=== PATIENT | female | born 1935 | race African-American/Black ===

== ENCOUNTER 2017-01-06 13:04 | Emergency (ER) | payer MEDICARE, OTHER ==
[~2017-01-06] VITALS: Ht 167.6 cm; Wt 125.0 kg
[~2017-01-06 13:04] MED LIST: HYDR10TA16 PO; IRON27TA PO; PRED5 PO; SERT25TA83 PO; THEO300T31 PO
[2017-01-06 13:10] VITALS: BP 113/59; PULSE 95; RESP 17; TEMP 97.8; O2SAT 97
[2017-01-06 13:13] VITALS: O2SAT 99
[2017-01-06] MEDS ORDERED: SODIUM CHLORIDE 0.9% FLUSH 10 ML FLUSH IVF PRN (13:15)
[2017-01-06] MEDS ORDERED: PROM12.54 PO (13:20)
[2017-01-06] MEDS ORDERED: PRED1TAB72 SL (13:20)
[2017-01-06] MEDS ORDERED: SERT25TA83 PO (13:20)
[2017-01-06] MEDS ORDERED: GLUC1CAP14 PO (13:20)
[2017-01-06] MEDS ORDERED: THEO300T30 PO (13:20)
[2017-01-06] MEDS ORDERED: OXYC1TAB63 PO (13:20)
[2017-01-06] MEDS ORDERED: ALPR0.5T3 PO (13:20)
[2017-01-06] MEDS ORDERED: FERR1TAB58 PO (13:20)
[2017-01-06] MEDS ORDERED: FURO1TAB62 PO (13:20)
--- NOTE | 2017-01-06 13:20 | PD ---
HPI Chief Complaint: Cardiac Complaint Time Seen by Provider: 13:15 Travel History International Travel<30 days: No Contact w/Intl Traveler<30days: No Traveled to known affect area: No History of Present Illness HPI 81-year-old female presents to the emergency department for evaluation of tachyarrhythmia that was found this morning by home health nurse. Apparently, her heart rate was found to be in the 170s by her home health nurse. According to EMS, she has been out of atrial fibrillation. The patient herself denies any complaints. She denies any history of atrial fibrillation or SVT. Patient denies any chest pain or shortness of breath. She denies any palpitations. No headache. No abdominal pain. No nausea, vomiting, diarrhea. She complains of chronic arthritic pain, but nothing else at this time. She does state that she takes iron pill, diuretic, and a "stress pill". According to chart, she is on theophylline for asthma as well. PFSH Past Medical History Medical History: Denies Significant Hx Diminished Hearing: No Past Surgical History Surgical History: No Previous Surgery Social History Alcohol Use: No Tobacco Use: No Substance Use: No Allergies-Medications (Allergen,Severity, Reaction): Coded Allergies: No Known Allergies (Unverified , 09/04/12) Reported Meds & Prescriptions Reported Meds & Active Scripts Active Reported Prednisolone Odt 10 Mg Tab 5 Mg SL DAILY Theophylline ER 12 HR (Theophylline) 300 Mg Tab 300 Mg PO DAILY Sertraline (Sertraline HCl) 25 Mg Tab 25 Mg PO DAILY Iron (Ferrous Sulfate) 50 Mg Tab 25 Mg PO DAILY Oxycodone-Acetaminophen 5-325 mg Tab 1 Tab PO BID PRN Glucosamine-Chondroitin 500-400 Mg Cap 1 Cap PO DAILY Alprazolam 0.5 Mg Tab 0.5 Mg PO BID PRN Promethazine (Promethazine HCl) 12.5 Mg Tab 12.5 Mg PO DAILY Lasix (Furosemide) 20 Mg Tab 20 Mg PO BID Review of Systems Except as stated in HPI: all other systems reviewed are Neg Physical Exam Narrative GENERAL: Well-nourished, well-developed elderly female patient, afebrile. SKIN: Focused skin assessment warm/dry. HEAD: Normocephalic. Atraumatic. EYES: No scleral icterus. No injection or drainage. NECK: Supple, trachea midline. No JVD or lymphadenopathy. CARDIOVASCULAR: Regular rate and rhythm without murmurs, gallops, or rubs. Bilateral radial and pedal pulses are 2+. During my physical exam, the patient did have 2 episodes where heart rate went into the 160s, that lasted approximately 30 seconds-1 minute and came back to a sinus rhythm, heart rate 80s. RESPIRATORY: Breath sounds equal bilaterally. No accessory muscle use. Lungs sounds are clear to auscultation GASTROINTESTINAL: Abdomen soft, non-tender, nondistended. MUSCULOSKELETAL: No cyanosis, or edema. BACK: Nontender without obvious deformity. No CVA tenderness. Data Data Last Documented VS Vital Signs Date Time Temp Pulse Resp B/P Pulse Ox O2 Delivery O2 Flow Rate FiO2 01/06/17 18:00 75 15 123/61 95 Room Air 01/06/17 13:10 97.8 Orders Electrocardiogram (01/06/17 13:14) Basic Metabolic Panel (Bmp) (01/06/17 13:14) Ckmb (Isoenzyme) Profile (01/06/17 13:14) Complete Blood Count With Diff (01/06/17 13:14) Magnesium (Mg) (01/06/17 13:14) Prothrombin Time / Inr (Pt) (01/06/17 13:14) Act Partial Throm Time (Ptt) (01/06/17 13:14) Troponin I (01/06/17 13:14) Chest, Single Ap (01/06/17 13:14) Ecg Monitoring (01/06/17 13:14) Bilateral Bp Monitoring (01/06/17 13:14) Iv Access Insert/Monitor (01/06/17 13:14) Oximetry (01/06/17 13:14) Oxygen Administration (01/06/17 13:14) Sodium Chloride 0.9% Flush (Ns Flush) (01/06/17 13:15) Diltiazem (Cardizem) (01/06/17 13:30) Theophylline (Aminophylline) (01/06/17 13:32) Potassium Chloride (Kcl) (01/06/17 14:15) Potassium Chlor 20 Meq Premix (Kcl 20 Me (01/06/17 14:15) Potassium Chloride (Kcl) (01/06/17 17:00) Potassium, Serum (K) (01/06/17 16:53) Labs Laboratory Tests Test 01/06/17 01/06/17 13:20 17:25 White Blood Count 9.7 TH/MM3 Red Blood Count 3.69 MIL/MM3 Hemoglobin 10.4 GM/DL Hematocrit 31.2 % Mean Corpuscular Volume 84.6 FL Mean Corpuscular Hemoglobin 28.3 PG Mean Corpuscular Hemoglobin 33.4 % Concent Red Cell Distribution Width 15.5 % Platelet Count 347 TH/MM3 Mean Platelet Volume 8.1 FL Neutrophils (%) (Auto) 71.9 % Lymphocytes (%) (Auto) 16.4 % Monocytes (%) (Auto) 9.3 % Eosinophils (%) (Auto) 1.4 % Basophils (%) (Auto) 1.0 % Neutrophils # (Auto) 7.0 TH/MM3 Lymphocytes # (Auto) 1.6 TH/MM3 Monocytes # (Auto) 0.9 TH/MM3 Eosinophils # (Auto) 0.1 TH/MM3 Basophils # (Auto) 0.1 TH/MM3 CBC Comment DIFF FINAL Differential Comment Prothrombin Time 11.4 SEC Prothromb Time International 1.0 RATIO Ratio Activated Partial 27.9 SEC Thromboplast Time Sodium Level 140 MEQ/L Potassium Level 2.8 MEQ/L 3.9 MEQ/L Chloride Level 103 MEQ/L Carbon Dioxide Level 27.1 MEQ/L Anion Gap 10 MEQ/L Blood Urea Nitrogen 19 MG/DL Creatinine 0.88 MG/DL Estimat Glomerular Filtration 75 ML/MIN Rate Random Glucose 116 MG/DL Calcium Level 8.1 MG/DL Magnesium Level 2.1 MG/DL Total Creatine Kinase 18 U/L Troponin I LESS THAN 0.02 NG/ML Theophylline Level LESS THAN 2.0 MCG/ML MDM Medical Decision Making Medical Screen Exam Complete: Yes Emergency Medical Condition: Yes Medical Record Reviewed: Yes Interpretation(s) Last Impressions Chest X-Ray 01/06/17 1314 Signed Impressions: Service Date/Time: Friday, January 06, 2017 13:39 - CONCLUSION: 1. No acute cardiopulmonary abnormality is identified. 2. Findings suggestive of chronic rotator cuff tears bilaterally. Joaquim Doyle MD Differential Diagnosis New-onset A. fib versus SVT versus ACS versus electrolyte abnormality Narrative Course 81-year-old elderly female presents to the emergency department via EMS for evaluation use onset atrial fibrillation. She has been in and out of atrial fibrillation. During my exam, she did have 2 episodes where her heart rate went into the 160s and quickly returned to sinus rhythm. Patient herself denies any complaints at this time. EKG, CBC, BMP, magnesium, CK, troponin, PTT , PTT/INR, chest x-ray ordered and pending. I did review EKG strip when HR elevated, it does appear to be SVT, not atrial fibrillation. No further episodes after the 2 that were witnessed during exam. EKG shows SR with supraventricular premature complexes, HR 87,no acute ST changes. CBC shows no acute abnormality. BMP shows hypokalemia at 2.8, no other acute abnormality. CK is 18. Troponin is less than 0.02. Magnesium is 2.1. Coags are unremarkable. Theophylline level is less than 2.0. Chest x- ray shows No acute cardiopulmonary abnormality is identified and findings suggestive of chronic rotator cuff tears bilaterally. Patient is given potassium 20meq IV and 40 meq PO. 2 hours later, patient was given another 20 meq potassium PO. Repeat potassium is 3.9 patient has not had any further tachyarrhythmias since first arriving in the emergency department. She has been watched for possibly 4 hours. The patient is stable for discharge home. She is to follow-up with her primary care physician. Patient verbalizes agreement. She is to return immediately for any worsening symptoms. The patient was discharged in stable condition with instructions, including return instructions and follow up instructions. Diagnosis Primary Impression: Hypokalemia Referrals: Primary Care Physician Patient Instructions: General Instructions, Hypokalemia (ED) Additional Instructions: Eat potassium rich foods. Follow up with your primary care physician. Return to the emergency department for any acute, worsening of symptoms. Med/Other Pt SpecificInfo: No Change to Meds Disposition: 01 DISCHARGE HOME Condition: Stable Nasra Cerrato JANNA January 06, 2017 13:20
[2017-01-06] MEDS ORDERED: DILTIAZEM HCL 60 MG TAB PO ONE (13:30)
[2017-01-06 13:37] LABS: BASOPHIL # 0.1 TH/MM3 (0-0.2); EOSINOPHIL # 0.1 TH/MM3 (0-0.4); EOSINOPHIL % 1.4 % (0.0-4.0); HEMATOCRIT 31.2 % (35.0-46.0); HEMO FLAGS DIFF FINAL; LYMPH % 16.4 % (9.0-44.0); LYMPHOCYTE # 1.6 TH/MM3 (1.0-4.8); MEAN CELL VOLUME 84.6 FL (80.0-100.0); MEAN CORPUSCULAR HEMOGLOBIN 28.3 PG (27.0-34.0); MEAN CORPUSCULAR HGB CONC 33.4 % (32.0-36.0); MONO % 9.3 % (0.0-8.0); NEUT % 71.9 % (16.0-70.0); PLATELET COUNT 347 TH/MM3 (150-450); RED BLOOD COUNT 3.69 MIL/MM3 (4.00-5.30); RED CELL DISTRIBUTION WIDTH 15.5 % (11.6-17.2); WHITE BLOOD COUNT 9.7 TH/MM3 (4.0-11.0)
[2017-01-06 13:44] LABS: APTT (PATIENT) 27.9 SEC (24.3-30.1); PROTHROMBIN TIME - PATIENT 11.4 SEC (9.8-11.6)
[2017-01-06 14:13] LABS: ANION GAP 10 MEQ/L (5-15); BICARBONATE 27.1 MEQ/L (21.0-32.0); BLOOD UREA NITROGEN 19 MG/DL (7-18); CHLORIDE 103 MEQ/L (98-107); GLOMERULAR FILTRATION RATE 75 ML/MIN (>89); MAGNESIUM 2.1 MG/DL (1.5-2.5); SODIUM (NA) 140 MEQ/L (136-145)
[2017-01-06 14:15] LABS: POTASSIUM 2.8 MEQ/L (3.5-5.1)
[2017-01-06] MEDS ORDERED: POTASSIUM CHLOR 20 MEQ PREMIX 100 ML IV ONE (14:15)
[2017-01-06] MEDS ORDERED: POTASSIUM CHLORIDE 20 MEQ CONTROLLED RELEASE TAB PO ONE ×2 (14:15→17:00)
[2017-01-06 14:22] LABS: CREATINE KINASE 18 U/L (26-192)
--- NOTE | 2017-01-06 14:29 | RADRPT ---
EXAM DATE/TIME: 01/06/2017 13:39 [facility] COMPARISON: No previous studies available for comparison. INDICATIONS : Rapid heart rate this morning, no chest pain or shortness of breath at this time MEDICAL HISTORY : None. SURGICAL HISTORY : None. ENCOUNTER: Initial ACUITY: 1 day PAIN SCORE: 0/10 LOCATION: Bilateral chest FINDINGS: Portable AP view of the chest demonstrates a normal-sized cardiac silhouette. No effusion, consolidat ion, or pneumothorax is visualized. The bones and soft tissues demonstrate no acute abnormality. Ther e is elevation of the humeral heads bilaterally. CONCLUSION: 1. No acute cardiopulmonary abnormality is identified. 2. Findings suggestive of chronic rotator cuff tears bilaterally. Joaquim Doyle MD on January 06, 2017 at 14:27 Board Certified Radiologist. This report was verified electronically.
[2017-01-06 18:00] VITALS: BP 123/61; PULSE 75; RESP 15; O2SAT 95
--- NOTE | 2017-01-07 15:18 | EKG ---
Date Performed: 01/06/2017 Time Performed: 13:33:36 PTAGE: 81 years EKG: Sinus rhythm WITH OCCASIONAL SUPRAVENTRICULAR PREMATURE COMPLEXES NONSPECIFIC T-WAVE ABNORMALITY BORDERLINE ECG C ompared to prior tracing no significant change PREVIOUS TRACING : 08/25/2012 09.36.42 DOCTOR: Gaston Rivera Interpretating Date/Time 01/09/2017 07:01:54
== END 2017-01-06 18:41 | disposition home or self-care (01) ==
LOC: NEPC 13:04
DX: E87.6 Hypokalemia (principal); Z87.09 Personal history of other diseases of the respiratory system; Z87.39 Personal history of other diseases of the musculoskeletal system and connective tissue
CPT/HCPCS: 71010; 80048; 80198; 82550; 83735; 84132; 84484; 85025; 85610; 85730; 93005; 96365; 96366; 99285; J3480

== ENCOUNTER 2017-06-09 13:07 | Inpatient (IN) | payer MEDICARE, OTHER ==
[~2017-06-09] VITALS: Ht 167.6 cm; Wt 91.3 kg
[2017-06-09] VITALS (8 sets, daily range): BP systolic 118–133; BP diastolic 61–80; PULSE 65–160; RESP 18–20; TEMP 97.2–98.1; O2SAT 97–100
[~2017-06-09 13:07] MED LIST changes: +ALPR0.5T3 PO; +FERR1TAB58 PO; +FURO1TAB62 PO; +GLUC1CAP14 PO; -HYDR10TA16 PO; -IRON27TA PO; +OXYC1TAB63 PO; +PRED1TAB72 SL; -PRED5 PO; +PROM12.54 PO; +THEO300T30 PO; -THEO300T31 PO
[2017-06-09] MEDS ORDERED: DILTIAZEM HCL 25 MG/5 ML VIAL IV ONE ×2 (14:00)
[2017-06-09] MEDS ORDERED: SODIUM CHLORID 0.9% 500 ML INJ 500 ML IV ONE (14:00)
[2017-06-09] MEDS ORDERED: SODIUM CHLORIDE 0.9% FLUSH 10 ML FLUSH IVF PRN (14:00)
[2017-06-09 14:14] LABS: AUTOMATED NEUTROPHIL # 4.7 TH/MM3 (1.8-7.7); BASOPHIL % 0.5 % (0.0-2.0); EOSINOPHIL # 0.3 TH/MM3 (0-0.4); EOSINOPHIL % 4.7 % (0.0-4.0); HEMATOCRIT 35.4 % (35.0-46.0); HEMO FLAGS DIFF FINAL; LYMPH % 20.9 % (9.0-44.0); LYMPHOCYTE # 1.5 TH/MM3 (1.0-4.8); MEAN CELL VOLUME 88.5 FL (80.0-100.0); MEAN CORPUSCULAR HEMOGLOBIN 28.9 PG (27.0-34.0); MEAN CORPUSCULAR HGB CONC 32.6 % (32.0-36.0); MONO % 10.6 % (0.0-8.0); NEUT % 63.3 % (16.0-70.0); PLATELET COUNT 321 TH/MM3 (150-450); RED CELL DISTRIBUTION WIDTH 15.3 % (11.6-17.2); WHITE BLOOD COUNT 7.4 TH/MM3 (4.0-11.0)
[2017-06-09 14:25] LABS: PROTHROMBIN TIME - PATIENT 10.8 SEC (9.8-11.6)
--- NOTE | 2017-06-09 14:25 | RADRPT ---
EXAM DATE/TIME: 06/09/2017 14:09 [facility] COMPARISON: CHEST SINGLE AP, January 06, 2017, 13:39. INDICATIONS : Palpitations. MEDICAL HISTORY : Asthma. SURGICAL HISTORY : None. ENCOUNTER: Initial ACUITY: 1 day PAIN SCORE: 0/10 LOCATION: Bilateral chest FINDINGS: A single view of the chest demonstrates the lungs to be symmetrically aerated without evidence of mas s, infiltrate or effusion. Mild elevation of the left hemidiaphragm. The cardiomediastinal contours are unremarkable. Remainder of exam is unchanged. CONCLUSION: 1. No acute abnormality or significant interval change. Kingston Fang MD on June 09, 2017 at 14:22 Board Certified Radiologist. This report was verified electronically.
[2017-06-09 14:32] LABS: ANION GAP 9 MEQ/L (5-15); BICARBONATE 24.7 MEQ/L (21.0-32.0); BLOOD UREA NITROGEN 25 MG/DL (7-18); CHLORIDE 102 MEQ/L (98-107); GLOMERULAR FILTRATION RATE 50 ML/MIN (>89); MAGNESIUM 2.6 MG/DL (1.5-2.5); POTASSIUM 3.7 MEQ/L (3.5-5.1); SODIUM (NA) 136 MEQ/L (136-145)
[2017-06-09 14:36] LABS: CREATINE KINASE 18 U/L (26-192)
--- NOTE | 2017-06-09 15:23 | PD ---
HPI Chief Complaint: Cardiac Complaint Time Seen by Provider: 13:53 Travel History International Travel<30 days: No Contact w/Intl Traveler<30days: No Traveled to known affect area: No History of Present Illness HPI The patient is 81 years old. Today she was incidentally found to have a heart rate of 160. She has no chest pain. There is no complaint of palpitations shortness breath diaphoresis nausea vomiting dizziness. The patient has no history of atrial fibrillation. Patient reports experiencing a normal day this morning eating food normally getting up and walking around her [facility] as she normally would and even resting as per normal. No recent illness. PFSH Past Medical History Arthritis: Yes Asthma: Yes Anxiety: Yes Depression: Yes Cancer: No Diminished Hearing: No Musculoskeletal: Yes Psychiatric: Yes Respiratory: Yes Tetanus Vaccination: Unknown Influenza Vaccination: No Past Surgical History Eye Surgery: Yes (CATARACTS EXTRACT SIMON.) Other Surgery: Yes Social History Alcohol Use: No Tobacco Use: No Substance Use: No Allergies-Medications (Allergen,Severity, Reaction): Coded Allergies: No Known Allergies (Unverified , 06/09/17) Reported Meds & Prescriptions Reported Meds & Active Scripts Active Reported Prednisolone Odt 10 Mg Tab 5 Mg SL DAILY Theophylline ER 12 HR (Theophylline) 300 Mg Tab 300 Mg PO DAILY Sertraline (Sertraline HCl) 25 Mg Tab 25 Mg PO DAILY Oxycodone-Acetaminophen 5-325 mg Tab 1 Tab PO BID PRN Promethazine (Promethazine HCl) 12.5 Mg Tab 12.5 Mg PO DAILY Review of Systems Except as stated in HPI: all other systems reviewed are Neg General / Constitutional: No: Fever Cardiovascular: Positive: Tachycardia, No: Chest Pain or Discomfort, Palpitations, Irregular Rhythm, Diaphoresis Physical Exam Narrative GENERAL: Well-nourished well-developed 81-year-old female pleasant SKIN: Warm and dry. HEAD: Atraumatic. Normocephalic. EYES: Pupils equal and round. No scleral icterus. No injection or drainage. ENT: No nasal bleeding or discharge. Mucous membranes pink and moist. NECK: Trachea midline. No JVD. CARDIOVASCULAR: Tachycardia. Regular. RESPIRATORY: No accessory muscle use. Clear to auscultation. Breath sounds equal bilaterally. GASTROINTESTINAL: Abdomen soft, non-tender, nondistended. Hepatic and splenic margins not palpable. MUSCULOSKELETAL: Extremities without clubbing, cyanosis, or edema. No obvious deformities. NEUROLOGICAL: Awake and alert. No obvious cranial nerve deficits. Motor grossly within normal limits. Five out of 5 muscle strength in the arms and legs. Normal speech. PSYCHIATRIC: Appropriate mood and affect; insight and judgment normal. Data Data Last Documented VS Vital Signs Date Time Temp Pulse Resp B/P (MAP) Pulse Ox O2 Delivery O2 Flow Rate FiO2 06/09/17 14:21 78 18 99 Room Air 06/09/17 14:21 118/61 (80) 06/09/17 13:40 98.1 vital signs reviewed Orders Orders Electrocardiogram (06/09/17 13:53) Basic Metabolic Panel (Bmp) (06/09/17 13:53) Ckmb (Isoenzyme) Profile (06/09/17 13:53) Complete Blood Count With Diff (06/09/17 13:53) Magnesium (Mg) (06/09/17 13:53) Prothrombin Time / Inr (Pt) (06/09/17 13:53) Act Partial Throm Time (Ptt) (06/09/17 13:53) Troponin I (06/09/17 13:53) Chest, Single Ap (06/09/17 13:53) Ecg Monitoring (06/09/17 13:53) Iv Access Insert/Monitor (06/09/17 13:53) Oximetry (06/09/17 13:53) Oxygen Administration (06/09/17 13:53) Sodium Chloride 0.9% Flush (Ns Flush) (06/09/17 14:00) Sodium Chlorid 0.9% 500 Ml Inj (Ns 500 M (06/09/17 14:00) Diltiazem Inj (Cardizem Inj) (06/09/17 14:00) Diltiazem Inj (Cardizem Inj) (06/09/17 14:00) Admit Order (Ed Use Only) (06/09/17 15:03) Labs Laboratory Tests Test 06/09/17 14:05 White Blood Count 7.4 TH/MM3 Red Blood Count 4.00 MIL/MM3 Hemoglobin 11.5 GM/DL Hematocrit 35.4 % Mean Corpuscular Volume 88.5 FL Mean Corpuscular Hemoglobin 28.9 PG Mean Corpuscular Hemoglobin Concent 32.6 % Red Cell Distribution Width 15.3 % Platelet Count 321 TH/MM3 Mean Platelet Volume 8.2 FL Neutrophils (%) (Auto) 63.3 % Lymphocytes (%) (Auto) 20.9 % Monocytes (%) (Auto) 10.6 % Eosinophils (%) (Auto) 4.7 % Basophils (%) (Auto) 0.5 % Neutrophils # (Auto) 4.7 TH/MM3 Lymphocytes # (Auto) 1.5 TH/MM3 Monocytes # (Auto) 0.8 TH/MM3 Eosinophils # (Auto) 0.3 TH/MM3 Basophils # (Auto) 0.0 TH/MM3 CBC Comment DIFF FINAL Differential Comment Prothrombin Time 10.8 SEC Prothromb Time International Ratio 1.0 RATIO Activated Partial Thromboplast Time 26.0 SEC Blood Urea Nitrogen 25 MG/DL Creatinine 1.25 MG/DL Random Glucose 126 MG/DL Calcium Level 9.0 MG/DL Magnesium Level 2.6 MG/DL Sodium Level 136 MEQ/L Potassium Level 3.7 MEQ/L Chloride Level 102 MEQ/L Carbon Dioxide Level 24.7 MEQ/L Anion Gap 9 MEQ/L Estimat Glomerular Filtration Rate 50 ML/MIN Total Creatine Kinase 18 U/L Troponin I LESS THAN 0.02 NG/ML MDM Medical Decision Making Medical Screen Exam Complete: Yes Emergency Medical Condition: Yes Medical Record Reviewed: Yes Differential Diagnosis NSTEMI, unstable angina, coronary vasospasm, PE, PTX, aortic dissection, pericarditis, myocarditis, endocarditis, PNA, esophageal disease, aneurysm, musculoskeletal etiologies, anxiety, cocaine/sympathomimetic abuse Narrative Course CBC & BMP Diagram 06/09/17 14:05 Calcium Level 9.0, Magnesium Level 2.6 H Troponin less than 0.02 EKG reveals atrial fibrillation with a rate of 160 Last 24 hours Impressions Chest X-Ray 06/09/17 1353 Signed Impressions: Service Date/Time: Friday, June 09, 2017 14:09 - CONCLUSION: 1. No acute abnormality or significant interval change. Kingston Fang MD Patient received 10 mg of diltiazem with good results. Patient's [id number] score is low risk approximately 3% risk of stroke annually. The patient will be admitted to the family medicine residency. d/w family medicine residents at 305pm Critical Care Narrative Aggregate critical care time was 35 minutes. Time to perform other separately billable procedures was not included in the critical care time. My time did not include minutes spent treating any other patients simultaneously or on activities that did not directly contribute to the patient's treatment. The services I provided to this patient were to treat and/or prevent clinically significant deterioration that could result in: Cardiopulmonary arrest I provided critical care services requiring my management, as noted below: Chart data review, documentation time, medication orders and management, vital sign assessments/reviewing monitor data, ordering and reviewing lab tests, ordering and interpreting/reviewing x-rays and diagnostic studies, care of the patient and discussion of the patient with the admitting physicians. Diagnosis Primary Impression: Atrial fibrillation with RVR Admitting Information Admitting Physician Requests: Observation Omar Kincaid MD Jun 09, 2017 15:23
--- NOTE | 2017-06-09 15:40 | HHI.HP ---
[facility] Service Family Medicine Primary Care Physician Anton Child M.D. Admission Diagnosis AFIB RVR Diagnoses: International Travel<30 Days: No Contact w/Intl Traveler<30days: No Known Affected Area: No History of Present Illness Patient is an 81 y/o F w/arthritis who presents from her [facility] with asymptomatic tachycardia. Patient states she was getting her vitals done in her [facility], and her heart rate was noted to increase to 170. However, she is asymptomatic: reports that today feels like just another day. States she took her usual medicines in the morning and ate her usual meal. Describes her schedule as a walk and physical therapy on Mondays and Wednesdays. No changes in lifestyle recently. Denies heart or liver conditions, no ID history. Endorses occasional palpitations but did not have any today. Denies lightheadedness, visual changes, or presyncope symptoms. Sees Doctor Ethan at [facility]. (Kelsey Romero MD R1) Review of Systems Constitutional: DENIES: Fever, Change in appetite Endocrine: DENIES: Polydipsia Eyes: DENIES: Blurred vision, Vision loss Ears, nose, mouth, throat: DENIES: Hearing loss, Throat pain Respiratory: DENIES: Cough, Shortness of breath Cardiovascular: DENIES: Chest pain, Palpitations Gastrointestinal: DENIES: Bloody stools, Constipation Genitourinary: DENIES: Urinary frequency, Urinary incontinence Musculoskeletal: COMPLAINS OF: Joint pain Integumentary: DENIES: Pruritus, Rash Immunologic/allergic: DENIES: Eczema Neurologic: DENIES: Headache, Localized weakness, Paresthesias Psychiatric: DENIES: Confusion (Kelsey Romero MD R1) Past Family Social History Past Medical History Arthritis - Takes oxycodone-acetaminophen Asthma - states she takes prednisone "to prevent it" Reports taking theophylline, describes it as "a water pill" Past Surgical History None (Kelsey Romero MD R1) Allergies: Coded Allergies: No Known Allergies (Unverified , 06/09/17) Family History Mom: age 75, breast cancer Dad: age 59, prostate cancer Social History No smoking hx No drinking, no drug use (Kelsey Romero MD R1) Physical Exam Vital Signs Vital Signs Date Time Temp Pulse Resp B/P (MAP) Pulse Ox O2 Delivery O2 Flow Rate FiO2 06/09/17 14:21 78 18 99 Room Air 06/09/17 14:21 82 18 118/61 (80) 98 Room Air 06/09/17 14:11 98 Room Air 06/09/17 14:11 79 18 118/61 (80) 98 Room Air 06/09/17 14:00 160 18 118/61 (80) 97 Room Air 06/09/17 13:40 98.1 157 20 119/80 (93) 97 Physical Exam GENERAL: This is a well-nourished, well-developed patient, in no apparent distress. SKIN: No rashes, ecchymoses or lesions. Cool and dry. HEAD: Atraumatic. Normocephalic. EYES: Pupils equal round and reactive. Extraocular motions intact. No scleral icterus. No injection or drainage. ENT: Throat without erythema, tonsillar hypertrophy or exudate. Uvula midline. Airway patent. NECK: Trachea midline. No JVD or lymphadenopathy. CARDIOVASCULAR: Regular rate and irregular rhythm without murmurs, gallops, or rubs. RESPIRATORY: Clear to auscultation. Breath sounds equal bilaterally. No wheezes , rales, or rhonchi. GASTROINTESTINAL: Abdomen soft, non-tender, nondistended. No hepato-splenomegaly , or palpable masses. No guarding. MUSCULOSKELETAL: Extremities without clubbing, cyanosis, or edema. Endorses calf tenderness. +Homans sign. NEUROLOGICAL: Awake and alert. Motor and sensory grossly within normal limits. Five out of 5 muscle strength in all muscle groups. Normal speech. Laboratory Laboratory Tests Test 06/09/17 14:05 White Blood Count 7.4 Red Blood Count 4.00 Hemoglobin 11.5 Hematocrit 35.4 Mean Corpuscular Volume 88.5 Mean Corpuscular Hemoglobin 28.9 Mean Corpuscular Hemoglobin Concent 32.6 Red Cell Distribution Width 15.3 Platelet Count 321 Mean Platelet Volume 8.2 Neutrophils (%) (Auto) 63.3 Lymphocytes (%) (Auto) 20.9 Monocytes (%) (Auto) 10.6 Eosinophils (%) (Auto) 4.7 Basophils (%) (Auto) 0.5 Neutrophils # (Auto) 4.7 Lymphocytes # (Auto) 1.5 Monocytes # (Auto) 0.8 Eosinophils # (Auto) 0.3 Basophils # (Auto) 0.0 CBC Comment DIFF FINAL Differential Comment Prothrombin Time 10.8 Prothromb Time International Ratio 1.0 Activated Partial Thromboplast Time 26.0 Blood Urea Nitrogen 25 Creatinine 1.25 Random Glucose 126 Calcium Level 9.0 Magnesium Level 2.6 Sodium Level 136 Potassium Level 3.7 Chloride Level 102 Carbon Dioxide Level 24.7 Anion Gap 9 Estimat Glomerular Filtration Rate 50 Total Creatine Kinase 18 Troponin I LESS THAN 0.02 (Kelsey Romero MD R1) Result Diagram: 06/09/17 1405 06/09/17 1405 Imaging Last 24 hours Impressions Chest X-Ray 06/09/17 1353 Signed Impressions: Service Date/Time: Friday, June 09, 2017 14:09 - CONCLUSION: 1. No acute abnormality or significant interval change. Kingston Fang MD (Kelsey Romero MD R1) Caprini VTE Risk Assessment Caprini VTE Risk Assessment: Mod/High Risk (score >= 2) Caprini Risk Assessment Model Point Value = 1 Point Value = 2 Point Value = 3 Point Value = 5 Age 41-60 Minor surgery BMI > 25 kg/m2 Swollen legs Varicose veins or History of unexplained or recurrent spontaneous Oral contraceptives or hormone replacement Sepsis (< 1 month) Serious lung disease, including pneumonia (< 1 month) Abnormal pulmonary function Acute myocardial infarction Congestive heart failure (< 1 month) History of inflammatory bowel disease Medical patient at bed rest Age 61-74 Arthroscopic surgery Major open surgery (> 45 min) Laparoscopic surgery (> 45 min) Malignancy Confined to bed (> 72 hours) Immobilizing plaster cast Central venous access Age >= 75 History of VTE Family history of VTE Factor V Leiden Prothrombin [id number] Lupus anticoagulant Anticardiolipin antibodies Elevated serum homocysteine Heparin-induced thrombocytopenia Other congenital or acquired thrombophilia Stroke (< 1 month) Elective arthroplasty Hip, pelvis, or leg fracture Acute spinal cord injury (< 1 month) Prophylaxis Regimen Total Risk Factor Score Risk Level Prophylaxis Regimen 0-1 Low Early ambulation 2 Moderate Order ONE of the following: *Sequential Compression Device (SCD) *Heparin 5000 units SQ BID 3-4 Higher Order ONE of the following medications: *Heparin 5000 units SQ TID *Enoxaparin/Lovenox 40 mg SQ daily (WT < 150 kg, CrCl > 30 mL/min) *Enoxaparin/Lovenox 30 mg SQ daily (WT < 150 kg, CrCl > 10-29 mL/min) *Enoxaparin/Lovenox 30 mg SQ BID (WT < 150 kg, CrCl > 30 mL/min) AND/OR *Sequential Compression Device (SCD) 5 or more Highest Order ONE of the following medications: *Heparin 5000 units SQ TID (Preferred with Epidurals) *Enoxaparin/Lovenox 40 mg SQ daily (WT < 150 kg, CrCl > 30 mL/min) *Enoxaparin/Lovenox 30 mg SQ daily (WT < 150 kg, CrCl > 10-29 mL/min) *Enoxaparin/Lovenox 30 mg SQ BID (WT < 150 kg, CrCl > 30 mL/min) AND *Sequential Compression Device (SCD) (Kelsey Romero MD R1) Assessment and Plan Assessment and Plan Patient is an 81 y/o F w/hx of arthritis presenting with Afib w/RVR. CHADSVASC score of 3, HASBLED of 1. Plan for ACS r/o and introducing anticoagulation, will defer to cardiology. Code Status FULL Discussed Condition With Dr. Baker (Kelsey Romero MD R1) Attending Attestation THIS CASE WAS DISCUSSED WITH THE RESIDENT PHYSICIANS. I HAVE REVIEWED THE RECORD AND AGREE WITH THE ABOVE NOTE AND PLAN OF CARE WAS DISCUSSED. I HAVE AUTHORIZED THE ORDER FOR ADMISSION TO AN IN-PATIENT STATUS. (Roberta Yoo MD) Problem List: (1) Atrial fibrillation with RVR ICD Codes: I48.91 - Unspecified atrial fibrillation Status: Acute Plan: New onset, seen on initial EKG. Tachy at 160 on admission, down to 77 with diltiazem x1. CHADSVASC of 3, plan to introduce anticoagulation -Diltiazem 120 PO daily starting tomorrow - cardio consulted -order echo 2D to assess for valvular disease/thrombus, TSH/T4, U/A - Heparin for DVT prophy (2) ADEBAYO (acute kidney injury) ICD Codes: N17.9 - Acute kidney failure, unspecified Status: Acute Plan: BUN/Cr = 25/1.25 on admission. Cr of .88 appears to be baseline. -IVF 130 mls/hr - monitor I/O (3) Bilateral calf pain ICD Codes: M79.661 - Pain in right lower leg; M79.662 - Pain in left lower leg Plan: New onset afib, bilateral calf pain -Order bilateral LE dopplers (4) Arthritis ICD Codes: M19.90 - Unspecified osteoarthritis, unspecified site Status: Chronic Plan: Takes oxycodone-acetaminophen 5-325 BID PRN for pain Will order norco PRN for pain 3-5 (5) History of asthma ICD Codes: Z87.09 - Personal history of other diseases of the respiratory system Status: Chronic Plan: albuterol inhaler PRN (6) FEN Plan: Fluids: IVF 130 mls/hr Electrolytes: none, as needed supp Nutrition: Heart healthy diet DVT prophy: Heparin GI prophy: none indicated (Kelsey Romero MD R1) Physician Certification 2 Midnight Certification Type: Admission for Inpatient Services Order for Inpatient Services The services are ordered in accordance with Medicare regulations or non- Medicare payer requirements, as applicable. In the case of services not specified as inpatient-only, they are appropriately provided as inpatient services in accordance with the 2-midnight benchmark. Estimated LOS (days): 2 2 days is the estimated time the patient will need to remain in the hospital, assuming treatment plan goals are met and no additional complications. Post-Hospital Plan: [facility] (Kelsey Romero MD R1) 2 Midnight Certification Type: Admission for Inpatient Services Post-Hospital Plan: [facility] (Roberta Yoo MD) Kelsey Romero MD R1 Jun 09, 2017 15:40 Roberta Yoo MD Jun 10, 2017 13:08
[2017-06-09] MEDS ORDERED: SENNOSIDES 8.6 MG TAB PO PRN (16:00)
[2017-06-09] MEDS ORDERED: ACETAMINOPHEN/HYDROcodone 325 MG/5 MG TAB PO PRN (16:00)
[2017-06-09] MEDS ORDERED: NALOXONE HCL 0.4 MG/ML AMP IV PUSH PRN (16:00)
[2017-06-09] MEDS ORDERED: BISACODYL 10 MG SUPP RECTAL PRN (16:00)
[2017-06-09] MEDS ORDERED: MAGNESIUM HYDROXIDE SUSP 30 ML CUP PO PRN (16:00)
[2017-06-09] MEDS ORDERED: LACTULOSE SYRUP 20 GM/30 ML CUP PO PRN (16:00)
[2017-06-09] MEDS: SODIUM CHLOR 0.9% 1000 ML INJ 1,000 ML IV SCH ×2 (16:18→22:57)
[2017-06-09 17:23] LABS: FREE T4 1.24 NG/DL (0.76-1.46)
[2017-06-09] MEDS ORDERED: HEPARIN SODIUM - SQ 10,000 UNITS/ML VIAL SQ SCH (18:00)
--- NOTE | 2017-06-09 18:05 | RADRPT ---
EXAM DATE/TIME: 06/09/2017 17:28 [facility] COMPARISON: No previous studies available for comparison. INDICATIONS : Bilateral leg pain. MEDICAL HISTORY : Arthritis. Asthma. Depression. Anxiety. SURGICAL HISTORY : Bilateral cataract surgery. ENCOUNTER: Initial ACUITY: 1 day PAIN SCORE: 2/10 LOCATION: Bilateral legs. TECHNIQUE: Venous ultrasound of the left and right leg was performed from the inguinal ligament to the proximal calf. Real-time, color Doppler and spectral tracing, compression and augmentation techniques were us ed. FINDINGS: RIGHT LEG: There is normal compressibility of the deep venous system from the inguinal region to the proximal ca lf. No echogenic clot is seen in the lumen of the common femoral, femoral, popliteal, and posterior tibial veins. There is a normal response of the venous system to proximal and distal augmentation an d respiration. LEFT LEG: There is normal compressibility of the deep venous system from the inguinal region to the proximal ca lf. No echogenic clot is seen in the lumen of the common femoral, femoral, popliteal, and posterior tibial veins. There is a normal response of the venous system to proximal and distal augmentation an d respiration. CONCLUSION: The study is negative for deep venous thrombosis bilateral lower extremity. Osmel Cantu MD on June 09, 2017 at 18:03 Board Certified Radiologist. This report was verified electronically.
[2017-06-09] MEDS: DOCUSATE SODIUM 50 MG/SENNA 8.6 MG TAB PO SCH (20:35)
[2017-06-09] MEDS: METOPROLOL TARTRATE 25 MG TAB PO SCH (20:35)
[2017-06-10] VITALS: BP 127/58; PULSE 58; RESP 16; TEMP 98; O2SAT 97
[2017-06-10 04:00] VITALS: BP 117/56; PULSE 58; RESP 20; TEMP 99; O2SAT 99
[2017-06-10] MEDS: SODIUM CHLOR 0.9% 1000 ML INJ 1,000 ML IV SCH ×2 (06:22→15:05)
--- NOTE | 2017-06-10 06:54 | MB ---
cc: DONTRELL ZENDEJAS DO DATE OF CONSULTATION 06/09/2017 REASON FOR CONSULTATION Arrhythmia HISTORY OF PRESENT ILLNESS Constance Posada is a pleasant 81-year-old female who presented to [facility] emergency room as a recommendation because her heart rate was noted to be greater than 150 at her assisted living facility. Apparently the patient was asymptomatic but her heart rate was noted to be around 170 and so they recommended she come to the emergency room. Upon presentation here, she had an EKG done which they felt was possibly atrial fibrillation and then she had an episode where her heart rate increased to 160 beats per minute. In talking to her about these episodes, she states that she has been totally asymptomatic with no chest pain, shortness of breath or palpitations. In seeing her, she is currently hemodynamically and electrically stable. PAST MEDICAL HISTORY 1. Arthritis 2. Asthma PAST SURGICAL HISTORY Denies ALLERGIES NO KNOWN DRUG ALLERGIES. MEDICATIONS 1. Promethazine 12.5 mg daily 2. Oxycodone/acetaminophen 5/325 b.i.d. as needed for pain. 3. Zoloft 25 mg daily 4. Prednisone 5 mg daily 5. Theophylline 300 mg daily FAMILY HISTORY Mother passed at the age of 75 from breast cancer. Father at the age of 59 from prostate cancer. SOCIAL HISTORY Denies smoking, alcohol or drug abuse. REVIEW OF SYSTEMS 14-systems were reviewed including osteopathic pertinent positives and negatives above otherwise negative. PHYSICAL EXAMINATION VITAL SIGNS: Temperature 98.1, heart rate 74, blood pressure 118/61, respirations 18, pulse ox 100% on room air. GENERAL: The patient appears well in no acute distress, alert awake and oriented x3. HEAD, EYES, EARS, NOSE, AND THROAT: Extraocular muscles intact. Mucous membranes moist. NECK: Supple. No JVD at 45 degrees. No carotid bruits heard bilaterally. Carotid upstroke is brisk in nature. HEART: Regular rate and rhythm. Positive first and second heart sounds with no murmurs, gallops or rubs. LUNGS: Clear to auscultation bilaterally. No wheezes, rales or rhonchi. ABDOMEN: Soft, nontender, nondistended. No organomegaly noted. EXTREMITIES: Show no clubbing, cyanosis or edema. Femoral and distal pulses intact bilaterally. NEUROLOGIC: No focal deficits. OSTEOPATHIC: Mild lordosis. No kyphoscoliosis or paraspinal tender points. LABORATORY FINDINGS Hemoglobin 11.5, hematocrit 35.4, platelets 321. Potassium 3.7, BUN 25, creatinine 1.25, troponin 0.02, TSH 1.75. IMPRESSIONS 1. 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 2. EKG read as atrial fibrillation which is actually normal sinus rhythm with PAC's. 3. Asthma 4. Arthritis RECOMMENDATIONS 1. Ms. Posada does not appear to have any episodes of atrial fibrillation at all. Would not plan on anticoagulating her. 2. 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 We will attempt to place her on a beta rosalio at a low dose to try to keep this controlled. 3. EKG was read as atrial fibrillation and appears to be sinus rhythm with PAC's. 4. We will have to watch her on telemetry as we start beta rosalio therapy to make sure that she does not get to bradycardic. 5. We will check a 2-D echo to look at her overall left ventricular function, cardiac structure and possible valvopathies. 6. If echo is normal and she appears to have no other dysrhythmias, then she can most likely be discharged home tomorrow. 7. I did asked that she follow up for consideration of a rhythm analysis with either a Holter monitor or event monitor to further evaluate any dysrhythmia she has. 8. Further recommendations will be made based on the hospital course. Thank you for allowing me to see Constance Posada. If there are any questions, please do not hesitate to call. Dontrell Zendejas DO VGP/DJL /6:11 PM /6:43 AM
[2017-06-10 07:22] LABS: BASOPHIL % 0.2 % (0.0-2.0); EOSINOPHIL # 0.5 TH/MM3 (0-0.4); EOSINOPHIL % 5.3 % (0.0-4.0); HEMATOCRIT 30.6 % (35.0-46.0); HEMO FLAGS DIFF FINAL; LYMPH % 24.9 % (9.0-44.0); LYMPHOCYTE # 2.2 TH/MM3 (1.0-4.8); MEAN CELL VOLUME 88.1 FL (80.0-100.0); MEAN CORPUSCULAR HEMOGLOBIN 28.6 PG (27.0-34.0); MEAN CORPUSCULAR HGB CONC 32.4 % (32.0-36.0); MONO % 12.6 % (0.0-8.0); PLATELET COUNT 315 TH/MM3 (150-450); RED BLOOD COUNT 3.47 MIL/MM3 (4.00-5.30); RED CELL DISTRIBUTION WIDTH 15.2 % (11.6-17.2); WHITE BLOOD COUNT 8.7 TH/MM3 (4.0-11.0)
[2017-06-10 07:46] LABS: AST (GOT) 10 U/L (15-37); CHLORIDE 106 MEQ/L (98-107); GLOMERULAR FILTRATION RATE 70 ML/MIN (>89); POTASSIUM 3.8 MEQ/L (3.5-5.1); SODIUM (NA) 140 MEQ/L (136-145)
[2017-06-10 07:49] LABS: ALKALINE PHOSPHATASE 88 U/L (45-117); ALT (GPT) 12 U/L (10-53); ANION GAP 7 MEQ/L (5-15); BICARBONATE 27.1 MEQ/L (21.0-32.0); BLOOD UREA NITROGEN 19 MG/DL (7-18); TOTAL BILIRUBIN ADULT 0.3 MG/DL (0.2-1.0)
[2017-06-10 08:00] VITALS: PULSE 60
[2017-06-10 08:04] VITALS: BP 115/54; PULSE 65; RESP 17; TEMP 98; O2SAT 99
[2017-06-10] MEDS: METOPROLOL TARTRATE 25 MG TAB PO SCH (08:59)
[2017-06-10] MEDS: DOCUSATE SODIUM 50 MG/SENNA 8.6 MG TAB PO SCH (08:59)
[2017-06-10] MEDS ORDERED: DILTIAZEM-CD 120 MG CAP ER PO SCH (09:00)
--- NOTE | 2017-06-10 12:01 | ECHRPT ---
Indication: A Fib/flutter CONCLUSIONS Normal left ventricular size. moderate mitral valve regurgitation. No aortic valve stenosis. No aortic valve regurgitation. aortic valve sclerosis There is mild tricuspid valve regurgitation. The estimated pulmonary arterial pressure is 45.6 mmHg. BP: / HR: Rhythm: MEASUREMENTS (Male / Female) Normal Values Technical Quality:Good 2D ECHO LV Diastolic Diameter PLAX 4.3 cm 4.2 - 5.9 / 3.9 - 5.3 cm LV Systolic Diameter PLAX 3.1 cm IVS Diastolic Thickness 0.9 cm 0.6 - 1.0 / 0.6 - 0.9 cm LVPW Diastolic Thickness 1.4 cm 0.6 - 1.0 / 0.6 - 0.9 cm LV Relative Wall Thickness 0.5 RV Internal Dim ED PLAX 2.8 cm M-MODE Aortic Root Diameter MM 3.3 cm LA Systolic Diameter MM 3.5 cm LA Ao Ratio MM 1.1 DOPPLER LV E' Lateral Velocity 12.9 cm/s LV E' Septal Velocity 7.6 cm/s TR Peak Velocity 298.5 cm/s TR Peak Gradient 35.6 mmHg Right Atrial Pressure 10.0 mmHg Pulmonary Artery Systolic Pressu 45.6 mmHg Right Ventricular Systolic Press 45.6 mmHg FINDINGS LEFT VENTRICLE The left ventricular systolic function is normal with an estimated ejection fraction in the range of 60-65%. Normal left ventricular size. RIGHT VENTRICLE Normal right ventricular size and systolic function. LEFT ATRIUM The left atrial size is normal. RIGHT ATRIUM The right atrial size is normal. ATRIAL SEPTUM Normal atrial septal thickness without atrial level shunting by limited color doppler interrogation. AORTA The aortic root and proximal ascending aorta are normal in size on limited imaging. MITRAL VALVE Structurally normal mitral valve. moderate mitral valve regurgitation. AORTIC VALVE Trileaflet aortic valve. No aortic valve stenosis. No aortic valve regurgitation. TRICUSPID VALVE Structurally normal tricuspid valve. There is mild tricuspid valve regurgitation. The estimated pulmonary arterial pressure is 45.6 mmHg. PULMONARY VALVE No pulmonary valve regurgitation or stenosis. VESSELS The inferior vena cava is normal in size. PERICARDIUM No pericardial effusion. Dharmesh Guzman MD, FACC, [facility] [place] (Electronically Signed) Final Date:10 June 2017 12:00
[2017-06-10 12:03] VITALS: BP 101/76; PULSE 53; RESP 18; TEMP 97.8; O2SAT 99
[2017-06-10 13:09] VITALS: O2SAT 99
[2017-06-10] MEDS ORDERED: METO25TA3 PO (14:04)
--- NOTE | 2017-06-10 14:04 | HHI.DCPOC ---
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 Avoid second hand smoke Call the 24-hour hour crisis hotline for domestic abuse at Marquise Taylor MD, R3 Jun 10, 2017 14:04
--- NOTE | 2017-06-10 14:06 | HHI.FPPN ---
Objective Vitals Vital Signs Date Time Temp Pulse Resp B/P (MAP) Pulse Ox O2 Delivery O2 Flow Rate FiO2 06/10/17 13:09 99 06/10/17 12:03 97.8 53 18 101/76 (84) 99 06/10/17 09:00 Room Air 06/10/17 08:04 98.0 65 17 115/54 (74) 99 06/10/17 04:00 99.0 58 20 117/56 (76) 99 06/10/17 00:00 Room Air 06/10/17 00:00 98.0 58 16 127/58 (81) 97 06/09/17 20:00 Room Air 06/09/17 20:00 68 06/09/17 20:00 97.2 65 20 129/70 (89) 100 06/09/17 17:30 97.9 70 20 133/62 (85) 98 06/09/17 16:13 74 18 118/61 (80) 100 Room Air 06/09/17 16:09 98 21 06/09/17 14:21 78 18 99 Room Air 06/09/17 14:21 82 18 118/61 (80) 98 Room Air 06/09/17 14:11 98 Room Air 06/09/17 14:11 79 18 118/61 (80) 98 Room Air I/O 06/09/17 06/09/17 06/09/17 06/10/17 06/10/17 06/10/17 07:00 15:00 23:00 07:00 15:00 23:00 Intake Total 240 ml 240 ml Balance 240 ml 240 ml Intake Oral 240 ml 240 ml # Voids 0 1 # Bowel Movements 0 Result Diagram: 06/10/17 0545 06/10/17 0545 A/P Assessment and Plan Patient is an 81 y/o F w/hx of arthritis presenting with Afib w/RVR. CHADSVASC score of 3, HASBLED of 1. Plan for ACS r/o and introducing anticoagulation, will defer to cardiology. Problem List: (1) Atrial fibrillation with RVR ICD Codes: I48.91 - Unspecified atrial fibrillation Status: Acute Plan: New onset, seen on initial EKG. Tachy at 160 on admission, down to 77 with diltiazem x1. CHADSVASC of 3, plan to introduce anticoagulation -Diltiazem 120 PO daily starting tomorrow - cardio consulted -order echo 2D to assess for valvular disease/thrombus, TSH/T4, U/A - Heparin for DVT prophy (2) ADEBAYO (acute kidney injury) ICD Codes: N17.9 - Acute kidney failure, unspecified Status: Acute Plan: BUN/Cr = 25/1.25 on admission. Cr of .88 appears to be baseline. -IVF 130 mls/hr - monitor I/O (3) Bilateral calf pain ICD Codes: M79.661 - Pain in right lower leg; M79.662 - Pain in left lower leg Plan: New onset afib, bilateral calf pain -Order bilateral LE dopplers (4) Arthritis ICD Codes: M19.90 - Unspecified osteoarthritis, unspecified site Status: Chronic Plan: Takes oxycodone-acetaminophen 5-325 BID PRN for pain Will order norco PRN for pain 3-5 (5) History of asthma ICD Codes: Z87.09 - Personal history of other diseases of the respiratory system Status: Chronic Plan: albuterol inhaler PRN (6) FEN Plan: Fluids: IVF 130 mls/hr Electrolytes: none, as needed supp Nutrition: Heart healthy diet DVT prophy: Heparin GI prophy: none indicated Marquise Taylor MD, R3 Jun 10, 2017 14:06
--- NOTE | 2017-06-10 14:08 | HHI.FPPN ---
Problem Problem List: (1) Tachycardia Subjective Subjective 81 year old woman that was noted to have elevated heart rate during routine vital assessement at her [facility] to 170 was sent to the ED for evaluation and was admitted for possible AFIB with RVR. Patient never had any symptoms regarding her fast heart rate, she has no known cardiac history. In the ED she did received Cardizem and her rate did normalize. Admission EKG was read as AFIB with RVR but on reveiw is likely AVNRT. Now that her rate is slowed, repeat EKG looks like sinus with PACs Patient was observed overnight with no events. She continues to be asymptomatic and cardiology has evaluated the patient as well. She denies palpitations, chest pain, SOB, GUPTA. Review of Systems negative Past Family Social History Past Medical History Arthritis Asthma Past Surgical History None Allergies: Coded Allergies: No Known Allergies (Unverified , 06/09/17) Family History Mom: age 75, breast cancer Dad: age 59, prostate cancer Social History No smoking hx No drinking, no drug use Lives in [facility] Objective Objective Last Impressions Chest X-Ray 06/09/17 1353 Signed Impressions: Service Date/Time: Friday, June 09, 2017 14:09 - CONCLUSION: 1. No acute abnormality or significant interval change. Kingston Fang MD Lower Extremity Ultrasound 06/09/17 0000 Signed Impressions: Service Date/Time: Friday, June 09, 2017 17:28 - CONCLUSION: The study is negative for deep venous thrombosis bilateral lower extremity. Osmel Cantu MD Laboratory Tests - Abnormals Test 06/09/17 14:05 06/10/17 05:45 Hemoglobin 11.5 GM/DL 9.9 GM/DL Monocytes (%) (Auto) 10.6 % 12.6 % Eosinophils (%) (Auto) 4.7 % 5.3 % Blood Urea Nitrogen 25 MG/DL 19 MG/DL Creatinine 1.25 MG/DL Random Glucose 126 MG/DL Magnesium Level 2.6 MG/DL Estimat Glomerular Filtration Rate 50 ML/MIN 70 ML/MIN Total Creatine Kinase 18 U/L Troponin I LESS THAN 0.02 NG/ML Red Blood Count 3.47 MIL/MM3 Hematocrit 30.6 % Monocytes # (Auto) 1.1 TH/MM3 Eosinophils # (Auto) 0.5 TH/MM3 Albumin 2.5 GM/DL Calcium Level 8.4 MG/DL Aspartate Amino Transf (AST/SGOT) 10 U/L Vital Signs 06/09/17 06/09/17 06/09/17 06/09/17 14:00 14:11 14:11 14:21 Pulse 160 79 82 Resp 18 18 18 B/P (MAP) 118/61 (80) 118/61 (80) 118/61 (80) Pulse Ox 97 98 98 98 O2 Delivery Room Air Room Air Room Air Room Air 06/09/17 06/09/17 06/09/17 06/09/17 14:21 16:09 16:13 17:30 Temp 97.9 Pulse 78 74 70 Resp 18 18 20 B/P (MAP) 118/61 (80) 133/62 (85) Pulse Ox 99 98 100 98 O2 Delivery Room Air Room Air FiO2 21 06/09/17 06/09/17 06/09/17 06/10/17 20:00 20:00 20:00 00:00 Temp 97.2 98.0 Pulse 65 68 58 Resp 20 16 B/P (MAP) 129/70 (89) 127/58 (81) Pulse Ox 100 97 O2 Delivery Room Air 06/10/17 06/10/17 06/10/17 06/10/17 00:00 04:00 08:04 09:00 Temp 99.0 98.0 Pulse 58 65 Resp 20 17 B/P (MAP) 117/56 (76) 115/54 (74) Pulse Ox 99 99 O2 Delivery Room Air Room Air 06/10/17 06/10/17 12:03 13:09 Temp 97.8 Pulse 53 Resp 18 B/P (MAP) 101/76 (84) Pulse Ox 99 99 Physical exam O. CONSTITUTIONAL/GEN: normally nourished, in NAD. EYES: conjunctiva normal, PERRLA, EOMI. ENT: Mouth and pharynx normal. NECK: thyroid midline, carotids symmetrical. LUNGS: clear A-P, respiratory effort is normal. CARDIOVASCULAR: bradycardic, regular with occasional extra beats GI/ABD: soft without masses, without organomegaly. : no CVA tenderness NEURO: No focal deficits. Gait is normal SKIN: color normal, no rashes noted. HEME/LYMPH: no bruising, petechia or significant adenopathy MUSC: back is normal in appearance. Extremities are normal in appearance. PSYCH/MENTAL STATUS: Alert and oriented x 3. 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 Improved/ resolved with Cardizem, thought to be AVNRT. Echo result is still pending but other workup has been negative thus far. Plan dc today on cardizem if echo ok and she continues to be asymptomatic and does not have any further events. Close fu with cards for further investigation as an outpatient PLAN PLAN Patient seen and dw the resident team - Dr. Baker, Dr. Felder, Dr. Romero, Dr. Brandon Yoo,Roberta Herrmann MD Jun 10, 2017 14:08
--- NOTE | 2017-06-10 19:32 | PD.CARD.PN ---
Subjective Subjective Remarks Patient was seen earlier No events overnight Telemetry showing normal sinus rhythm Objective Medications Current Medications Sodium Chloride (NS Flush) 2 ml UNSCH PRN IVF FLUSH AFTER USING IV ACCESS; Start 06/09/17 at 14:00; Stop 06/10/17 at 16:36; Status DC Sodium Chloride 500 ml @ 500 mls/hr ONCE ONCE IV Last administered on 14:26; Start 06/09/17 at 14:00; Stop 06/09/17 at 14:59; Status DC Diltiazem HCl (Cardizem Inj) 10 mg ONCE ONCE IV Last administered on 14:26; Start 06/09/17 at 14:00; Stop 06/09/17 at 14:01; Status DC Diltiazem HCl (Cardizem Inj) 10 mg ONCE ONCE IV ; Start 06/09/17 at 14:00; Stop 06/09/17 at 14:01; Status DC Heparin Sodium (Porcine) (Heparin Inj) 5,000 units Q12H SQ Last administered on 06/10/17 06:15; Start 06/09/17 at 18:00; Stop 06/10/17 at 16:36; Status DC Naloxone HCl (Narcan Inj) 0.4 mg UNSCH PRN IV PUSH SEE LABEL COMMENTS; Start 06/09/17 at 16:00; Stop 06/10/17 at 16:36; Status DC Senna/Docusate Sodium (Jovita-Colace) 1 tab BID PO Last administered on 08:59; Start 06/09/17 at 21:00; Stop 06/10/17 at 16:36; Status DC Magnesium Hydroxide (Milk Of Magnesia Liq) 30 ml Q12H PRN PO Mild constipation ; Start 06/09/17 at 16:00; Stop 06/10/17 at 16:36; Status DC Sennosides (Senokot) 17.2 mg Q12H PRN PO Moderate constipation; Start at 16:00; Stop 06/10/17 at 16:36; Status DC Bisacodyl (Dulcolax Supp) 10 mg DAILY PRN RECTAL SEVERE CONSITIPATION; Start 06/09/17 at 16:00; Stop 06/10/17 at 16:36; Status DC Lactulose (Lactulose Liq) 30 ml DAILY PRN PO SEVERE CONSITIPATION; Start 06/09 at 16:00; Stop 06/10/17 at 16:36; Status DC Diltiazem HCl (Cardizem Cd) 120 mg DAILY PO ; Start 06/10/17 at 09:00; Stop at 09:00; Status DC Acetaminophen/ Hydrocodone Bitart (Henry 5-325 Mg) 1 tab Q4H PRN PO PAIN SCALE 3 TO 5; Start 06/09/17 at 16:00; Stop 06/10/17 at 16:36; Status DC Sodium Chloride 1,000 ml @ 130 mls/hr Q7H42M IV Last administered on 06:22; Start 06/09/17 at 16:18; Stop 06/10/17 at 16:36; Status DC Metoprolol Tartrate (Lopressor) 25 mg Q12HR PO Last administered on 06/10/17 08:59; Start 06/09/17 at 21:00; Stop 06/10/17 at 16:36; Status DC Vital Signs / I&O Vital Signs Date Time Temp Pulse Resp B/P (MAP) Pulse Ox O2 Delivery O2 Flow Rate FiO2 06/10/17 13:09 99 06/10/17 12:03 97.8 53 18 101/76 (84) 99 06/10/17 09:00 Room Air 06/10/17 08:04 98.0 65 17 115/54 (74) 99 06/10/17 08:00 60 06/10/17 04:00 99.0 58 20 117/56 (76) 99 06/10/17 00:00 Room Air 06/10/17 00:00 98.0 58 16 127/58 (81) 97 06/09/17 20:00 Room Air 06/09/17 20:00 68 06/09/17 20:00 97.2 65 20 129/70 (89) 100 I/O 06/09/17 06/09/17 06/09/17 06/10/17 06/10/17 06/10/17 07:00 15:00 23:00 07:00 15:00 23:00 Intake Total 240 ml 240 ml Balance 240 ml 240 ml Intake Oral 240 ml 240 ml # Voids 0 1 # Bowel Movements 0 Physical Exam GENERAL: NAD, AAOx3 SKIN: Warm and dry. HEAD: Atraumatic. Normocephalic. EYES: Pupils equal and round. No scleral icterus. No injection or drainage. ENT: No nasal bleeding or discharge. Mucous membranes pink and moist. NECK: Trachea midline. No JVD. CARDIOVASCULAR: Regular rate and rhythm. RESPIRATORY: No accessory muscle use. Clear to auscultation. Breath sounds equal bilaterally. GASTROINTESTINAL: Abdomen soft, non-tender, nondistended. Hepatic and splenic margins not palpable. MUSCULOSKELETAL: Extremities without clubbing, cyanosis, or edema. No obvious deformities. NEUROLOGICAL: Awake and alert. No obvious cranial nerve deficits. Motor grossly within normal limits. Five out of 5 muscle strength in the arms and legs. Normal speech. PSYCHIATRIC: Appropriate mood and affect; insight and judgment normal. Laboratory Laboratory Tests Test 06/10/17 05:45 White Blood Count 8.7 TH/MM3 Red Blood Count 3.47 MIL/MM3 Hemoglobin 9.9 GM/DL Hematocrit 30.6 % Mean Corpuscular Volume 88.1 FL Mean Corpuscular Hemoglobin 28.6 PG Mean Corpuscular Hemoglobin Concent 32.4 % Red Cell Distribution Width 15.2 % Platelet Count 315 TH/MM3 Mean Platelet Volume 8.4 FL Neutrophils (%) (Auto) 57.0 % Lymphocytes (%) (Auto) 24.9 % Monocytes (%) (Auto) 12.6 % Eosinophils (%) (Auto) 5.3 % Basophils (%) (Auto) 0.2 % Neutrophils # (Auto) 5.0 TH/MM3 Lymphocytes # (Auto) 2.2 TH/MM3 Monocytes # (Auto) 1.1 TH/MM3 Eosinophils # (Auto) 0.5 TH/MM3 Basophils # (Auto) 0.0 TH/MM3 CBC Comment DIFF FINAL Differential Comment Blood Urea Nitrogen 19 MG/DL Creatinine 0.93 MG/DL Random Glucose 74 MG/DL Total Protein 7.0 GM/DL Albumin 2.5 GM/DL Calcium Level 8.4 MG/DL Alkaline Phosphatase 88 U/L Aspartate Amino Transf (AST/SGOT) 10 U/L Alanine Aminotransferase (ALT/SGPT) 12 U/L Total Bilirubin 0.3 MG/DL Sodium Level 140 MEQ/L Potassium Level 3.8 MEQ/L Chloride Level 106 MEQ/L Carbon Dioxide Level 27.1 MEQ/L Anion Gap 7 MEQ/L Estimat Glomerular Filtration Rate 70 ML/MIN Troponin I 0.02 NG/ML Assessment and Plan Problem List: (1) Tachycardia ICD Codes: R00.0 - Tachycardia, unspecified (2) 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
--- NOTE | 2017-06-11 07:55 | EKG ---
Date Performed: 06/09/2017 Time Performed: 14:12:33 PTAGE: 81 years EKG: SINUS TACHYCARDIA BORDERLINE LEFT AXIS DEVIATION LOW QRS VOLTAGE IN PRECORDIAL LEADS MINIMA L VOLTAGE CRITERIA FOR LVH, CONSIDER NORMAL VARIANT NONSPECIFIC ST & T-WAVE ABNORMALITY ABNORMAL RHYT ECG Compared to PREVIOUS TRACING , sinus tachycardia is new. PREVIOUS TRACIN01/06/2017 13.33 DOCTOR: Dharmesh Guzman Interpretating Date/Time 06/11/2017 07:53:36
--- NOTE | 2017-06-11 07:55 | EKG ---
Date Performed: 06/09/2017 Time Performed: 14:15:44 PTAGE: 81 years EKG: NORMAL Sinus rhythm WTIH PACs LOW QRS VOLTAGE IN PRECORDIAL LEADS ABNORMAL RHYTHM ECG Compared to PREVIOUS TRACING , ST-T wave changes have resolved. PREVIOUS TRACIN06/09/2017 14.12 DOCTOR: Dharmesh Guzman Interpretating Date/Time 06/11/2017 07:54:10
== END 2017-06-10 16:36 | disposition home or self-care (01) | DRG 309 ==
LOC: NEPC 13:07 → NEDA 15:05 → OBSVTOIN 16:00 → N04A 17:51
PROVIDERS: ADMIT Family Medicine; ATTEND Family Medicine
DX: I47.1 Supraventricular tachycardia (principal); N17.9 Acute kidney failure, unspecified; F32.9 Major depressive disorder, single episode, unspecified; F41.9 Anxiety disorder, unspecified; J45.909 Unspecified asthma, uncomplicated; M19.90 Unspecified osteoarthritis, unspecified site; Z80.3 Family history of malignant neoplasm of breast
CPT/HCPCS: 71010; 80048; 80053; 82272; 82550; 83735; 84439; 84443; 84484; 85025; 85610; 85730; 93005; 93306; 93970; J1644; J7030; J7040

== ENCOUNTER 2017-06-12 12:48 | Inpatient (IN) | payer MEDICARE, OTHER ==
[2017-06-12] VITALS (7 sets, daily range): BP systolic 104–129; BP diastolic 55–78; PULSE 64–122; RESP 16–20; TEMP 97.5–98.2; O2SAT 96–99
[~2017-06-12] VITALS: Ht 167.6 cm; Wt 89.7 kg
[~2017-06-12 12:48] MED LIST changes: -ALPR0.5T3 PO; -FERR1TAB58 PO; -FURO1TAB62 PO; -GLUC1CAP14 PO; +METO25TA3 PO
[2017-06-12] MEDS ORDERED: SODIUM CHLORIDE 0.9% FLUSH 10 ML FLUSH IVF PRN (13:15)
[2017-06-12] MEDS ORDERED: METOPROLOL TARTRATE 25 MG TAB PO ONE ×2 (13:15→13:30)
[2017-06-12] MEDS ORDERED: PILL SPLITTER OTHER PRN (13:45)
[2017-06-12 13:50] LABS: AUTOMATED NEUTROPHIL # 3.3 TH/MM3 (1.8-7.7); BASOPHIL # 0.1 TH/MM3 (0-0.2); BASOPHIL % 0.6 % (0.0-2.0); EOSINOPHIL # 0.7 TH/MM3 (0-0.4); EOSINOPHIL % 8.2 % (0.0-4.0); HEMATOCRIT 29.3 % (35.0-46.0); HEMO FLAGS DIFF FINAL; LYMPH % 40.3 % (9.0-44.0); LYMPHOCYTE # 3.3 TH/MM3 (1.0-4.8); MEAN CORPUSCULAR HEMOGLOBIN 28.5 PG (27.0-34.0); MEAN CORPUSCULAR HGB CONC 32.1 % (32.0-36.0); MONO % 10.4 % (0.0-8.0); NEUT % 40.5 % (16.0-70.0); PLATELET COUNT 305 TH/MM3 (150-450); RED BLOOD COUNT 3.29 MIL/MM3 (4.00-5.30); RED CELL DISTRIBUTION WIDTH 15.4 % (11.6-17.2); WHITE BLOOD COUNT 8.1 TH/MM3 (4.0-11.0)
--- NOTE | 2017-06-12 14:04 | PD ---
HPI Chief Complaint: Cardiac Complaint Time Seen by Provider: 13:14 Travel History International Travel<30 days: No Contact w/Intl Traveler<30days: No Traveled to known affect area: No History of Present Illness HPI This is a 81-year-old female with a history of A. fib, who was just discharged 2 days ago after being admitted for paroxysmal atrial fibrillation. The patient states she was started on Lopressor 25 mg twice a day. She states the home health nurse came to her house and noted her heart rate to be in the 30s and 40s. They told her to stop her Lopressor. She states that today when they came by her heart rate was back in the 40s. When she arrives here she has a wide range of heart rate in the 40s to the 120s. She denies any chest pain, chest pressure. She denies any shortness of breath or dizziness. There are no other complaints time my examination. PFSH Past Medical History Arthritis: Yes Asthma: Yes Atrial Fibrillation: Yes Anxiety: Yes Depression: Yes Cancer: No Cardiovascular Problems: No Diminished Hearing: No Endocrine: No Genitourinary: No Immune Disorder: No Musculoskeletal: Yes Neurologic: No Psychiatric: Yes Reproductive: No Respiratory: Yes Past Surgical History Surgical History: No Previous Surgery Eye Surgery: Yes (CATARACTS EXTRACT SIMON.) Other Surgery: Yes Social History Alcohol Use: No Tobacco Use: No Substance Use: No Allergies-Medications (Allergen,Severity, Reaction): Coded Allergies: No Known Allergies (Unverified , 06/09/17) Reported Meds & Prescriptions Reported Meds & Active Scripts Active Metoprolol Tartrate 25 Mg Tab 25 Mg PO Q12HR Reported Prednisolone Odt 10 Mg Tab 5 Mg SL DAILY Theophylline ER 12 HR (Theophylline) 300 Mg Tab 300 Mg PO DAILY Sertraline (Sertraline HCl) 25 Mg Tab 25 Mg PO DAILY Oxycodone-Acetaminophen 5-325 mg Tab 1 Tab PO BID PRN Promethazine (Promethazine HCl) 12.5 Mg Tab 12.5 Mg PO DAILY Review of Systems Except as stated in HPI: all other systems reviewed are Neg General / Constitutional: No: Fever, Chills HENT: No: Headaches, Lightheadedness Cardiovascular: Positive: Palpitations, Irregular Rhythm, No: Chest Pain or Discomfort Respiratory: No: Cough, Shortness of Breath Gastrointestinal: No: Nausea, Vomiting Genitourinary: No: Frequency, Dysuria Musculoskeletal: No: Weakness, Pain Neurologic: No: Weakness, Dizziness Physical Exam Narrative GENERAL: Well developed well-nourished female in no acute respiratory distress. SKIN: Focused skin assessment warm/dry. HEAD: Atraumatic. Normocephalic. EYES: Pupils equal and round. No scleral icterus. No injection or drainage. ENT: No nasal bleeding or discharge. NECK: Trachea midline. Supple. CARDIOVASCULAR: Patient has an irregular heartbeat followed by a regular tachycardia. His heart rate goes from the low mid 40s to the 120s. RESPIRATORY: No accessory muscle use. Clear to auscultation. Breath sounds equal bilaterally. GASTROINTESTINAL: Abdomen soft, non-tender, nondistended. MUSCULOSKELETAL: No obvious deformities. No clubbing. No cyanosis. No edema. NEUROLOGICAL: Awake and alert. No obvious cranial nerve deficits. Motor grossly within normal limits. Normal speech. PSYCHIATRIC: Appropriate mood and affect; insight and judgment normal. Data Data Last Documented VS Vital Signs Date Time Temp Pulse Resp B/P (MAP) Pulse Ox O2 Delivery O2 Flow Rate FiO2 06/12/17 13:36 96 Room Air 06/12/17 12:58 83 18 06/12/17 12:53 97.5 120/75 (90) Orders Orders Basic Metabolic Panel (Bmp) (06/12/17 13:14) Ckmb (Isoenzyme) Profile (06/12/17 13:14) Complete Blood Count With Diff (06/12/17 13:14) Troponin I (06/12/17 13:14) Chest, Single Ap (06/12/17 13:14) Ecg Monitoring (06/12/17 13:14) Bilateral Bp Monitoring (06/12/17 13:14) Iv Access Insert/Monitor (06/12/17 13:14) Oximetry (06/12/17 13:14) Oxygen Administration (06/12/17 13:14) Sodium Chloride 0.9% Flush (Ns Flush) (06/12/17 13:15) Metoprolol Tartrate (Lopressor) (06/12/17 13:30) Admit To Inpatient (06/12/17 ) Code Status (06/12/17 15:06) Vital Signs (Adult) Q4H (06/12/17 15:06) Activity Oob With Assistance (06/12/17 15:06) Script Developer / Telemetry .CONTINUOUS (06/12/17 15:06) Intake + Output AVRIL.QSHIFT (06/12/17 15:06) Notify Dr: Other (06/12/17 15:06) Diet Heart Healthy (06/12/17 Dinner) Sodium Chloride 0.9% Flush (Ns Flush) (06/12/17 15:15) Sodium Chloride 0.9% Flush (Ns Flush) (06/12/17 21:00) Acetaminophen (Tylenol) (06/12/17 15:15) Ondansetron Inj (Zofran Inj) (06/12/17 15:15) Comprehensive Metabolic Panel (06/13/17 06:00) Complete Blood Count With Diff (06/13/17 06:00) Pt Request For Service (06/12/17 15:06) Case Management Consult (06/12/17 15:06) Naloxone Inj (Narcan Inj) (06/12/17 15:15) Docusate Sodium-Senna (Jovita-Colace) (06/12/17 21:00) Magnesium Hydroxide Liq (Milk Of Magnesi (06/12/17 15:15) Sennosides (Senokot) (06/12/17 15:15) Bisacodyl Supp (Dulcolax Supp) (06/12/17 15:15) Lactulose Liq (Lactulose Liq) (06/12/17 15:15) Inpatient Certification (06/12/17 ) Admit Order (Ed Use Only) (06/12/17 15:05) Labs Laboratory Tests Test 06/12/17 13:29 White Blood Count 8.1 TH/MM3 Red Blood Count 3.29 MIL/MM3 Hemoglobin 9.4 GM/DL Hematocrit 29.3 % Mean Corpuscular Volume 89.0 FL Mean Corpuscular Hemoglobin 28.5 PG Mean Corpuscular Hemoglobin Concent 32.1 % Red Cell Distribution Width 15.4 % Platelet Count 305 TH/MM3 Mean Platelet Volume 8.8 FL Neutrophils (%) (Auto) 40.5 % Lymphocytes (%) (Auto) 40.3 % Monocytes (%) (Auto) 10.4 % Eosinophils (%) (Auto) 8.2 % Basophils (%) (Auto) 0.6 % Neutrophils # (Auto) 3.3 TH/MM3 Lymphocytes # (Auto) 3.3 TH/MM3 Monocytes # (Auto) 0.9 TH/MM3 Eosinophils # (Auto) 0.7 TH/MM3 Basophils # (Auto) 0.1 TH/MM3 CBC Comment DIFF FINAL Differential Comment Blood Urea Nitrogen 14 MG/DL Creatinine 0.82 MG/DL Random Glucose 70 MG/DL Calcium Level 8.4 MG/DL Sodium Level 138 MEQ/L Potassium Level 4.3 MEQ/L Chloride Level 107 MEQ/L Carbon Dioxide Level 22.6 MEQ/L Anion Gap 8 MEQ/L Estimat Glomerular Filtration Rate 81 ML/MIN Total Creatine Kinase 68 U/L Troponin I LESS THAN 0.02 NG/ML MDM Medical Decision Making Medical Screen Exam Complete: Yes Emergency Medical Condition: Yes Differential Diagnosis Paroxysmal atrial fibrillation versus sinus tachycardia versus sinus bradycardia Narrative Course 81-year-old female presents with complaints of bradycardia. The patient was seen by her home health nurse and found to have a heart rate in the 40s. He was reportedly in the 30s yesterday. The patient here had sinus tachycardia and 120. She's been bounced around between the 40s and low 100s. Given this, I feel she should be admitted and have cardiology re-see her. The concern here is that the beta blockers that she was prescribed may be dropping her heart rate to 2 low. Diagnosis Primary Impression: Paroxysmal atrial fibrillation Additional Impression: Tachycardia Admitting Information Admitting Physician Requests: Observation Tenzin Carl MD Jun 12, 2017 14:04
[2017-06-12 14:31] LABS: ANION GAP 8 MEQ/L (5-15); BICARBONATE 22.6 MEQ/L (21.0-32.0); BLOOD UREA NITROGEN 14 MG/DL (7-18); CHLORIDE 107 MEQ/L (98-107); GLOMERULAR FILTRATION RATE 81 ML/MIN (>89); SODIUM (NA) 138 MEQ/L (136-145)
[2017-06-12 14:32] LABS: POTASSIUM 4.3 MEQ/L (3.5-5.1)
[2017-06-12 14:33] LABS: CREATINE KINASE 68 U/L (26-192)
--- NOTE | 2017-06-12 14:42 | RADRPT ---
EXAM DATE/TIME: 06/12/2017 13:50 [facility] COMPARISON: CHEST SINGLE AP, June 09, 2017, 14:09. INDICATIONS : Chest pain. MEDICAL HISTORY : Asthma. SURGICAL HISTORY : None. ENCOUNTER: Initial ACUITY: 1 week PAIN SCORE: 0/10 LOCATION: Bilateral chest FINDINGS: A single view of the chest demonstrates the lungs to be symmetrically aerated without evidence of mas s, infiltrate or effusion. The cardiomediastinal contours are stable with mild tortuosity of the adeola cending thoracic aorta. Stable elevation or eventration of the left hemidiaphragm. Osseous structur es are intact. CONCLUSION: The lungs are clear. Osmel Cantu MD on June 12, 2017 at 14:40 Board Certified Radiologist. This report was verified electronically.
[2017-06-12] MEDS ORDERED: SENNOSIDES 8.6 MG TAB PO PRN (15:15)
[2017-06-12] MEDS ORDERED: MAGNESIUM HYDROXIDE SUSP 30 ML CUP PO PRN (15:15)
[2017-06-12] MEDS ORDERED: LACTULOSE SYRUP 20 GM/30 ML CUP PO PRN (15:15)
[2017-06-12] MEDS ORDERED: ONDANSETRON HCL 4 MG/2 ML VIAL IVP PRN (15:15)
[2017-06-12] MEDS ORDERED: NALOXONE HCL 0.4 MG/ML AMP IV PUSH PRN (15:15)
[2017-06-12] MEDS ORDERED: BISACODYL 10 MG SUPP RECTAL PRN (15:15)
[2017-06-12] MEDS ORDERED: SODIUM CHLORIDE 0.9% FLUSH 10 ML FLUSH IV FLUSH PRN (15:15)
[2017-06-12] MEDS ORDERED: ACETAMINOPHEN 325 MG TAB PO PRN (15:15)
--- NOTE | 2017-06-12 15:26 | HHI.HP ---
[facility] Service Family Medicine Primary Care Physician Anton Child M.D. Admission Diagnosis paroxysmal atrial fibrillation, Diagnoses: International Travel<30 Days: No Contact w/Intl Traveler<30days: No History of Present Illness Patient is an 81 year old asymptomatic female with history of arthritis and asthma who presents for further workup of asymptomatic bradycardia. She is totally asymptomatic and was sent in due to abnormal vital signs during home health assessment. She is noted to have had bradycardia in the 30s range with reported tachycardia in the 120s as well. She is noted to be on metoprolol 25 mg twice daily with last dose yesterday due to home health nurse holding it due to bradycardia. ED evaluation is notable for labile heart rate ranging from 40s to 140s. She is asymptomatic throughout this range. She denies chest pain, shortness of breath, nausea, vomiting, diaphoresis, headache, blurry vision, lower extremity swelling, imbalance and dizziness. Of note, patient was evaluated and admitted for observation on 06/09 for the same reason. She was also asymptomatic then. She was discharged after unremarkable workup and cardiology was consulted at that time. Of note, she had sinus tachycardia in the 110s which resolved spontaneously during my evaluation. It is also notable that patient had sinus tachycardia in the ED which initially was initially to be treated with metoprolol but this was not administered. (Marissa Almonte MD R2) Review of Systems Constitutional: DENIES: Diaphoretic episodes, Fever, Chills, Dizziness, Change in appetite Eyes: DENIES: Blurred vision, Diplopia Ears, nose, mouth, throat: DENIES: Tinnitus, Hearing loss, Oral lesions, Running Nose Respiratory: DENIES: Cough, Wheezing, Shortness of breath Cardiovascular: DENIES: Chest pain, Palpitations, Lower Extremity Edema, Orthopnea Gastrointestinal: DENIES: Abdominal pain, Black stools, Bloody stools, Constipation, Diarrhea, Nausea, Vomiting Genitourinary: DENIES: Abnormal vaginal bleeding, Urinary frequency, Urgency, Dysuria Musculoskeletal: DENIES: Joint pain, Muscle aches Integumentary: DENIES: Pruritus, Rash Hematologic/lymphatic: DENIES: Bruising, Lymphadenopathy Neurologic: COMPLAINS OF: Poor Balance, DENIES: Headache Psychiatric: DENIES: Anxiety, Depression (Marissa Almonte MD R2) Past Family Social History Past Medical History Arthritis Abnormal heart rhythm 06/09 Past Surgical History None Reported Medications Reported Meds & Active Scripts Active Metoprolol Tartrate 25 Mg Tab 25 Mg PO Q12HR Reported -J-q-s-t-d-u-k-t-i-o-n-e- -O-d-t- -1-0- -M-g- -T-a-b- -5- -M-g- -S-L- -D-A-I-L-Y- Theophylline ER 12 HR (Theophylline) 300 Mg Tab 300 Mg PO DAILY -V-m-e-x-o-l-l-i-n-e- -(--W-t-l-b-j-l-l-i-n-e- -H-C-l--)- -2-5- -M-g- -T-a-b- -2-5- -M-g- -P-O- -D-A-I-L-Y- Oxycodone-Acetaminophen 5-325 mg Tab 1 Tab PO BID PRN -W-q-q-x-z-u-d-l-o-i-n-e- -(--E-v-c-e-s-g-j-x-a-i-n-e- -H-C-l--)- -1-2-.-5- -M-g- -T-a-b- -1-2-.-5- -M-g- -P-O- -D-A-I-L-Y- IRON PILL BID (Marissa Almonte MD R2) Allergies: Coded Allergies: No Known Allergies (Unverified , 06/09/17) Active Ordered Medications Last Impressions Chest X-Ray 06/12/17 1314 Signed Impressions: Service Date/Time: May 13:50 - CONCLUSION: The lungs are clear. Osmel Cantu MD Family History Mother: age 75 from breast cancer Father: age 59 from prostate cancer Daughter: from OR age 20s Sun: from throat and lung cancer Social History Lives independently Sons and daughters help take care of here at home Uses a walker for ambulation Denies alcohol, tobacco, illicit drug use Full code and understands that her next of kin (3 children) would make decisions for her Daughter 1: info not obtained Daughter 2: Jess Loaiza, Son: Alexey Juárez, (Marissa Almonte MD R2) Physical Exam Vital Signs Vital Signs Date Time Temp Pulse Resp B/P (MAP) Pulse Ox O2 Delivery O2 Flow Rate FiO2 06/12/17 13:36 96 Room Air 06/12/17 13:36 96 Room Air 06/12/17 12:58 83 18 98 Room Air 06/12/17 12:53 97.5 85 18 120/75 (90) 96 Physical Exam GENERAL: Well-nourished, well-developed elderly black female in no apparent distress. She is lying comfortably in bed. SKIN: Warm and dry. The lower extremities are notable for significant hyperpigmentation bilaterally with right leg worse than left, chronic, with noted skin thickening associated with hyperpigmentation. There is no pain or warmth over the areas of likely chronic venous insufficiency HEAD: Atraumatic. Normocephalic. EYES: PERRLA. EOMI. No scleral icterus. No injection or drainage. ENT: No nasal bleeding or discharge. Mucous membranes pink and moist. No lymphadenopathy cervically. Tympanic membranes bilaterally translucent, nonbulging, nonerythematous. NECK: Trachea midline. No JVD. CARDIOVASCULAR: Regular rate and rhythm. Rate 80s during physical exam. There are no murmurs, gallops, rubs. RESPIRATORY: No accessory muscle use. Clear to auscultation without wheezes or rhonchi. Breath sounds equal bilaterally. GASTROINTESTINAL: Abdomen soft, non-tender, nondistended. Hepatic and splenic margins not palpable. MUSCULOSKELETAL: Extremities without clubbing, cyanosis, or edema. No obvious deformities. NEUROLOGICAL: Awake and alert. Cranial nerves II through XII intact. Sensory function and lower extremities intact. Motor grossly within normal limits. Patient has full muscle strength in her lower extremities bilaterally. Normal speech. PSYCHIATRIC: Appropriate mood and affect; insight and judgment normal. Laboratory Laboratory Tests Test 06/12/17 13:29 White Blood Count 8.1 Red Blood Count 3.29 Hemoglobin 9.4 Hematocrit 29.3 Mean Corpuscular Volume 89.0 Mean Corpuscular Hemoglobin 28.5 Mean Corpuscular Hemoglobin Concent 32.1 Red Cell Distribution Width 15.4 Platelet Count 305 Mean Platelet Volume 8.8 Neutrophils (%) (Auto) 40.5 Lymphocytes (%) (Auto) 40.3 Monocytes (%) (Auto) 10.4 Eosinophils (%) (Auto) 8.2 Basophils (%) (Auto) 0.6 Neutrophils # (Auto) 3.3 Lymphocytes # (Auto) 3.3 Monocytes # (Auto) 0.9 Eosinophils # (Auto) 0.7 Basophils # (Auto) 0.1 CBC Comment DIFF FINAL Differential Comment Blood Urea Nitrogen 14 Creatinine 0.82 Random Glucose 70 Calcium Level 8.4 Sodium Level 138 Potassium Level 4.3 Chloride Level 107 Carbon Dioxide Level 22.6 Anion Gap 8 Estimat Glomerular Filtration Rate 81 Total Creatine Kinase 68 Troponin I LESS THAN 0.02 (Marissa Almonte MD R2) Result Diagram: 06/12/17 1329 06/12/17 1329 Imaging Last Impressions Chest X-Ray 06/12/17 1314 Signed Impressions: Service Date/Time: May 13:50 - CONCLUSION: The lungs are clear. Osmel Cantu MD (Marissa Almonte MD R2) Caprini VTE Risk Assessment Caprini VTE Risk Assessment: Mod/High Risk (score >= 2) Caprini Risk Assessment Model Point Value = 1 Point Value = 2 Point Value = 3 Point Value = 5 Age 41-60 Minor surgery BMI > 25 kg/m2 Swollen legs Varicose veins or History of unexplained or recurrent spontaneous Oral contraceptives or hormone replacement Sepsis (< 1 month) Serious lung disease, including pneumonia (< 1 month) Abnormal pulmonary function Acute myocardial infarction Congestive heart failure (< 1 month) History of inflammatory bowel disease Medical patient at bed rest Age 61-74 Arthroscopic surgery Major open surgery (> 45 min) Laparoscopic surgery (> 45 min) Malignancy Confined to bed (> 72 hours) Immobilizing plaster cast Central venous access Age >= 75 History of VTE Family history of VTE Factor V Leiden Prothrombin [id number] Lupus anticoagulant Anticardiolipin antibodies Elevated serum homocysteine Heparin-induced thrombocytopenia Other congenital or acquired thrombophilia Stroke (< 1 month) Elective arthroplasty Hip, pelvis, or leg fracture Acute spinal cord injury (< 1 month) Prophylaxis Regimen Total Risk Factor Score Risk Level Prophylaxis Regimen 0-1 Low Early ambulation 2 Moderate Order ONE of the following: *Sequential Compression Device (SCD) *Heparin 5000 units SQ BID 3-4 Higher Order ONE of the following medications: *Heparin 5000 units SQ TID *Enoxaparin/Lovenox 40 mg SQ daily (WT < 150 kg, CrCl > 30 mL/min) *Enoxaparin/Lovenox 30 mg SQ daily (WT < 150 kg, CrCl > 10-29 mL/min) *Enoxaparin/Lovenox 30 mg SQ BID (WT < 150 kg, CrCl > 30 mL/min) AND/OR *Sequential Compression Device (SCD) 5 or more Highest Order ONE of the following medications: *Heparin 5000 units SQ TID (Preferred with Epidurals) *Enoxaparin/Lovenox 40 mg SQ daily (WT < 150 kg, CrCl > 30 mL/min) *Enoxaparin/Lovenox 30 mg SQ daily (WT < 150 kg, CrCl > 10-29 mL/min) *Enoxaparin/Lovenox 30 mg SQ BID (WT < 150 kg, CrCl > 30 mL/min) AND *Sequential Compression Device (SCD) (Marissa Almonte MD R2) Assessment and Plan Assessment and Plan 81-year-old female with arthritis and no significant reported coronary history who presents readmission after asymptomatic bradycardia workup during overnight stay on 06/09. She continues to be asymptomatic. She has noted have labile heart rate in 40s to 140s in the ED with EKG notable for sinus tachycardia but telemetry notable for possible atrial fibrillation. Cardiology consulted last hospital stay and noted no A. 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 Yoo, attending 06/12 (Marissa Almonte MD R2) Attending Attestation THIS CASE WAS DISCUSSED WITH THE RESIDENT PHYSICIANS. I HAVE REVIEWED THE RECORD AND AGREE WITH THE ABOVE NOTE AND PLAN OF CARE WAS DISCUSSED. I HAVE AUTHORIZED THE ORDER FOR ADMISSION TO AN IN-PATIENT STATUS. (Roberta Yoo MD) Problem List: (1) Bradycardia ICD Codes: R00.1 - Bradycardia, unspecified Status: Acute Plan: Plan as above (2) Arthritis ICD Codes: M19.90 - Unspecified osteoarthritis, unspecified site Status: Chronic Plan: Chronic and well controlled with PRN Percocet. Will continue at home dose. (3) History of asthma ICD Codes: Z87.09 - Personal history of other diseases of the respiratory system Status: Chronic Plan: Patient states she has chronic asthma, not with any exacerbations over the last decade. She is on theophylline and methylprednisolone for this per her report. She is also on Symbicort and when necessary albuterol inhaler but this is not on her medicine list at admission. * We'll hold Symbicort given patient does not use it daily * Will order albuterol to be used every 6 hours when necessary, only for shortness of breath given its effect on heart rate * We'll monitor respiratory status regularly, patient is admitted on room air with normal oxygen saturations * Continue home dose of theophylline 300 mg daily (4) Anemia ICD Codes: D64.9 - Anemia, unspecified Status: Chronic Plan: Iron deficiency anemia per report. Takes iron BID but unknown dose and not on med rec. Will hold for now, monitor CBC (5) Fluids/Electrolytes/Nutrition/Prophylaxis Status: Acute Plan: Fluids: tolerating PO Electrolytes: monitor and replete as needed Nutrition: heart-healthy diet DVT Prophylaxis: Early ambulation. Heparin 5000U subQ q12hr/bilateral SCDs GI Prophylaxis: Not indicated (Marissa Almonte MD R2) Physician Certification 2 Midnight Certification Type: Admission for Inpatient Services Order for Inpatient Services The services are ordered in accordance with Medicare regulations or non- Medicare payer requirements, as applicable. In the case of services not specified as inpatient-only, they are appropriately provided as inpatient services in accordance with the 2-midnight benchmark. Estimated LOS (days): 3 days is the estimated time the patient will need to remain in the hospital, assuming treatment plan goals are met and no additional complications. Post-Hospital Plan: Not yet determined (Marissa Almonte MD R2) 2 Midnight Certification Type: Admission for Inpatient Services Post-Hospital Plan: Not yet determined (Roberta Yoo MD) Problem Qualifiers (1) Anemia: Marissa Almonte MD R2 Jun 12, 2017 15:26 Roberta Yoo MD Jun 13, 2017 07:48
[2017-06-12] MEDS ORDERED: RESP: ALBUTEROL 1.25 MG/3 ML NEB (PRN) NEB (16:30)
[2017-06-12] MEDS ORDERED: oxyCODONE/ACETAMINOPHEN 5 MG/325 MG TAB PO PRN (16:45)
[2017-06-12] MEDS: HEPARIN SODIUM - SQ 10,000 UNITS/ML VIAL SQ SCH (19:12)
[2017-06-12] MEDS: DOCUSATE SODIUM 50 MG/SENNA 8.6 MG TAB PO SCH (20:13)
[2017-06-12] MEDS: SODIUM CHLORIDE 0.9% FLUSH 10 ML FLUSH IV FLUSH SCH (20:14)
--- NOTE | 2017-06-12 23:28 | EKG ---
Date Performed: 06/12/2017 Time Performed: 13:03:50 PTAGE: 81 years EKG: SINUS TACHYCARDIA LEFT VENTRICULAR HYPERTROPHY AND ST-T CHANGE POSSIBLE ANTERIOR MYOCARDIAL INFARCTION ABNORMAL ECG PREVIOUS TRACING : 06/09/2017 14.15 Compared to the previous tracing rate has increased DOCTOR: Dontrell Kincaid Interpretating Date/Time 06/12/2017 23:26:59
[2017-06-13] VITALS (7 sets, daily range): BP systolic 91–108; BP diastolic 55–71; PULSE 60–87; RESP 16–20; TEMP 98.2–98.3; O2SAT 94–99
[2017-06-13] MEDS: HEPARIN SODIUM - SQ 10,000 UNITS/ML VIAL SQ SCH (05:48)
[2017-06-13 08:31] LABS: AUTOMATED NEUTROPHIL # 3.9 TH/MM3 (1.8-7.7); BASOPHIL % 0.4 % (0.0-2.0); EOSINOPHIL # 0.8 TH/MM3 (0-0.4); EOSINOPHIL % 10.4 % (0.0-4.0); HEMATOCRIT 32.9 % (35.0-46.0); HEMO FLAGS DIFF FINAL; LYMPH % 28.8 % (9.0-44.0); LYMPHOCYTE # 2.2 TH/MM3 (1.0-4.8); MEAN CELL VOLUME 87.7 FL (80.0-100.0); MEAN CORPUSCULAR HEMOGLOBIN 28.6 PG (27.0-34.0); MEAN CORPUSCULAR HGB CONC 32.6 % (32.0-36.0); MONO % 10.4 % (0.0-8.0); PLATELET COUNT 318 TH/MM3 (150-450); RED BLOOD COUNT 3.75 MIL/MM3 (4.00-5.30); WHITE BLOOD COUNT 7.8 TH/MM3 (4.0-11.0)
[2017-06-13] MEDS: DOCUSATE SODIUM 50 MG/SENNA 8.6 MG TAB PO SCH ×2 (08:34→20:40)
[2017-06-13] MEDS: SODIUM CHLORIDE 0.9% FLUSH 10 ML FLUSH IV FLUSH SCH ×2 (08:34→20:39)
[2017-06-13 08:54] LABS: ALT (GPT) 16 U/L (10-53); ANION GAP 8 MEQ/L (5-15); AST (GOT) 19 U/L (15-37); BICARBONATE 25.3 MEQ/L (21.0-32.0); BLOOD UREA NITROGEN 13 MG/DL (7-18); CHLORIDE 104 MEQ/L (98-107); GLOMERULAR FILTRATION RATE 73 ML/MIN (>89); POTASSIUM 3.6 MEQ/L (3.5-5.1); SODIUM (NA) 137 MEQ/L (136-145)
[2017-06-13 08:57] LABS: ALKALINE PHOSPHATASE 93 U/L (45-117); TOTAL BILIRUBIN ADULT 0.3 MG/DL (0.2-1.0)
--- NOTE | 2017-06-13 08:59 | HHI.FPPN ---
Subjective Remarks Patient states she is feeling well, denies any new symptom - no palpitations, lightheadedness, chest pressure/pain, SOB. (Kelsey Romero MD R1) Objective Vitals Vital Signs Date Time Temp Pulse Resp B/P (MAP) Pulse Ox O2 Delivery O2 Flow Rate FiO2 06/13/17 04:47 98.3 60 16 106/55 (72) 95 06/12/17 23:17 98.2 64 16 104/55 (71) 98 06/12/17 20:39 75 06/12/17 20:00 Room Air 06/12/17 19:35 97.7 66 16 123/55 (77) 99 06/12/17 17:44 06/12/17 17:35 98.1 66 20 129/64 (85) 97 06/12/17 16:10 122 18 124/78 (93) 98 Room Air 06/12/17 13:36 96 Room Air 06/12/17 13:36 96 Room Air 06/12/17 12:58 83 18 98 Room Air 06/12/17 12:53 97.5 85 18 120/75 (90) 96 I/O 06/12/17 06/12/17 06/12/17 06/13/17 06/13/17 06/13/17 07:00 15:00 23:00 07:00 15:00 23:00 Intake Total 240 ml Output Total 700 ml Balance -460 ml Intake Oral 240 ml Output Urine Total 700 ml # Bowel Movements 0 (Kelsey Romero MD R1) Result Diagram: 06/13/17 0645 06/12/17 1329 Objective Remarks GENERAL: SKIN: Warm and dry. HEAD: Normocephalic. EYES: No scleral icterus. No injection or drainage. NECK: Supple, trachea midline. CARDIOVASCULAR: Regular rate and irregular rhythm without murmurs, gallops, or rubs. RESPIRATORY: Breath sounds equal bilaterally. No accessory muscle use. GASTROINTESTINAL: deferred MUSCULOSKELETAL: No cyanosis, or edema. (Kelsey Romero MD R1) A/P Assessment and Plan 81-year-old female with arthritis and no significant reported coronary history who presents readmission after asymptomatic bradycardia workup during overnight stay on 06/09. She continues to be asymptomatic. She has noted have labile heart rate in 40s to 140s in the ED with EKG notable for sinus tachycardia but telemetry notable for possible atrial fibrillation. Cardiology consulted. 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 Con't to monitor with tele. Plan for cardiac ablation. Discharge Planning Plan for D/C to [facility] after cardiac intervention (Kelsey Romero MD R1) Attending Attestation Patient seen and examined. Case reviewed and discussed with the resident team. Agree with plan of care as discussed with me and documented in the resident note. she was seen with two friends and her daughter in the room. She had very elevated heart rates today up to 180s which improved after Valsalva. She is scheduled to have ablation today. She asked me about a pacemaker but I deferred to Dr Yarbrough. She has been asymptomatic today. (Maricarmen García MD) Problem List: (1) Bradycardia ICD Codes: R00.1 - Bradycardia, unspecified Status: Acute Plan: Plan as above (2) Arthritis ICD Codes: M19.90 - Unspecified osteoarthritis, unspecified site Status: Chronic Plan: Chronic and well controlled with PRN Percocet. Will continue at home dose. (3) History of asthma ICD Codes: Z87.09 - Personal history of other diseases of the respiratory system Status: Chronic Plan: Patient states she has chronic asthma, not with any exacerbations over the last decade. She is on theophylline and methylprednisolone for this per her report. She is also on Symbicort and when necessary albuterol inhaler but this is not on her medicine list at admission. - albuterol to be used every 6 hours when necessary, only for shortness of breath given its effect on heart rate - D/C theophylline as it can precipitate arrhythmia and patient's symptoms do not warrant it (4) Anemia ICD Codes: D64.9 - Anemia, unspecified Status: Chronic Plan: Iron deficiency anemia per report. Takes iron BID but unknown dose and not on med rec. Will hold for now, monitor CBC (5) Fluids/Electrolytes/Nutrition/Prophylaxis Status: Acute Plan: Fluids: tolerating PO Electrolytes: monitor and replete as needed Nutrition: NPO DVT Prophylaxis: Heparin 5000U subQ q12hr/bilateral SCDs GI Prophylaxis: Not indicated (Kelsey Romero MD R1) Problem Qualifiers (1) Anemia: Kelsey Romero MD R1 Jun 13, 2017 08:58 Maricaremn García MD Jun 13, 2017 14:18
[2017-06-13] MEDS ORDERED: THEOPHYLLINE ER 12 HR 300 MG TABCR PO SCH (09:00)
[2017-06-13 12:06] LABS: APTT (PATIENT) 33.4 SEC (24.3-30.1)
[2017-06-13 12:36] LABS: PROTHROMBIN TIME - PATIENT 11.3 SEC (9.8-11.6)
[2017-06-13] MEDS ORDERED: ISOPROTERENOL HCL 1 MG/5 ML AMP ONE (14:13)
[2017-06-13] MEDS ORDERED: FAMOTIDINE 20 MG/2 ML VIAL ONE (14:14)
[2017-06-13] MEDS ORDERED: AMIODARONE HCL 150 MG/3 ML VIAL ONE (15:13)
--- NOTE | 2017-06-13 15:27 | CATHPROC ---
[facility] HIS Report Study Information Study Number Admission Scheduled Start Study Start [id number] Jun 12 2017 3:12PM 06/13/2017 Jun 13 2017 12:05PM [place] [facility] Electrophysiology Study Admit Source Facility Department Other [facility] - Boring Machine Operator Helper Physician and Clinical Staff Initial Lorraine Hines Photographic Intelligence Officer Sarita Reveles,RT(R) TECH2 Other Anesthesia, SUPERINTENDENT PRODUCTION Recorder Stormy Frey,BSRN Scrub Cameron Heard,RT(R) Procedures Performed Procedure Ablation Procedure Equipment Time Plastic Extruding Machine Operator Description Size Mfg Part Number Used/Scraped BIOSENSE LEVY CATHETER, CELSIUS, 4MM, D [id number] 14:45 FR 7 Used INC. TYPE QUAD *[id number] 14:03 Sw[employer]ely IND[employer]RIES PACK, CCL CUSTOM * Used *[id number] 14:03 Swipely PACER ELLER, LIMB * 2530 *[id number] Used [id number] 14:03 [place] BLANKET,WARM AIR CCL * Used *[id number] 14:38 [employer] MEDICAL CATHETER, JSN, QUAD FR 5 Used *[id number] 14:05 [employer] MEDICAL CATHETER, JSN, QUAD FR 5 Used *[id number] 14:05 [employer] MEDICAL CATHETER, JSN, QUAD FR 5 Used *[id number] 14:05 [employer] MEDICAL CATHETER, JSN, QUAD FR 5 Used *[id number] 14:03 [employer] MEDICAL ELECTRODE KIT, JAMES X SURFACE * [id number] Used [id number] 14:04 [employer] MEDICAL SHEATH, EPS, FR5 FAST CATH FR 5 Used *[id number] [id number] 14:04 [employer] MEDICAL SHEATH, EPS, FR5 FAST CATH FR 5 Used *[id number] [id number] 14:05 [employer] MEDICAL SHEATH, EPS, FR5 FAST CATH FR 5 Used *[id number] [id number] 14:05 [employer] MEDICAL SHEATH, EPS, FR6 FAST CATH FR 6 Used *[id number] [id number] 14:05 [employer] MEDICAL SHEATH, EPS, FR8 FAST CATH FR 8 Used *[id number] [facility] P[facility], ELECTROSURGICAL 14:03 * [id number] *[id number] Used SURGICAL GROUNDING (BLUE) History: Current Medications Medication Dosage/Unit Route Frequency Last Date/Time Taken Beta Yuliya History: Allergies Allergy Reaction NKDA History: Risk Factors Family History of Premature CAD Yes Chronic Lung Disease Labs Hgb (g/dl) Hct (%) RBC (MIL/MM3) WBC (l/cumm) Platelets (thousands) 11.60-17.00 35.00-51.00 4.00-5.90 4.00-11.00 150.00-450.00 10.7 32.9 3.7 7.8 318 Glucose (mg/dl) BUN (mg/dl) Creatinine (mg/dl) BUN:Creatinine (1:x) 74.00-106.00 7.00-18.00 0.50-1.30 10.00-20.00 77 13 0.9 14.4 Na (meq/l) K (meq/l) Cl (meq/l) CO2 (mmol/L) Ca (mg/dl) 136.00-145.00 3.50-5.10 98.00-107.00 21.00-32.00 8.50-10.10 137 3.6 104 25.3 9.2 INR (PTT:PT) 0.90-1.10 1 Medication Medication Total Dose (Bolus/Oral) Medication Total Dosage/Unit 1% XYLOCAINE 40 mL AMIODARONE 300 mg Medications (Bolus/Oral) Medication Time Given Dosage/Unit Administered By Reason 1% XYLOCAINE 06/13/2017 2:32:05 PM 20 mL Lorraine Yarbrough As per physicians v erbal order 20 mL 1% XYLOCAINE given in lab by Lorraine Yarbrough in Left Groin via Subcutaneous. Ordered by Niranjan Yarbrough. Reason: As per physicians verbal order. 1% XYLOCAINE 06/13/2017 2:36:01 PM 20 mL Lorraine Yarbrough As per physicians v erbal order 20 mL 1% XYLOCAINE given in lab by Lorraine Yarbrough in Right Groin via Subcutaneous. Ordered by Braulio Yarbrough. Reason: As per physicians verbal order. AMIODARONE 06/13/2017 3:13:00 PM 300 mg Anesthesia, SUPERINTENDENT PRODUCTION As per physicians v erbal order 300 mg AMIODARONE given in lab by Anesthesia, SUPERINTENDENT PRODUCTION in Right Antecubital via Peripheral IV. Ordered by Lorraine Yarbrough. Reason: As per physicians verbal order. Medication (Drip) Medication Time Given Dosage/Unit Concentration/Unit Diluent (ml) Solution ISUPREL 06/13/2017 3:03:00 PM 2 mcg/min 1 mg 250 NaCl .9 2 mcg/min ISUPREL given in lab by Anesthesia, SUPERINTENDENT PRODUCTION in Right Antecubital via Peripheral IV. Pump/Drip Flow = 30 ml/hr using NaCl .9 with a concentration of 1 mg in 250 ml. Ordered by Lorraine Yarbrough. Reason: As per physicians verbal order. IV Solutions 06/13/2017 2:00:42 PM 0 mL (IV) NaCl .9 IV Solutions given in lab by Anesthesia, SUPERINTENDENT PRODUCTION in Right Antecubital via Peripheral IV. Pump/Drip Flow = 50 ml/hr using NaCl .9. Ordered by Lorraine Yarbrough. Reason: As per physicians verbal order. IV Solutions 06/13/2017 2:01:08 PM 0 mL (IV) NaCl .9 IV Solutions given in lab by Anesthesia, SUPERINTENDENT PRODUCTION in Left Antecubital via Peripheral IV. Pump/Drip Flow = 50 ml/hr using NaCl .9. Ordered by Lorraine Yarbrough. Reason: As per physicians verbal order. Initial Case Assessment Cardiovascular HR NIBP Chest Pain 83 168/78 0 Edema Present Skin color Skin None Normal Warm Dry Neurological State Oriented to time-place- Alert Moves all extremities person Respiration - General Respiration Rate SpO2 (%) (B/min) 20 100 Final Case Assessment Cardiovascular HR NIBP 93 112/59 Edema Present Skin color Skin None Normal Warm Neurological State Oriented to time-place- Alert Moves all extremities person Respiration - General Respiration Rate SpO2 (%) (B/min) 18 98 Chronological Log Time Study Chronological Log 13:56:40 Patient arrived via Bed. 13:56:43 Patient Name, D.O.B, / Armband Verified By R.N. 13:57:41 Consent signed by the physician and the patient and verified by the Boring Machine Operator Helper staff. 13:57:44 Pre-op and post- op instructions given; patient acknowledges understanding of instructions. 13:57:46 Verbal Stimulation=2 Physical Stimulation=2 Airway=2 Respiration=2 TOTAL=10. (0=absent, 1=l imited, 2=present) 13:59:24 Anesthesia at bedside. Assumes care of patient. Filomena SUPERINTENDENT PRODUCTION 13:59:32 Presedation assessment performed by Boring Machine Operator Helper RN. 13:59:38 Patient has been NPO for More than 6Hrs. 13:59:41 Skin Breakdown- none 13:59:48 Patient Warmer Placed on the Table. 13:59:53 Disposable Defibrillator Pads Placed On Patient. 13:59:56 Elke Prominences Protected 13:59:59 A # 20 IV was noted in the Antecubital (left). Grade = ~GRADE~ 14:00:16 A # 20 IV was noted in the Forearm (left). Grade = ~GRADE~ 14:00:30 A # 20 IV was noted in the Forearm (left). Grade = ~GRADE~ IV Solutions given in lab by Anesthesia, SUPERINTENDENT PRODUCTION in Right Antecubital via Peripheral IV. Pump/Drip Flow = 50 ml/hr using 14:00:42 NaCl .9. Ordered by Lorraine Yarbrough. Reason: As per physicians verbal order. IV Solutions given in lab by Anesthesia, SUPERINTENDENT PRODUCTION in Left Antecubital via Peripheral IV. Pump/Drip Flow = 50 ml/hr using 14:01:08 NaCl .9. Ordered by Lorraine Yarbrough. Reason: As per physicians verbal order. 14:01:28 History and physical on the chart or being dictated. Assessment: Initial Case, HR=83 BPM, FVGE=585/78 mmhg, Chest Pain=0, Edema=None, Color=Normal, Skin = Warm, Dry 14:01:30 Neurological: State=Alert, Ox3, LISA Respiration: Resp=20 B/min, XyU3=374 % 14::46 Table restraints applied according to hospital policy 14::50 Right groin prepped with 2% chlorhexidine, and draped after a 3 min. waiting time. 14::53 Left groin prepped with 2% chlorhexidine, and draped after a 3 min. waiting time. 14::53 Reference ECG taken 14:26:16 MD notified ready. 14::46 MD arrived. Time Out. Correct patient, procedure, procedure equipment, site and side verified with physicia n present. Time 14::50 concurred by MD, individual staff and SUPERINTENDENT PRODUCTION. Time Out #2 - Consents verified, patient in correct position, all results are labled and displa yed, safety precautions 14::53 taken, antibiotics administered. Time out concurred by MD, individual staff and SUPERINTENDENT PRODUCTION in procedu re ::59 Case Start 20 mL 1% XYLOCAINE given in lab by Lorraine Yarbrough in Left Groin via Subcutaneous. Ordered by Lorraine Panda. 14:32:05 Reason: As per physicians verbal order. 14:32:28 Vascular access was obtained in the Fem Vein (left). 14:32:41 Vascular access was obtained in the Fem Vein (left). 14:32:42 Vascular access was obtained in the Fem Vein (left). 14:32:54 A SHEATH, EPS, FR5 FAST CATH FR 5 was advanced into the Fem Vein (left) using the Percutane ous technique. 14:33:06 A SHEATH, EPS, FR5 FAST CATH FR 5 was advanced into the Fem Vein (left) using the Percutane ous technique. 14:33:06 A SHEATH, EPS, FR5 FAST CATH FR 5 was advanced into the Fem Vein (left) using the Percutane ous technique. 20 mL 1% XYLOCAINE given in lab by Lorraine Yarbrough in Right Groin via Subcutaneous. Ordered by Lorraine Duvall. 14:36:01 Reason: As per physicians verbal order. 14:36:10 Vascular access was obtained in the Fem Vein (right). 14:36:13 Vascular access was obtained in the Fem Vein (right). 14:36:31 A SHEATH, EPS, FR6 FAST CATH FR 6 was advanced into the Fem Vein (right) using the Percutan eous technique. 14:36:40 A SHEATH, EPS, FR8 FAST CATH FR 8 was advanced into the Fem Vein (right) using the Percutan eous technique. A CATHETER, JSN, QUAD FR 5 was advanced vis Fem Vein (left) and placed in the HIS. Placement wa s visually 14:38:05 confirmed under fluoroscopy. A CATHETER, JSN, QUAD FR 5 was advanced vis Fem Vein (left) and placed in the HRA. Placement wa s visually 14:38:30 confirmed under fluoroscopy. A CATHETER, JSN, QUAD FR 5 was advanced vis Fem Vein (left) and placed in the RVA. Placement wa s visually 14:38:44 confirmed under fluoroscopy. A CATHETER, JSN, QUAD FR 5 was advanced vis Fem Vein (right) and placed in the CS. Placement wa s visually 14:41:56 confirmed under fluoroscopy. 14:42:25 EP in progress. A CATHETER, CELSIUS, 4MM, D TYPE QUAD FR 7 was advanced vis Fem Vein (right) and placed in the HRA. Placement 14:46:54 was visually confirmed under fluoroscopy. 14:47:00 Ablation in progress. 2 mcg/min ISUPREL given in lab by Anesthesia, SUPERINTENDENT PRODUCTION in Right Antecubital via Peripheral IV. Pump /Drip Flow = 30 ml/hr 15:03:00 using NaCl .9 with a concentration of 1 mg in 250 ml. Ordered by Lorraine Yarbrough. Reason: As per physicians verbal order. 15:07:00 Isuprel gtt off. 300 mg AMIODARONE given in lab by Anesthesia, SUPERINTENDENT PRODUCTION in Right Antecubital via Peripheral IV. Ord ered by Linnea, 15:13:00 Lorraine. Reason: As per physicians verbal order. 15:14:37 Ablation complete. 15:15:01 Ablation procedure performed: SVT. 15:15:13 EP Procedure was performed. Assessment: Final Case, HR=93 BPM, EFET=520/59 mmhg, Edema=None, Color=Normal, Skin = Warm 15:19:25 Neurological: State=Alert, Ox3, LISA Respiration: Resp=18 B/min, SpO2=98 % 15:19:38 Sheath(s) left in place, will be removed in Holding Area. NS infusing to all sheaths at kv o rate. 15:19:57 Sterile dressing applied to site 15:20:01 No case complications noted. 15:20:04 Cine recording checked. 15:20:08 Holding Area notified of successful intervention. 15:20:12 Bedside Report will be given. 15:20:17 Defibrillator and ground pads removed. Skin intact. 15:25:47 Case End 15:26:25 [facility] and [facility] to [facility] in stable condition. End Study - Contrast Media Used In Study Contrast Total Opened (mL) Total Used (mL) Total Wasted (mL) Unspecified 0 0 0 End Study - Maximum Contrast Load Max Contrast Load (mL) 508.3 End Study - Radiation Exposure Fluoro Time (minutes) 5.5 End Study - Patient Disposition Complications Transferred To Interventional Outcome No Telemetry Bed successful
[2017-06-13] MEDS ORDERED: ONDANSETRON HCL 4 MG/2 ML VIAL IV PUSH PRN (15:30)
[2017-06-13] MEDS ORDERED: LIDOCAINE HCL 1% 50 ML VIAL INFIL PRN (15:30)
[2017-06-13] MEDS ORDERED: SODIUM CHLOR 0.9% 250 ML INJ 250 ML IV PRN (15:30)
[2017-06-13] MEDS ORDERED: METOCLOPRAMIDE HCL 10 MG/2 ML VIAL IV PUSH PRN (15:30)
[2017-06-13] MEDS ORDERED: ATROPINE SULFATE 1 MG/ML VIAL IV PUSH PRN (15:30)
[2017-06-13] MEDS ORDERED: BACITRACIN OINT 0.9 GM PKT TOP ONE (15:30)
[2017-06-13] MEDS ORDERED: LORazepam 2 MG/ML VIAL IV PUSH PRN (15:30)
--- NOTE | 2017-06-13 15:47 | MB ---
cc: MADDIE ZENDEJAS HANSCY M.D. DATE OF CONSULTATION: 06/13/2017. REASON FOR CONSULTATION: Supraventricular tachycardia. HISTORY OF PRESENT ILLNESS: Mrs. Posada is an 81-year-old -[place] female with history of tachyarrhythmia, rheumatoid arthritis, shortness of breath, and previous emergency room visit. She was put on a beta-rosalio. Heart rate dropped in the 30s. She was symptomatic. She was brought to the emergency room where she was admitted. Supraventricular tachycardia diagnosed. Previous case showed good response with adenosine. The patient was evaluated by Dr. Zendejas who called me for further evaluation and management. The chart was reviewed. The patient was evaluated. I discussed the case extensively with her and her daughter. ALLERGIES: None reported. SOCIAL HISTORY: Negative for smoking and drinking. FAMILY HISTORY: Noncontributory to her current medical condition. MEDICATIONS AT HOME: At home, she was on: 1. Theopylline. 2. Sertraline. 3. Oxycodone. REVIEW OF SYSTEMS: Currently she refers no chest pain or chest discomfort, some palpitations, shortness of breath but no fever. PHYSICAL EXAMINATION: GENERAL: Alert, fully oriented, pleasant. VITAL SIGNS: Blood pressure on evaluation was 108/61, pulse 64, respiratory rate 18. LUNGS: Ventilated. CARDIOVASCULAR: S1-S2 regular. No gallop. ABDOMEN: Abdomen soft, no mass, no bruits. EXTREMITIES: No edema. Electrocardiogram looks like supraventricular tachyarrhythmia on hospitalization. Subsequent electrocardiogram shows sinus rhythm. LABORATORY DATA: Hemoglobin 10.7, white blood cell 7.8. Potassium 3.6, creatinine is 0.90. Troponin less than 0.02. INR is 1. ASSESSMENT AND RECOMMENDATIONS: Mrs. Posada has had those recent bursts of tachyarrhythmia. 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 Apparently she responded to adenosine. Beta-rosalio was given but heart rate dropped in the 30s. This is tachy-nazario syndrome. She had some episodes of tachyarrhythmia today that resolved progressively. At this point, I had a long conversation with Dr. Zendejas and also with the patient and her daughter. Electrophysiology study and possible ablation were discussed. The risks, the nature and the benefits of the procedure were clearly stated to her. The risks include pneumothorax, cardiac perforation, stroke and even . She understood and agreed to proceed. The procedure will be performed during hospitalization. MD SEBASTIEN Zaman/MELANIE /3:31 PM /3:36 PM
--- NOTE | 2017-06-13 16:07 | MA ---
cc: CHRIS HELLER M.D. DATE: 06/13/2017. 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 INDICATIONS FOR THE PROCEDURE: Mrs. Posada is an 81-year-old -[place] female with history of rheumatoid arthritis, supraventricular tachyarrhythmia multiple ER visits, bradycardia on metoprolol who was referred for electrophysiology study and ablation. She was having a lot of episodes of tachyarrhythmia during hospitalization. Decision for electrophysiology study and ablation was taken. The risks, the nature and the benefits of the procedure were clearly stated to her. The risks include pneumothorax, cardiac perforation, stroke and even . She understood and agreed to proceed. DESCRIPTION OF THE PROCEDURE IN DETAIL: After written informed consent was obtained, the patient was brought to the EP lab where she was prepped and draped in the usual sterile fashion. Conscious sedation was initiated and maintained throughout the procedure by the anesthesiologist. Once sedation was verified, the right and left inguinal areas were anesthetized with 2% Xylocaine. Using modified Seldinger technique, the left femoral vein was done on three occasions and three guidewires were advanced. Over the wire, three 5-Ivorian Hemaquets were advanced. Then the right femoral vein was cannulated on two occasions and two guidewires were advanced. Over the wire, a 6- and an 8-Ivorian Hemaquet were advanced. Then under fluoroscopic guidance through the 5-Ivorian Hemaquet, four 5-Ivorian Jennifer curved quadripolar electrophysiology catheters were advanced and placed along the His, upper right atrium, coronary sinus and right ventricular apex. Basic intervals were measured and they within normal limits. At this point, the patient went into a short VA-type tachyarrhythmia. I did realize subsequently the atrial beats were walking through the Q-R-S. This is possible atrial tachyarrhythmia. I began to map the atrium. The tachyarrhythmia was sustained on and off. Then early activation was lower septum but chain activation. Then I mapped around the coronary sinus that was early activation if tachyarrhythmia terminates. Then I did atrial pacing protocol. There was a jump in echo beat and tachyarrhythmia was induced. 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 The patient back in sinus rhythm. The patient was observed. Atrial pacing protocol was repeated. Again, no tachyarrhythmia was induced. Then Isuprel infusion was initiated at 2 micrograms. The patient went into atrial fibrillation and pulmonary vein tachyarrhythmia. This is basically most likely the clinical tachyarrhythmia of the patient. At that point, the procedure was complete. I discontinued Isuprel. I put the patient on amiodarone. I am going to initiate anticoagulation and readmit the patient in three to four weeks for pulmonary vein isolation and pulmonary vein tachycardia ablation. This was a very complex case. No incident report. The patient tolerated procedure. The blood loss was minimal. 1. ELECTROCARDIOGRAM: At baseline, the patient was in sinus, then in atrial tachyarrhythmia. Post procedure, the patient was in sinus rhythm. 2. BASIC INTERVAL: Base cycle length was around 900 milliseconds at baseline. AH was around 98 and HV was around 62 milliseconds. 3. ATRIAL PACING PROTOCOL: Multiple episodes of supraventricular tachyarrhythmia were induced. 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 They were pace-terminated. 4. VENTRICULAR PACING PROTOCOL: There was VA conduction. No tachyarrhythmia was induced. 5. 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 Septal atrial tachycardia was ablated. This ablation was successful. Subsequently the patient went through atrial fibrillation and pulmonary vein tachyarrhythmia. 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 Induction of pulmonary vein tachyarrhythmia and atrial fibrillation. COMMENTS AND RECOMMENDATIONS: The patient is still on amiodarone IV 300 milligrams. I am going to reinitiate amiodarone p.o. If the patient continues to be symptomatic, then I will proceed with pulmonary vein isolation and pulmonary vein tachycardia ablation. Anticoagulation will be initiated also. The patient will be monitored during the hospitalization. The patient will need at least three weeks of anticoagulation. MD SEBASTIEN Zaman/MELANIE /3:35 PM /3:48 PM
--- NOTE | 2017-06-13 20:17 | MB ---
cc: DONTRELL ZENDEJAS HANSCY M.D. DATE OF CONSULTATION: 06/13/2017. REASON FOR CONSULTATION: Arrhythmia. HISTORY OF PRESENT ILLNESS: Constance Posada is a pleasant 81-year-old female who presented to [facility] on June 12, 2017 due to tachycardia and bradycardia. The patient was previously here on June 09 through the due to episodes of her heart rate being in the 170s. On arrival, it was felt that she was in atrial fibrillation but it appears that she was in sinus rhythm with PACs with episodes of a tachyarrhythmia. Tachyarrhythmia by EKG appeared to the AVNRT. It appears that she was asymptomatic during these episodes and so she was started on beta rosalio therapy and while in the hospital had no more events. She was discharged on the beta rosalio but while at home she was noted to still have tachyarrhythmia events as well as now bradycardia with heart rates in the 40s. Because of both the bradycardia and tachycardia, she was readmitted through the emergency room. On seeing her today, she denies any chest pain, shortness of breath or palpitations. PAST MEDICAL HISTORY: 1. 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 2. Arthritis. 3. Asthma. PAST SURGICAL HISTORY: Denies. ALLERGIES: NO KNOWN DRUG ALLERGIES. MEDICATIONS: 1. Metoprolol tartrate 25 milligrams twice a day. 2. Oxycodone / Acetaminophen 5/325 twice a day as needed. 3. Prednisone. FAMILY HISTORY: Mother at the age of 75 from breast cancer. Father at the age of 59 from prostate cancer. SOCIAL HISTORY: Denies smoking, alcohol or drug abuse. REVIEW OF SYSTEMS Fourteen systems were reviewed including osteopathic with pertinent positives and negatives as above; otherwise negative. PHYSICAL EXAMINATION: VITAL SIGNS: Temperature 98.2, heart rate 64, blood pressure 108/61, respirations 20, pulse ox 94% on room air. GENERAL: In general the patient appears well. No acute distress, alert awake and oriented x3. HEAD, EYES, EARS, NOSE, THROAT: Extraocular muscles intact. Mucous membranes moist. NECK: The neck is supple. No jugular venous distention at 45 degrees. No carotid bruits heard bilaterally. Carotid upstroke is brisk in nature. HEART: Heart is regular rate and rhythm. Positive first and second heart sounds. No noted murmurs, gallops or rubs. LUNGS: Clear to auscultation bilaterally. No wheezes, rales or rhonchi. ABDOMEN: The abdomen is soft, nontender and nondistended. No organomegaly noted. EXTREMITIES: No cyanosis, clubbing or edema. Femoral and distal pulses are intact bilaterally. NEUROLOGIC: No focal deficits. OSTEOPATHIC: Osteopathically, mild lordosis. No kyphoscoliosis or paraspinal tender points. LABORATORY FINDINGS: Hemoglobin 10.7, hematocrit 32.9, platelets 318,000. Potassium 3.6, BUN 13, creatinine 0.9. 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 IMPRESSION: 1. 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 2. Bradycardia after being placed on beta rosalio therapy for AVNRT. 3. Asthma. 4. Arthritis. RECOMMENDATIONS: 1. Ms. Posada has failed medical therapy for her AVNRT as she still has breakthrough episodes while being on beta blockers. Beta blockers have also made her significantly bradycardic. 2. I discussed the case with Dr. Yarbrough, who will see her from an electrophysiology cardiology standpoint for consideration of rhythm management versus possible ablation. 3. Further recommendations will be made based on Dr. Yarbrough's consultation. Thank you for allowing me to see Constance Posada. If there are any questions, please do not hesitate to call. Dontrell Zendejas DO VGP/JCC /7:41 PM /7:58 PM
[2017-06-14] VITALS (26 sets, daily range): BP systolic 96–137; BP diastolic 60–75; PULSE 56–88; RESP 16–20; TEMP 97–98.1; O2SAT 99–100
[2017-06-14] MEDS: HEPARIN SODIUM - SQ 10,000 UNITS/ML VIAL SQ SCH ×2 (06:06→18:09)
[2017-06-14 08:33] LABS: HEMATOCRIT 30.9 % (35.0-46.0); MEAN CORPUSCULAR HEMOGLOBIN 27.9 PG (27.0-34.0); MEAN CORPUSCULAR HGB CONC 31.7 % (32.0-36.0); PLATELET COUNT 299 TH/MM3 (150-450); RED BLOOD COUNT 3.51 MIL/MM3 (4.00-5.30); RED CELL DISTRIBUTION WIDTH 14.9 % (11.6-17.2); REVIEW FLAG FINAL; WHITE BLOOD COUNT 7.3 TH/MM3 (4.0-11.0)
[2017-06-14] MEDS: DOCUSATE SODIUM 50 MG/SENNA 8.6 MG TAB PO SCH ×2 (08:39→21:00)
[2017-06-14] MEDS: AMIODARONE 200 MG TAB PO SCH (08:40)
[2017-06-14] MEDS: SODIUM CHLORIDE 0.9% FLUSH 10 ML FLUSH IV FLUSH SCH ×2 (08:40→21:09)
--- NOTE | 2017-06-14 11:55 | HHI.PR ---
Subjective Remarks Feeling ok Objective Vital Signs Date Time Temp Pulse Resp B/P (MAP) Pulse Ox O2 Delivery O2 Flow Rate FiO2 06/14/17 11:25 97.9 88 16 114/60 (78) 100 06/14/17 11:16 74 06/14/17 10:00 68 06/14/17 09:00 72 06/14/17 08:30 Room Air 06/14/17 08:30 98.0 88 16 137/72 (93) 100 06/14/17 08:00 64 06/14/17 07:00 56 06/14/17 06:00 62 06/14/17 05:00 60 06/14/17 04:00 63 06/14/17 04:00 Room Air 06/14/17 04:00 98.1 63 18 109/69 (82) 99 06/14/17 03:00 69 06/14/17 02:00 65 06/14/17 01:00 67 06/14/17 00:00 98.0 61 20 96/65 (75) 99 06/14/17 00:00 Room Air 06/14/17 00:00 75 06/13/17 23:00 75 06/13/17 22:00 75 06/13/17 21:00 75 06/13/17 20:00 75 06/13/17 20:00 98.3 69 20 106/71 (83) 99 06/13/17 20:00 Room Air 06/13/17 15:43 96 Room Air 06/13/17 12:00 98.2 87 20 91/64 (73) 99 I/O 06/13/17 06/13/17 06/13/17 06/14/17 06/14/17 06/14/17 07:00 15:00 23:00 07:00 15:00 23:00 Intake Total 240 ml 480 ml Output Total 700 ml 600 ml Balance -460 ml -120 ml Intake Oral 240 ml 480 ml Output Urine Total 700 ml 600 ml # Bowel Movements 0 0 Result Diagram: 06/14/17 0715 06/13/17 0754 Imaging Alert, fully oriented Lungs: ventilated Heart: S1, S2 regular, no gallop abdomen: soft, no mass ext: no edema Last Impressions Chest X-Ray 06/12/17 1314 Signed Impressions: Service Date/Time: May 13:50 - CONCLUSION: The lungs are clear. Osmel Cantu MD Current Medications Medications (Trade) Dose Ordered Sig/Roxanna Route Start Time Stop Time Status Last Admin (NS Flush) 2 ml UNSCH PRN IV FLUSH 06/12/17 15:15 (NS Flush) 2 ml BID IV FLUSH 06/12/17 21:00 06/14/17 08:40 (Tylenol) 650 mg Q4H PRN PO 06/12/17 15:15 (Zofran Inj) 4 mg Q6H PRN IVP 06/12/17 15:15 (Narcan Inj) 0.4 mg UNSCH PRN IV PUSH 06/12/17 15:15 (Jovita-Colace) 1 tab BID PO 06/12/17 21:00 06/14/17 08:39 (Milk Of Magnesia Liq) 30 ml Q12H PRN PO 06/12/17 15:15 (Senokot) 17.2 mg Q12H PRN PO 06/12/17 15:15 (Dulcolax Supp) 10 mg DAILY PRN RECTAL 06/12/17 15:15 (Lactulose Liq) 30 ml DAILY PRN PO 06/12/17 15:15 (Albuterol Neb) 1.25 mg Q6HR NEB PRN NEB 06/12/17 16:30 (Heparin Inj) 5,000 units Q12H SQ 06/12/17 18:00 06/14/17 06:06 (Percocet 5-325 Mg) 1 tab BID PRN PO 06/12/17 16:45 (Ativan Inj) 0.5 mg UNSCH PRN IV PUSH 06/13/17 15:30 06/14/17 15:29 (Atropine Inj) 0.5 mg UNSCH PRN IV PUSH 06/13/17 15:30 Sodium Chloride 250 ml @ 500 mls/hr ONCE PRN IV 06/13/17 15:30 06/14/17 15:29 (Reglan Inj) 10 mg Q4H PRN IV PUSH 06/13/17 15:30 (Zofran Inj) 4 mg Q4H PRN IV PUSH 06/13/17 15:30 (Xylocaine 1% Inj (50 ml)) 10 ml UNSCH PRN INFIL 06/13/17 15:30 06/14/17 15:29 (Cordarone) 400 mg DAILY PO 06/13/17 16:00 06/19/17 09:01 06/14/17 08:40 (Cordarone) 200 mg DAILY PO 06/20/17 09:00 Assessment and Plan Problem List: (1) Tachycardia ICD Codes: R00.0 - Tachycardia, unspecified Plan: SP atrial tachycardia and AVNRT ablation Doing well Possible pulmonary veins arrhythmia Amio initiated. case discussed with patient and family as well as admitting MDs. Can be DH whenever it is ok with the managing team (2) Bradycardia ICD Codes: R00.1 - Bradycardia, unspecified Status: Acute Plan: No significant episode recorded If develop severe nazario then pacer will be considered Lorraine Yarbrough MD Jun 14, 2017 11:55
--- NOTE | 2017-06-14 12:37 | HHI.FPPN ---
Subjective Remarks Patient is feeling well. Ate breakfast and walking halls without difficulty, chest pain, or palpitations. AFVSS. (Marquise Taylor MD, R3) Objective Vitals Vital Signs Date Time Temp Pulse Resp B/P (MAP) Pulse Ox O2 Delivery O2 Flow Rate FiO2 06/14/17 11:25 97.9 88 16 114/60 (78) 100 06/14/17 11:16 74 06/14/17 10:00 68 06/14/17 09:00 72 06/14/17 08:30 Room Air 06/14/17 08:30 98.0 88 16 137/72 (93) 100 06/14/17 08:00 64 06/14/17 07:00 56 06/14/17 06:00 62 06/14/17 05:00 60 06/14/17 04:00 63 06/14/17 04:00 Room Air 06/14/17 04:00 98.1 63 18 109/69 (82) 99 06/14/17 03:00 69 06/14/17 02:00 65 06/14/17 01:00 67 06/14/17 00:00 98.0 61 20 96/65 (75) 99 06/14/17 00:00 Room Air 06/14/17 00:00 75 06/13/17 23:00 75 06/13/17 22:00 75 06/13/17 21:00 75 06/13/17 20:00 75 06/13/17 20:00 98.3 69 20 106/71 (83) 99 06/13/17 20:00 Room Air 06/13/17 15:43 96 Room Air I/O 06/13/17 06/13/17 06/13/17 06/14/17 06/14/17 06/14/17 07:00 15:00 23:00 07:00 15:00 23:00 Intake Total 240 ml 480 ml Output Total 700 ml 600 ml Balance -460 ml -120 ml Intake Oral 240 ml 480 ml Output Urine Total 700 ml 600 ml # Bowel Movements 0 0 (Marquise Taylor MD, R3) Result Diagram: 06/14/17 0715 06/13/17 0754 Imaging Last 72 hours Impressions Chest X-Ray 06/12/17 1314 Signed Impressions: Service Date/Time: May 13:50 - CONCLUSION: The lungs are clear. Osmel Cantu MD Objective Remarks GENERAL: SKIN: Warm and dry. HEAD: Normocephalic. EYES: No scleral icterus. No injection or drainage. NECK: Supple, trachea midline. CARDIOVASCULAR: Regular rate and irregular rhythm without murmurs, gallops, or rubs. RESPIRATORY: Breath sounds equal bilaterally. No accessory muscle use. GASTROINTESTINAL: deferred MUSCULOSKELETAL: No cyanosis, or edema. (Marquise Taylor MD, R3) A/P Assessment and Plan 81-year-old female with arthritis and no significant reported coronary history who presents readmission after asymptomatic bradycardia workup during overnight stay on 06/09. She continues to be asymptomatic. She has noted have labile heart rate in 40s to 140s in the ED with EKG notable for sinus tachycardia but telemetry notable for possible atrial fibrillation. Cardiology consulted. Discharge Planning Plan for D/C to [facility] after cardiac intervention (Marquise Taylor MD, R3) Attending Attestation Patient seen and examined. Case reviewed and discussed with the resident team. Agree with plan of care as discussed with me and documented in the resident note. she is doing well after her ablation. she has been asymptomatic with any cardiac problems (Maricarmen García MD) Problem List: (1) Bradycardia ICD Codes: R00.1 - Bradycardia, unspecified Status: Acute Plan: S/p successful electrophysiology study and mapping of radiofrequency ablation on 06/13. Transition from 400 mg amiodarone for 7 days (06/19/2017) to 200 mg amiodarone daily . Cleared by cardiology for D/C. Will monitor HR one more day in hospital and tolerability of amiodarone. (2) Arthritis ICD Codes: M19.90 - Unspecified osteoarthritis, unspecified site Status: Chronic Plan: Chronic and well controlled with PRN Percocet. Will continue at home dose. Hx of rheumatoid arthritis (3) History of asthma ICD Codes: Z87.09 - Personal history of other diseases of the respiratory system Status: Chronic Plan: Patient states she has chronic asthma, not with any exacerbations over the last decade. She is on theophylline and methylprednisolone for this per her report. She is also on Symbicort and when necessary albuterol inhaler but this is not on her medicine list at admission. - albuterol to be used every 6 hours when necessary, only for shortness of breath given its effect on heart rate - D/C theophylline as it can precipitate arrhythmia and patient's symptoms do not warrant it (4) Anemia ICD Codes: D64.9 - Anemia, unspecified Status: Chronic Plan: Iron deficiency anemia per report. Takes iron BID but unknown dose and not on med rec. Will hold for now, monitor CBC (5) Fluids/Electrolytes/Nutrition/Prophylaxis Status: Acute Plan: Fluids: tolerating PO Electrolytes: monitor and replete as needed Nutrition: Heart healthy diet DVT Prophylaxis: Heparin 5000U subQ q12hr/bilateral SCDs GI Prophylaxis: Not indicated sdw Dr. García and Dr. Romero (Marquise Taylor MD, R3) Problem Qualifiers (1) Anemia: Marquise Taylor MD, R3 Jun 14, 2017 12:37 Maricarmen García MD Jun 15, 2017 13:05
[2017-06-14] MEDS: prednisoLONE 10 MG ODT TAB SL SCH (13:53)
--- NOTE | 2017-06-14 15:04 | HHI.DS ---
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 Transition from 400 mg amiodarone for 7 days (06/19/2017) to 200 mg amiodarone daily . Cleared by cardiology for D/C. Will monitor HR one more day in hospital and tolerability of amiodarone. ICD Codes: R00.1 - Bradycardia, unspecified Status: Acute (3) Arthritis Diagnosis: Secondary Plan: Chronic and well controlled with PRN Percocet. Will continue at home dose. Hx of rheumatoid arthritis ICD Codes: M19.90 - Unspecified osteoarthritis, unspecified site Status: Chronic (4) History of asthma Diagnosis: Secondary Plan: Patient states she has chronic asthma, not with any exacerbations over the last decade. She is on theophylline and methylprednisolone for this per her report. She is also on Symbicort and when necessary albuterol inhaler but this is not on her medicine list at admission. - albuterol to be used every 6 hours when necessary, only for shortness of breath given its effect on heart rate - D/C theophylline as it can precipitate arrhythmia and patient's symptoms do not warrant it ICD Codes: Z87.09 - Personal history of other diseases of the respiratory system Status: Chronic (5) Anemia Diagnosis: Secondary Plan: Iron deficiency anemia per report. Takes iron BID but unknown dose and not on med rec. Will hold for now, monitor CBC ICD Codes: D64.9 - Anemia, unspecified Status: Chronic (6) Fluids/Electrolytes/Nutrition/Prophylaxis Diagnosis: Secondary Plan: Fluids: tolerating PO Electrolytes: monitor and replete as needed Nutrition: Heart healthy diet DVT Prophylaxis: Heparin 5000U subQ q12hr/bilateral SCDs GI Prophylaxis: Not indicated sdw Dr. García and Dr. Romero Status: Acute Brief History Patient is an 81 year old asymptomatic female with history of arthritis and asthma who presents for further workup of asymptomatic bradycardia. She is totally asymptomatic and was sent in due to abnormal vital signs during home health assessment. She is noted to have had bradycardia in the 30s range with reported tachycardia in the 120s as well. She is noted to be on metoprolol 25 mg twice daily with last dose yesterday due to home health nurse holding it due to bradycardia. ED evaluation is notable for labile heart rate ranging from 40s to 140s. She is asymptomatic throughout this range. She denies chest pain, shortness of breath, nausea, vomiting, diaphoresis, headache, blurry vision, lower extremity swelling, imbalance and dizziness. Of note, patient was evaluated and admitted for observation on 06/09 for the same reason. She was also asymptomatic then. She was discharged after unremarkable workup and cardiology was consulted at that time. Of note, she had sinus tachycardia in the 110s which resolved spontaneously during my evaluation. It is also notable that patient had sinus tachycardia in the ED which initially was initially to be treated with metoprolol but this was not administered. CBC/BMP: 06/14/17 0715 06/13/17 0754 Significant Findings Laboratory Tests Test 06/12/17 13:29 06/13/17 06:45 06/13/17 07:54 06/13/17 11:35 Red Blood Count 3.29 MIL/MM3 (4.00-5.30) 3.75 MIL/MM3 (4.00-5.30) Hemoglobin 9.4 GM/DL (11.6-15.3) 10.7 GM/DL (11.6-15.3) Hematocrit 29.3 % (35.0-46.0) 32.9 % (35.0-46.0) Monocytes (%) (Auto) 10.4 % (0.0-8.0) 10.4 % (0.0-8.0) Eosinophils (%) (Auto) 8.2 % (0.0-4.0) 10.4 % (0.0-4.0) Eosinophils # (Auto) 0.7 TH/MM3 (0-0.4) 0.8 TH/MM3 (0-0.4) Random Glucose 70 MG/DL (74-106) Calcium Level 8.4 MG/DL (8.5-10.1) Estimat Glomerular Filtration Rate 81 ML/MIN (>89) 73 ML/MIN (>89) Troponin I LESS THAN 0.02 NG/ML Albumin 2.7 GM/DL (3.4-5.0) Activated Partial Thromboplast Time 33.4 SEC (24.3-30.1) Test 06/14/17 07:15 Red Blood Count 3.51 MIL/MM3 (4.00-5.30) Hemoglobin 9.8 GM/DL (11.6-15.3) Hematocrit 30.9 % (35.0-46.0) Mean Corpuscular Hemoglobin Concent 31.7 % (32.0-36.0) PE at Discharge GENERAL: SKIN: Warm and dry. HEAD: Normocephalic. EYES: No scleral icterus. No injection or drainage. NECK: Supple, trachea midline. CARDIOVASCULAR: Regular rate and irregular rhythm without murmurs, gallops, or rubs. RESPIRATORY: Breath sounds equal bilaterally. No accessory muscle use. GASTROINTESTINAL: deferred MUSCULOSKELETAL: No cyanosis, or edema. Kelsey Romero MD R1 Jun 14, 2017 15:04
[2017-06-15] VITALS (14 sets, daily range): BP systolic 109–125; BP diastolic 67–75; PULSE 55–83; RESP 16–18; TEMP 97.7–98.4; O2SAT 97–100
[2017-06-15] MEDS: HEPARIN SODIUM - SQ 10,000 UNITS/ML VIAL SQ SCH (05:02)
[2017-06-15 06:36] LABS: AUTOMATED NEUTROPHIL # 5.5 TH/MM3 (1.8-7.7); BASOPHIL % 0.1 % (0.0-2.0); EOSINOPHIL # 0.1 TH/MM3 (0-0.4); EOSINOPHIL % 1.2 % (0.0-4.0); HEMATOCRIT 29.4 % (35.0-46.0); HEMO FLAGS DIFF FINAL; LYMPH % 24.1 % (9.0-44.0); LYMPHOCYTE # 2.1 TH/MM3 (1.0-4.8); MEAN CORPUSCULAR HEMOGLOBIN 28.7 PG (27.0-34.0); MEAN CORPUSCULAR HGB CONC 32.6 % (32.0-36.0); MONO % 10.2 % (0.0-8.0); NEUT % 64.4 % (16.0-70.0); PLATELET COUNT 290 TH/MM3 (150-450); RED BLOOD COUNT 3.34 MIL/MM3 (4.00-5.30); RED CELL DISTRIBUTION WIDTH 14.9 % (11.6-17.2); WHITE BLOOD COUNT 8.6 TH/MM3 (4.0-11.0)
[2017-06-15] MEDS: prednisoLONE 10 MG ODT TAB SL SCH (09:23)
[2017-06-15] MEDS: AMIODARONE 200 MG TAB PO SCH (09:24)
[2017-06-15] MEDS: DOCUSATE SODIUM 50 MG/SENNA 8.6 MG TAB PO SCH (09:31)
[2017-06-15] MEDS: SODIUM CHLORIDE 0.9% FLUSH 10 ML FLUSH IV FLUSH SCH (09:31)
--- NOTE | 2017-06-15 12:01 | HHI.DCPOC ---
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 Directions to Meet Your Goals Take your medications as prescribed Follow your dietary instruction Follow activity as directed Keep your appointments as scheduled Take your immunizations and boosters as scheduled If your symptoms worsen call your PCP, if no PCP go to Urgent Care Center or Emergency Room Smoking is Dangerous to Your Health. Avoid second hand smoke Call the 24-hour hour crisis hotline for domestic abuse at Ray Baker MD R2 Jun 15, 2017 12:01
[2017-06-15] MEDS ORDERED: AMIO200T PO ×2 (12:06→15:33)
[2017-06-15] MEDS ORDERED: SENN1TAB PO (12:06)
--- NOTE | 2017-06-15 13:04 | HHI.FPPN ---
Subjective Remarks Ms Posada is doing well and has been asymptomatic for any problems. She has no palpitations or pressure/pain. She has no other complaints and wishes to go home. Her telemetry has been at a good rate for the past 24 hours. No extreme bradycardia or tachycardia. Her 2 daughters are in the room and fine with her going home later today. She reports being happy and well cared for in her living situation and has no needs at home. Objective Vitals Vital Signs Date Time Temp Pulse Resp B/P (MAP) Pulse Ox O2 Delivery O2 Flow Rate FiO2 06/15/17 12:51 58 06/15/17 11:44 97.7 80 16 125/75 (92) 99 06/15/17 11:00 55 06/15/17 10:00 83 06/15/17 09:00 83 06/15/17 08:00 64 06/15/17 07:50 98.1 62 16 124/69 (87) 100 06/15/17 07:50 Room Air 06/15/17 07:00 60 06/15/17 05:45 65 06/15/17 04:00 Room Air 06/15/17 04:00 98.4 67 18 119/70 (86) 97 06/15/17 04:00 67 06/15/17 03:00 65 06/15/17 02:00 66 06/15/17 01:00 65 06/15/17 00:00 98.0 79 18 109/67 (81) 97 06/15/17 00:00 68 06/15/17 00:00 Room Air 06/14/17 23:00 61 06/14/17 22:00 66 06/14/17 21:00 64 06/14/17 20:00 Room Air 06/14/17 20:00 98.1 63 18 116/75 (89) 99 06/14/17 20:00 63 06/14/17 18:00 70 06/14/17 17:00 64 06/14/17 16:31 57 06/14/17 15:19 97.0 62 16 114/66 (82) 100 06/14/17 15:00 74 06/14/17 14:00 70 06/14/17 13:00 70 I/O 06/14/17 06/14/17 06/14/17 06/15/17 06/15/1706/15/17 07:00 15:00 23:00 07:00 15:00 23:00 Intake Total 480 ml 720 ml 480 ml Output Total 600 ml 650 ml Balance -120 ml 720 ml -170 ml Intake Oral 480 ml 720 ml 480 ml Output Urine Total 600 ml 650 ml # Voids 3 # Bowel Movements 0 1 0 Result Diagram: 06/15/17 0605 06/13/17 0754 Objective Remarks GENERAL: SKIN: Warm and dry. HEAD: Normocephalic. EYES: No scleral icterus. No injection or drainage. NECK: Supple, trachea midline. CARDIOVASCULAR: Regular rate and irregular rhythm without murmurs, gallops, or rubs. Controlled rate RESPIRATORY: Breath sounds equal bilaterally. No accessory muscle use. GASTROINTESTINAL: deferred MUSCULOSKELETAL: No cyanosis, or edema. Urinary Catheter: No Vascular Central Line Catheter: No A/P Assessment and Plan 81-year-old female with arthritis and no significant reported coronary history who presents with readmission after asymptomatic bradycardia workup during overnight stay on 06/09. She continues to be asymptomatic. She was noted to have labile heart rates in 40s to 140s in the ED with EKG notable for sinus tachycardia but telemetry notable for possible atrial fibrillation. Cardiology consulted. 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 Between the procedure plus her amiodarone, she is doing well and hopefully will not need further procedures (2) Bradycardia ICD Codes: R00.1 - Bradycardia, unspecified Status: Acute Plan: S/p successful electrophysiology study and mapping of radiofrequency ablation on 06/13. Transition from 400 mg amiodarone for 7 days (06/19/2017) to 200 mg amiodarone daily . Cleared by cardiology for D/C. HR has been good and tolerated amiodarone well. (3) Arthritis ICD Codes: M19.90 - Unspecified osteoarthritis, unspecified site Status: Chronic Plan: Chronic and well controlled with PRN Percocet. Will continue at home dose. Hx of rheumatoid arthritis possibly suspected by Cardiology but pt denied warmth , swelling and erythema of joints except what is more consistent with OA. This can be further evaluated as an outpt if warranted. (4) History of asthma ICD Codes: Z87.09 - Personal history of other diseases of the respiratory system Status: Chronic Plan: Patient states she has chronic asthma, not with any exacerbations over the last decade. She is on theophylline and methylprednisolone for this per her report. She is also on Symbicort and when necessary albuterol inhaler but this is not on her medicine list at admission. - albuterol to be used every 6 hours when necessary, only for shortness of breath given its effect on heart rate - D/C theophylline as it can precipitate arrhythmia and patient's symptoms do not warrant it (5) Anemia ICD Codes: D64.9 - Anemia, unspecified Status: Chronic Plan: Iron deficiency anemia per report. Takes iron BID but unknown dose and not on med rec. Will hold for now, monitor CBC (6) Fluids/Electrolytes/Nutrition/Prophylaxis Status: Acute Plan: Fluids: tolerating PO Electrolytes: monitor and replete as needed Nutrition: Heart healthy diet DVT Prophylaxis: Heparin 5000U subQ q12hr/bilateral SCDs GI Prophylaxis: Not indicated Problem Qualifiers (1) Anemia: Maricarmen García MD Jun 15, 2017 13:03
--- NOTE | 2017-06-15 21:00 | EKG ---
Date Performed: 06/14/2017 Time Performed: 05:16:26 PTAGE: 81 years EKG: Sinus rhythm with PAC(s) Incomplete RBBB Anterior T wave changes are nonspecific Low QRS voltages in precordial l hugo Borderline ECG PREVIOUS TRACING : 06/12/2017 13.03 DOCTOR: Lorraine Yarbrough Interpretating Date/Time 06/15/2017 20:53:19
[2017-06-20] MEDS ORDERED: AMIODARONE 200 MG TAB PO SCH (09:00)
== END 2017-06-15 13:51 | disposition home or self-care (01) | DRG 274 ==
LOC: NEPE 12:48 → NEDA 15:12 → N04B 18:20 → HCIS 06-13 15:28 → HCIN 06-13 19:26
PROVIDERS: ADMIT Family Medicine; ATTEND Family Medicine
PROC: 4A023FZ Measurement of Cardiac Rhythm, Percutaneous Approach (ICD-10-PCS; 2017-06-13)
PROC: 4A0234Z Measurement of Cardiac Electrical Activity, Percutaneous Approach (ICD-10-PCS; 2017-06-13)
PROC: 02K83ZZ Map Conduction Mechanism, Percutaneous Approach (ICD-10-PCS; 2017-06-13)
PROC: 02583ZZ Destruction of Conduction Mechanism, Percutaneous Approach (ICD-10-PCS; principal; 2017-06-13 12:30)
DX: I47.1 Supraventricular tachycardia (principal); D64.9 Anemia, unspecified; I48.91 Unspecified atrial fibrillation; F32.9 Major depressive disorder, single episode, unspecified; I34.0 Nonrheumatic mitral (valve) insufficiency; M06.9 Rheumatoid arthritis, unspecified; R00.1 Bradycardia, unspecified; J45.909 Unspecified asthma, uncomplicated; M19.90 Unspecified osteoarthritis, unspecified site; Z79.899 Other long term (current) drug therapy
CPT/HCPCS: 71010; 76937; 80048; 80053; 82550; 84484; 85025; 85027; 85610; 85730; 93005; 93613; 93623; 93653; C1730; C1732; C2630; J0282; J1644; J3010; J7510

== ENCOUNTER 2017-11-03 19:25 | Inpatient (IN) | payer MEDICARE, OTHER ==
[~2017-11-03] VITALS: Ht 160 cm; Wt 100.8 kg
[2017-11-03 19:25] VITALS: BP 132/86; PULSE 89; RESP 18; TEMP 98.4; O2SAT 99
[~2017-11-03 19:25] MED LIST changes: +AMIO200T PO; -METO25TA3 PO; -PROM12.54 PO; +SENN1TAB PO; -SERT25TA83 PO; -THEO300T30 PO
[2017-11-03] MEDS ORDERED: SODIUM CHLOR 0.9% 1000 ML INJ 1,000 ML IV ONE (19:31)
--- NOTE | 2017-11-03 19:37 | PD ---
HPI Chief Complaint: Stroke alert Time Seen by Provider: 19:30 Travel History International Travel<30 days: No Contact w/Intl Traveler<30days: No History of Present Illness HPI The patient is an 82 year old female who presents to the [facility] emergency department with a history of reportedly being found by her family members prior to arrival with a right-sided upper extremity weakness and a change in her mental status. The patient seemed confused and normally has a GCS of 15 according to ambulance services. The patient was last seen normal by the family at approximately 6:25 PM according to ambulance services. The patient's blood sugar prior to arrival was 80. The patient was noted on arrival to have a blood pressure 131/89. The patient is oriented to person, however not place, time, or situation at this time. She is attempting to follow commands but seems to have extinction of attention to the right side of her body with right upper and right lower extremity weakness. No visible facial droop. According to ambulance services, the patient is not on any blood thinners or aspirin. They are aware that the patient is on amiodarone, however the other medications were not able to be obtained from the family prior to transport to this facility. Review of systems is limited in this patient who is having difficulty answering questions at this time. There was a report from the ambulance crew that the patient had complained of a headache. At this time the patient reports having pain all over. The patient's family arrived at the bedside and are unsure what the medications are that the patient is on at home. They plan to go retrieve the medications, however they do not believe that she is on an aspirin or any other anticoagulant daily. 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 The patient was evaluated by Dr. Yarbrough. The patient was started on amiodarone. The patient's theophylline was discontinued that she was on previously for asthma as it was thought to be contributing to her irregular heartbeat. The patient also has a history of anemia, arthritis, hypertension. Arthritis: Yes Asthma: Yes Atrial Fibrillation: Yes Anxiety: No Depression: No Heart Rhythm Problems: Yes (A-Fib) Cancer: No Cardiovascular Problems: No High Cholesterol: No Chest Pain: No Congestive Heart Failure: No COPD: No Cerebrovascular Accident: No Diabetes: No Diminished Hearing: No Endocrine: No GERD: Yes Genitourinary: No Hiatal Hernia: No Immune Disorder: No Kidney Stones: No Musculoskeletal: Yes Neurologic: Yes Psychiatric: Yes Reproductive: No Respiratory: Yes Migraines: No Renal Failure: No Seizures: No Sickle Cell Disease: No Thyroid Disease: No Ulcer: No Past Surgical History Narrative Surgical The patient's past surgical history is significant for cardiac catheterization, bilateral cataract surgery Eye Surgery: Yes (CATARACTS EXTRACT SIMON.) Other Surgery: Yes Social History Alcohol Use: No Tobacco Use: No Substance Use: No Allergies-Medications (Allergen,Severity, Reaction): Coded Allergies: No Known Allergies (Unverified , 06/09/17) Reported Meds & Prescriptions Reported Meds & Active Scripts Active Amiodarone (Amiodarone HCl) 200 Mg Tab 400 Mg PO DAILY Amiodarone (Amiodarone HCl) 200 Mg Tab 200 Mg PO DAILY Start taking this dose of 200 milligrams daily on 06/20/2017. Until then take the 400 milligram dose once daily. Senna Plus 8.6-50 mg (Sennosides-Docusate Sodium) 8.6 Mg-50 Mg Tab 1 Tab PO BID Reported Prednisolone Odt 10 Mg Tab 5 Mg SL DAILY Oxycodone-Acetaminophen 5-325 mg Tab 1 Tab PO BID PRN Review of Systems Except as stated in HPI: all other systems reviewed are Neg General / Constitutional: No: Fever Eyes: No: Visual changes HENT: Positive: Headaches, No: Neck Stiffness, Neck Pain Cardiovascular: No: Chest Pain or Discomfort Respiratory: No: Shortness of Breath Gastrointestinal: No: Abdominal Pain Genitourinary: No: Dysuria Musculoskeletal: No: Pain Skin: No Rash Neurologic: Positive: Weakness, Focal Abnormalities, Headache, Change in Mentation, Sensory Disturbance, No: Slurred Speech Psychiatric: No: Depression Endocrine: No: Polydipsia Hematologic/Lymphatic: No: Easy Bruising Physical Exam Narrative General: The patient is a well-developed well-nourished female in no acute distress. Head and Neck exam: Head is normocephalic atraumatic. Eyes: EOMI, pupils are equal round and reactive to light. Nose: Midline septum with pink mucous membranes Mouth: Dentition unremarkable. Moist mucus membranes. Posterior oropharynx is not erythematous. No tonsillar hypertrophy. Uvula midline. Airway patent. Neck: No palpable lymphadenopathy. No nuchal rigidity. No thyromegaly. Cardiovascular: Regular rate and rhythm without murmurs, gallops, or rubs. No pulse deficit to the extremities on simultaneous auscultation and palpation of her radial artery. Lungs: Clear to auscultation bilaterally. No wheezes, rhonchi, or rales. Abdomen: Soft, without tenderness to palpation in all 4 quadrants of the abdomen. No guarding, rebound, or rigidity. Normal bowel sounds are audible. No tenderness on palpation of McBurney's point. Negative Beverly sign Extremities: No clubbing, cyanosis, or edema. 2+ pulses in all 4 extremities. No calf tenderness on palpation peer Back: No spinous process tenderness to palpation. No costovertebral angle tenderness to palpation. Neurologic Exam: No evidence of facial asymmetry. Right upper and right lower extremity weakness is noted with extinction to attention on the right side. The patient is also noted to have a mild expressive aphasia. No dysarthria. The patient is oriented to person, not place, time, or situation. The patient has a sensory deficit to the right upper arm right lower extremity noted. NIH score is calculated to be 15. Skin Exam: No rash noted. Intact skin that is warm and dry. Data Data Orders Orders Diet Npo (11/04/17 Breakfast) Activity Bed Rest (11/03/17 ) Electrocardiogram (11/03/17 ) I-Stat Profile (11/03/17 19:31) Prothrombin Time / Inr (Pt) (11/03/17 19:31) Act Partial Throm Time (Ptt) (11/03/17 19:31) Complete Blood Count With Diff (11/03/17 19:31) Fibrinogen (11/03/17 19:31) Creatine Kinase (Cpk) (11/03/17 19:31) Troponin I (11/03/17 19:31) Ua Includes Microscopic (11/03/17 19:31) Drug Screen, Random Urine (11/03/17 19:31) Type And Screen (11/03/17 19:31) Ct Brain W/O Iv Contrast(Rout) (11/03/17 ) Chest, Single Ap (11/03/17 ) Cta Brain W Iv Contrast W 3d (11/03/17 19:31) Cta Neck W Iv Contrast W 3d (11/03/17 19:31) Consult Neurology (11/03/17 ) Blood Glucose (11/03/17 19:31) Ecg Monitoring (11/03/17:) Neuro Checks Q2HX12,Q4H (11/03/17 19:31) Nursing Bedside Swallow Assess .ONCE (11/03/17:) Iv Access Insert/Monitor (11/03/17:31) NPO (11/03/17:31) Oximetry (11/03/17:31) Resp Oxygen Nc Stroke (11/03/17 ) Sodium Chlor 0.9% 1000 Ml Inj (Ns 1000 M (11/03/17 19:31) Cath For Specimen (11/03/17:31) B-Type Natriuretic Peptide (11/03/17:31) C-Reactive Protein (Crp) (11/03/17:31) Urinalysis - C+S If Indicated (11/03/17:31) Ammonia (11/03/17:31) Urinary Catheter Insert/Apply (11/03/17:31) Admit Order (Ed Use Only) (11/03/17 20:07) Consult Neurosurgery (11/03/17 ) Labs Laboratory Tests Test 11/03/17 19:30 11/03/17 20:00 White Blood Count 8.4 TH/MM3 Red Blood Count 3.58 MIL/MM3 Hemoglobin 10.5 GM/DL Bedside Hemoglobin 10.9 G/DL Hematocrit 32.2 % Bedside Hematocrit 32.0 % Mean Corpuscular Volume 90.0 FL Mean Corpuscular Hemoglobin 29.2 PG Mean Corpuscular Hemoglobin Concent 32.5 % Red Cell Distribution Width 15.5 % Platelet Count 303 TH/MM3 Mean Platelet Volume 8.0 FL Neutrophils (%) (Auto) 39.5 % Lymphocytes (%) (Auto) 43.2 % Monocytes (%) (Auto) 12.4 % Eosinophils (%) (Auto) 4.1 % Basophils (%) (Auto) 0.8 % Neutrophils # (Auto) 3.3 TH/MM3 Lymphocytes # (Auto) 3.6 TH/MM3 Monocytes # (Auto) 1.0 TH/MM3 Eosinophils # (Auto) 0.3 TH/MM3 Basophils # (Auto) 0.1 TH/MM3 CBC Comment DIFF FINAL Differential Comment Prothrombin Time 10.6 SEC Prothromb Time International Ratio 1.0 RATIO Activated Partial Thromboplast Time 23.5 SEC Fibrinogen 402 mg/dL Bedside Sodium 139 MMOL/L Bedside Potassium 4.5 MMOL/L Bedside Chloride 106 MMOL/L Bedside Blood Urea Nitrogen 23 MG/DL Bedside Creatinine 1.2 MG/DL Bedside Glucose 85 MG/DL Total Creatine Kinase 41 U/L Troponin I LESS THAN 0.02 NG/ML C-Reactive Protein 0.83 MG/DL Ammonia 27 MCMOL/L MDM Medical Screen Exam Complete: Yes Emergency Medical Condition: Yes Medical Record Reviewed: Yes EKG Prior to Arrival: Yes Differential Diagnosis Intracranial hemorrhage, versus intracranial mass, versus ischemic stroke, versus hypoglycemia, versus encephalopathy Narrative Course During the course of the patient's emergency department visit, the patient's history, examination, and differential diagnosis were reviewed with the patient. The patient was placed on a cardiac cath tech with oximetry and frequent blood pressure monitoring. The patient had IV access obtained and blood work sent for analysis. A stroke alert was called upon the patient's arrival. I spoke to upon the patient's arrival at 19:31. The patient was quickly transported to CT after she was noted to have a normal blood sugar. The patient was initially provided normal saline at 70 mL/h, head of the bed flat. However after the patient was noted to have an intracranial hemorrhage the patient was placed with head of the bed at 30. The patient's blood pressure will be monitored closely. The patient's initial blood pressure is 131 systolic. I spoke to the neurosurgeon regarding this patient's case. I spoke to him at approximately 8 PM. He did recommend close monitoring of the patient's blood pressure with a systolic blood pressure goal of 120-140. If the patient requires antihypertensive medication he recommends nicardipine as a drip. The patient had an EKG done that shows a sinus rhythm heart rate is 64, QRS duration 88 ms, QTC [address] segment elevation. Nonspecific T- wave abnormalities are noted. The patient's laboratory studies were reviewed and remarkable for an i-STAT with creatinine that shows a sodium of 139, potassium 4.5, chloride 106, BUN 23 , glucose 85, hemoglobin 10.9, creatinine 1.2. Radiology studies were reviewed and remarkable for a CT scan of the brain that shows a 5.7 cm left parietal lobe hemorrhage into the ventricle. Spoke to Dr. Gonzalez regarding this patient's case. He did agree to admit the patient for continued evaluation and treatment. The patient's results were discussed with the patient, including the plan of care. I explained that further testing and/ or monitoring is indicated based on the patient's history, examination, and/ or laboratory findings. Therefore, I recommended admission for additional evaluation. The patient expressed understanding and was agreeable with this plan. The patient was admitted to the hospital in guarded condition and sent to a bed under the care of the weight loss physician service. Critical Care Narrative Aggregate critical care time was 31 minutes. Time to perform other separately billable procedures was not included in the critical care time. My time did not include minutes spent treating any other patients simultaneously or on activities that did not directly contribute to the patient's treatment. The services I provided to this patient were to treat and/or prevent clinically significant deterioration that could result in: [-] I provided critical care services requiring my management, as noted below: Chart data review, documentation time, medication orders and management, vital sign assessments/reviewing monitor data, ordering and reviewing lab tests, ordering and interpreting/reviewing x-rays and diagnostic studies, care of the patient and discussion of the patient with the admitting physicians. Stroke Alert NIHSS NIH Stroke Scale Result: 15 NIHSS Time Completed: 19:37 Thrombolytic Contraindications Contraindications: CT Intracranial Bleed Physician Communication Physician Communication The patient's case including history, pertinent physical examination findings, and laboratory studies were discussed with Carmen, Dr. West, Dr. Gonzalez. It was agreed that the patient would be admitted to the weight loss physician's service. Diagnosis Diagnosis: Primary Impression: Intracranial hemorrhage Admitting Physician Requests: Admit Cande Saenz MD Nov 03, 2017 19:37
[2017-11-03 19:52] LABS: AUTOMATED NEUTROPHIL # 3.3 TH/MM3 (1.8-7.7); BASOPHIL # 0.1 TH/MM3 (0-0.2); BASOPHIL % 0.8 % (0.0-2.0); EOSINOPHIL # 0.3 TH/MM3 (0-0.4); EOSINOPHIL % 4.1 % (0.0-4.0); HEMATOCRIT 32.2 % (35.0-46.0); HEMOGLOBIN 10.5 GM/DL (11.6-15.3); LYMPH % 43.2 % (9.0-44.0); LYMPHOCYTE # 3.6 TH/MM3 (1.0-4.8); MEAN CORPUSCULAR HEMOGLOBIN 29.2 PG (27.0-34.0); MEAN CORPUSCULAR HGB CONC 32.5 % (32.0-36.0); MONO % 12.4 % (0.0-8.0); NEUT % 39.5 % (16.0-70.0); PLATELET COUNT 303 TH/MM3 (150-450); RED BLOOD COUNT 3.58 MIL/MM3 (4.00-5.30); RED CELL DISTRIBUTION WIDTH 15.5 % (11.6-17.2); WHITE BLOOD COUNT 8.4 TH/MM3 (4.0-11.0)
--- NOTE | 2017-11-03 19:52 | RADRPT ---
EXAM DATE/TIME: 11/03/2017 19:36 [facility] COMPARISON: No previous studies available for comparison. INDICATIONS : Stroke alert; left side droop and weakness. RADIATION DOSE: 37.09 CTDIvol (mGy) This report was called by Dr. Hayes to Dr. Saenz at 7: 46 PM MEDICAL HISTORY : Non-responsive. SURGICAL HISTORY : Non-responsive. ENCOUNTER: Initial ACUITY: 1 day PAIN SCALE: Non-responsive LOCATION: cranial TECHNIQUE: Multiple contiguous axial images were obtained of the head. Using automated exposure control and adj ustment of the mA and/or kV according to patient size, radiation dose was kept as low as reasonably a chievable to obtain optimal diagnostic quality images. DICOM format image data is available electro nically for review and comparison. FINDINGS: There is a 5.7 cm acute hemorrhage in the left parietal lobe with some surrounding edema and mild loc alized mass effect. There is extension of hemorrhage into the posterior aspect of the left lateral ve ntricle. No significant midline shift. Mucosal thickening in the paranasal sinuses with fluid in the right maxillary sinus. CONCLUSION: 1. 5.7 cm acute hemorrhage in the left parietal lobe with mild surrounding edema and mass effect. Hem orrhage in the posterior left lateral ventricle. Regis Hayes MD on November 03, 2017 at 19:43 Board Certified Radiologist. This report was verified electronically.
[2017-11-03 20:09] LABS: C-REACTIVE PROTEIN 0.83 MG/DL (0.00-0.30)
[2017-11-03 20:11] LABS: TROPONIN I LESS THAN 0.02 NG/ML (0.02-0.05)
[2017-11-03] MEDS ORDERED: ONDANSETRON HCL 4 MG/2 ML VIAL IV PUSH PRN (20:15)
[2017-11-03] MEDS ORDERED: BISACODYL 10 MG SUPP RECTAL PRN (20:15)
[2017-11-03] MEDS ORDERED: RESP: ALBUTEROL 2.5 MG/IPRATROPIUM 0.5 MG NEB (PRN) INH (20:15)
[2017-11-03] MEDS ORDERED: ACETAMINOPHEN 325 MG TAB PO PRN (20:15)
[2017-11-03] MEDS ORDERED: LACTULOSE SYRUP 20 GM/30 ML CUP PO PRN (20:15)
[2017-11-03] MEDS ORDERED: MISCELLANEOUS NURSING INFORMATION XX SCH (20:15)
[2017-11-03] MEDS ORDERED: CHLORHEXIDINE GLUCONATE 2 % 1 PACK (2 CLOTHS) TOP PRN (20:15)
[2017-11-03] MEDS ORDERED: MORPHINE SULFATE 4 MG/ML INJ IV PUSH PRN (20:15)
[2017-11-03] MEDS ORDERED: SENNOSIDES 8.6 MG TAB PO PRN (20:15)
[2017-11-03] MEDS ORDERED: SODIUM CHLORIDE 0.9% FLUSH 10 ML FLUSH IV FLUSH PRN (20:15)
[2017-11-03] MEDS ORDERED: MAGNESIUM HYDROXIDE SUSP 30 ML CUP PO PRN (20:15)
[2017-11-03 20:17] LABS: PROTHROMBIN TIME - PATIENT 10.6 SEC (9.8-11.6)
[2017-11-03] MEDS ORDERED: LABETALOL HCL 100 MG/20 ML VIAL IV PUSH PRN (20:30)
--- NOTE | 2017-11-03 20:31 | RADRPT ---
EXAM DATE/TIME: 11/03/2017 19:48 [facility] COMPARISON: CHEST SINGLE AP, June 12, 2017, 13:50. INDICATIONS : Stroke alert. MEDICAL HISTORY : Venous insufficiency. Arthritis. Asthma. Depression. Anxiety SURGICAL HISTORY : bilateral cataracts ENCOUNTER: Initial ACUITY: 1 day PAIN SCORE: Non-responsive. LOCATION: chest FINDINGS: There is mild basilar airspace disease. No effusion. No pneumothorax. Tortuous aorta. CONCLUSION: 1. Mild basilar opacity, probably basilar atelectasis. No effusion. Regis Hayes MD on November 03, 2017 at 20:28 Board Certified Radiologist. This report was verified electronically.
--- NOTE | 2017-11-03 20:38 | HHI.HP ---
HPI Service Critical Care Medicine Primary Care Physician Anton Child M.D. Admission Diagnosis ICH Diagnosis: Travel History International Travel<30 Days: No Contact w/Intl Traveler <30 Da: No Traveled to Known Affected Are: No History of Present Illness 82 year old female who presents with a history of reportedly being found by her family members prior to arrival with a right-sided upper extremity weakness and a change in her mental status. The patient seemed confused and normally has a GCS of 15 according to ambulance services. The patient was last seen normal by the family at approximately 6:25 PM according to medical record. Her blood pressure on arrival to emergency department was 131/89. The patient is oriented to person, however not place, time, or situation at this time. According to chart review, the patient is not on any blood thinners or aspirin. The CT of the head done in the emergency department shows 5.7 cm acute hemorrhage in the left parietal lobe with mild surrounding edema and mass effect. Review of Systems ROS Unable to obtain due to patient's mental status and acute stroke Past Family Social History Allergies: Coded Allergies: No Known Allergies (Unverified , 06/09/17) Past Medical History Arthritis Abnormal heart rhythm 06/09 Past Surgical History None Reported Medications Reported Meds & Active Scripts Active Amiodarone (Amiodarone HCl) 200 Mg Tab 400 Mg PO DAILY Amiodarone (Amiodarone HCl) 200 Mg Tab 200 Mg PO DAILY Start taking this dose of 200 milligrams daily on 06/20/2017. Until then take the 400 milligram dose once daily. Senna Plus 8.6-50 mg (Sennosides-Docusate Sodium) 8.6 Mg-50 Mg Tab 1 Tab PO BID Reported Prednisolone Odt 10 Mg Tab 5 Mg SL DAILY Oxycodone-Acetaminophen 5-325 mg Tab 1 Tab PO BID PRN Reported Meds & Active Scripts Active Amiodarone (Amiodarone HCl) 200 Mg Tab 400 Mg PO DAILY Amiodarone (Amiodarone HCl) 200 Mg Tab 200 Mg PO DAILY Start taking this dose of 200 milligrams daily on 06/20/2017. Until then take the 400 milligram dose once daily. Senna Plus 8.6-50 mg (Sennosides-Docusate Sodium) 8.6 Mg-50 Mg Tab 1 Tab PO BID Reported Prednisolone Odt 10 Mg Tab 5 Mg SL DAILY Oxycodone-Acetaminophen 5-325 mg Tab 1 Tab PO BID PRN Active Ordered Medications Current Medications Medications (Trade) Dose Ordered Sig/Roxanna Route PRN Reason Start Time Stop Time Status Last Admin Dose Admin Sodium Chloride 1,000 ml @ 70 mls/hr [id number] ONCE IV 11/03/17 19:31 11/04/17 09:48 Amiodarone HCl (Cordarone) 200 mg DAILY PO 11/04/17 09:00 Oxycodone/ Acetaminophen (Percocet 5-325 Mg) 1 tab BID PRN PO PAIN 1-10 11/03/17 20:15 Prednisolone (Orapred Odt) 5 mg DAILY SL 11/04/17 09:00 UNV Sodium Chloride 1,000 ml @ 84 mls/hr [id number] IV 11/03/17 20:14 UNV Sodium Chloride (NS Flush) 2 ml UNSCH PRN IV FLUSH FLUSH AFTER USING IV ACCESS 11/03/17 20:15 UNV Acetaminophen (Tylenol) 650 mg Q6H PRN PO PAIN 1-5 AND/OR FEVER >101F 11/03/17 20:15 UNV Morphine Sulfate (Morphine Inj) 2 mg Q2H PRN IV PUSH PAIN SCALE 6 TO 10 11/03/17 20:15 UNV Famotidine (Pepcid Inj) 20 mg Q12HR IV PUSH 11/03/17 21:00 UNV Ondansetron HCl (Zofran Inj) 4 mg Q6H PRN IV PUSH NAUSEA OR VOMITING 11/03/17 20:15 UNV Albuterol/ Ipratropium (Duoneb Neb) 1 ampule Q2HR NEB PRN INH WHEEZING 11/03/17 20:15 UNV Miscellaneous Information 1 [id number] XX 11/03/17 20:15 UNV Chlorhexidine Gluconate (Chlorhexidine 2% Cloth) 3 pack Taper DAILY@04 TOP 11/04/17 04:00 10/31/18 03:59 UNV Chlorhexidine Gluconate (Chlorhexidine 2% Cloth) 3 pack UNSCH PRN TOP HYGIENIC CARE 11/03/17 20:15 UNV Senna/Docusate Sodium (Jovita-Colace) 1 tab BID PO 11/03/17 21:00 UNV Magnesium Hydroxide (Milk Of Magnesia Liq) 30 ml Q12H PRN PO Mild constipation 11/03/17 20:15 UNV Sennosides (Senokot) 17.2 mg Q12H PRN PO Moderate constipation 11/03/17 20:15 UNV Bisacodyl (Dulcolax Supp) 10 mg DAILY PRN RECTAL SEVERE CONSITIPATION 11/03/17 20:15 UNV Lactulose (Lactulose Liq) 30 ml DAILY PRN PO SEVERE CONSITIPATION 11/03/17 20:15 UNV Family History Mother: age 75 from breast cancer Father: age 59 from prostate cancer Daughter: from [place] age 20s Sun: from throat and lung cancer Social History Lives independently Sons and daughters help take care of here at home Uses a walker for ambulation Denies alcohol, tobacco, illicit drug use Full code and understands that her next of kin (3 children) would make decisions for her Daughter 1: info not obtained Daughter 2: Jess Loaiza, Son: Alexey Juárez, Physical Exam Physical Exam GENERAL: Well-nourished, well-developed patient. SKIN: Warm and dry. HEAD: Normocephalic. EYES: No scleral icterus. No injection or drainage. NECK: Supple, trachea midline. No JVD or lymphadenopathy. CARDIOVASCULAR: Regular rate and rhythm without murmurs, gallops, or rubs. RESPIRATORY: Breath sounds equal bilaterally. No accessory muscle use. GASTROINTESTINAL: Abdomen soft, non-tender, nondistended. MUSCULOSKELETAL: No cyanosis, or edema. BACK: Nontender without obvious deformity. NEURO EXAM: No evidence of facial asymmetry. Right upper and right lower extremity weakness is noted with extinction to attention on the right side. The patient is also noted to have a mild expressive aphasia. No dysarthria. The patient is oriented to person, not place, time, or situation. The patient has a sensory deficit to the right upper arm right lower extremity noted. NIH score is calculated to be 15. Laboratory Laboratory Tests Test 11/03/17 19:30 11/03/17 20:00 White Blood Count 8.4 Red Blood Count 3.58 Hemoglobin 10.5 Bedside Hemoglobin 10.9 Hematocrit 32.2 Bedside Hematocrit 32.0 Mean Corpuscular Volume 90.0 Mean Corpuscular Hemoglobin 29.2 Mean Corpuscular Hemoglobin Concent 32.5 Red Cell Distribution Width 15.5 Platelet Count 303 Mean Platelet Volume 8.0 Neutrophils (%) (Auto) 39.5 Lymphocytes (%) (Auto) 43.2 Monocytes (%) (Auto) 12.4 Eosinophils (%) (Auto) 4.1 Basophils (%) (Auto) 0.8 Neutrophils # (Auto) 3.3 Lymphocytes # (Auto) 3.6 Monocytes # (Auto) 1.0 Eosinophils # (Auto) 0.3 Basophils # (Auto) 0.1 CBC Comment DIFF FINAL Differential Comment Prothrombin Time 10.6 Prothromb Time International Ratio 1.0 Activated Partial Thromboplast Time 23.5 Fibrinogen 402 Bedside Sodium 139 Bedside Potassium 4.5 Bedside Chloride 106 Bedside Blood Urea Nitrogen 23 Bedside Creatinine 1.2 Bedside Glucose 85 Total Creatine Kinase 41 Troponin I LESS THAN 0.02 C-Reactive Protein 0.83 Result Diagram: 11/03/17 1930 Imaging Last [address] 11/03/17 0000 Signed Impressions: Service Date/Time: Friday, November 03, 2017 19:36 - CONCLUSION: 1. 5.7 cm acute hemorrhage in the left parietal lobe with mild surrounding edema and mass effect. Hemorrhage in the posterior left lateral ventricle. Regis Hayes MD Caprini VTE Risk Assessment Caprini VTE Risk Assessment: Mod/High Risk (score >= 2) VTE Pharm Contraindication: Hemorrhage Caprini Risk Assessment Model Point Value = 1 Point Value = 2 Point Value = 3 Point Value = 5 Age 41-60 Minor surgery BMI > 25 kg/m2 Swollen legs Varicose veins or History of unexplained or recurrent spontaneous Oral contraceptives or hormone replacement Sepsis (< 1 month) Serious lung disease, including pneumonia (< 1 month) Abnormal pulmonary function Acute myocardial infarction Congestive heart failure (< 1 month) History of inflammatory bowel disease Medical patient at bed rest Age 61-74 Arthroscopic surgery Major open surgery (> 45 min) Laparoscopic surgery (> 45 min) Malignancy Confined to bed (> 72 hours) Immobilizing plaster cast Central venous access Age >= 75 History of VTE Family history of VTE Factor V Leiden Prothrombin [id number] Lupus anticoagulant Anticardiolipin antibodies Elevated serum homocysteine Heparin-induced thrombocytopenia Other congenital or acquired thrombophilia Stroke (< 1 month) Elective arthroplasty Hip, pelvis, or leg fracture Acute spinal cord injury (< 1 month) Prophylaxis Regimen Total Risk Factor Score Risk Level Prophylaxis Regimen 0-1 Low Early ambulation 2 Moderate Order ONE of the following: *Sequential Compression Device (SCD) *Heparin 5000 units SQ BID 3-4 Higher Order ONE of the following medications: *Heparin 5000 units SQ TID *Enoxaparin/Lovenox 40 mg SQ daily (WT < 150 kg, CrCl > 30 mL/min) *Enoxaparin/Lovenox 30 mg SQ daily (WT < 150 kg, CrCl > 10-29 mL/min) *Enoxaparin/Lovenox 30 mg SQ BID (WT < 150 kg, CrCl > 30 mL/min) AND/OR *Sequential Compression Device (SCD) 5 or more Highest Order ONE of the following medications: *Heparin 5000 units SQ TID (Preferred with Epidurals) *Enoxaparin/Lovenox 40 mg SQ daily (WT < 150 kg, CrCl > 30 mL/min) *Enoxaparin/Lovenox 30 mg SQ daily (WT < 150 kg, CrCl > 10-29 mL/min) *Enoxaparin/Lovenox 30 mg SQ BID (WT < 150 kg, CrCl > 30 mL/min) AND *Sequential Compression Device (SCD) Assessment and Plan Assessment and Plan Acute hemorrhagic stroke - No surgical intervention indicated at this time - Neuro checks per unit protocol - Blood pressure control with SBP goal less than 140 - Coagulation profile pending Heart arrhythmia - Continue amiodarone Hypertension - Labetalol and hydralazine when necessary to keep SBP less than 140 Arthritis - Continue home dose prednisone DVT GI prophylaxis - Teds SCDs - No pharmacological DVT prophylaxis will 48 hours after ICH - Pepcid Critical Care: The total critical care time was 35 minutes. Time to perform other separately billable procedures was not included in the critical care time. Lg Gonzalez MD Nov 03, 2017 20:38
[2017-11-03] MEDS: DOCUSATE SODIUM 50 MG/SENNA 8.6 MG TAB PO SCH (21:00)
[2017-11-03] MEDS ORDERED: BUTA1CAP5 PO (21:41)
[2017-11-03] MEDS ORDERED: THEO300T12 PO (21:41)
[2017-11-03] MEDS ORDERED: POTA10CA PO (21:41)
[2017-11-03] MEDS ORDERED: HYDR25TA5 PO (21:41)
[2017-11-03] MEDS ORDERED: SERT-132 PO (21:41)
[2017-11-03] MEDS ORDERED: PRED5TAB PO (21:41)
[2017-11-03] MEDS ORDERED: FERR325T18 PO (21:41)
[2017-11-03 22:00] VITALS: BP 134/82; PULSE 82; RESP 16; O2SAT 99
[2017-11-03] MEDS: FAMOTIDINE 20 MG/2 ML VIAL IV PUSH SCH (22:05)
[2017-11-03] MEDS: SODIUM CHLOR 0.9% 1000 ML INJ 1,000 ML IV SCH (22:05)
--- NOTE | 2017-11-03 22:57 | PD.CONS ---
History of Present Illness Service Neurosurgery Consult Requested By Skiff Operator Reason for Consult Intracranial hemorrhage Primary Care Physician Anton Child M.D. Diagnoses: History of Present Illness 82-year-old female who had a partially 4:30 this afternoon was noted by her family to have right-sided weakness and confusion with speech difficulty. She was brought to the emergency room for evaluation with initial systolic blood pressure 131. No previous history of CVA or TIA. She does have a history of cardiac arrhythmia. Review of Systems Unable to obtain accurate review of systems from the patient due to speech difficulty Past Family Social History Allergies: Coded Allergies: No Known Allergies (Unverified , 06/09/17) Past Medical History Cardiac arrhythmia Past Surgical History No major surgeries reported Reported Medications Reported Meds & Active Scripts Active Amiodarone (Amiodarone HCl) 200 Mg Tab 200 Mg PO DAILY Start taking this dose of 200 milligrams daily on 06/20/2017. Until then take the 400 milligram dose once daily. Senna Plus 8.6-50 mg (Sennosides-Docusate Sodium) 8.6 Mg-50 Mg Tab 1 Tab PO BID Reported Iomzrkdtdg-Tvipezqinxpbj-Xwvallhn 50-300-40 Mg Cap 1 Cap PO Q4H PRN Do not exceed 6 capsules/day. Potassium Chloride ER (Potassium Chloride) 10 Meq Cap 10 Meq PO DAILY Ferrous Sulfate 325 Mg (65 Mg Iron) Tablet 325 Mg PO DAILY Prednisone 5 Mg Tab 5 Mg PO DAILY Theophylline ER 12 HR (Theophylline) 300 Mg Tab 300 Mg PO Q12H Sertraline (Sertraline HCl) 50 Mg Tab 50 Mg PO DAILY Hydrochlorothiazide 25 Mg Tab 25 Mg PO DAILY Prednisolone Odt 10 Mg Tab 5 Mg SL DAILY Oxycodone-Acetaminophen 5-325 mg Tab 1 Tab PO BID PRN Family History Breast cancer in her mother, prostate cancer in her father, lung cancer in her brother. Social History Does not smoke cigarettes or drink alcohol. Lives alone Physical Exam Vital Signs Vital Signs Date Time Temp Pulse Resp B/P (MAP) Pulse Ox O2 Delivery O2 Flow Rate FiO2 11/03/17 22:00 82 16 134/82 (99) 99 Room Air 11/03/17 19:25 98.4 89 18 132/86 (101) 99 11/03/17 19:25 18 Room Air Physical Exam GENERAL: This is a well-nourished, well-developed patient, no apparent distress. SKIN: No abrasions, contusion, rash noted. Skin warm and dry. HEAD: Atraumatic. Normocephalic. No temporal or scalp tenderness. EYES: Sclerae are clear and nonicteric ENT: No facial edema or ecchymosis. No periorbital edema. No CSF otorrhea or rhinorrhea. No palpable facial fracture or deformity. NECK: Trachea midline. No cervical spine tenderness. CARDIOVASCULAR: Irregular without murmurs, gallops, or rubs. RESPIRATORY: Clear to auscultation. Breath sounds equal bilaterally. No wheezes , rales, or rhonchi. GASTROINTESTINAL: Abdomen soft, non-tender, nondistended. No hepato-splenomegaly , or palpable masses. No guarding. MUSCULOSKELETAL: Extremities without cyanosis, or edema. No joint tenderness, or edema noted. No calf tenderness. Dorsalis pedis pulses 2+ bilateral NEUROLOGICAL: Mild lethargy Oriented X person Hospital Speech is moderately dysarthric Follow some simple commands Answers questions slowly Diminished and insight Recent and remote memory are moderately impaired No evidence of anxiety or depression Pupils are equal and reactive to accommodation. Extra-ocular movements, visual lamb to confrontation, facial sensorimotor, tongue, palate, sternocleidomastoid testing, hearing to finger rub testing, and bilateral shoulder shrug are all intact. Sensation is intact to light touch in all extremities Strength is moderately diminished in the right upper and lower extremity. Celso's absent bilaterally No ankle clonus Plantar responses absent bilateral Fine motor movements moderately slowed right greater than left upper extremity Laboratory Laboratory Tests Test 11/03/17 19:30 11/03/17 20:00 White Blood Count 8.4 Red Blood Count 3.58 Hemoglobin 10.5 Bedside Hemoglobin 10.9 Hematocrit 32.2 Bedside Hematocrit 32.0 Mean Corpuscular Volume 90.0 Mean Corpuscular Hemoglobin 29.2 Mean Corpuscular Hemoglobin Concent 32.5 Red Cell Distribution Width 15.5 Platelet Count 303 Mean Platelet Volume 8.0 Neutrophils (%) (Auto) 39.5 Lymphocytes (%) (Auto) 43.2 Monocytes (%) (Auto) 12.4 Eosinophils (%) (Auto) 4.1 Basophils (%) (Auto) 0.8 Neutrophils # (Auto) 3.3 Lymphocytes # (Auto) 3.6 Monocytes # (Auto) 1.0 Eosinophils # (Auto) 0.3 Basophils # (Auto) 0.1 CBC Comment DIFF FINAL Differential Comment Prothrombin Time 10.6 Prothromb Time International Ratio 1.0 Activated Partial Thromboplast Time 23.5 Fibrinogen 402 Bedside Sodium 139 Bedside Potassium 4.5 Bedside Chloride 106 Bedside Blood Urea Nitrogen 23 Bedside Creatinine 1.2 Bedside Glucose 85 Total Creatine Kinase 41 Troponin I LESS THAN 0.02 C-Reactive Protein 0.83 B-Type Natriuretic Peptide 121 Ammonia 27 Result Diagram: 11/03/17 1930 Imaging 11/03/17 CT scan head images reviewed by the undersigned. Agree with findings as noted below: Head CT 11/03/17 0000 Signed Impressions: Service Date/Time: Friday, November 03, 2017 19:36 - CONCLUSION: 1. 5.7 cm acute hemorrhage in the left parietal lobe with mild surrounding edema and mass effect. Hemorrhage in the posterior left lateral ventricle. Regis Hayes MD Chest X-Ray 11/03/17 0000 Signed Impressions: Service Date/Time: Friday, November 03, 2017 19:48 - CONCLUSION: 1. Mild basilar opacity, probably basilar atelectasis. No effusion. Regis Hayes MD Assessment and Plan Assessment and Plan Impression: 1. Nearly 6 cm left parietal occipital acute parenchymal intracranial hemorrhage. No significant hypertension. Possible hemorrhagic CVA. Cannot totally rule out underlying vascular or mass lesion. Recommendations: Admit intensive surgical care unit Neurologic function has remained stable since admission, relatively awake. Continue close ISC neurochecks. Follow-up CT scan head 11/04/2017 Monitor blood pressure closely May require surgical intervention depending on follow-up CT scan and clinical course. Ebenezer West MD Nov 03, 2017 22:57
[2017-11-03] MEDS: MORPHINE SULFATE 2 MG/ML INJ IV PRN (23:17)
[2017-11-04] VITALS (14 sets, daily range): BP systolic 127–143; BP diastolic 58–67; PULSE 60–78; RESP 13–25; TEMP 99.3–100.4; O2SAT 99–100
[2017-11-04] MEDS: CHLORHEXIDINE GLUCONATE 2 % 1 PACK (2 CLOTHS) TOP SCH (04:23)
[2017-11-04 04:31] LABS: AUTOMATED NEUTROPHIL # 7.5 TH/MM3 (1.8-7.7); BASOPHIL # 0.1 TH/MM3 (0-0.2); BASOPHIL % 0.6 % (0.0-2.0); EOSINOPHIL # 0.1 TH/MM3 (0-0.4); HEMATOCRIT 31.7 % (35.0-46.0); HEMOGLOBIN 10.2 GM/DL (11.6-15.3); LYMPH % 13.4 % (9.0-44.0); LYMPHOCYTE # 1.3 TH/MM3 (1.0-4.8); MEAN CELL VOLUME 89.9 FL (80.0-100.0); MEAN CORPUSCULAR HGB CONC 32.3 % (32.0-36.0); MEAN PLATELET VOLUME 8.4 FL (7.0-11.0); MONO % 9.5 % (0.0-8.0); MONOCYTE # 0.9 TH/MM3 (0-0.9); NEUT % 75.5 % (16.0-70.0); PLATELET COUNT 295 TH/MM3 (150-450); RED BLOOD COUNT 3.53 MIL/MM3 (4.00-5.30); RED CELL DISTRIBUTION WIDTH 15.6 % (11.6-17.2)
[2017-11-04 04:59] LABS: ALBUMIN 2.9 GM/DL (3.4-5.0); AST (GOT) 17 U/L (15-37); BICARBONATE 26.9 MEQ/L (21.0-32.0); BLOOD UREA NITROGEN 19 MG/DL (7-18); CALCIUM 8.7 MG/DL (8.5-10.1); CHLORIDE 104 MEQ/L (98-107); CREATININE 1.11 MG/DL (0.50-1.00); GLOMERULAR FILTRATION RATE 57 ML/MIN (>89); GLUCOSE,RANDOM 78 MG/DL (74-106); MAGNESIUM 2.8 MG/DL (1.5-2.5); SODIUM (NA) 139 MEQ/L (136-145)
[2017-11-04 05:04] LABS: ALKALINE PHOSPHATASE 107 U/L (45-117); ALT (GPT) 18 U/L (10-53); PHOSPHORUS 3.7 MG/DL (2.5-4.9); TOTAL BILIRUBIN ADULT 0.2 MG/DL (0.2-1.0); TOTAL PROTEIN 7.9 GM/DL (6.4-8.2)
[2017-11-04] MEDS: SODIUM CHLOR 0.9% 1000 ML INJ 1,000 ML IV SCH ×2 (07:30→19:29)
--- NOTE | 2017-11-04 08:45 | EKG ---
Date Performed: 11/03/2017 Time Performed: 20:01:28 PTAGE: 82 years EKG: Sinus rhythm NONSPECIFIC T-WAVE ABNORMALITY BORDERLINE ECG PREVIOUS TRACING : 06/14/2017 05.16 Compared to previous tracing, PACs are no longer present, Q RS voltage has increased diffusely. DOCTOR: Pancho Batres Interpretating Date/Time 11/04/2017 08:33:23
[2017-11-04] MEDS: MORPHINE SULFATE 2 MG/ML INJ IV PRN (09:00)
[2017-11-04] MEDS: DOCUSATE SODIUM 50 MG/SENNA 8.6 MG TAB PO SCH ×2 (09:00→20:23)
[2017-11-04] MEDS: AMIODARONE 200 MG TAB PO SCH (09:03)
[2017-11-04] MEDS: FAMOTIDINE 20 MG/2 ML VIAL IV PUSH SCH ×2 (09:04→20:23)
--- NOTE | 2017-11-04 09:47 | RADRPT ---
EXAM DATE/TIME: 11/04/2017 09:22 [facility] COMPARISON: CT BRAIN W/O CONTRAST, November 03, 2017, 19:36. INDICATIONS : Follow up bleed. RADIATION DOSE: 56.35 CTDIvol (mGy) MEDICAL HISTORY : Cardiovascular disease. Hypertension. SURGICAL HISTORY : None. ENCOUNTER: Subsequent ACUITY: 2 days PAIN SCALE: 0/10 LOCATION: cranial TECHNIQUE: Multiple contiguous axial images were obtained of the head. Using automated exposure control and adj ustment of the mA and/or kV according to patient size, radiation dose was kept as low as reasonably a chievable to obtain optimal diagnostic quality images. DICOM format image data is available electro nically for review and comparison. FINDINGS: CEREBRUM: The ventricles are normal for age. Parenchymal hemorrhage in the left posterior parietal region measu ring approximately 5.5 cm in diameter. Stable surrounding edema but no significant midline shift. Sma ll amount of blood in the left lateral ventricle is also stable. No new areas of hemorrhage. No extr a-axial fluid collections are seen. POSTERIOR FOSSA: The cerebellum and brainstem are intact. The 4th ventricle is midline. The cerebellopontine angle i s unremarkable. EXTRACRANIAL: The visualized portion of the orbits is intact. Air-fluid levels in the maxillary antra bilaterally c haracteristic of acute sinusitis SKULL: The calvaria is intact. No evidence of skull fracture. CONCLUSION: 1. Stable hemorrhage in the posterior left parietal lobe measuring approximately 5.5 cm in diameter. Stable left-sided intraventricular blood. No new hemorrhage or significant midline shift. 2. Acute maxillary sinusitis with air-fluid levels bilaterally. Ulises Amin MD on November 04, 2017 at 9:41 Board Certified Radiologist. This report was verified electronically.
--- NOTE | 2017-11-04 10:13 | HHI.NSPN ---
(Cesar Iqbal) History Chief Complaint: Unable to obtain due to patient's mental status. (Cesar Iqbal) Interval History 11/03: 82-year-old female who had a partially 4:30 this afternoon was noted by her family to have right-sided weakness and confusion with speech difficulty. She was brought to the emergency room for evaluation with initial systolic blood pressure 131. No previous history of CVA or TIA. She does have a history of cardiac arrhythmia. 11/04: The patient was asleep when seen but did awaken to voice. She was awake after that and interacted. The review of systems was unreliable in that the patient would answer yes once and then no. She did move the left side weakly to command but not the right. She did weakly move the right foot to noxious stimulation but not the right upper. Nursing reported that the patient was not moving the right side for her but did move the left. A repeat CT brain this morning demonstrated a stable bleed. (Cesar Iqbal) System Review Comments Unable to obtain due to patient's mental status. (Cesar Iqbal) Exam Results Vital Signs Date Time Temp Pulse Resp B/P (MAP) Pulse Ox O2 Delivery O2 Flow Rate FiO2 11/04/17 07:45 99 21 11/04/17 06:00 69 11/04/17 04:00 99.7 23 127/63 (84) 11/04/17 00:09 Room Air Intake and Output 11/04/17 11/04/17 11/05/17 08:00 16:00 00:00 Intake Total 448 ml Output Total 1175 ml Balance -727 ml (Cesar Iqbal) Physical Examination GENERAL: Asleep but awakens to voice. Alert after that and interacts. Affect flat. No apparent distress. HEENT: Normocephalic, atraumatic. PERRLA 3 mm brisk. MMM & pink. MUSCULOSKELETAL: Moved left-sided extremities weakly to command but not right. Slight movement of right foot to noxious stimulation but not the right upper. No evident clubbing or deformity. NEUROLOGICAL: Asleep but awakens to voice. Confused as to person, place & time. Speech clear but inappropriate. Slow in responding. Answered ROS questions yes and when asked again would say no. Did follow some simple commands. PERRLA 3 mm brisk. Unable to asses Cranial Nerves any further due to patient's not following commands. Weakly moved LUE and left foot to command. Slight movement of right foot to local noxious stimulation. Facial grimacing but no motor response to local noxious stimulation of the RUE. (Cesar Iqbal) Physical Examination Opens eyes to verbal command Follows simple commands the left side with dense right hemiparesis Moderate to severe expressive aphasia (Chapito Mike MD) Lab, Micro, Other Results Recent Impressions Head CT 11/04/17 0000 Signed Impressions: Service Date/Time: Saturday, November 04, 2017 09:22 - CONCLUSION: 1. Stable hemorrhage in the posterior left parietal lobe measuring approximately 5.5 cm in diameter. Stable left-sided intraventricular blood. No new hemorrhage or significant midline shift. 2. Acute maxillary sinusitis with air-fluid levels bilaterally. Ulises Amin MD Head CT 11/03/17 0000 Signed Impressions: Service Date/Time: Friday, November 03, 2017 19:36 - CONCLUSION: 1. 5.7 cm acute hemorrhage in the left parietal lobe with mild surrounding edema and mass effect. Hemorrhage in the posterior left lateral ventricle. Regis Hayes MD Chest X-Ray 11/03/17 0000 Signed Impressions: Service Date/Time: Friday, November 03, 2017 19:48 - CONCLUSION: 1. Mild basilar opacity, probably basilar atelectasis. No effusion. Regis Hayes MD Laboratory Tests Test 11/03/17 19:30 11/03/17 20:00 11/04/17 01:00 11/04/17 03:49 White Blood Count 8.4 TH/MM3 10.0 TH/MM3 Red Blood Count 3.58 MIL/MM3 3.53 MIL/MM3 Hemoglobin 10.5 GM/DL 10.2 GM/DL Bedside Hemoglobin 10.9 G/DL Hematocrit 32.2 % 31.7 % Bedside Hematocrit 32.0 % Mean Corpuscular Volume 90.0 FL 89.9 FL Mean Corpuscular Hemoglobin 29.2 PG 29.0 PG Mean Corpuscular Hemoglobin Concent 32.5 % 32.3 % Red Cell Distribution Width 15.5 % 15.6 % Platelet Count 303 TH/MM3 295 TH/MM3 Mean Platelet Volume 8.0 FL 8.4 FL Neutrophils (%) (Auto) 39.5 % 75.5 % Lymphocytes (%) (Auto) 43.2 % 13.4 % Monocytes (%) (Auto) 12.4 % 9.5 % Eosinophils (%) (Auto) 4.1 % 1.0 % Basophils (%) (Auto) 0.8 % 0.6 % Neutrophils # (Auto) 3.3 TH/MM3 7.5 TH/MM3 Lymphocytes # (Auto) 3.6 TH/MM3 1.3 TH/MM3 Monocytes # (Auto) 1.0 TH/MM3 0.9 TH/MM3 Eosinophils # (Auto) 0.3 TH/MM3 0.1 TH/MM3 Basophils # (Auto) 0.1 TH/MM3 0.1 TH/MM3 CBC Comment DIFF FINAL DIFF FINAL Differential Comment Prothrombin Time 10.6 SEC Prothromb Time International Ratio 1.0 RATIO Activated Partial Thromboplast Time 23.5 SEC Fibrinogen 402 mg/dL Bedside Sodium 139 MMOL/L Bedside Potassium 4.5 MMOL/L Bedside Chloride 106 MMOL/L Bedside Blood Urea Nitrogen 23 MG/DL Bedside Creatinine 1.2 MG/DL Bedside Glucose 85 MG/DL Total Creatine Kinase 41 U/L Troponin I LESS THAN 0.02 NG/ML C-Reactive Protein 0.83 MG/DL B-Type Natriuretic Peptide 121 PG/ML Ammonia 27 MCMOL/L Nasal Screen MRSA (PCR) MRSA NOT DETECTED Blood Urea Nitrogen 19 MG/DL Creatinine 1.11 MG/DL Random Glucose 78 MG/DL Total Protein 7.9 GM/DL Albumin 2.9 GM/DL Calcium Level 8.7 MG/DL Phosphorus Level 3.7 MG/DL Magnesium Level 2.8 MG/DL Alkaline Phosphatase 107 U/L Aspartate Amino Transf (AST/SGOT) 17 U/L Alanine Aminotransferase (ALT/SGPT) 18 U/L Total Bilirubin 0.2 MG/DL Sodium Level 139 MEQ/L Potassium Level 4.4 MEQ/L Chloride Level 104 MEQ/L Carbon Dioxide Level 26.9 MEQ/L Anion Gap 8 MEQ/L Estimat Glomerular Filtration Rate 57 ML/MIN (Cesar Iqbal) Medical Decision Making Impression and Plan Impression: 1. Nearly 6 cm left parietal occipital acute parenchymal intracranial hemorrhage. No significant hypertension. Possible hemorrhagic CVA. Cannot totally rule out underlying vascular or mass lesion. Patient more confused today and not moving right side extremities to command, only moved right foot to noxious stimulation. Did weakly move left-sided extremities to command. Reviewed labs for today. Slight downward drift in haemoglobin level. Sodium 139. Decreased renal function. Hypermagnesemia. CT brain demonstrated a stable left parietal lobe haemorrhage and stable left-sided IVH. No new haemorrhage or significant midline shift noted. Plan: Primary management per Hospitalist. Critical care management per [employer]er. Neuro checks. Stat CT brain for any decline in neuro status. Hold pharmacologic DVT prophylaxis. Mechanical DVT prophylaxis. Maintain SBP between 110 and 140 mm Hg. May require surgical intervention depending on follow-up CT scan and clinical course. (Cesar Iqbal) Attending Statement The exam, history, and the medical decision-making described in the above note were completed with the assistance of the mid-level provider. I reviewed and agree with the findings presented. I attest that I had a [id number] encounter with the patient on the same day, and personally performed and documented my assessment and findings in the medical record. Follow-up CT scan of the head stable left paroccipital lobe hemorrhage. Overall neurologically she is protecting her airway and no change in exam noted overnight. Discussed with the daughters at bedside if condition were to do. Then she will need to be intubated for airway control and ventilator support and also consider surgery. At this point they would like to avoid any surgical intervention. (Chapito Mike MD) Cesar Iqbal Nov 04, 2017 10:13 Chapito Mkie MD Nov 04, 2017 17:15
--- NOTE | 2017-11-04 10:49 | MB ---
cc: Tati Cantu MD DATE OF CONSULT: 11/03/2017 HISTORY OF PRESENT ILLNESS: This is an 82-year-old seen in neurological consultation. First came in as a Stroke-Alert. She was brought in quickly after the onset of the symptoms, and I spoke to the ED physician a couple of occasions, came and saw the patient, about 1/2 hour or so ago. She developed aphasia with some right hemiparesis. The CT brain was reviewed. There is a moderate to large sized left parietal bleed causing some mass effect and there is some blood into the lateral ventricle. MEDICATIONS: The patient's medications are not known at this point, but I spoke to the patient's son and daughter at bedside. She is apparently on amiodarone and she had been on recent cardiac treatment for some sort of arrhythmia. Unclear if she takes any blood thinners or not. REVIEW OF SYSTEMS: No history of stroke. There is possible atrial fibrillation. PHYSICAL EXAMINATION: The neurological exam showed the patient to be awake. She is showing aphasia, but she will comprehend some and she is able to express some. She verbalizes some simple words and short phrases. She follows commands, though at times, I had to repeat the same request on multiple occasions. She has right-sided visual field defect and right-sided neglect. The left side moves well spontaneously and on command. Reflexes were absent throughout, plantar responses extensor on the right and flexor on the left. She started flexing the knee on the right and she was able to wiggle toes and foot on the right. The court of appeals judge on the right is mildly weak in comparison to the left. STUDY: Her EKG today is showing sinus rhythm. Her blood pressure has been relatively low. ASSESSMENT AND PLAN: Left parietal bleed. Evidently, she was not a candidate for TPA. She was a Stroke-Alert. As discussed with Dr. Saenz, Neurosurgery was being consulted for followup, though she appears to require no intervention at this point. We will need followup imaging studies, etc. Discussed with the family and they are bringing all her medications, want to see if she is on any blood thinners or not. Monitor her cardiac rate for possible underlying, intermittent atrial fibrillation. At first, the main consideration would be a hypertensive bleed, but this also could be an embolic hemorrhagic event, less likely any vascular malformation other than amyloid angiopathy. I will follow the neurological care. Thank you for asking us to participate in her care. MD FANNIE Plaza/MARCELLO , 08:35 PM , 01:04 AM
--- NOTE | 2017-11-04 13:57 | HHI.PR ---
Subjective Remarks 82 year old female who presents with a history of reportedly being found by her family members prior to arrival with a right-sided upper extremity weakness and a change in her mental status. The patient seemed confused and normally has a GCS of 15 according to ambulance services. The patient was last seen normal by the family at approximately 6:25 PM according to medical record. Her blood pressure on arrival to emergency department was 131/89. The patient is oriented to person, however not place, time, or situation at this time. According to chart review, the patient is not on any blood thinners or aspirin. The CT of the head done in the emergency department shows 5.7 cm acute hemorrhage in the left parietal lobe with mild surrounding edema and mass effect. 3-20 TRANSFERRED TO OUR SERVICE STILL HAS RIGHT SIDE FLACCID AT THIS TIME HAS WORD SALAD AND APHASIA NOT ABLE TO FOLLOW ALL COMPLEX COMMANDS CANNOT STICK OUT HER TONGUE Patient recently started on new medication. Family cannot tell me what it was for what for Objective Vitals Vital Signs Date Time Temp Pulse Resp B/P (MAP) Pulse Ox O2 Delivery O2 Flow Rate FiO2 11/04/17 12:00 100.0 65 13 134/62 (86) 100 11/04/17 12:00 65 11/04/17 10:00 66 11/04/17 08:00 69 11/04/17 08:00 99.5 69 24 129/62 (84) 100 11/04/17 07:45 99 21 11/04/17 07:00 100 Room Air 11/04/17 06:00 69 11/04/17 04:00 70 11/04/17 04:00 99.7 70 23 127/63 (84) 100 11/04/17 02:00 66 11/04/17 01:57 21 11/04/17 00:40 11/04/17 00:09 78 16 132/58 (82) 100 Room Air 11/04/17 00:00 99.3 67 15 133/65 (87) 100 11/04/17 00:00 67 11/03/17 22:00 82 16 134/82 (99) 99 Room Air 11/03/17 19:25 98.4 89 18 132/86 (101) 99 11/03/17 19:25 18 Room Air I/O 11/03/17 11/03/17 11/03/17 11/04/17 11/04/17/20/18 07:00 15:00 23:00 07:00 15:00 23:00 Intake Total 448 ml Output Total 1175 ml Balance -727 ml Intake IV Total 448 ml Output Urine Total 1175 ml # Bowel Movements 0 Result Diagram: 11/04/17 0349 11/04/17 0349 Other Results Laboratory Tests Test 11/03/17 19:30 11/03/17 20:00 11/04/17 01:00 11/04/17 03:49 White Blood Count 8.4 TH/MM3 10.0 TH/MM3 Red Blood Count 3.58 MIL/MM3 3.53 MIL/MM3 Hemoglobin 10.5 GM/DL 10.2 GM/DL Bedside Hemoglobin 10.9 G/DL Hematocrit 32.2 % 31.7 % Bedside Hematocrit 32.0 % Mean Corpuscular Volume 90.0 FL 89.9 FL Mean Corpuscular Hemoglobin 29.2 PG 29.0 PG Mean Corpuscular Hemoglobin Concent 32.5 % 32.3 % Red Cell Distribution Width 15.5 % 15.6 % Platelet Count 303 TH/MM3 295 TH/MM3 Mean Platelet Volume 8.0 FL 8.4 FL Neutrophils (%) (Auto) 39.5 % 75.5 % Lymphocytes (%) (Auto) 43.2 % 13.4 % Monocytes (%) (Auto) 12.4 % 9.5 % Eosinophils (%) (Auto) 4.1 % 1.0 % Basophils (%) (Auto) 0.8 % 0.6 % Neutrophils # (Auto) 3.3 TH/MM3 7.5 TH/MM3 Lymphocytes # (Auto) 3.6 TH/MM3 1.3 TH/MM3 Monocytes # (Auto) 1.0 TH/MM3 0.9 TH/MM3 Eosinophils # (Auto) 0.3 TH/MM3 0.1 TH/MM3 Basophils # (Auto) 0.1 TH/MM3 0.1 TH/MM3 CBC Comment DIFF FINAL DIFF FINAL Differential Comment Prothrombin Time 10.6 SEC Prothromb Time International Ratio 1.0 RATIO Activated Partial Thromboplast Time 23.5 SEC Fibrinogen 402 mg/dL Bedside Sodium 139 MMOL/L Bedside Potassium 4.5 MMOL/L Bedside Chloride 106 MMOL/L Bedside Blood Urea Nitrogen 23 MG/DL Bedside Creatinine 1.2 MG/DL Bedside Glucose 85 MG/DL Total Creatine Kinase 41 U/L Troponin I LESS THAN 0.02 NG/ML C-Reactive Protein 0.83 MG/DL B-Type Natriuretic Peptide 121 PG/ML Ammonia 27 MCMOL/L Nasal Screen MRSA (PCR) MRSA NOT DETECTED Blood Urea Nitrogen 19 MG/DL Creatinine 1.11 MG/DL Random Glucose 78 MG/DL Total Protein 7.9 GM/DL Albumin 2.9 GM/DL Calcium Level 8.7 MG/DL Phosphorus Level 3.7 MG/DL Magnesium Level 2.8 MG/DL Alkaline Phosphatase 107 U/L Aspartate Amino Transf (AST/SGOT) 17 U/L Alanine Aminotransferase (ALT/SGPT) 18 U/L Total Bilirubin 0.2 MG/DL Sodium Level 139 MEQ/L Potassium Level 4.4 MEQ/L Chloride Level 104 MEQ/L Carbon Dioxide Level 26.9 MEQ/L Anion Gap 8 MEQ/L Estimat Glomerular Filtration Rate 57 ML/MIN Imaging Last Impressions Head CT 11/04/17 0000 Signed Impressions: Service Date/Time: Saturday, November 04, 2017 09:22 - CONCLUSION: 1. Stable hemorrhage in the posterior left parietal lobe measuring approximately 5.5 cm in diameter. Stable left-sided intraventricular blood. No new hemorrhage or significant midline shift. 2. Acute maxillary sinusitis with air-fluid levels bilaterally. Ulises Amin MD Chest X-Ray 11/03/17 0000 Signed Impressions: Service Date/Time: Friday, November 03, 2017 19:48 - CONCLUSION: 1. Mild basilar opacity, probably basilar atelectasis. No effusion. Regis Hayes MD Objective Remarks GENERAL: Awake and alert confused and unable to follow complex commands can sort of move the left side right side is flaccid SKIN: Warm and dry. HEAD: Atraumatic. Normocephalic. EYES: Pupils equal and round. No scleral icterus. No injection or drainage. ENT: No nasal bleeding or discharge. Mucous membranes pink and moist. NECK: Trachea midline. No JVD. Supple CARDIOVASCULAR: Regular rate and rhythm. S1-S2 no S3 or S4 RESPIRATORY: No accessory muscle use. Clear to auscultation. Breath sounds equal bilaterally. GASTROINTESTINAL: Abdomen soft, non-tender, nondistended. Hepatic and splenic margins not palpable. Obese MUSCULOSKELETAL: Extremities without clubbing, cyanosis, or edema. No obvious deformities. NEUROLOGICAL: Awake and alert. Cannot easily assess all cranial nerves due to aphasia. Motor grossly within normal limits. 4 out of 5 muscle strength in the arms and legs on the left only-right side is flaccid. ABNormal speech. PSYCHIATRIC: INAppropriate mood and affect; insight and judgment ABnormal. Aphasia and word salad Procedures NONE Medications and IVs Current Medications Sodium Chloride 1,000 ml @ 70 mls/hr [id number] ONCE IV ; Start 11/03/17 at 19:31 ; Stop 11/04/17 at 09:48; Status DC Amiodarone HCl (Cordarone) 200 mg DAILY PO Last administered on 11/04/17at 09:03 ; Start 11/04/17 at 09:00 Oxycodone/ Acetaminophen (Percocet 5-325 Mg) 1 tab BID PRN PO PAIN 1-10; Start 11/03/17 at 20:15 Prednisolone (prednisoLONE (W/ ALCOHOL) LIQ) 5 mg DAILY PO ; Start 11/04/17 at 09:00 Sodium Chloride 1,000 ml @ 84 mls/hr [id number] IV Last administered on at 07:30; Start 11/03/17 at 21:00 Sodium Chloride (NS Flush) 2 ml UNSCH PRN IV FLUSH FLUSH AFTER USING IV ACCESS ; Start 11/03/17 at 20:15 Acetaminophen (Tylenol) 650 mg Q6H PRN PO PAIN 1-5 AND/OR FEVER >101F; Start at 20:15 Morphine Sulfate (Morphine Inj) 2 mg Q2H PRN IV PUSH PAIN SCALE 6 TO 10; Start 11/03/17 at 20:15; Status UNV Famotidine (Pepcid Inj) 20 mg Q12HR IV PUSH Last administered on 11/04/17at 09: 04; Start 11/03/17 at 21:00 Ondansetron HCl (Zofran Inj) 4 mg Q6H PRN IV PUSH NAUSEA OR VOMITING Last administered on 11/03/17at 23:17; Start 11/03/17 at 20:15 Albuterol/ Ipratropium (Duoneb Neb) 1 ampule Q2HR NEB PRN INH WHEEZING; Start 11/03/17 at 20:15 Miscellaneous Information 1 [id number] ; Start 11/03/17 at 20:15 Chlorhexidine Gluconate (Chlorhexidine 2% Cloth) 3 pack Taper DAILY@04 TOP Last administered on 11/04/17at 04:23; Start 11/04/17 at 04:00; Stop 10/31/18 at 03:59 Chlorhexidine Gluconate (Chlorhexidine 2% Cloth) 3 pack UNSCH PRN TOP HYGIENIC CARE; Start 11/03/17 at 20:15 Senna/Docusate Sodium (Jovita-Colace) 1 tab BID PO ; Start 11/03/17 at 21:00 Magnesium Hydroxide (Milk Of Magnesia Liq) 30 ml Q12H PRN PO Mild constipation ; Start 11/03/17 at 20:15 Sennosides (Senokot) 17.2 mg Q12H PRN PO Moderate constipation; Start 11/03/17 at 20:15 Bisacodyl (Dulcolax Supp) 10 mg DAILY PRN RECTAL SEVERE CONSITIPATION; Start at 20:15 Lactulose (Lactulose Liq) 30 ml DAILY PRN PO SEVERE CONSITIPATION; Start at 20:15 Labetalol HCl (Trandate Inj) 10 mg Q4H PRN IV PUSH SBP>140, DBP>90; Start 11/03 at 20:30 Hydralazine HCl (Apresoline Inj) 20 mg Q4H PRN IV PUSH SBP>140, DBP>90; Start 11/03/17 at 20:30 Morphine Sulfate (Morphine Inj) 2 mg Q2H PRN IV PAIN SCALE 6 TO 10 Last administered on 11/04/17at 09:00; Start 11/03/17 at 20:30 A/P Assessment and Plan Acute hemorrhagic stroke - No surgical intervention indicated at this time - Neuro checks per unit protocol - Blood pressure control with SBP goal less than 140 - Coagulation profile pending Seen by neurosurgery and neurology Heart arrhythmia - Continue amiodarone No anticoagulation at this time Hypertension - Labetalol and hydralazine when necessary to keep SBP less than 140 Arthritis - Continue home dose prednisone History of GERD continue on the Pepcid Morbid obesity weight loss recommended DVT GI prophylaxis - Teds SCDs - No pharmacological DVT prophylaxis will 48 hours after ICH - Pepcid Discharge Planning Continue physical therapy and occupational therapy and speech therapy Heber Varela DO Nov 04, 2017 13:57
[2017-11-04] MEDS: hydrALAZINE HCL 20 MG/ML VIAL IV PUSH PRN (14:47)
[2017-11-04] MEDS: prednisoLONE (CONTAINS ALCOHOL) 15 MG/5 ML ORAL SYR PO SCH (16:00)
--- NOTE | 2017-11-04 17:23 | ECHRPT ---
Indication: CVA/TIA CONCLUSIONS Normal left ventricular size. Mild concentric left ventricular hypertrophy. The left ventricular systolic function is low normal with an estimated ejection fraction in the rang e of 50- 55%. The left atrial size is moderately dilated. The right atrial size is mildly dilated. No atrial level shunt is demonstrated by color flow Doppler interrogation. [id number] mitral valve regurgitation. The mitral valve regurgitation jet is directed posteriorly. Aortic valve sclerosis is present. There is moderate tricuspid regurgitation. The estimated pulmonary arterial pressure is 55.4 mmHg. Trivial pulmonary valve regurgitation. BP: 127 / 63 HR: 70 Rhythm: Sinus MEASUREMENTS (Male / Female) Normal Values Technical Quality:Fair 2D ECHO LV Diastolic Diameter PLAX 5.0 cm 4.2 - 5.9 / 3.9 - 5.3 cm LV Systolic Diameter PLAX 4.1 cm IVS Diastolic Thickness 1.2 cm 0.6 - 1.0 / 0.6 - 0.9 cm LVPW Diastolic Thickness 1.2 cm 0.6 - 1.0 / 0.6 - 0.9 cm LV Relative Wall Thickness 0.5 RV Internal Dim ED PLAX 2.5 cm LVOT Diameter 2.0 cm Aortic Root Diameter 2.8 cm LA Systolic Diameter LX 3.6 cm 3.0 - 4.0 / 2.7 - 3.8 cm M-MODE AV Cusp Separation MM 2.2 cm DOPPLER AV Peak Velocity 156.0 cm/s AV Peak Gradient 9.9 mmHg AV Mean Gradient 5.0 mmHg AV Velocity Time Integral 33.0 cm LVOT Peak Velocity 79.0 cm/s LVOT Peak Gradient 2.2 mmHg LVOT Velocity Time Integral 19.0 cm AV Area Cont Eq vti 1.8 cm AV Area Cont Eq pk 1.6 cm Mitral E Point Velocity 86.9 cm/s Mitral A Point Velocity 54.8 cm/s Mitral E to A Ratio 1.6 LV E' Lateral Velocity 15.8 cm/s Mitral E to LV E' Lateral Ratio 5.5 LV E' Septal Velocity 9.6 cm/s Mitral E to LV E' Septal Ratio 9.1 TR Peak Velocity 337.0 cm/s TR Peak Gradient 45.1 mmHg Right Atrial Pressure 10.0 mmHg Pulmonary Artery Systolic Pressu 55.4 mmHg Right Ventricular Systolic Press 55.4 mmHg PV Peak Velocity 64.7 cm/s PV Peak Gradient 1.9 mmHg FINDINGS LEFT VENTRICLE Normal left ventricular size. Mild concentric left ventricular hypertrophy. The left ventricular systolic function is low normal with an estimated ejection fraction in the rang e of 50- 55%. RIGHT VENTRICLE Normal right ventricular size and systolic function. LEFT ATRIUM The left atrial size is moderately dilated. RIGHT ATRIUM The right atrial size is mildly dilated. ATRIAL SEPTUM No atrial level shunt is demonstrated by color flow Doppler interrogation. AORTA The aortic root and proximal ascending aorta are normal in size on limited imaging. MITRAL VALVE [id number] mitral valve regurgitation. The mitral valve regurgitation jet is directed posteriorly. AORTIC VALVE Aortic valve sclerosis is present. TRICUSPID VALVE There is moderate tricuspid regurgitation. The estimated pulmonary arterial pressure is 55.4 mmHg. PULMONARY VALVE Trivial pulmonary valve regurgitation. VESSELS The inferior vena cava is normal in size. PERICARDIUM No pericardial effusion. Mario Fowler MD, FACC (Electronically Signed) Final Date:11 November 2017 14:43 Amended: 11 November 2017 14:43
[2017-11-05] VITALS (15 sets, daily range): BP systolic 107–145; BP diastolic 52–67; PULSE 64–92; RESP 20–26; TEMP 98.4–100.8; O2SAT 94–100
[2017-11-05] MEDS: CHLORHEXIDINE GLUCONATE 2 % 1 PACK (2 CLOTHS) TOP SCH (04:35)
[2017-11-05 06:06] LABS: ALBUMIN 2.8 GM/DL (3.4-5.0); ALT (GPT) 16 U/L (10-53); AST (GOT) 22 U/L (15-37); BLOOD UREA NITROGEN 15 MG/DL (7-18); CALCIUM 8.5 MG/DL (8.5-10.1); CHLORIDE 103 MEQ/L (98-107); CREATININE 1.01 MG/DL (0.50-1.00); GLOMERULAR FILTRATION RATE 64 ML/MIN (>89); GLUCOSE,RANDOM 79 MG/DL (74-106); MAGNESIUM 2.5 MG/DL (1.5-2.5); PHOSPHORUS 3.7 MG/DL (2.5-4.9); SODIUM (NA) 137 MEQ/L (136-145)
[2017-11-05 06:15] LABS: ALKALINE PHOSPHATASE 107 U/L (45-117); TOTAL BILIRUBIN ADULT 0.4 MG/DL (0.2-1.0); TOTAL PROTEIN 8.1 GM/DL (6.4-8.2)
[2017-11-05 07:09] LABS: AUTOMATED NEUTROPHIL # 7.7 TH/MM3 (1.8-7.7); BASOPHIL % 0.3 % (0.0-2.0); EOSINOPHIL % 0.1 % (0.0-4.0); HEMATOCRIT 33.6 % (35.0-46.0); HEMOGLOBIN 11.2 GM/DL (11.6-15.3); LYMPH % 12.1 % (9.0-44.0); LYMPHOCYTE # 1.2 TH/MM3 (1.0-4.8); MEAN CELL VOLUME 90.9 FL (80.0-100.0); MEAN CORPUSCULAR HEMOGLOBIN 30.3 PG (27.0-34.0); MEAN CORPUSCULAR HGB CONC 33.4 % (32.0-36.0); MEAN PLATELET VOLUME 8.5 FL (7.0-11.0); MONO % 10.6 % (0.0-8.0); MONOCYTE # 1.1 TH/MM3 (0-0.9); NEUT % 76.9 % (16.0-70.0); PLATELET COUNT 258 TH/MM3 (150-450); RED CELL DISTRIBUTION WIDTH 15.3 % (11.6-17.2)
[2017-11-05] MEDS: SODIUM CHLOR 0.9% 1000 ML INJ 1,000 ML IV SCH ×2 (07:45→20:40)
[2017-11-05] MEDS: AMIODARONE 200 MG TAB PO SCH (08:04)
[2017-11-05] MEDS: DOCUSATE SODIUM 50 MG/SENNA 8.6 MG TAB PO SCH ×2 (08:04→22:56)
[2017-11-05] MEDS: FAMOTIDINE 20 MG/2 ML VIAL IV PUSH SCH ×2 (08:04→22:56)
[2017-11-05] MEDS: prednisoLONE (CONTAINS ALCOHOL) 15 MG/5 ML ORAL SYR PO SCH (08:05)
--- NOTE | 2017-11-05 08:55 | HHI.PR ---
Review/Management Daily Summary 11/05 doing well overall spoke with daughter at bedside will follow commnads, aphasia persists right hemiparesis/neglect echo results seen will follow peripherally, please call prn Subjective Subjective Comments No acute events reported No headache Active Medications Current Medications Medications (Trade) Dose Ordered Sig/Roxanna Route Start Time Stop Time Status Last Admin (Cordarone) 200 mg DAILY PO 11/04/17 09:00 11/05/17 08:04 (Percocet 5-325 Mg) 1 tab BID PRN PO 11/03/17 20:15 (prednisoLONE (W/ ALCOHOL) LIQ) 5 mg DAILY PO 11/04/17 09:00 11/05/17 08:05 Sodium Chloride 1,000 ml @ 84 mls/hr [id number] IV 11/03/17 21:00 11/05/17 07:45 (NS Flush) 2 ml UNSCH PRN IV FLUSH 11/03/17 20:15 (Tylenol) 650 mg Q6H PRN PO 11/03/17 20:15 (Pepcid Inj) 20 mg Q12HR IV PUSH 11/03/17 21:00 11/05/17 08:04 (Zofran Inj) 4 mg Q6H PRN IV PUSH 11/03/17 20:15 11/03/17 23:17 (Duoneb Neb) 1 ampule Q2HR NEB PRN INH 11/03/17 20:15 Miscellaneous Information 1 [id number] XX 11/03/17 20:15 (Chlorhexidine 2% Cloth) 3 pack Taper DAILY@04 TOP 11/04/17 04:00 10/31/18 03:59 11/05/17 04:35 (Chlorhexidine 2% Cloth) 3 pack UNSCH PRN TOP 11/03/17 20:15 (Jovita-Colace) 1 tab BID PO 11/03/17 21:00 11/05/17 08:04 (Milk Of Magnesia Liq) 30 ml Q12H PRN PO 11/03/17 20:15 (Senokot) 17.2 mg Q12H PRN PO 11/03/17 20:15 (Dulcolax Supp) 10 mg DAILY PRN RECTAL 11/03/17 20:15 (Lactulose Liq) 30 ml DAILY PRN PO 11/03/17 20:15 (Trandate Inj) 10 mg Q4H PRN IV PUSH 11/03/17 20:30 11/04/17 16:30 (Apresoline Inj) 20 mg Q4H PRN IV PUSH 11/03/17 20:30 11/04/17 14:47 (Morphine Inj) 2 mg Q2H PRN IV 11/03/17 20:30 11/04/17 09:00 Allergies Allergies Coded Allergies No Known Allergies ([id number]) Exam I&O / VS Vital Signs Date Time Temp Pulse Resp B/P (MAP) Pulse Ox O2 Delivery O2 Flow Rate FiO2 11/05/17 06:00 64 11/05/17 04:00 100.0 68 22 129/60 (83) 100 11/05/17 04:00 68 11/05/17 02:00 66 11/05/17 00:15 100 11/05/17 00:00 100.4 69 26 127/60 (82) 100 11/05/17 00:00 69 11/04/17 22:00 66 11/04/17 20:00 70 11/04/17 20:00 100.4 70 25 143/60 (87) 100 11/04/17 19:00 100 Room Air 11/04/17 18:00 66 11/04/17 16:00 65 11/04/17 16:00 99.9 68 24 142/67 (92) 100 11/04/17 14:00 60 11/04/17 12:00 100.0 65 13 134/62 (86) 100 11/04/17 12:00 65 11/04/17 10:00 66 Objective Radiology Results Last [address] 11/04/17 0000 Signed Impressions: Service Date/Time: Saturday, November 04, 2017 09:22 - CONCLUSION: 1. Stable hemorrhage in the posterior left parietal lobe measuring approximately 5.5 cm in diameter. Stable left-sided intraventricular blood. No new hemorrhage or significant midline shift. 2. Acute maxillary sinusitis with air-fluid levels bilaterally. Ulises Amin MD Micro and Labs Laboratory Tests Test 11/05/17 05:05 White Blood Count 10.0 Red Blood Count 3.70 Hemoglobin 11.2 Hematocrit 33.6 Mean Corpuscular Volume 90.9 Mean Corpuscular Hemoglobin 30.3 Mean Corpuscular Hemoglobin Concent 33.4 Red Cell Distribution Width 15.3 Platelet Count 258 Mean Platelet Volume 8.5 Neutrophils (%) (Auto) 76.9 Lymphocytes (%) (Auto) 12.1 Monocytes (%) (Auto) 10.6 Eosinophils (%) (Auto) 0.1 Basophils (%) (Auto) 0.3 Neutrophils # (Auto) 7.7 Lymphocytes # (Auto) 1.2 Monocytes # (Auto) 1.1 Eosinophils # (Auto) 0.0 Basophils # (Auto) 0.0 CBC Comment DIFF FINAL Differential Comment Hematology Comments Blood Urea Nitrogen 15 Creatinine 1.01 Random Glucose 79 Total Protein 8.1 Albumin 2.8 Calcium Level 8.5 Phosphorus Level 3.7 Magnesium Level 2.5 Alkaline Phosphatase 107 Aspartate Amino Transf (AST/SGOT) 22 Alanine Aminotransferase (ALT/SGPT) 16 Total Bilirubin 0.4 Sodium Level 137 Potassium Level 4.2 Chloride Level 103 Carbon Dioxide Level 23.0 Anion Gap 11 Estimat Glomerular Filtration Rate 64 Free Thyroxine 1.60 Thyroid Stimulating Hormone 3rd Gen 1.520 Tati Cantu MD Nov 05, 2017 08:55
[2017-11-05] MEDS: hydrALAZINE HCL 20 MG/ML VIAL IV PUSH PRN (11:13)
[2017-11-05 11:24] LABS: BILIRUBIN, URINE NEG (NEG); BLOOD, URINE SMALL (NEG); GLUCOSE,URINE NEG (NEG); KETONE, URINE NEG (NEG); NITRITE,URINE NEG (NEG); PH, URINE 5.5 (5.0-8.5); URINE COLOR YELLOW (YELLW/STRAW); URINE LEUKOCYTE ESTERASE NEG (NEG)
--- NOTE | 2017-11-05 12:00 | HHI.NSPN ---
(Cesar Iqbal) History Chief Complaint: Unable to obtain due to patient's mental status. (Cesar Iqbal) Interval History 11/03: 82-year-old female who had a partially 4:30 this afternoon was noted by her family to have right-sided weakness and confusion with speech difficulty. She was brought to the emergency room for evaluation with initial systolic blood pressure 131. No previous history of CVA or TIA. She does have a history of cardiac arrhythmia. 11/04: The patient was asleep when seen but did awaken to voice. She was awake after that and interacted. The review of systems was unreliable in that the patient would answer yes once and then no. She did move the left side weakly to command but not the right. She did weakly move the right foot to noxious stimulation but not the right upper. Nursing reported that the patient was not moving the right side for her but did move the left. A repeat CT brain this morning demonstrated a stable bleed. 11/05: When seen the patient is awake and looking to the left. She verbalises with "Yep" to every question or command. She did give a weak squeeze to command with the left hand but didn't follow any others. She had slight movement of the extremities to noxious stimulation. Her gaze preference is to the left. Her daughter stated she has not looked to the right. (Cesar Iqbal) Exam Results 11/03/17 11/03/17 11/04/17 11/04/17 11/05/17 11/05/17 06:00 18:00 06:00 18:00 06:00 18:00 Intake Total 1441 ml Output Total 1175 ml 850 ml 575 ml Balance -1175 ml 591 ml -575 ml Intake IV Total 1441 ml Output Urine Total 1175 ml 850 ml 575 ml # Bowel Movements 0 0 0 Vital Signs Date Time Temp Pulse Resp B/P (MAP) Pulse Ox O2 Delivery O2 Flow Rate FiO2 11/05/17 09:06 100 11/05/17 07:00 100 Room Air 11/05/17 06:00 64 3/21/18 04:00 100.0 68 22 129/60 (83) 100 11/05/17 04:00 68 11/05/17 02:00 66 11/05/17 00:15 100 11/05/17 00:00 100.4 69 26 127/60 (82) 100 11/05/17 00:00 69 11/04/17 22:00 66 11/04/17 20:00 70 11/04/17 20:00 100.4 70 25 143/60 (87) 100 11/04/17 19:00 100 Room Air 11/04/17 18:00 66 11/04/17 16:00 65 11/04/17 16:00 99.9 68 24 142/67 (92) 100 11/04/17 14:00 60 11/04/17 12:00 100.0 65 13 134/62 (86) 100 11/04/17 12:00 65 11/04/17 10:00 66 11/04/17 08:00 69 11/04/17 08:00 99.5 69 24 129/62 (84) 100 11/04/17 07:45 99 21 11/04/17 07:00 100 Room Air 11/04/17 06:00 69 11/04/17 04:00 70 11/04/17 04:00 99.7 70 23 127/63 (84) 100 11/04/17 02:00 66 11/04/17 01:57 21 11/04/17 00:40 11/04/17 00:09 78 16 132/58 (82) 100 Room Air 11/04/17 00:00 99.3 67 15 133/65 (87) 100 11/04/17 00:00 67 11/03/17 22:00 82 16 134/82 (99) 99 Room Air 11/03/17 19:25 98.4 89 18 132/86 (101) 99 11/03/17 19:25 18 Room Air (Cesar Iqbal) Physical Examination GENERAL: Awake & alert but limited interaction. Affect flat. No apparent distress. HEENT: Normocephalic, atraumatic. PERRLA 3 mm brisk. Left gaze preference MUSCULOSKELETAL: Appears to be pill rolling movement with left hand. Slight withdrawal response to all extremities. No evident clubbing or deformity. NEUROLOGICAL: Awake & alert. Speech clear but only answers "Yep" to all questions. Did say "Oh" to local noxious stimulation. Severe aphasia. PERRLA 3 mm brisk. Left gaze preference. Did weakly squeeze w/left hand to command but didn't follow any other commands. Trace flexion/withdrawal of RUE and slight withdrawal of other extremities to local noxious stimulation. (Cesar Iqbal) Physical Examination GENERAL: Awake & alert but limited interaction. Affect flat. No apparent distress. HEENT: Normocephalic, atraumatic. PERRLA 3 mm brisk. Left gaze preference MUSCULOSKELETAL: Appears to be pill rolling movement with left hand. Slight withdrawal response to all extremities. No evident clubbing or deformity. NEUROLOGICAL: Awake & alert. Speech clear but only answers "Yep" to all questions. Did say "Oh" to local noxious stimulation. Severe aphasia. PERRLA 3 mm brisk. Left gaze preference. Did weakly squeeze w/left hand to command but didn't follow any other commands. Trace flexion/withdrawal of RUE and slight withdrawal of other extremities to local noxious stimulation. (Tevin Murphy MD) Lab, Micro, Other Results Recent Impressions Head CT 11/04/17 0000 Signed Impressions: Service Date/Time: Saturday, November 04, 2017 09:22 - CONCLUSION: 1. Stable hemorrhage in the posterior left parietal lobe measuring approximately 5.5 cm in diameter. Stable left-sided intraventricular blood. No new hemorrhage or significant midline shift. 2. Acute maxillary sinusitis with air-fluid levels bilaterally. Ulises Amin MD Head CT 11/03/17 0000 Signed Impressions: Service Date/Time: Friday, November 03, 2017 19:36 - CONCLUSION: 1. 5.7 cm acute hemorrhage in the left parietal lobe with mild surrounding edema and mass effect. Hemorrhage in the posterior left lateral ventricle. Regis Hayes MD Chest X-Ray 11/03/17 0000 Signed Impressions: Service Date/Time: Friday, November 03, 2017 19:48 - CONCLUSION: 1. Mild basilar opacity, probably basilar atelectasis. No effusion. Regis Hayes MD Laboratory Tests Test 11/03/17 19:30 11/03/17 20:00 11/04/17 01:00 11/04/17 03:49 White Blood Count 8.4 TH/MM3 10.0 TH/MM3 Red Blood Count 3.58 MIL/MM3 3.53 MIL/MM3 Hemoglobin 10.5 GM/DL 10.2 GM/DL Bedside Hemoglobin 10.9 G/DL Hematocrit 32.2 % 31.7 % Bedside Hematocrit 32.0 % Mean Corpuscular Volume 90.0 FL 89.9 FL Mean Corpuscular Hemoglobin 29.2 PG 29.0 PG Mean Corpuscular Hemoglobin Concent 32.5 % 32.3 % Red Cell Distribution Width 15.5 % 15.6 % Platelet Count 303 TH/MM3 295 TH/MM3 Mean Platelet Volume 8.0 FL 8.4 FL Neutrophils (%) (Auto) 39.5 % 75.5 % Lymphocytes (%) (Auto) 43.2 % 13.4 % Monocytes (%) (Auto) 12.4 % 9.5 % Eosinophils (%) (Auto) 4.1 % 1.0 % Basophils (%) (Auto) 0.8 % 0.6 % Neutrophils # (Auto) 3.3 TH/MM3 7.5 TH/MM3 Lymphocytes # (Auto) 3.6 TH/MM3 1.3 TH/MM3 Monocytes # (Auto) 1.0 TH/MM3 0.9 TH/MM3 Eosinophils # (Auto) 0.3 TH/MM3 0.1 TH/MM3 Basophils # (Auto) 0.1 TH/MM3 0.1 TH/MM3 CBC Comment DIFF FINAL DIFF FINAL Differential Comment Prothrombin Time 10.6 SEC Prothromb Time International Ratio 1.0 RATIO Activated Partial Thromboplast Time 23.5 SEC Fibrinogen 402 mg/dL Bedside Sodium 139 MMOL/L Bedside Potassium 4.5 MMOL/L Bedside Chloride 106 MMOL/L Bedside Blood Urea Nitrogen 23 MG/DL Bedside Creatinine 1.2 MG/DL Bedside Glucose 85 MG/DL Total Creatine Kinase 41 U/L Troponin I LESS THAN 0.02 NG/ML C-Reactive Protein 0.83 MG/DL B-Type Natriuretic Peptide 121 PG/ML Ammonia 27 MCMOL/L Nasal Screen MRSA (PCR) MRSA NOT DETECTED Blood Urea Nitrogen 19 MG/DL Creatinine 1.11 MG/DL Random Glucose 78 MG/DL Total Protein 7.9 GM/DL Albumin 2.9 GM/DL Calcium Level 8.7 MG/DL Phosphorus Level 3.7 MG/DL Magnesium Level 2.8 MG/DL Alkaline Phosphatase 107 U/L Aspartate Amino Transf (AST/SGOT) 17 U/L Alanine Aminotransferase (ALT/SGPT) 18 U/L Total Bilirubin 0.2 MG/DL Sodium Level 139 MEQ/L Potassium Level 4.4 MEQ/L Chloride Level 104 MEQ/L Carbon Dioxide Level 26.9 MEQ/L Anion Gap 8 MEQ/L Estimat Glomerular Filtration Rate 57 ML/MIN Test 11/05/17 05:05 11/05/17 11:00 White Blood Count 10.0 TH/MM3 Red Blood Count 3.70 MIL/MM3 Hemoglobin 11.2 GM/DL Hematocrit 33.6 % Mean Corpuscular Volume 90.9 FL Mean Corpuscular Hemoglobin 30.3 PG Mean Corpuscular Hemoglobin Concent 33.4 % Red Cell Distribution Width 15.3 % Platelet Count 258 TH/MM3 Mean Platelet Volume 8.5 FL Neutrophils (%) (Auto) 76.9 % Lymphocytes (%) (Auto) 12.1 % Monocytes (%) (Auto) 10.6 % Eosinophils (%) (Auto) 0.1 % Basophils (%) (Auto) 0.3 % Neutrophils # (Auto) 7.7 TH/MM3 Lymphocytes # (Auto) 1.2 TH/MM3 Monocytes # (Auto) 1.1 TH/MM3 Eosinophils # (Auto) 0.0 TH/MM3 Basophils # (Auto) 0.0 TH/MM3 CBC Comment DIFF FINAL Differential Comment Hematology Comments Blood Urea Nitrogen 15 MG/DL Creatinine 1.01 MG/DL Random Glucose 79 MG/DL Total Protein 8.1 GM/DL Albumin 2.8 GM/DL Calcium Level 8.5 MG/DL Phosphorus Level 3.7 MG/DL Magnesium Level 2.5 MG/DL Alkaline Phosphatase 107 U/L Aspartate Amino Transf (AST/SGOT) 22 U/L Alanine Aminotransferase (ALT/SGPT) 16 U/L Total Bilirubin 0.4 MG/DL Sodium Level 137 MEQ/L Potassium Level 4.2 MEQ/L Chloride Level 103 MEQ/L Carbon Dioxide Level 23.0 MEQ/L Anion Gap 11 MEQ/L Estimat Glomerular Filtration Rate 64 ML/MIN Free Thyroxine 1.60 NG/DL Thyroid Stimulating Hormone 3rd Gen 1.520 uIU/ML Urine Color YELLOW Urine Turbidity CLEAR Urine pH 5.5 Urine Specific [place] 1.017 Urine Protein NEG mg/dL Urine Glucose (UA) NEG mg/dL Urine Ketones NEG mg/dL Urine Occult Blood SMALL Urine Nitrite NEG Urine Bilirubin NEG Urine Urobilinogen LESS THAN 2.0 MG/DL Urine Leukocyte Esterase NEG Urine RBC 2 /hpf Urine WBC LESS THAN 1 /hpf Microscopic Urinalysis Comment CATH-CULT NOT IND Urine Opiates Screen NEG Urine Barbiturates Screen POS Urine Amphetamines Screen NEG Urine Benzodiazepines Screen NEG Urine Cocaine Screen NEG Urine Cannabinoids Screen NEG (Cesar Iqbal) Medical Decision Making Impression and Plan Impression: 1. Nearly 6 cm left parietal occipital acute parenchymal intracranial hemorrhage. No significant hypertension. Possible hemorrhagic CVA. Cannot totally rule out underlying vascular or mass lesion. Patient w/severe aphasia, left gaze preference, slight hand squeeze on left to command, trace flexion/withdrawal to RUE and slight withdrawal to other extremities w/noxious stimulation. T max 100.4 for the past 24 hrs. Reviewed labs for today. Interval improvement in haemoglobin level. Sodium 137. Interval improvement in renal function. Interval resolution of hypermagnesemia. CT brain demonstrated a stable left parietal lobe haemorrhage and stable left-sided IVH. No new haemorrhage or significant midline shift noted. Plan: Primary management per Hospitalist. Critical care management per [employer]. Neuro checks. Stat CT brain for any decline in neuro status. Hold pharmacologic DVT prophylaxis. Mechanical DVT prophylaxis. Maintain SBP between 110 and 140 mm Hg. May require surgical intervention depending on follow-up CT scan and clinical course. (Cesar Iqbal) Attending Statement As above The exam, history, and the medical decision-making described in the above note were completed with the assistance of the mid-level provider. I reviewed and agree with the findings presented. I attest that I had a [id number] encounter with the patient on the same day, and personally performed and documented my assessment and findings in the medical record. (Tevin Murphy MD) Cesar Iqbal Nov 05, 2017 12:00 Tevin Murphy MD Nov 07, 2017 14:23
--- NOTE | 2017-11-05 15:34 | HHI.PR ---
Subjective Remarks 82-year-old female who suffered an intracranial hemorrhage type stroke in her left parietal lobe. She remains weak on the right side, nonverbal, making no meaningful effort to communicate. She is awake. Objective Vitals Vital Signs Date Time Temp Pulse Resp B/P (MAP) Pulse Ox O2 Delivery O2 Flow Rate FiO2 11/05/17 14:00 78 11/05/17 12:00 75 11/05/17 12:00 99.9 80 20 107/52 (70) 100 11/05/17 10:00 69 11/05/17 09:06 100 11/05/17 08:00 100.2 69 25 134/60 (84) 100 11/05/17 08:00 68 11/05/17 07:00 100 Room Air 11/05/17 06:00 64 11/05/17 04:00 100.0 68 22 129/60 (83) 100 11/05/17 04:00 68 11/05/17 02:00 66 11/05/17 00:15 100 11/05/17 00:00 100.4 69 26 127/60 (82) 100 11/05/17 00:00 69 11/04/17 22:00 66 11/04/17 20:00 70 11/04/17 20:00 100.4 70 25 143/60 (87) 100 11/04/17 19:00 100 Room Air 11/04/17 18:00 66 11/04/17 16:00 65 11/04/17 16:00 99.9 68 24 142/67 (92) 100 I/O 11/04/17 11/04/17 11/04/17 11/05/17 11/05/17 11/05/17 07:00 15:00 23:00 07:00 15:00 23:00 Intake Total 448 ml 993 ml Output Total 1175 ml 850 ml 575 ml Balance -727 ml 143 ml -575 ml Intake IV Total 448 ml 993 ml Output Urine Total 1175 ml 850 ml 575 ml # Bowel Movements 0 0 0 Result Diagram: 11/05/17 0505 11/05/17 0505 Objective Remarks GENERAL: Well-nourished, well-developed patient, nonverbal due to hemorrhagic CVA, right-sided flaccid SKIN: Warm and dry. HEAD: Normocephalic. EYES: No scleral icterus. No injection or drainage. NECK: Supple, trachea midline. No JVD or lymphadenopathy. CARDIOVASCULAR: Regular rate and rhythm without murmurs, gallops, or rubs. RESPIRATORY: Breath sounds equal bilaterally. No accessory muscle use. GASTROINTESTINAL: Abdomen soft, non-tender, nondistended. EXTREMITIES: No cyanosis, or edema. NEUROLOGICAL: Awake, alert, patient does not seem oriented, right side flaccidity, nonverbal Procedures NONE A/P Problem List: (1) Intracranial hemorrhage ICD Code: I62.9 - Nontraumatic intracranial hemorrhage, unspecified Status: Acute Assessment and Plan Acute hemorrhagic stroke No surgical intervention indicated at this time SBP goal less than 140 Appreciate neurosurgery and neurology following Continue PT and OT Heart arrhythmia Continue amiodarone No anticoagulation at this time due to hemorrhagic nature of the stroke Hypertension Labetalol and hydralazine when necessary to keep SBP less than 140 Arthritis Continue home dose prednisone History of GERD continue on the Pepcid DVT prophylaxis - Teds SCDs Sacha Sotomayor MD Nov 05, 2017 15:34
[2017-11-05 18:09] LABS: HEMOGLOBIN A1C 5.3 % (4.3-6.0)
[2017-11-06] VITALS (7 sets, daily range): BP systolic 122–144; BP diastolic 59–91; PULSE 75–90; RESP 18–20; TEMP 94.7–99.9; O2SAT 95–100
[2017-11-06] MEDS: SODIUM CHLOR 0.9% 1000 ML INJ 1,000 ML IV SCH (10:16)
[2017-11-06] MEDS: FAMOTIDINE 20 MG/2 ML VIAL IV PUSH SCH ×2 (10:16→23:21)
[2017-11-06] MEDS: AMIODARONE 200 MG TAB PO SCH (10:18)
[2017-11-06] MEDS: DOCUSATE SODIUM 50 MG/SENNA 8.6 MG TAB PO SCH ×2 (10:18→23:21)
[2017-11-06] MEDS: prednisoLONE (CONTAINS ALCOHOL) 15 MG/5 ML ORAL SYR PO SCH (10:18)
--- NOTE | 2017-11-06 16:39 | HHI.PR ---
Subjective Remarks Spoke with daughter today who was present at bedside. I attempted to assist her with decision planning indicates that her mom's mental status fails to improve. I outlined the importance of having a family meeting to discuss things like CODE STATUS, intubation status, feeding tube discretion. At this point however it is worth giving it some time and remaining optimistic. Objective Vitals Vital Signs Date Time Temp Pulse Resp B/P (MAP) Pulse Ox O2 Delivery O2 Flow Rate FiO2 11/06/17 16:23 97.6 79 18 144/68 (93) 98 11/06/17 15:11 82 11/06/17 12:12 99.0 83 18 122/63 (82) 100 11/06/17 08:12 98.6 75 18 126/59 (81) 98 11/06/17 04:00 94.7 90 20 136/91 (106) 96 11/06/17 00:00 98.0 84 18 135/87 (103) 95 11/05/17 23:00 92 11/05/17 20:00 98.4 81 20 145/67 (93) 94 11/05/17 19:42 100 11/05/17 18:00 74 I/O 11/05/17 11/05/17 11/05/17 11/06/17 11/06/17 11/06/17 07:00 15:00 23:00 07:00 15:00 23:00 Intake Total 120 ml Output Total 575 ml 650 ml 850 ml 1000 ml Balance -575 ml -650 ml -850 ml -880 ml Intake Oral 120 ml Output Urine Total 575 ml 650 ml 850 ml 1000 ml # Bowel Movements 0 0 Result Diagram: 11/05/17 0505 11/05/17 0505 Objective Remarks GENERAL: Well-nourished, well-developed patient, nonverbal due to hemorrhagic CVA, right-sided flaccid SKIN: Warm and dry. HEAD: Normocephalic. EYES: No scleral icterus. No injection or drainage. NECK: Supple, trachea midline. No JVD or lymphadenopathy. CARDIOVASCULAR: Regular rate and rhythm without murmurs, gallops, or rubs. RESPIRATORY: Breath sounds equal bilaterally. No accessory muscle use. GASTROINTESTINAL: Abdomen soft, non-tender, nondistended. EXTREMITIES: No cyanosis, or edema. NEUROLOGICAL: Awake, alert, patient does not seem oriented, right side flaccidity, nonverbal Procedures NONE A/P Problem List: (1) Intracranial hemorrhage ICD Code: I62.9 - Nontraumatic intracranial hemorrhage, unspecified Status: Acute Assessment and Plan Acute hemorrhagic stroke No surgical intervention indicated at this time SBP goal less than 140 Appreciate neurosurgery and neurology following Continue PT and OT Had discussion with daughter regarding decision planning indicates that her mom fails to awaken from a mental standpoint. Heart arrhythmia Continue amiodarone No anticoagulation at this time due to hemorrhagic nature of the stroke Hypertension Labetalol and hydralazine when necessary to keep SBP less than 140 Arthritis Continue home dose prednisone History of GERD continue on the Pepcid DVT prophylaxis SCDs Sacha Sotomayor MD Nov 06, 2017 16:39
--- NOTE | 2017-11-06 18:38 | HHI.NSPN ---
History Chief Complaint: Unable to obtain due to patient's mental status. Interval History 11/03: 82-year-old female who had a partially 4:30 this afternoon was noted by her family to have right-sided weakness and confusion with speech difficulty. She was brought to the emergency room for evaluation with initial systolic blood pressure 131. No previous history of CVA or TIA. She does have a history of cardiac arrhythmia. 11/04: The patient was asleep when seen but did awaken to voice. She was awake after that and interacted. The review of systems was unreliable in that the patient would answer yes once and then no. She did move the left side weakly to command but not the right. She did weakly move the right foot to noxious stimulation but not the right upper. Nursing reported that the patient was not moving the right side for her but did move the left. A repeat CT brain this morning demonstrated a stable bleed. 11/05: When seen the patient is awake and looking to the left. She verbalises with "Yep" to every question or command. She did give a weak squeeze to command with the left hand but didn't follow any others. She had slight movement of the extremities to noxious stimulation. Her gaze preference is to the left. Her daughter stated she has not looked to the right. 11/06/17: Pt awakens to mild sternal rub. She follows commands. Aphasic. She moves toes on left and blanket cutter hand on left. Right dense hemiparesis. System Review Comments Not able to obtain given clinical condition. Exam Results Vital Signs Date Time Temp Pulse Resp B/P (MAP) Pulse Ox O2 Delivery O2 Flow Rate FiO2 11/06/17 16:23 97.6 79 18 144/68 (93) 98 11/05/17 07:00 Room Air 11/04/17 07:45 21 Intake and Output 11/06/17 11/06/17 11/07/17 08:00 16:00 00:00 Intake Total 120 ml Output Total 850 ml 1000 ml Balance -850 ml -880 ml Physical Examination GENERAL: Awake & alert but limited interaction. Affect flat. No apparent distress. HEENT: Normocephalic, atraumatic. PERRLA 3 mm brisk. Left gaze preference MUSCULOSKELETAL: Squeezes left hand and moves toes on left foot. Right dense hemiparesis. NEUROLOGICAL: Awake & alert. Speech clear but only answers "Yep" to all questions. Did say "Oh" to local noxious stimulation. Severe aphasia. PERRLA 3 mm brisk. Left gaze preference. Squeezes left hand and moves left foot. Right dense hemiparesis. Lab, Micro, Other Results 11/06/17 11/06/17 11/07/17 15:00 23:00 07:00 Intake Total 120 ml Output Total 1000 ml Balance -880 ml Intake Oral 120 ml Output Urine Total 1000 ml Medical Decision Making Impression and Plan A: 82 y/o FM with nearly 6 cm left parietal occipital acute parenchymal intracranial hemorrhage. No significant hypertension. Possible hemorrhagic CVA. Cannot totally rule out underlying vascular or mass lesion. CT brain demonstrated a stable left parietal lobe haemorrhage and stable left-sided IVH. No new haemorrhage or significant midline shift noted. Plan: Primary management per Hospitalist. Critical care management per [employer]. Neuro checks. Stat CT brain for any decline in neuro status. Hold pharmacologic DVT prophylaxis. Mechanical DVT prophylaxis. Maintain SBP between 110 and 140 mm Hg. May require surgical intervention depending on follow-up CT scan and clinical course. Kolby Mccain Nov 06, 2017 6:38 pm
[2017-11-07] VITALS (7 sets, daily range): BP systolic 115–149; BP diastolic 58–68; PULSE 73–86; RESP 18; TEMP 98.1–100.5; O2SAT 90–99
[2017-11-07] MEDS: SODIUM CHLOR 0.9% 1000 ML INJ 1,000 ML IV SCH ×3 (08:25→20:20)
[2017-11-07] MEDS: AMIODARONE 200 MG TAB PO SCH (12:47)
[2017-11-07] MEDS: DOCUSATE SODIUM 50 MG/SENNA 8.6 MG TAB PO SCH ×2 (12:47→21:22)
[2017-11-07] MEDS: FAMOTIDINE 20 MG/2 ML VIAL IV PUSH SCH ×2 (12:48→21:21)
[2017-11-07] MEDS: prednisoLONE (CONTAINS ALCOHOL) 15 MG/5 ML ORAL SYR PO SCH (12:49)
--- NOTE | 2017-11-07 18:28 | HHI.NSPN ---
History Chief Complaint: Unable to obtain due to patient's mental status. Interval History Patient status post cerebral hemorrhage. Nurses and family report no change. No significant problems at present Exam Results Vital Signs Date Time Temp Pulse Resp B/P (MAP) Pulse Ox O2 Delivery O2 Flow Rate FiO2 11/07/17 16:00 98.1 81 18 140/67 (91) 90 11/05/17 07:00 Room Air 11/04/17 07:45 21 Intake and Output 11/07/17 11/07/17 11/08/17 08:00 16:00 00:00 Output Total 1450 ml Balance -1450 ml Physical Examination Alert and awake. Does not speak. Does not follow commands. Left gaze preference Right dense hemiparesis Medical Decision Making Impression and Plan Status post cerebral hemorrhage. Appears stable Continue support. Will need speech therapy PT and OT Trey Baumann MD Nov 07, 2017 18:28
--- NOTE | 2017-11-07 19:19 | HHI.PR ---
Subjective Remarks Patient is able to be awakened, but she is not oriented and nonverbal following her stroke. Her family is regularly present at bedside Objective Vitals Vital Signs Date Time Temp Pulse Resp B/P (MAP) Pulse Ox O2 Delivery O2 Flow Rate FiO2 11/07/17 16:00 98.1 81 18 140/67 (91) 90 11/07/17 12:31 98.4 73 18 119/58 (78) 99 11/07/17 08:00 99.1 85 18 115/61 (79) 98 11/07/17 04:52 99.5 81 18 138/67 (90) 97 11/07/17 00:36 100.5 86 18 149/68 (95) 95 11/06/17 20:15 99.9 88 18 129/74 (92) 95 I/O 11/06/17 11/06/17 11/06/17 11/07/17 11/07/17 11/07/17 07:00 15:00 23:00 07:00 15:00 23:00 Intake Total 120 ml Output Total 850 ml 1000 ml 1450 ml Balance -850 ml -880 ml -1450 ml Intake Oral 120 ml Output Urine Total 850 ml 1000 ml 1450 ml Result Diagram: 11/05/17 0505 11/05/17 0505 Objective Remarks GENERAL: Well-nourished, well-developed patient, nonverbal due to hemorrhagic CVA, right-sided flaccid SKIN: Warm and dry. HEAD: Normocephalic. EYES: No scleral icterus. No injection or drainage. NECK: Supple, trachea midline. No JVD or lymphadenopathy. CARDIOVASCULAR: Regular rate and rhythm without murmurs, gallops, or rubs. RESPIRATORY: Breath sounds equal bilaterally. No accessory muscle use. GASTROINTESTINAL: Abdomen soft, non-tender, nondistended. EXTREMITIES: No cyanosis, or edema. NEUROLOGICAL: Awake, alert, patient does not seem oriented, right side flaccidity, nonverbal Procedures NONE A/P Problem List: (1) Intracranial hemorrhage ICD Code: I62.9 - Nontraumatic intracranial hemorrhage, unspecified Status: Acute Assessment and Plan Acute hemorrhagic stroke No surgical intervention indicated at this time No physical or mental improvement so far SBP goal less than 140 Continue PT and OT Appreciate neurosurgery consult We will consider repeat head scan tomorrow Heart arrhythmia Continue amiodarone No anticoagulation at this time due to hemorrhagic nature of the stroke Hypertension Labetalol and hydralazine when necessary to keep SBP less than 140 Arthritis Continue home dose prednisone History of GERD continue on the Pepcid DVT prophylaxis SCDs Sacha Sotomayor MD Nov 07, 2017 19:19
[2017-11-08] VITALS (8 sets, daily range): BP systolic 107–125; BP diastolic 57–75; PULSE 77–95; RESP 18–20; TEMP 97.6–101.1; O2SAT 96–99
[2017-11-08] MEDS: SODIUM CHLOR 0.9% 1000 ML INJ 1,000 ML IV SCH ×2 (08:15→22:21)
[2017-11-08] MEDS: FAMOTIDINE 20 MG/2 ML VIAL IV PUSH SCH ×2 (08:30→22:21)
[2017-11-08] MEDS: DOCUSATE SODIUM 50 MG/SENNA 8.6 MG TAB PO SCH ×2 (08:50→21:00)
[2017-11-08] MEDS: AMIODARONE 200 MG TAB PO SCH (09:00)
[2017-11-08] MEDS: prednisoLONE (CONTAINS ALCOHOL) 15 MG/5 ML ORAL SYR PO SCH (09:53)
--- NOTE | 2017-11-08 15:13 | HHI.PR ---
Subjective Remarks Patient appears much more awake and interactive today than previous days. She is attempting to speak. She does appear to be a little bit confused. Objective Vitals Vital Signs Date Time Temp Pulse Resp B/P (MAP) Pulse Ox O2 Delivery O2 Flow Rate FiO2 11/08/17 11:42 98.7 78 20 109/59 (76) 96 11/08/17 09:55 79 11/08/17 08:54 97.6 79 18 112/61 (78) 99 11/08/17 04:00 97.7 85 18 108/57 (74) 97 11/08/17 00:00 101.1 95 18 125/60 (81) 98 11/07/17 20:00 99.6 82 18 132/65 (87) 96 11/07/17 19:40 82 11/07/17 16:00 98.1 81 18 140/67 (91) 90 I/O 11/07/17 11/07/17 11/07/17 11/08/17 11/08/17 11/08/17 07:00 15:00 23:00 07:00 15:00 23:00 Output Total 1450 ml 700 ml 500 ml Balance -1450 ml -700 ml -500 ml Output Urine Total 1450 ml 700 ml 500 ml # Bowel Movements 0 0 2 Result Diagram: 11/05/17 0505 11/05/17 0505 Objective Remarks GENERAL: Well-nourished, well-developed patient, nonverbal due to hemorrhagic CVA, right-sided flaccid SKIN: Warm and dry. HEAD: Normocephalic. EYES: No scleral icterus. No injection or drainage. NECK: Supple, trachea midline. No JVD or lymphadenopathy. CARDIOVASCULAR: Regular rate and rhythm without murmurs, gallops, or rubs. RESPIRATORY: Breath sounds equal bilaterally. No accessory muscle use. GASTROINTESTINAL: Abdomen soft, non-tender, nondistended. EXTREMITIES: No cyanosis, or edema. NEUROLOGICAL: Awake, alert, patient does not seem oriented, right side flaccidity, nonverbal Procedures NONE A/P Problem List: (1) Intracranial hemorrhage ICD Code: I62.9 - Nontraumatic intracranial hemorrhage, unspecified Status: Acute Assessment and Plan Acute hemorrhagic stroke No surgical intervention indicated at this time Mentally and physically more active today. Positive direction. SBP goal less than 140 Continue PT and OT Appreciate neurosurgery consult No head scan at this time due to mental and physical improvements. Continue to monitor for improvements. Heart arrhythmia Continue amiodarone No anticoagulation at this time due to hemorrhagic nature of the stroke Hypertension Labetalol and hydralazine when necessary to keep SBP less than 140 Arthritis Continue home dose prednisone History of GERD continue on the Pepcid DVT prophylaxis SCDs Sacha Sotomayor MD Nov 08, 2017 15:13
--- NOTE | 2017-11-08 19:43 | HHI.NSPN ---
History Chief Complaint: Unable to obtain due to patient's mental status. Interval History Patient status post cerebral hemorrhage. Nurses and family report no change. No significant problems at present Exam Results Vital Signs Date Time Temp Pulse Resp B/P (MAP) Pulse Ox O2 Delivery O2 Flow Rate FiO2 11/08/17 15:29 99.0 77 18 114/75 (88) 98 11/05/17 07:00 Room Air 11/04/17 07:45 21 Intake and Output 11/08/17 11/08/17 11/09/17 08:00 16:00 00:00 Intake Total 480 ml 581 ml Output Total 500 ml 625 ml Balance -500 ml -145 ml 581 ml Physical Examination Alert and awake. Does not speak. Does not follow commands. Left gaze preference Right dense hemiparesis Medical Decision Making Impression and Plan Status post cerebral hemorrhage. Appears stable Continue support. Will need speech therapy PT and OT Trey Baumann MD Nov 08, 2017 19:43
[2017-11-09] VITALS (8 sets, daily range): BP systolic 93–130; BP diastolic 46–67; PULSE 68–88; RESP 18–22; TEMP 97.3–99.6; O2SAT 96–99
[2017-11-09] MEDS: SODIUM CHLOR 0.9% 1000 ML INJ 1,000 ML IV SCH ×2 (08:05→10:18)
[2017-11-09] MEDS: FAMOTIDINE 20 MG/2 ML VIAL IV PUSH SCH (09:48)
[2017-11-09] MEDS: prednisoLONE (CONTAINS ALCOHOL) 15 MG/5 ML ORAL SYR PO SCH (09:48)
[2017-11-09] MEDS: AMIODARONE 200 MG TAB PO SCH (09:48)
[2017-11-09] MEDS: DOCUSATE SODIUM 50 MG/SENNA 8.6 MG TAB PO SCH (09:48)
[2017-11-09] MEDS: oxyCODONE/ACETAMINOPHEN 5 MG/325 MG TAB PO PRN (12:39)
[2017-11-09] MEDS: LIDOCAINE HCL 5% PATCH T-DERMAL SCH (13:15)
--- NOTE | 2017-11-09 14:39 | HHI.NSPN ---
History Chief Complaint: Unable to obtain due to patient's mental status. Interval History Patient status post cerebral hemorrhage. Family reports patient is improved and starting to speak Exam Results Vital Signs Date Time Temp Pulse Resp B/P (MAP) Pulse Ox O2 Delivery O2 Flow Rate FiO2 11/09/17 11:52 99.5 72 18 130/60 (83) 98 11/05/17 07:00 Room Air Intake and Output 11/09/17 11/09/17 11/10/17 08:00 16:00 00:00 Intake Total 0 ml Output Total 1000 ml 700 ml Balance -1000 ml -700 ml Physical Examination Alert and awake. Says a few words. Beginning to follow commands. Eating with some assistance Left gaze preference Right dense hemiparesis Medical Decision Making Impression and Plan Status post cerebral hemorrhage. Improving Continue support. Will need speech therapy PT and OT Trey Baumann MD Nov 09, 2017 14:39
--- NOTE | 2017-11-09 15:18 | HHI.PR ---
Subjective Remarks Patient is more awake and interactive today. She is smiling, using more words each day. Her family is at bedside and pleased with these findings. They are concerned that she is in pain. Specifically they note that she has terrible arthritis in both knees. Objective Vitals Vital Signs Date Time Temp Pulse Resp B/P (MAP) Pulse Ox O2 Delivery O2 Flow Rate FiO2 11/09/17 11:52 99.5 72 18 130/60 (83) 98 11/09/17 08:23 99.0 76 18 130/62 (84) 98 11/09/17 03:45 97.3 88 22 105/67 (80) 96 11/09/17 00:10 98.8 80 19 110/60 (77) 96 11/08/17 20:45 97.9 83 19 107/59 (75) 97 11/08/17 15:29 99.0 77 18 114/75 (88) 98 I/O 11/08/17 11/08/17 11/08/17 11/09/17 11/09/17 11/09/17 07:00 15:00 23:00 07:00 15:00 23:00 Intake Total 1061 ml 0 ml Output Total 500 ml 1025 ml 1000 ml 700 ml Balance -500 ml 36 ml -1000 ml -700 ml Intake Oral 480 ml 0 ml IV Total 581 ml Output Urine Total 500 ml 1025 ml 1000 ml 700 ml # Bowel Movements 0 2 2 0 Result Diagram: 11/05/17 0505 11/05/17 0505 Objective Remarks GENERAL: Well-nourished, well-developed patient, nonverbal due to hemorrhagic CVA, right-sided flaccid SKIN: Warm and dry. HEAD: Normocephalic. EYES: No scleral icterus. No injection or drainage. NECK: Supple, trachea midline. No JVD or lymphadenopathy. CARDIOVASCULAR: Regular rate and rhythm without murmurs, gallops, or rubs. RESPIRATORY: Breath sounds equal bilaterally. No accessory muscle use. GASTROINTESTINAL: Abdomen soft, non-tender, nondistended. EXTREMITIES: No cyanosis, or edema. NEUROLOGICAL: Awake, alert, patient does not seem oriented, right side flaccidity, nonverbal Procedures NONE A/P Problem List: (1) Intracranial hemorrhage ICD Code: I62.9 - Nontraumatic intracranial hemorrhage, unspecified Status: Acute Assessment and Plan Acute hemorrhagic stroke No surgical intervention indicated at this time Mentally and physically improving SBP goal less than 140 Continue PT and OT No head scan at this time due to mental and physical improvements. Continue to monitor for improvements. Appreciate neurosurgery consult Appreciate neurology consult Bilateral knee arthritis /chronic pain Percocet resumed per family's request Lidocaine patch as ordered per family's request. Continue current dose of prednisone Heart arrhythmia Continue amiodarone No anticoagulation at this time due to hemorrhagic nature of the stroke Hypertension Labetalol and hydralazine when necessary to keep SBP less than 140 History of GERD continue on the Pepcid DVT prophylaxis SCDs Sacha Sotomayor MD Nov 09, 2017 15:18
[2017-11-09] MEDS: REMOVE OLD LIDOCAINE PATCH T-DERMAL SCH (21:00)
[2017-11-10] VITALS (7 sets, daily range): BP systolic 115–131; BP diastolic 55–69; PULSE 71–95; RESP 16–20; TEMP 97.6–99.7; O2SAT 94–100
[2017-11-10] MEDS: DOCUSATE SODIUM 50 MG/SENNA 8.6 MG TAB PO SCH ×3 (00:30→21:04)
[2017-11-10] MEDS: FAMOTIDINE 20 MG/2 ML VIAL IV PUSH SCH ×2 (00:30→09:45)
[2017-11-10] MEDS: SODIUM CHLOR 0.9% 1000 ML INJ 1,000 ML IV SCH ×2 (00:33→10:01)
[2017-11-10] MEDS: AMIODARONE 200 MG TAB PO SCH (09:44)
[2017-11-10] MEDS: LIDOCAINE HCL 5% PATCH T-DERMAL SCH (09:52)
[2017-11-10] MEDS: prednisoLONE (CONTAINS ALCOHOL) 15 MG/5 ML ORAL SYR PO SCH (09:55)
--- NOTE | 2017-11-10 16:36 | HHI.PR ---
Subjective Remarks 82-year-old female with hemorrhagic stroke and right-sided flaccidity. For the last couple days she has been showing some improvement, her family is at bedside and states that she has been verbal today. They said she is following directions. Objective Vitals Vital Signs Date Time Temp Pulse Resp B/P (MAP) Pulse Ox O2 Delivery O2 Flow Rate FiO2 11/10/17 16:12 98.7 95 16 127/59 (81) 98 11/10/17 12:03 99.0 75 16 120/55 (76) 98 11/10/17 08:25 99.7 71 16 131/60 (83) 97 11/10/17 05:00 98.0 78 19 118/69 (85) 94 11/10/17 00:50 97.6 80 20 115/67 (83) 95 11/09/17 21:30 98.8 76 19 112/62 (79) 96 11/09/17 20:00 82 11/09/17 17:48 68 I/O 11/09/17 11/09/17 11/09/17 11/10/17 11/10/17 11/10/17 07:00 15:00 23:00 07:00 15:00 23:00 Intake Total 0 ml 480 ml 100 ml 120 ml Output Total 1000 ml 700 ml 1050 ml 1000 ml Balance -1000 ml -700 ml -570 ml -900 ml 120 ml Intake Oral 0 ml 480 ml 100 ml 120 ml Output Urine Total 1000 ml 700 ml 1050 ml 1000 ml # Bowel Movements 0 1 0 Objective Remarks GENERAL: Well-nourished, well-developed patient, nonverbal due to hemorrhagic CVA, right-sided flaccid SKIN: Warm and dry. HEAD: Normocephalic. EYES: No scleral icterus. No injection or drainage. NECK: Supple, trachea midline. No JVD or lymphadenopathy. CARDIOVASCULAR: Regular rate and rhythm without murmurs, gallops, or rubs. RESPIRATORY: Breath sounds equal bilaterally. No accessory muscle use. GASTROINTESTINAL: Abdomen soft, non-tender, nondistended. EXTREMITIES: No cyanosis, or edema. NEUROLOGICAL: Awake, alert, patient does not seem oriented, right side flaccidity, nonverbal Procedures NONE A/P Problem List: (1) Intracranial hemorrhage ICD Code: I62.9 - Nontraumatic intracranial hemorrhage, unspecified Status: Acute Assessment and Plan Acute hemorrhagic stroke No surgical intervention indicated at this time Mentally and physically improving SBP goal less than 140 Continue PT and OT Appreciate neurosurgery consult Appreciate neurology consult Bilateral knee arthritis /chronic pain Percocet resumed per family's request Continue lidocaine patch Continue current dose of prednisone Heart arrhythmia Continue amiodarone No anticoagulation at this time due to hemorrhagic nature of the stroke Hypertension Labetalol and hydralazine when necessary to keep SBP less than 140 History of GERD continue on the Pepcid DVT prophylaxis SCDs Discharge planning Patient will need rehab placement when she is cleared by neurosurgery Sacha Sotomayor MD Nov 10, 2017 16:36
[2017-11-10] MEDS: oxyCODONE/ACETAMINOPHEN 5 MG/325 MG TAB PO PRN (17:30)
[2017-11-10] MEDS: REMOVE OLD LIDOCAINE PATCH T-DERMAL SCH (21:00)
[2017-11-10] MEDS: FAMOTIDINE 20 MG TAB PO SCH (21:04)
[2017-11-11] VITALS: BP 105/57; PULSE 69; RESP 18; TEMP 98.1; O2SAT 97
[2017-11-11 04:00] VITALS: BP 129/61; PULSE 80; RESP 18; TEMP 99.4; O2SAT 98
[2017-11-11] MEDS: SODIUM CHLOR 0.9% 1000 ML INJ 1,000 ML IV SCH ×2 (07:45→21:59)
[2017-11-11 08:23] VITALS: BP 124/58; PULSE 70; RESP 16; TEMP 99.1; O2SAT 98
[2017-11-11] MEDS: LIDOCAINE HCL 5% PATCH T-DERMAL SCH (09:00)
[2017-11-11] MEDS: prednisoLONE (CONTAINS ALCOHOL) 15 MG/5 ML ORAL SYR PO SCH (10:19)
[2017-11-11] MEDS: AMIODARONE 200 MG TAB PO SCH (10:19)
[2017-11-11] MEDS: DOCUSATE SODIUM 50 MG/SENNA 8.6 MG TAB PO SCH ×2 (10:19→21:00)
[2017-11-11] MEDS: FAMOTIDINE 20 MG TAB PO SCH ×2 (10:19→21:00)
[2017-11-11 12:39] VITALS: BP 136/80; PULSE 69; RESP 16; TEMP 97.4; O2SAT 98
--- NOTE | 2017-11-11 16:05 | HHI.NSPN ---
History Chief Complaint: Unable to obtain due to patient's mental status. Interval History 11/03: 82-year-old female who had a partially 4:30 this afternoon was noted by her family to have right-sided weakness and confusion with speech difficulty. She was brought to the emergency room for evaluation with initial systolic blood pressure 131. No previous history of CVA or TIA. She does have a history of cardiac arrhythmia. 11/04: The patient was asleep when seen but did awaken to voice. She was awake after that and interacted. The review of systems was unreliable in that the patient would answer yes once and then no. She did move the left side weakly to command but not the right. She did weakly move the right foot to noxious stimulation but not the right upper. Nursing reported that the patient was not moving the right side for her but did move the left. A repeat CT brain this morning demonstrated a stable bleed. 11/05: When seen the patient is awake and looking to the left. She verbalises with "Yep" to every question or command. She did give a weak squeeze to command with the left hand but didn't follow any others. She had slight movement of the extremities to noxious stimulation. Her gaze preference is to the left. Her daughter stated she has not looked to the right. 11/06/17: Pt awakens to mild sternal rub. She follows commands. Aphasic. She moves toes on left and ash handler on left. Right dense hemiparesis. 11/07: Patient status post cerebral hemorrhage. Nurses and family report no change. No significant problems at present 11/08: Patient status post cerebral hemorrhage. Nurses and family report no change. No significant problems at present 11/09: Patient status post cerebral hemorrhage. Family reports patient is improved and starting to speak 11/11: This afternoon the patient is asleep but awakens to voice. She continues to respond in one word sentences using only a couple words. She did with coaxing squeeze with the left hand and move the left lower extremity. She did briefly lift the left elbow off the bed. Later she was seen picking up the left upper extremity so as to rub her eyes. There was no movement on the right. System Review Comments Unable to obtain due to patient's mental status. Exam Results 11/09/17 11/09/17 11/10/17 11/10/17 11/11/17 11/11/17 06:00 18:00 06:00 18:00 06:00 18:00 Intake Total 0 ml 480 ml 100 ml 120 ml 120 ml Output Total 1400 ml 1150 ml 1600 ml 450 ml 850 ml 1100 ml Balance -1400 ml -670 ml -1500 ml -330 ml -850 ml -980 ml Intake Oral 0 ml 480 ml 100 ml 120 ml 120 ml Output Urine Total 1400 ml 1150 ml 1600 ml 450 ml 850 ml 1100 ml # Bowel Movements 0 1 0 1 2 Vital Signs Date Time Temp Pulse Resp B/P (MAP) Pulse Ox O2 Delivery O2 Flow Rate FiO2 11/11/17 12:39 97.4 69 16 136/80 (98) 98 11/11/17 08:23 99.1 70 16 124/58 (80) 98 11/11/17 04:00 99.4 80 18 129/61 (83) 98 11/11/17 00:00 98.1 69 18 105/57 (73) 97 11/10/17 20:00 99.4 90 18 131/63 (85) 100 11/10/17 18:33 71 11/10/17 16:12 98.7 95 16 127/59 (81) 98 11/10/17 12:03 99.0 75 16 120/55 (76) 98 11/10/17 08:25 99.7 71 16 131/60 (83) 97 11/10/17 05:00 98.0 78 19 118/69 (85) 94 11/10/17 00:50 97.6 80 20 115/67 (83) 95 11/09/17 21:30 98.8 76 19 112/62 (79) 96 11/09/17 20:00 82 11/09/17 17:48 68 11/09/17 15:50 99.6 72 18 93/46 (62) 99 11/09/17 11:52 99.5 72 18 130/60 (83) 98 11/09/17 08:23 99.0 76 18 130/62 (84) 98 11/09/17 03:45 97.3 88 22 105/67 (80) 96 11/09/17 00:10 98.8 80 19 110/60 (77) 96 11/08/17 20:45 97.9 83 19 107/59 (75) 97 Physical Examination GENERAL: Asleep but awakens to voice. Affect flat. Interacts w/coaxing. No apparent distress. HEENT: Normocephalic, atraumatic. PERRLA 3 mm brisk. Left gaze preference MUSCULOSKELETAL: Moves LUE spontaneously & purposefully. Moves LLE to command. Slight withdrawal response to right-sided extremities. No evident clubbing or deformity. NEUROLOGICAL: Asleep but opens eyes to voice. Speech basically limited to "Mmmuh" to every question or command but she did say "Sure" to one command. Otherwise there was no verbalisation. PERRLA 3 mm brisk. Left gaze preference. Did weakly squeeze w/left hand, lift left elbow off bed and move LLE to command. Trace flexion/withdrawal of RUE and slight withdrawal of RLE extremities to local noxious stimulation. She was noted to spontaneously & purposefully move the LUE to rub her eyes. Medical Decision Making Impression and Plan Impression: 1. Nearly 6 cm left parietal occipital acute parenchymal intracranial hemorrhage. No significant hypertension. Possible hemorrhagic CVA. Cannot totally rule out underlying vascular or mass lesion. Patient stable. Slight improvement in neuro status but still with dense right hemiparesis. Very limited verbalisation. CT brain demonstrated a stable left parietal lobe haemorrhage and stable left-sided IVH. No new haemorrhage or significant midline shift noted. Plan: Primary management per Hospitalist. Neuro checks. Stat CT brain for any decline in neuro status. Patient may be discharged to SNF from Neurosurgery's perspective. Follow up with Neurosurgery as needed. Follow up with PCP in 10 to 14 days and have a repeat CT brain. Cesar Iqbal Nov 11, 2017 16:05
[2017-11-11 16:25] VITALS: BP 128/60; PULSE 84; RESP 16; TEMP 98.1; O2SAT 98
--- NOTE | 2017-11-11 18:10 | HHI.PR ---
Subjective Remarks Patient appears about the same as yesterday. She appears emotionally appropriate, smiles greeting, basic words. Objective Vitals Vital Signs Date Time Temp Pulse Resp B/P (MAP) Pulse Ox O2 Delivery O2 Flow Rate FiO2 11/11/17 16:25 98.1 84 16 128/60 (82) 98 11/11/17 12:39 97.4 69 16 136/80 (98) 98 11/11/17 08:23 99.1 70 16 124/58 (80) 98 11/11/17 04:00 99.4 80 18 129/61 (83) 98 11/11/17 00:00 98.1 69 18 105/57 (73) 97 11/10/17 20:00 99.4 90 18 131/63 (85) 100 11/10/17 18:33 71 I/O 11/10/17 11/10/17 11/10/17 11/11/17 11/11/17 11/11/17 07:00 15:00 23:00 07:00 15:00 23:00 Intake Total 100 ml 120 ml 120 ml Output Total 1000 ml 1300 ml 1100 ml 450 ml Balance -900 ml 120 ml -1300 ml -980 ml -450 ml Intake Oral 100 ml 120 ml 120 ml Output Urine Total 1000 ml 1300 ml 1100 ml 450 ml # Bowel Movements 0 1 2 Objective Remarks GENERAL: Well-nourished, well-developed patient, nonverbal due to hemorrhagic CVA, right-sided flaccid SKIN: Warm and dry. HEAD: Normocephalic. EYES: No scleral icterus. No injection or drainage. NECK: Supple, trachea midline. No JVD or lymphadenopathy. CARDIOVASCULAR: Regular rate and rhythm without murmurs, gallops, or rubs. RESPIRATORY: Breath sounds equal bilaterally. No accessory muscle use. GASTROINTESTINAL: Abdomen soft, non-tender, nondistended. EXTREMITIES: No cyanosis, or edema. NEUROLOGICAL: Awake, alert, patient does not seem oriented, right side flaccidity, nonverbal Procedures NONE A/P Problem List: (1) Intracranial hemorrhage ICD Code: I62.9 - Nontraumatic intracranial hemorrhage, unspecified Status: Acute Assessment and Plan 82-year-old female with an acute hemorrhagic stroke. She has improved over the last 3 days but is too weak for [facility]. At baseline prior to stroke she is weakly ambulatory. Acute hemorrhagic stroke No surgical intervention indicated at this time Mentally and physically improving SBP goal less than 140 Continue PT and OT Appreciate neurosurgery consult Appreciate neurology consult Bilateral knee arthritis /chronic pain Percocet resumed per family's request Continue lidocaine patch Continue current dose of prednisone Heart arrhythmia Continue amiodarone No anticoagulation at this time due to hemorrhagic nature of the stroke Hypertension Labetalol and hydralazine when necessary to keep SBP less than 140 History of GERD continue on the Pepcid DVT prophylaxis SCDs Discharge planning Neurosurgery note indicates that she is cleared to go to rehab. Plan for discharge tomorrow when family is informed. Sacha Sotomayor MD Nov 11, 2017 6:10 pm
[2017-11-11 20:00] VITALS: BP 149/62; PULSE 95; RESP 18; TEMP 99.1; O2SAT 98
[2017-11-11] MEDS: REMOVE OLD LIDOCAINE PATCH T-DERMAL SCH (21:00)
[2017-11-12] VITALS: BP 131/62; PULSE 73; RESP 18; TEMP 98.7; O2SAT 98
[2017-11-12 04:00] VITALS: BP 121/56; PULSE 71; RESP 18; TEMP 98.9; O2SAT 98
[2017-11-12] MEDS: SODIUM CHLOR 0.9% 1000 ML INJ 1,000 ML IV SCH (07:35)
[2017-11-12 08:00] VITALS: BP 120/55; PULSE 73; RESP 18; TEMP 98; O2SAT 100
[2017-11-12] MEDS: DOCUSATE SODIUM 50 MG/SENNA 8.6 MG TAB PO SCH (09:00)
[2017-11-12] MEDS: prednisoLONE (CONTAINS ALCOHOL) 15 MG/5 ML ORAL SYR PO SCH (09:00)
[2017-11-12] MEDS: AMIODARONE 200 MG TAB PO SCH (09:00)
[2017-11-12] MEDS: LIDOCAINE HCL 5% PATCH T-DERMAL SCH (09:00)
[2017-11-12 12:00] VITALS: BP 114/53; PULSE 65; PULSE 66; RESP 18; TEMP 98.2; O2SAT 98
[2017-11-12] MEDS ORDERED: METO25TA3 PO (13:31)
[2017-11-12] MEDS ORDERED: OXYC1TAB63 PO (13:31)
[2017-11-12] MEDS ORDERED: FAMO20TA2 PO (13:31)
--- NOTE | 2017-11-12 13:48 | HHI.DS ---
Discharge Summary Admission Date Nov 03, 2017 at 20:09 Discharge Date: Nov 12, 2017 Admitting Diagnosis ICH (1) Intracranial hemorrhage ICD Code: I62.9 - Nontraumatic intracranial hemorrhage, unspecified Status: Acute Procedures Echo 11/04/2017 Normal left ventricular size. Mild concentric left ventricular hypertrophy. The left ventricular systolic function is low normal with an estimated ejection fraction in the range of 50- 55%. The left atrial size is moderately dilated. The right atrial size is mildly dilated. No atrial level shunt is demonstrated by color flow Doppler interrogation. Gubf-oj-vbtnkxbi mitral valve regurgitation. The mitral valve regurgitation jet is directed posteriorly. Aortic valve sclerosis is present. There is moderate tricuspid regurgitation. The estimated pulmonary arterial pressure is 55.4 mmHg. Trivial pulmonary valve regurgitation. Brief History - From Admission 82 year old female who presents with a history of reportedly being found by her family members prior to arrival with a right-sided upper extremity weakness and a change in her mental status. The patient seemed confused and normally has a GCS of 15 according to ambulance services. The patient was last seen normal by the family at approximately 6:25 PM according to medical record. Her blood pressure on arrival to emergency department was 131/89. The patient is oriented to person, however not place, time, or situation at this time. According to chart review, the patient is not on any blood thinners or aspirin. The CT of the head done in the emergency department shows 5.7 cm acute hemorrhage in the left parietal lobe with mild surrounding edema and mass effect. Imaging Last Impressions Head CT 11/04/17 0000 Signed Impressions: Service Date/Time: Saturday, November 04, 2017 09:22 - CONCLUSION: 1. Stable hemorrhage in the posterior left parietal lobe measuring approximately 5.5 cm in diameter. Stable left-sided intraventricular blood. No new hemorrhage or significant midline shift. 2. Acute maxillary sinusitis with air-fluid levels bilaterally. Ulises Amin MD Chest X-Ray 11/03/17 0000 Signed Impressions: Service Date/Time: Friday, November 03, 2017 19:48 - CONCLUSION: 1. Mild basilar opacity, probably basilar atelectasis. No effusion. Regis Hayes MD PE at Discharge GENERAL: Well-nourished, well-developed patient, nonverbal due to hemorrhagic CVA, right-sided flaccid SKIN: Warm and dry. HEAD: Normocephalic. EYES: No scleral icterus. No injection or drainage. NECK: Supple, trachea midline. No JVD or lymphadenopathy. CARDIOVASCULAR: Regular rate and rhythm without murmurs, gallops, or rubs. RESPIRATORY: Breath sounds equal bilaterally. No accessory muscle use. GASTROINTESTINAL: Abdomen soft, non-tender, nondistended. EXTREMITIES: No cyanosis, or edema. NEUROLOGICAL: Awake, alert, patient does not seem oriented, right side flaccidity, nonverbal Pt update on day of discharge Patient is currently doing well. No acute concerns. Says a few words only. Hospital Course 82 year old female who presents with a history of reportedly being found by her family members prior to arrival with a right-sided upper extremity weakness and a change in her mental status. CT brain indicated moderate to large sized left parietal bleed causing some mass-effect and there is some blood into the lateral ventricle as well. Neurosurgery and neurology were consulted. Neurosurgery recommended nonsurgical management. Patient was cleared for discharge on 11/11/2017. General surgery recommended 10-14 day PCP follow-up with repeat CT brain. Patient was also found to have atrial fibrillation. I reviewed telemetry strips on 11/12/2017 which showed atrial fibrillation rate controlled. Patient is currently on amiodarone for A. fib. Will start her on metoprolol with holding parameters for rate control. Her [id number] score would be at least 3. There is no guideline regarding anticoagulation after intracranial bleed. Per Neurosurgery, patient should wait 4 weeks start patient on some kind of anticoagulation. I would recommend apixaban 2.5 mg twice daily to start with. Patient does not meet 2 of the 3 criteria (age above 80, weight below 60 kg, creatinine above 1.5). However due to patient's recent ICH, we could start with 2.5 mg apixaban twice daily. Apixaban would also be appropriate since risk of intracranial bleed is much lower with apixaban compared to warfarin. Again starting Apixaban towards the end of November 2017 would be reasonable. Pt Condition on Discharge: Good Discharge Disposition: Discharge to SNF Discharge Time: > 30 minutes Discharge Instructions DIET: Follow Instructions for: Heart Healthy Diet Activities you can perform: Regular-No Restrictions Follow up Referrals: SNF/GROUP HOME/ with [facility]: [phone] New Medications: Metoprolol Tartrate (Metoprolol Tartrate) 25 Mg Tab 12.5 MG PO BID for heart, #60 TAB 0 Refills Hold if heart rate < 75 or systolic BP < 110 Famotidine (Famotidine) 20 Mg Tab 20 MG PO BID for Reflux, #60 TAB Continued Medications: Amiodarone (Amiodarone) 200 Mg Tab 200 MG PO DAILY, #30 TAB Start taking this dose of 200 milligrams daily on 06/20/2017. Until then take the 400 milligram dose once daily. Aaijufatpa-Wlgyhquqpkhxr-Srgpuhgr (Yhxwjwrcbw-Wtalveoknifaa-Eiwonfis) 50-300-40 Mg Cap 1 CAP PO Q4H PRN for HEADACHE, CAP 0 Refills Do not exceed 6 capsules/day. Ferrous Sulfate (Ferrous Sulfate) 325 Mg (65 Mg Iron) Tablet 325 MG PO DAILY for Nutritional Supplement, #30 TAB 0 Refills Oxycodone-Acetaminophen (Oxycodone-Acetaminophen) 5-325 mg Tab 1 TAB PO BID PRN for PAIN, #10 TAB 0 Refills (This prescription has been renewed ) Prednisolone Odt (Prednisolone Odt) 10 Mg Tab 5 MG SL DAILY, TAB 0 Refills Sennosides-Docusate Sodium (Senna Plus 8.6-50 mg) 8.6 Mg-50 Mg Tab 1 TAB PO BID, #30 TAB Sertraline (Sertraline) 50 Mg Tab 50 MG PO DAILY, #30 TAB 0 Refills Discontinued Medications: Hydrochlorothiazide (Hydrochlorothiazide) 25 Mg Tab 25 MG PO DAILY, #30 TAB 0 Refills Potassium Chloride ER (Potassium Chloride ER) 10 Meq Cap 10 MEQ PO DAILY for Electrolyte Replacement, #30 CAP 0 Refills Prednisone (Prednisone) 5 Mg Tab 5 MG PO DAILY, TAB 0 Refills Theophylline ER 12 HR (Theophylline ER 12 HR) 300 Mg Tab 300 MG PO Q12H, #60 TAB 0 Refills Abdelrahman Jernigan DO Nov 12, 2017 1:48 pm
[2017-11-12] MEDS ORDERED: FAMOTIDINE 20 MG TAB PO SCH (21:00)
== END 2017-11-12 18:44 | DRG 65 ==
LOC: NEPC 19:25 → NEDA 20:09 → N03A 11-04 00:50 → N05B 11-05 21:30
PROVIDERS: ADMIT Hospitalist; ATTEND Hospitalist
DX: I61.1 Nontraumatic intracerebral hemorrhage in hemisphere, cortical (principal); G81.91 Hemiplegia, unspecified affecting right dominant side; R47.01 Aphasia; H53.40 Unspecified visual field defects; E83.41 Hypermagnesemia; I08.3 Combined rheumatic disorders of mitral, aortic and tricuspid valves; I48.91 Unspecified atrial fibrillation; E66.01 Morbid (severe) obesity due to excess calories; Z68.39 Body mass index [BMI] 39.0-39.9, adult; I10 Essential (primary) hypertension; K21.9 Gastro-esophageal reflux disease without esophagitis; M17.0 Bilateral primary osteoarthritis of knee; G89.29 Other chronic pain
CPT/HCPCS: 51702; 70450; 71045; 76937; 80048; 80053; 80307; 81001; 82140; 82550; 82948; 83036; 83735; 83880; 84100; 84439; 84443; 84484; 85025; 85384; 85610; 85730; 86077; 86140; 86850; 86870; 86900; 86901; 86902; 86920; 86922; 87641; 93005; 93306; J0360; J2270; J2405; J7030; J7510

== ENCOUNTER 2018-02-05 19:44 | Inpatient (IN) | payer MEDICARE, OTHER ==
[~2018-02-05 19:44] MED LIST changes: +BUTA1CAP5 PO; +FAMO20TA2 PO; +FERR325T18 PO; +METO25TA3 PO; +SERT-132 PO
[2018-02-05 19:50] VITALS: BP 114/55; PULSE 73; RESP 18; TEMP 98.4; O2SAT 98
[2018-02-05] MEDS ORDERED: SODIUM CHLORIDE 0.9% FLUSH 10 ML FLUSH IVF PRN (20:15)
--- NOTE | 2018-02-05 20:18 | PD ---
HPI . focal deficit Chief Complaint: Neuro Symptoms/ Deficits Time Seen by Provider: 20:03 Travel History International Travel<30 days: No Contact w/Intl Traveler<30days: No Traveled to known affect area: No History of Present Illness HPI pt has recurrence and worsening of her focal weakness that she had 2 months ago when she had a CVA hemorrhagic , tonight per [facility] report pt was found by her family members prior to arrival with global weakness and a change in her mental status. Staring unresponsive to voice . The patient seemed confused unresponsive for 10 minutes ... The patient was last seen normal by the family at approximately 6:25 PM according to [facility] record then found with these new worsened CONFUSION SLIGHT WEAKNESS L HAND S started x at 730 40 minutes to arrival Her blood pressure on arrival to emergency department was 111/89. The patient is oriented to person, however not place, time, or situation at this time. 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 SON ARRIVES TO ER TO GIVEN HISTORY OF CONFUSION UNRESPONSIVE 10 MINUTES NOT SPEAKING , STARING DAZED APPEARANCE , POSSIBLE LEFT HAND WEAKNESS . IN ER SHE IS BACK TO BASELINE AND SHE IS ABLE TO SAY HER LEFT HAND HAS BEEN SOMEWHAT WEAK FOR A WHILE, PFSH Past Medical History Arthritis: Yes (hands and knees) Asthma: Yes Atrial Fibrillation: Yes Anxiety: No Depression: No Heart Rhythm Problems: Yes Cancer: No Cardiovascular Problems: Yes High Cholesterol: No Chest Pain: Yes Congestive Heart Failure: No COPD: No Cerebrovascular Accident: No Diabetes: No Diminished Hearing: No Endocrine: No GERD: Yes Genitourinary: No Hiatal Hernia: No Immune Disorder: No Kidney Stones: No Musculoskeletal: Yes Neurologic: No Psychiatric: No Reproductive: No Respiratory: Yes Migraines: No Renal Failure: No Seizures: No Sickle Cell Disease: No Thyroid Disease: No Ulcer: No Past Surgical History Cardiac Surgery: Yes (stent placed june 2017) Eye Surgery: Yes (CATARACTS EXTRACT SIMON.) Other Surgery: Yes Social History Alcohol Use: No Tobacco Use: No Substance Use: No Allergies-Medications (Allergen,Severity, Reaction): Coded Allergies: No Known Allergies (Unverified , 06/09/17) Reported Meds & Prescriptions Reported Meds & Active Scripts Active Metoprolol Tartrate 25 Mg Tab 12.5 Mg PO BID Hold if heart rate < 75 or systolic BP < 110 Oxycodone-Acetaminophen 5-325 mg Tab 1 Tab PO BID PRN Amiodarone (Amiodarone HCl) 200 Mg Tab 200 Mg PO DAILY Start taking this dose of 200 milligrams daily on 06/20/2017. Until then take the 400 milligram dose once daily. Reported Dulcolax Supp (Bisacodyl) 10 Mg Supp 10 Mg RECTAL DAILY PRN Milk of Magnesia Liq (Magnesium Hydroxide) 400 Mg/5 Ml Susp 30 Ml PO DAILY PRN Fleet Enema Extra (Sod Phos,M-B/Na Phos,Di-Ba) 19 Gram-7 Gram/197 Ml Enema Omeprazole 20 Mg Tab 20 Mg PO DAILY Tylenol (Acetaminophen) 325 Mg Tab 650 Mg PO ONCE Lorazepam 1 Mg Tab 1 Mg PO DAILY PRN Metoclopramide (Metoclopramide HCl) 5 Mg Tab 5 Mg PO BID Tetracycline (Tetracycline HCl) 250 Mg Cap 500 Mg PO BID Culturelle (Lactobacillus Rhamnosus (GG)) 10 Billion Cell Cap 1 Cap PO BID Duoneb (Ipratropium-Albuterol Neb) 0.5-2.5 Mg/3 Ml Neb 1 Nebule INH DAILY Robafen Cough (Dextromethorphan HBr) 15 Mg Cap 30 Mg PO Q6H PRN Benzonatate 100 Mg Cap 100 Mg PO BID PRN Prednisone 5 Mg Tab 5 Mg PO DAILY Voltaren (Diclofenac Sodium) 1 % Gel..gram. Silvadene Topical (Silver Sulfadiazine) 1 % Cream 1 Applic TOPICAL DAILY Zinc Oxide (Zinc Oxide (Topical)) 40 % Oin [prealbumin] Ferrous Sulfate 325 Mg (65 Mg Iron) Tablet 325 Mg PO DAILY Sertraline (Sertraline HCl) 50 Mg Tab 50 Mg PO DAILY Review of Systems ROS Limitations: Poor Historian Except as stated in HPI: all other systems reviewed are Neg Physical Exam Narrative GENERAL: pt awake alert able to answer SKIN: Warm and dry. HEAD: Atraumatic. Normocephalic. EYES: Pupils equal and round. No scleral icterus. No injection or drainage. ENT: No nasal bleeding or discharge. Mucous membranes pink and moist. NECK: Trachea midline. No JVD. CARDIOVASCULAR: Regular rate and rhythm. RESPIRATORY: No accessory muscle use. Clear to auscultation. Breath sounds equal bilaterally. GASTROINTESTINAL: Abdomen soft, non-tender, nondistended. Hepatic and splenic margins not palpable. MUSCULOSKELETAL: Extremities without clubbing, cyanosis, or edema. No obvious deformities. NEUROLOGICAL: Awake and alert. No obvious cranial nerve deficits. Motor grossly within normal limits. Five out of 5 muscle strength in the arms and legs. Normal speech. PSYCHIATRIC: Appropriate mood and affect; insight and judgment normal. Data Data Last Documented VS Orders Orders Complete Blood Count With Diff (02/05/18 20:03) Comprehensive Metabolic Panel (02/05/18 20:03) Drug Screen, Random Urine (02/05/18 20:03) Troponin I (02/05/18 20:03) Urinalysis - C+S If Indicated (02/05/18 20:) Ct Brain W/O Iv Contrast(Rout) (02/05/18 20:03) Ecg Monitoring (02/05/18 20:03) Iv Access Insert/Monitor (02/05/18 20:) Oximetry (02/05/18 20:03) Sodium Chloride 0.9% Flush (Ns Flush) (02/05/18 20:15) Urine Culture (02/05/18 20:16) Ceftriaxone Inj (Rocephin Inj) (02/05/18 21:15) Electrocardiogram (02/05/18 20:00) Potassium Chlor 10 Meq Premix (Kcl 10 Me (02/05/18 21:45) Potassium Chlor 10 Meq Premix (Kcl 10 Me (02/05/18 21:45) Aspirin Chew (Aspirin Chew) (02/05/18 22:00) Admit Order (Ed Use Only) (02/05/18 22:05) Labs Laboratory Tests Test 02/05/18 20:16 White Blood Count 9.2 TH/MM3 Red Blood Count 3.44 MIL/MM3 Hemoglobin 9.5 GM/DL Hematocrit 29.1 % Mean Corpuscular Volume 84.8 FL Mean Corpuscular Hemoglobin 27.6 PG Mean Corpuscular Hemoglobin Concent 32.6 % Red Cell Distribution Width 19.8 % Platelet Count 387 TH/MM3 Mean Platelet Volume 8.6 FL Neutrophils (%) (Auto) 68.5 % Lymphocytes (%) (Auto) 22.2 % Monocytes (%) (Auto) 6.6 % Eosinophils (%) (Auto) 2.3 % Basophils (%) (Auto) 0.4 % Neutrophils # (Auto) 6.3 TH/MM3 Lymphocytes # (Auto) 2.0 TH/MM3 Monocytes # (Auto) 0.6 TH/MM3 Eosinophils # (Auto) 0.2 TH/MM3 Basophils # (Auto) 0.0 TH/MM3 CBC Comment DIFF FINAL Differential Comment Urine Color YELLOW Urine Turbidity HAZY Urine pH 6.0 Urine Specific [place] 1.013 Urine Protein 100 mg/dL Urine Glucose (UA) NEG mg/dL Urine Ketones NEG mg/dL Urine Occult Blood NEG Urine Nitrite NEG Urine Bilirubin NEG Urine Urobilinogen LESS THAN 2 mg/dL Urine Leukocyte Esterase SMALL Urine RBC 2 /hpf Urine WBC 18 /hpf Urine Squamous Epithelial Cells 1 /hpf Urine Bacteria OCC /hpf Urine Hyaline Casts 4 /lpf Urine Mucus FEW /lpf Microscopic Urinalysis Comment CATH-CULTURE IND Blood Urea Nitrogen 9 MG/DL Creatinine 0.72 MG/DL Random Glucose 134 MG/DL Total Protein 6.8 GM/DL Albumin 2.3 GM/DL Calcium Level 7.7 MG/DL Alkaline Phosphatase 77 U/L Aspartate Amino Transf (AST/SGOT) 23 U/L Alanine Aminotransferase (ALT/SGPT) 16 U/L Total Bilirubin 0.3 MG/DL Sodium Level 141 MEQ/L Potassium Level 2.2 MEQ/L Chloride Level 99 MEQ/L Carbon Dioxide Level 30.0 MEQ/L Anion Gap 12 MEQ/L Estimat Glomerular Filtration Rate 94 ML/MIN Magnesium Level 1.9 MG/DL Troponin I 0.12 NG/ML Urine Opiates Screen NEG Urine Barbiturates Screen NEG Urine Amphetamines Screen NEG Urine Benzodiazepines Screen NEG Urine Cocaine Screen NEG Urine Cannabinoids Screen NEG MDM Medical Decision Making Medical Screen Exam Complete: Yes Emergency Medical Condition: Yes Medical Record Reviewed: Yes Differential Diagnosis hypoglycemia vs urosepsis vs cva rebleed vs ischemia cva vs other Narrative Course CT NO NEW BLEED --> PT IS NOT A CANDIDATE FOR tPA DUE TO PRIOR HEAD BLEED AND ALL HER SX HAVE RESOLVED Diagnosis Primary Impression: Altered mental status Qualified Codes: R41.82 - Altered mental status, unspecified Additional Impressions: UTI (urinary tract infection) Qualified Codes: N39.0 - Urinary tract infection, site not specified Hypokalemia Admitting Information Admitting Physician Requests: Admit Juan F Sanders MD Feb 05, 2018 20:18
--- NOTE | 2018-02-05 20:36 | RADRPT ---
EXAM DATE: 02/05/2018 8:28 PM EDT AGE/SEX: 82 years / Female INDICATIONS: Right sided weakness. CLINICAL DATA: This is the patient's initial encounter. Patient reports that signs and symptoms have been present for 1 day and indicates a pain score of 0/10. MEDICAL/SURGICAL HISTORY: Hypertension. Cardiovascular disease. Acute hemorrhage. None. RADIATION DOSE: 38.69 CTDI (mGy) COMPARISON: CT brain 11/04/2017. TECHNIQUE: CT of the head without contrast. Using automated exposure control and adjustment of the mA and/or kV according to patient size, radiation dose was kept as low as reasonably achievable to ob tain optimal diagnostic quality images. DICOM format image data is available electronically for revi ew and comparison. FINDINGS: Prior area of intraparenchymal hemorrhage within the left parietal lobe has resolved. An area of ence phalomalacia is noted. No acute hemorrhage appreciated. No acute infarction. No midline shift or yvrose iation. Air-fluid levels noted within the maxillary sinuses bilaterally. Mucosal thickening scattered throughout the ethmoid air cells and frontal sinuses bilaterally. Mastoid air cells are clear. Say rium is intact. CONCLUSION: 1. Encephalomalacia within the left parietal lobe relating to a prior area of hemorrhage. 2. No acute intracranial abnormality. 3. Paranasal sinus disease. Electronically signed by: Osmel Whitman MD 02/05/2018 8:35 PM EDT
[2018-02-05 20:40] LABS: AUTOMATED NEUTROPHIL # 6.3 TH/MM3 (1.8-7.7); BASOPHIL % 0.4 % (0.0-2.0); EOSINOPHIL # 0.2 TH/MM3 (0-0.4); EOSINOPHIL % 2.3 % (0.0-4.0); HEMATOCRIT 29.1 % (35.0-46.0); HEMOGLOBIN 9.5 GM/DL (11.6-15.3); LYMPH % 22.2 % (9.0-44.0); MEAN CELL VOLUME 84.8 FL (80.0-100.0); MEAN CORPUSCULAR HEMOGLOBIN 27.6 PG (27.0-34.0); MEAN CORPUSCULAR HGB CONC 32.6 % (32.0-36.0); MEAN PLATELET VOLUME 8.6 FL (7.0-11.0); MONO % 6.6 % (0.0-8.0); MONOCYTE # 0.6 TH/MM3 (0-0.9); NEUT % 68.5 % (16.0-70.0); PLATELET COUNT 387 TH/MM3 (150-450); RED BLOOD COUNT 3.44 MIL/MM3 (4.00-5.30); RED CELL DISTRIBUTION WIDTH 19.8 % (11.6-17.2); WHITE BLOOD COUNT 9.2 TH/MM3 (4.0-11.0)
[2018-02-05] MEDS ORDERED: MILKSUS PO (20:45)
[2018-02-05] MEDS ORDERED: ZINC40OI (20:45)
[2018-02-05] MEDS ORDERED: CULT10CA4 PO (20:45)
[2018-02-05] MEDS ORDERED: PRED5TAB PO (20:45)
[2018-02-05] MEDS ORDERED: SILV1CRE20 TOPICAL (20:45)
[2018-02-05] MEDS ORDERED: DULC10SU3 RECTAL (20:45)
[2018-02-05] MEDS ORDERED: [UNRECOGNIZED DRUG - CODE] (20:45)
[2018-02-05] MEDS ORDERED: DEXT1CAP12 PO (20:45)
[2018-02-05] MEDS ORDERED: TETR250C88 PO (20:45)
[2018-02-05] MEDS ORDERED: OMEP20TA93 PO (20:45)
[2018-02-05] MEDS ORDERED: VOLT1GEL16 (20:45)
[2018-02-05] MEDS ORDERED: METO5TAB PO (20:45)
[2018-02-05] MEDS ORDERED: TYLE325T PO (20:45)
[2018-02-05] MEDS ORDERED: [UNRECOGNIZED DRUG - OTHER] (20:45)
[2018-02-05] MEDS ORDERED: BENZ1CAP54 PO (20:45)
[2018-02-05] MEDS ORDERED: LORA1TAB12 PO (20:45)
[2018-02-05] MEDS ORDERED: IPRASOL INH (20:45)
[2018-02-05 21:01] VITALS: BP 119/57; PULSE 70; RESP 18; O2SAT 98
[2018-02-05 21:06] LABS: BACTERIA, URINE OCC /hpf; BILIRUBIN, URINE NEG (NEG); BLOOD, URINE NEG (NEG); GLUCOSE,URINE NEG (NEG); HYALINE CAST, URINE 4 /lpf (RARE); KETONE, URINE NEG (NEG); MUCUS URINE FEW /lpf (OCC); NITRITE,URINE NEG (NEG); SQUAMOUS EPITHELIAL CELL URINE 1 /hpf (0-5); URINE COLOR YELLOW (YELLW/STRAW); URINE LEUKOCYTE ESTERASE SMALL (NEG)
[2018-02-05] MEDS ORDERED: cefTRIAXone INJ 1,000 MG in SODIUM CHLORIDE 0.9% INJ 100 ML IV ONE (21:15)
[2018-02-05 21:24] LABS: ALBUMIN 2.3 GM/DL (3.4-5.0); ALKALINE PHOSPHATASE 77 U/L (45-117); ALT (GPT) 16 U/L (10-53); AST (GOT) 23 U/L (15-37); BLOOD UREA NITROGEN 9 MG/DL (7-18); CALCIUM 7.7 MG/DL (8.5-10.1); CHLORIDE 99 MEQ/L (98-107); CREATININE 0.72 MG/DL (0.50-1.00); GLOMERULAR FILTRATION RATE 94 ML/MIN (>89); GLUCOSE,RANDOM 134 MG/DL (74-106); SODIUM (NA) 141 MEQ/L (136-145); TOTAL BILIRUBIN ADULT 0.3 MG/DL (0.2-1.0); TOTAL PROTEIN 6.8 GM/DL (6.4-8.2); TROPONIN I 0.12 NG/ML (0.02-0.05)
[2018-02-05] MEDS ORDERED: POTASSIUM CHLOR 10 MEQ PREMIX 100 ML IV ONE ×2 (21:45)
[2018-02-05] MEDS ORDERED: ASPIRIN 81 MG CHEW TAB CHEW ONE (22:00)
[2018-02-05 23:11] VITALS: BP 131/66; PULSE 67; RESP 18; O2SAT 100
[2018-02-05] MEDS ORDERED: SODIUM CHLORIDE 0.9% FLUSH 10 ML FLUSH IV FLUSH PRN (23:15)
[2018-02-05] MEDS ORDERED: POTASSIUM CHLORIDE 20 MEQ CONTROLLED RELEASE TAB PO ONE (23:15)
[2018-02-05] MEDS ORDERED: POTASSIUM BICARBONATE 25 MEQ EFFERVESCENT TAB PO ONE (23:30)
--- NOTE | 2018-02-05 23:43 | HHI.HP ---
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 The patient is alert and oriented only to self. She is able to answer questions however believes it is 1936 and that we are in [place]. She follows commands and is pleasant. Her son accompanies her to the emergency department and states that the patient was in her prison facility earlier today when she became lethargic, nonverbal and was diaphoretic. He states the episode lasted for about 15-30 minutes. He reports that she is now back to baseline. The patient denies any pain. Review of Systems Except as stated in HPI: all other systems reviewed are Neg Limited secondary to clinical condition Past Family Social History Past Medical History (Obtained from medical records) History of hemorrhagic stroke, unspecified cardiac arrhythmia, hypertension, depression, iron deficiency anemia, GERD and seizure disorder Past Surgical History None Reported Medications Reported Meds & Active Scripts Active Metoprolol Tartrate 25 Mg Tab 12.5 Mg PO BID Hold if heart rate < 75 or systolic BP < 110 Oxycodone-Acetaminophen 5-325 mg Tab 1 Tab PO BID PRN Amiodarone (Amiodarone HCl) 200 Mg Tab 200 Mg PO DAILY Start taking this dose of 200 milligrams daily on 06/20/2017. Until then take the 400 milligram dose once daily. Reported Dulcolax Supp (Bisacodyl) 10 Mg Supp 10 Mg RECTAL DAILY PRN Milk of Magnesia Liq (Magnesium Hydroxide) 400 Mg/5 Ml Susp 30 Ml PO DAILY PRN Fleet Enema Extra (Sod Phos,M-B/Na Phos,Di-Ba) 19 Gram-7 Gram/197 Ml Enema Omeprazole 20 Mg Tab 20 Mg PO DAILY Tylenol (Acetaminophen) 325 Mg Tab 650 Mg PO ONCE Lorazepam 1 Mg Tab 1 Mg PO DAILY PRN Metoclopramide (Metoclopramide HCl) 5 Mg Tab 5 Mg PO BID Tetracycline (Tetracycline HCl) 250 Mg Cap 500 Mg PO BID Culturelle (Lactobacillus Rhamnosus (GG)) 10 Billion Cell Cap 1 Cap PO BID Duoneb (Ipratropium-Albuterol Neb) 0.5-2.5 Mg/3 Ml Neb 1 Nebule INH DAILY Robafen Cough (Dextromethorphan HBr) 15 Mg Cap 30 Mg PO Q6H PRN Benzonatate 100 Mg Cap 100 Mg PO BID PRN Prednisone 5 Mg Tab 5 Mg PO DAILY Voltaren (Diclofenac Sodium) 1 % Gel..gram. Silvadene Topical (Silver Sulfadiazine) 1 % Cream 1 Applic TOPICAL DAILY Zinc Oxide (Zinc Oxide (Topical)) 40 % Oin [prealbumin] Ferrous Sulfate 325 Mg (65 Mg Iron) Tablet 325 Mg PO DAILY Sertraline (Sertraline HCl) 50 Mg Tab 50 Mg PO DAILY Allergies: Coded Allergies: No Known Allergies (Unverified , 06/09/17) Family History Parents both from cancer. Daughter from [place] in the mid 20s. Social History Denies alcohol, tobacco and illicit drugs Physical Exam Vital Signs Vital Signs Date Time Temp Pulse Resp B/P (MAP) Pulse Ox O2 Delivery O2 Flow Rate FiO2 02/05/18 23:11 67 18 131/66 (87) 100 Room Air 02/05/18 21:01 70 18 119/57 (77) 98 Room Air 02/05/18 20:01 85 18 98 Room Air 02/05/18 19:50 98.4 73 18 114/55 (74) 98 02/05/18 19:50 98 Room Air Physical Exam GENERAL: -Greek female lying in bed SKIN: Stage III sacral decubitus ulcer HEAD: Atraumatic. Normocephalic. No temporal or scalp tenderness. EYES: Pupils equal round and reactive. Extraocular motions intact. No scleral icterus. No injection or drainage. ENT: Nose without bleeding, purulent drainage or septal hematoma. Throat without erythema, tonsillar hypertrophy or exudate. Uvula midline. Airway patent. NECK: Trachea midline. No JVD or lymphadenopathy. Supple, nontender, no meningeal signs. CARDIOVASCULAR: Regular rate and rhythm without murmurs, gallops, or rubs. RESPIRATORY: Clear to auscultation. Breath sounds equal bilaterally. No wheezes , rales, or rhonchi. GASTROINTESTINAL: Abdomen soft, non-tender, nondistended. No hepato-splenomegaly , or palpable masses. No guarding. MUSCULOSKELETAL: Extremities without clubbing, cyanosis, or edema. No joint tenderness, effusion, or edema noted. No calf tenderness. NEUROLOGICAL: Awake and alert. Cranial nerves II through XII intact. Word finding difficulties. Answers questions appropriately. Alert and oriented only to self. Residual right-sided weakness at baseline. Laboratory Laboratory Tests Test 02/05/18 20:16 White Blood Count 9.2 Red Blood Count 3.44 Hemoglobin 9.5 Hematocrit 29.1 Mean Corpuscular Volume 84.8 Mean Corpuscular Hemoglobin 27.6 Mean Corpuscular Hemoglobin Concent 32.6 Red Cell Distribution Width 19.8 Platelet Count 387 Mean Platelet Volume 8.6 Neutrophils (%) (Auto) 68.5 Lymphocytes (%) (Auto) 22.2 Monocytes (%) (Auto) 6.6 Eosinophils (%) (Auto) 2.3 Basophils (%) (Auto) 0.4 Neutrophils # (Auto) 6.3 Lymphocytes # (Auto) 2.0 Monocytes # (Auto) 0.6 Eosinophils # (Auto) 0.2 Basophils # (Auto) 0.0 CBC Comment DIFF FINAL Differential Comment Urine Color YELLOW Urine Turbidity HAZY Urine pH 6.0 Urine Specific [place] 1.013 Urine Protein 100 Urine Glucose (UA) NEG Urine Ketones NEG Urine Occult Blood NEG Urine Nitrite NEG Urine Bilirubin NEG Urine Urobilinogen LESS THAN 2 Urine Leukocyte Esterase SMALL Urine RBC 2 Urine WBC 18 Urine Squamous Epithelial Cells 1 Urine Bacteria OCC Urine Hyaline Casts 4 Urine Mucus FEW Microscopic Urinalysis Comment CATH-CULTURE IND Blood Urea Nitrogen 9 Creatinine 0.72 Random Glucose 134 Total Protein 6.8 Albumin 2.3 Calcium Level 7.7 Alkaline Phosphatase 77 Aspartate Amino Transf (AST/SGOT) 23 Alanine Aminotransferase (ALT/SGPT) 16 Total Bilirubin 0.3 Sodium Level 141 Potassium Level 2.2 Chloride Level 99 Carbon Dioxide Level 30.0 Anion Gap 12 Estimat Glomerular Filtration Rate 94 Troponin I 0.12 Urine Opiates Screen NEG Urine Barbiturates Screen NEG Urine Amphetamines Screen NEG Urine Benzodiazepines Screen NEG Urine Cocaine Screen NEG Urine Cannabinoids Screen NEG Date/Time Source Procedure Growth Status 02/05/18 20:16 Urine Catheterized Urine Urine Culture Pending Received Result Diagram: 02/05/18201502/05/182015 Caprini VTE Risk Assessment Caprini VTE Risk Assessment: Mod/High Risk (score >= 2) Caprini Risk Assessment Model Point Value = 1 Point Value = 2 Point Value = 3 Point Value = 5 Age 41-60 Minor surgery BMI > 25 kg/m2 Swollen legs Varicose veins or History of unexplained or recurrent spontaneous Oral contraceptives or hormone replacement Sepsis (< 1 month) Serious lung disease, including pneumonia (< 1 month) Abnormal pulmonary function Acute myocardial infarction Congestive heart failure (< 1 month) History of inflammatory bowel disease Medical patient at bed rest Age 61-74 Arthroscopic surgery Major open surgery (> 45 min) Laparoscopic surgery (> 45 min) Malignancy Confined to bed (> 72 hours) Immobilizing plaster cast Central venous access Age >= 75 History of VTE Family history of VTE Factor V Leiden Prothrombin [id number] Lupus anticoagulant Anticardiolipin antibodies Elevated serum homocysteine Heparin-induced thrombocytopenia Other congenital or acquired thrombophilia Stroke (< 1 month) Elective arthroplasty Hip, pelvis, or leg fracture Acute spinal cord injury (< 1 month) Prophylaxis Regimen Total Risk Factor Score Risk Level Prophylaxis Regimen 0-1 Low Early ambulation 2 Moderate Order ONE of the following: *Sequential Compression Device (SCD) *Heparin 5000 units SQ BID 3-4 Higher Order ONE of the following medications: *Heparin 5000 units SQ TID *Enoxaparin/Lovenox 40 mg SQ daily (WT < 150 kg, CrCl > 30 mL/min) *Enoxaparin/Lovenox 30 mg SQ daily (WT < 150 kg, CrCl > 10-29 mL/min) *Enoxaparin/Lovenox 30 mg SQ BID (WT < 150 kg, CrCl > 30 mL/min) AND/OR *Sequential Compression Device (SCD) 5 or more Highest Order ONE of the following medications: *Heparin 5000 units SQ TID (Preferred with Epidurals) *Enoxaparin/Lovenox 40 mg SQ daily (WT < 150 kg, CrCl > 30 mL/min) *Enoxaparin/Lovenox 30 mg SQ daily (WT < 150 kg, CrCl > 10-29 mL/min) *Enoxaparin/Lovenox 30 mg SQ BID (WT < 150 kg, CrCl > 30 mL/min) AND *Sequential Compression Device (SCD) Assessment and Plan Assessment and Plan Assessment/plan: 1. Altered mental status Unclear etiology Head CT with no acute intracranial abnormality TIA -MRI/MRA brain pending. Neurology consulted, appreciate recommendations Infectious -patient with UA consistent with urinary tract infection. Urine culture pending Rocephin Cardiac -ACS rule out pending. EKG shows sinus rhythm without ST segment elevations or depressions, personally reviewed. Initial troponin 0.12 Metabolic disturbance -potassium 2.2, currently receiving IV and p.o. supplementation. Monitor BMP 2. Cardiac arrhythmia Continue home amiodarone, metoprolol 3. Depression Continue home sertraline FEN N.p.o. Electrolytes: As above NS +20 KCl at 70 cc/hour Holding pharmacologic anticoagulation secondary to history of hemorrhagic stroke Physician Certification 2 Midnight Certification Type: Admission for Inpatient Services Order for Inpatient Services The services are ordered in accordance with Medicare regulations or non- Medicare payer requirements, as applicable. In the case of services not specified as inpatient-only, they are appropriately provided as inpatient services in accordance with the 2-midnight benchmark. Estimated LOS (days): 2 2 days is the estimated time the patient will need to remain in the hospital, assuming treatment plan goals are met and no additional complications. Post-Hospital Plan: Not yet determined Flower Canela MD Feb 05, 2018 23:43
[2018-02-06] VITALS (11 sets, daily range): BP systolic 97–138; BP diastolic 51–84; PULSE 60–80; RESP 16–20; TEMP 97.6–98.7; O2SAT 95–99
[2018-02-06] MEDS: POTASSIUM CHLOR 20 MEQ PREMIX 100 ML IV SCH ×4 (01:15→08:39)
[2018-02-06] MEDS: NS + KCL 20 MEQ INJ 1,000 ML IV SCH ×2 (01:39→14:33)
[2018-02-06 04:49] LABS: CHOLESTEROL/ HDL RATIO 1.96 RATIO
[2018-02-06] MEDS: HEPARIN-D5W 25,000 U/250 ML 250 ML IV PRN (06:31)
[2018-02-06] MEDS: SODIUM CHLORIDE 0.9% FLUSH 10 ML FLUSH IV FLUSH SCH ×2 (07:38→20:56)
[2018-02-06 07:58] LABS: INTERNATIONAL NORMALIZED RATIO 1.2 RATIO
[2018-02-06] MEDS: AMIODARONE 200 MG TAB PO SCH (09:00)
[2018-02-06] MEDS: FERROUS SULFATE 325 MG (65 MG ELEMENTAL IRON) TAB PO SCH (09:01)
[2018-02-06] MEDS: SERTRALINE HCL 50 MG TAB PO SCH (09:01)
[2018-02-06] MEDS: PANTOPRAZOLE SOD 20 MG DELAYED RELEASE TAB PO SCH (09:01)
[2018-02-06] MEDS: predniSONE 5 MG TAB PO SCH (09:01)
[2018-02-06] MEDS: METOCLOPRAMIDE HCL 10 MG TAB PO SCH ×2 (09:02→20:51)
[2018-02-06] MEDS: METOPROLOL TARTRATE 25 MG TAB PO SCH ×2 (09:02→20:51)
--- NOTE | 2018-02-06 09:50 | EKG ---
Date Performed: 02/05/2018 Time Performed: 20:00:21 PTAGE: 82 years EKG: Sinus rhythm NONSPECIFIC ST & T-WAVE ABNORMALITY BORDERLINE ECG PREVIOUS TRACING 11/03/17 Compared to prior study, nonspecific ST-T changes are now noted. DOCTOR: Anton Almonte Interpretating Date/Time 02/06/2018 09:49:44
--- NOTE | 2018-02-06 09:51 | EKG ---
Date Performed: 02/06/2018 Time Performed: 05:45:05 PTAGE: 82 years EKG: Sinus rhythm LOW QRS VOLTAGE IN PRECORDIAL LEADS SEPTAL MYOCARDIAL INFARCTION MODERATE T-WAVE ABNORMALITY, CONSID ER ANTERIOR ISCHEMIA MODERATE T-WAVE ABNORMALITY, CONSIDER INFERIOR ISCHEMIA ABNORMAL ECG PREVIOUS TRACING : 02/05/2018 20.00 Compared to the prior study, inferolateral ST-T changes are more prominent. DOCTOR: Anton Almonte Interpretating Date/Time 02/06/2018 09:50:41
--- NOTE | 2018-02-06 10:37 | RADRPT ---
EXAM DATE: 02/06/2018 10:08 AM EDT AGE/SEX: 82 years / Female INDICATIONS: Cerebrovascular accident. CLINICAL DATA: This is the patient's initial encounter. Patient reports that signs and symptoms have been present for 1 day and indicates a pain score of 0/10. MEDICAL/SURGICAL HISTORY: Stroke. Gastroesophageal reflux disease. Atrial fibrillation. Dyspne a. Arthritis. Diabetes. Anemia. . Bilateral cataract surgery. Cardiac stent. COMPARISON: No prior exams available for comparison. VELOCITY PARAMETERS: ICA/CCA Ratio: Right 1.1 , Left 0.9 ICA: Right 99.1 cm/sec, Left 62.5 cm/sec CCA: Right 93.8 cm/sec, Left 66.8 cm/sec ECA: Right 32.1 cm/sec, Left 31.2 cm/sec Vertebral: Right 47.9 cm/sec antegrade, Left 46.0 cm/sec antegrade FINDINGS: Right Carotid: Minimal plaque is seen.The waveforms are within normal limits. Left Carotid: Minimal plaque is seen. The waveforms are within normal limits. Other: None. CONCLUSION: Minimal plaque without hemodynamic be significant stenosis. Electronically signed by: Joaquim Cordero MD 02/06/2018 10:36 AM EDT
--- NOTE | 2018-02-06 12:40 | EKG ---
Date Performed: 02/06/2018 Time Performed: 07:54:57 PTAGE: 82 years EKG: Sinus rhythm LOW QRS VOLTAGE IN PRECORDIAL LEADS ST DEVIATION AND MODERATE T-WAVE ABNORMALITY, CONSIDER ANTEROLAT ERAL ISCHEMIA ABNORMAL ECG Since the PREVIOUS TRACING , no significant change noted PREVIOUS TRACIN02/06/2018 05.45 DOCTOR: Anton Almonte Interpretating Date/Time 02/06/2018 12:38:42
[2018-02-06] MEDS ORDERED: POTASSIUM BICARBONATE 25 MEQ EFFERVESCENT TAB PO ONE (13:30)
--- NOTE | 2018-02-06 13:44 | HHI.PR ---
Subjective Remarks Follow-up on patient with altered mental status, elevated troponins. Patient seen and examined. Patients son is at the bedside. He states that her mentation has returned to baseline. Patient has expressive aphasia since the stroke she suffered in October of this year. It is difficult to adequately complete review of systems secondary to patient's aphasia. She is alert and attempts to answer appropriately but unfortunately most of her responses are word salad. She appears comfortable. Objective Vitals Vital Signs Date Time Temp Pulse Resp B/P (MAP) Pulse Ox O2 Delivery O2 Flow Rate FiO2 02/06/18 12:00 98.7 60 18 103/57 (72) 95 02/06/18 07:49 98.6 70 18 132/58 (82) 99 02/06/18 07:18 64 02/06/18 06:00 97.6 66 18 98/56 (70) 02/06/18 03:59 98.2 68 16 97/51 (66) 97 02/06/18 00:25 98.4 68 16 110/58 (75) 97 02/06/18 00:20 02/05/18 23:11 67 18 131/66 (87) 100 Room Air 02/05/18 21:01 70 18 119/57 (77) 98 Room Air 02/05/18 20:01 85 18 98 Room Air 02/05/18 19:50 98.4 73 18 114/55 (74) 98 02/05/18 19:50 98 Room Air I/O 02/05/18 02/05/18 02/05/18 02/06/18 02/06/18 02/06/18 07:00 15:00 23:00 07:00 15:00 23:00 Intake Total 100 ml 950 ml 100 ml Balance 100 ml 950 ml 100 ml Intake Oral 50 ml IV Total 100 ml 900 ml 100 ml Result Diagram: 02/05/18201502/06/18 1218 Imaging Last Impressions Carotid Artery Ultrasound 02/06/18 0000 Signed Impressions: CONCLUSION: Minimal plaque without hemodynamic be significant stenosis. Head CT 02/05/182002 Signed Impressions: CONCLUSION: 1. Encephalomalacia within the left parietal lobe relating to a prior area of hemorrhage. 2. No acute intracranial abnormality. 3. Paranasal sinus disease. Objective Remarks GENERAL: This is a well-developed well-nourished -Malaysian female lying in bed. Awake and alert. Son is at the bedside. SKIN: Stage III sacral decubitus ulcer. No generalized rash. HEAD: Atraumatic. Normocephalic. No facial asymmetry appreciated. EYES: Pupils equal round and reactive. Extraocular motions intact. No scleral icterus. No injection or drainage. ENT: Nose without bleeding or purulent drainage. Airway patent. MMM. NECK: Trachea midline. Supple, nontender, no meningeal signs. CARDIOVASCULAR: Regular rate and rhythm without murmurs, gallops, or rubs. RESPIRATORY: Clear to auscultation. Breath sounds equal bilaterally. No wheezes , rales, or rhonchi. GASTROINTESTINAL: Abdomen soft, non-tender, nondistended. No hepato-splenomegaly , or palpable masses. No guarding. MUSCULOSKELETAL: Extremities without clubbing, cyanosis, or edema. No calf tenderness. NEUROLOGICAL: Awake and alert. Cranial nerves II through XII grossly intact. Alert and oriented only to self. Residual right-sided weakness at baseline. + Expressive aphasia. Able to answer some questions appropriately but multiple responses are word salad. PSYCHIATRIC: Cooperative and calm. 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 Patient's second troponin elevated 2.02 and EKG showing new T-wave inversions V3 to V6 concerning for ischemia. NSTEMI Troponins 0.12, 2.02, 1.10 EKG shows new T wave inversions in V3-V6, concerning for ischemia Patient started on heparin drip Patient has no complaints of chest pain -Cardiology consulted, appreciate assistance -Continue to monitor on cardiac telemetry -keep NPO -continue IVF Acute encephalopathy, possible TIA Head CT with no acute intracranial abnormality Carotid ultrasound shows minimal plaque without hemodynamically significant stenosis Hx of ICH 10/2017 She passed bedside swallow evaluation -Neurology consulted, appreciate recommendations -Consult stroke navigator -Obtain MRI and MRA of the brain -Continue neurochecks -PT/OT/ST eval/tx -HgbA1c pending -seizure/fall/aspiration precautions Hypokalemia K 2.2 Mag level 1.9 -Potassium improved to 3.1 after IV and po repletion -give 50meq po dose now -continue on IV repletion with NS -repeat BMP in am UTI, suspect contributing to patient's altered mental status UA consistent with UTI -Patient started on ceftriaxone, continue -Follow-up on urine culture results Cardiac arrhythmia -Continue home amiodarone, metoprolol Anemia, chronic Hemoglobin appears stable -Continue patient on oral ferrous sulfate -Monitor for any evidence of active bleeding Depression -Continue home sertraline Chronic pain/bilateral knee osteoarthritis -Continue on previous dose of prednisone GERD -Continue on pantoprazole DVT prophylaxis -Patient on a heparin drip Natalya Farnsworth Feb 06, 2018 13:43
[2018-02-06] MEDS ORDERED: ATORVASTATIN 40 MG TAB PO ONE (13:45)
--- NOTE | 2018-02-06 15:43 | MB ---
cc: Dharmesh Guzman MD DATE: 02/06/2018 HISTORY OF PRESENT ILLNESS: Constance is a very pleasant 82-year-old lady who presented to the emergency room last night with focal weakness. The patient is not a very good historian; however, she denies chest pain, shortness of breath at the bedside. Further history is obtained from the chart. According to her family, the patient had developed a change in mental status and global weakness, also confused. PAST MEDICAL HISTORY: Per History Of Present Illness. She has a history of arthritis, asthma, AFib. PAST SURGICAL HISTORY: Cataract surgery, history of percutaneous coronary intervention. SOCIAL HISTORY: Denies tobacco or alcohol use. ALLERGIES: NONE. MEDICATIONS PRIOR TO ADMISSION: 1. Metoprolol. 2. Oxycodone. 3. Amiodarone. 4. Dulcolax. 5. Milk of magnesia. 6. Fleet enema. 7. Omeprazole. 8. Tylenol. 9. Lorazepam. 10. Metoclopramide. 11. Tetracycline. 12. Culturelle. 13. DuoNeb. 14. Robafen. 15. Benzonatate. 16. Prednisone 17. Voltaren. 18. Silvadene. 19. Zinc oxide. 20. Ferrous sulfate. 21. Sertraline. MEDICATIONS IN THE HOSPITAL: 1. Atorvastatin 40 mg daily. 2. Ceftriaxone. 3. Amiodarone 200 daily. 4. Ferrous sulfate 325 daily. 5. Metoclopramide 5 mg b.i.d. 6. Metoprolol 12.5 b.i.d. 7. Prednisone 5 mg daily. 8. Pantoprazole 20 mg daily. 9. Sertraline. PHYSICAL EXAMINATION: VITAL SIGNS: Temperature 98.7, pulse 60, respiratory rate 18, blood pressure 103/57. GENERAL: She is lethargic, oriented x 1-2, in no acute distress. NECK: Supple. No JVD. No bruit. CARDIOVASCULAR: S1, S2 normal. No murmurs, rubs or gallops. LUNGS: Clear to auscultation bilaterally. ABDOMEN: Soft, nontender, nondistended with positive bowel sounds. EXTREMITIES: No extremity edema. LABORATORY DATA: White count 9.2, hemoglobin 9.5, hematocrit 29.1, platelet count 387. INR is 1.2. Troponin is 2.02, followed by 1.10. LDL is 34, HDL 54. Sodium 141, potassium 2.2, chloride 99, bicarbonate 30, BUN 9, creatinine 0.72, glucose 134, calcium 7.7. Initial troponin was 0.12. AST 23, ALT 16. IMAGING STUDIES: Head CT shows encephalomalacia within the left parietal lobe related to a prior area of hemorrhage, no acute intracranial abnormality. paranasal sinus disease. A carotid ultrasound with minimal plaque, without hemodynamic "B" significant stenosis. EKGS: First EKG: Normal sinus rhythm at 73 beats per minute, anteroseptal Q-waves. Second EKG: Normal sinus rhythm without T-wave inversion in V3, V4, V5, V6, lead II and aVF. Third EKG: Normal sinus rhythm at 68 beats per minute with T-wave inversion in V3, V4, V5, V6. FINAL DIAGNOSES: 1. [id number] myocardial infarction. 2. Recent hemorrhagic cerebrovascular accident. 3. Altered mental status. 4. History of atrial fibrillation. 5. Hypokalemia. 6. Anemia. DISCUSSION: At this point in time, her anticoagulation parameters will clearly need to be defined by Neurology given her history of hemorrhagic cerebrovascular accident. Neurology consult has been placed, has not been done yet. The patient denies chest pain, shortness of breath. She appears to have poor quality of life post-CVA but mental status has changed so this is somewhat indeterminate in terms of her long-term prognosis. Again we will await Neurology's evaluation. Agree with atorvastatin 40 daily, amiodarone 200 daily, metoprolol 12.5 b.i.d. Again, anticoagulation in terms of atrial fibrillation and also for potential PCI and coronary artery disease will need to be determined by Neurology. We will also need to know if the patient is eligible for IIb/III inhibitor, aspirin, Plavix, heparin should the family or surrogate decision maker prefer heart catheterization to assess for significant coronary artery disease. Also recommend a palliative care consult. MD RON Goldberg/ALTAGRACIA , 03:04 PM , 03:42 PM
--- NOTE | 2018-02-06 16:30 | PD.CONS ---
Consult Service Palliative Care Consult Requested By Dr. Marsha Guzman . Primary Care Physician Aracely Payne, Reason for Consultation a. To assist with evaluation and management of symptoms including:Confusion , debility b. To assist medical decision maker(s) with: better understanding of current medical conditions; weighing benefits/burdens of medical treatment options; making medical treatment decisions. HPI History of Present Illness Ms. 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 Patient was brought to the emergency department from a residential facility on 02/05/18 for further evaluation of lethargy, confusion and unresponsiveness that lasted approximately 20-30 minutes. By the time patient arrived to the ER, patient's family reported that she was back to her baseline. Patient was recently admitted in this hospital from 11/03/17 to 11/12/17 for hemorrhagic CVA. She was discharged to a residential facility where she was supposedly to be discharged home on 02/05/18. ER course: * Vital signs: Temperature 98.4, pulse 70, respirations 18, blood pressure 119/ 57, O2 saturation 98% on room air * Laboratory workup revealing WBC 9.2, hemoglobin 9.5, hematocrit 29.1, platelet count 387, sodium 141, potassium 2.2, BUN/creatinine 9/0.72, random glucose 134, calcium 7.7, AST 23, ALT 16, troponin 0.12, total protein 6.8, albumin 2.3 * Toxicology negative * Head CT revealed encephalomalacia within the left parietal lobe relating to prior area of hemorrhage, paranasal sinus disease in no acute intracranial abnormality. * UA with small amount of leukocyte esterase, WBC 18 culture indicated-culture results pending * EKG revealed sinus rhythm, nonspecific ST and T-wave inversions in V3-V6 concerning for ischemia. Neurology Dr. Montgomery consulted 02/05/18 for evaluation and management of a patient with TIA. Cardiology Dr. Marsha Guzman consulted on 02/05/18 for evaluation and management of a patient with NSTEMI with recent ICH, recommended neurology input regarding anticoagulation parameters given history of recent hemorrhagic CVA and and if patient is eligible for IIb/III inhibitor, aspirin, Plavix, heparin and probably heart catheterization if family accepts. Physical therapy, Occupational Therapy and speech therapy consulted, recommendations are PT, speech therapy and occupational therapy and rehabilitation center. Palliative care consulted to assist with symptom management and establishing goals of care. Patient seen and examined in the room. Patient lying in bed, awake, alert, oriented to self and confused to place, time,her birthday, her age and situation. She thinks she is 51 years old. Patient does not know why she is in the hospital and cannot recall which she is currently residing. Speech is clear and patient appears to have expressive aphasia. Patient is able to follow occasionally simple commands with bilateral upper extremities. Patient states that she is not able to move the legs. Patient appears not to be able to participate in making his own medical decisions at this time and is not able to weigh benefits and burdens of treatment. Patient God son Edgar Sapp who is very involved in patient`s care currently in room and is able to provide most of patient`s psychosocial and medical history. He also was present at the assisted when patient was lethargic and unresponsive prior to presenting to the ER. Sekou provided patient`s children contact information. Patient is . She has 3 living adult children, 2 daughters Praveen Ernandez and Jess Juárez and 1 son Marquita Blackburn. Telephone call to patient's son Marquita Blackburn ([phone]), no response - left a voice message with palliative care contact information. Telephone conversation with patient`s daughter Praveen Ernandez ([phone]), introduced palliative care and its role during patient's hospitalization. Updated her on patient's current medical status. Confirmed past medical and psychosocial history. According to patient's daughter patient never completed advanced directives. Addressed code status, discussed CPR limitations and complications. Patient's daughter Praveen Ernandez elected do not resuscitate, do not intubate. Another telephone conversation with patient's daughter Jess Juárez, updated her on patient`s current medical status. Addressed code status and she also elected do not resuscitate and do not intubate. Patient`s daughter mentioned that patient has not been back to her baseline ever since she had a stroke and resuscitating will most be likely to patient`s best interest. Broached hospice with patient`s daughter Jess and she would like to discuss further with other family members since she feels this may be the best option for patient.No call back received from Alexey, encouraged patient`s daughter to update him on patient`s current medical status. Since majority of 2 out of 3 adult children elected DNR, code status will be entered as DNR. Function/Cognitive Trajectory Patient was recently admitted in this hospital from 11/03/17 to 11/12/17 for hemorrhagic CVA. She was discharged to a [facility] nursing facility where she was supposedly to be discharged home on 02/05/18. Patient required 2 person assistance with transfers from bed to wheelchair. Patient has not ambulated since she had his stroke in December. Prior to stroke in December patient was able to ambulate with a walker. Patient his expressive aphasia, able to verbalize some of his needs in some needs are anticipated. Incontinent of bowel and bladder. . Review of Systems ROS Limitations: Poor Historian Constitutional: COMPLAINS OF: Generalized weakness Eyes: DENIES: Eye inflammation Ears, nose, mouth, throat: DENIES: Hearing loss, Nasal discharge Respiratory: DENIES: Cough, Wheezing, Shortness of breath Cardiovascular: COMPLAINS OF: Lower Extremity Edema Gastrointestinal: DENIES: Constipation, Diarrhea, Nausea, Vomiting Genitourinary: COMPLAINS OF: Urinary incontinence Musculoskeletal: COMPLAINS OF: Decreased range of motion Neurologic: COMPLAINS OF: Localized weakness, Speech Problems Psychiatric: COMPLAINS OF: Confusion, Depression, DENIES: Agitation Other ROS: Review of system obtained from EMR, family, and clinical observation. . Past Family Social History Coded Allergies: No Known Allergies (Unverified , 06/09/17) Past Medical History (Obtained from medical records) Hemorrhagic CVA Hypertension Depression Iron deficiency anemia GERD Seizure disorder Arthritis Asthma Tachyarrhythmia History of hemorrhagic stroke, unspecified cardiac arrhythmia, hypertension, depression, iron deficiency anemia, GERD and seizure disorder Past Surgical History Bilateral Cataract extraction . Reported Medications Metoprolol Tartrate 25 Mg Tab 12.5 Mg PO BID Hold if heart rate < 75 or systolic BP < 110 Oxycodone-Acetaminophen 5-325 mg Tab 1 Tab PO BID PRN Amiodarone (Amiodarone HCl) 200 Mg Tab 200 Mg PO DAILY Dulcolax Supp (Bisacodyl) 10 Mg Supp 10 Mg RECTAL DAILY PRN Milk of Magnesia Liq (Magnesium Hydroxide) 400 Mg/5 Ml Susp 30 Ml PO DAILY PRN Fleet Enema Extra (Sod Phos,M-B/Na Phos,Di-Ba) 19 Gram-7 Gram/197 Ml Enema Omeprazole 20 Mg Tab 20 Mg PO DAILY Tylenol (Acetaminophen) 325 Mg Tab 650 Mg PO ONCE Lorazepam 1 Mg Tab 1 Mg PO DAILY PRN Metoclopramide (Metoclopramide HCl) 5 Mg Tab 5 Mg PO BID Tetracycline (Tetracycline HCl) 250 Mg Cap 500 Mg PO BID Culturelle (Lactobacillus Rhamnosus (GG)) 10 Billion Cell Cap 1 Cap PO BID Duoneb (Ipratropium-Albuterol Neb) 0.5-2.5 Mg/3 Ml Neb 1 Nebule INH DAILY Robafen Cough (Dextromethorphan HBr) 15 Mg Cap 30 Mg PO Q6H PRN Benzonatate 100 Mg Cap 100 Mg PO BID PRN Prednisone 5 Mg Tab 5 Mg PO DAILY Voltaren (Diclofenac Sodium) 1 % Gel..gram. Silvadene Topical (Silver Sulfadiazine) 1 % Cream 1 Applic TOPICAL DAILY Zinc Oxide (Zinc Oxide (Topical)) 40 % Oin Ferrous Sulfate 325 Mg (65 Mg Iron) Tablet 325 Mg PO DAILY Sertraline (Sertraline HCl) 50 Mg Tab 50 Mg PO DAILY . Current Medications Medications (Trade) Dose Ordered Sig/Roxanna Route Start Time Stop Time Status Last Admin (NS Flush) 2 ml BID IV FLUSH 02/06/18 09:00 (NS Flush) 2 ml UNSCH PRN IV FLUSH 02/05/18 23:15 Ceftriaxone Sodium 1000 mg/ Sodium Chloride 100 ml @ 200 mls/hr Q24H IV 02/06/18 21:00 (Cordarone) 200 mg DAILY PO 02/06/18 09:00 02/06/18 09:00 (Ferrous Sulfate) 325 mg DAILY PO 02/06/18 09:00 02/06/18 09:01 (Reglan) 5 mg BID PO 02/06/18 09:00 02/06/18 09:02 (Lopressor) 12.5 mg BID PO 02/06/18 09:00 02/06/18 09:02 (Deltasone) 5 mg DAILY PO 02/06/18 09:00 02/06/18 09:01 (Zoloft) 50 mg DAILY PO 02/06/18 09:00 02/06/18 09:01 (Protonix) 20 mg DAILY PO 6/22/18 09:00 02/06/18 09:01 Potassium Chloride/Sodium Chloride 1,000 ml @ 70 mls/hr [id number] IV 02/05/18 23:45 02/06/18 14:33 Heparin Sodium/ Dextrose 250 ml @ 10 mls/hr TITRATE PRN IV 02/06/18 06:00 02/06/18 06:31 (Lipitor) 40 mg DAILY PO 02/07/18 09:00 Family History Mother at age 75 from breast cancer Father at age 59 from prostate cancer Daughter from [place] in mid 20s Son from throat cancer and lung cancer . Substance Use Tobacco: None reported Alcohol: None reported Prescription med abuse: None reported Illicits: None reported . Psychosocial History Patient was born and raised in [place]. She moved to [place] many years ago. Patient used to on daycare. Patient has 3 living children two daughters Oma Morton and Jess and 1 son Alexey. . Spiritual/Cultural Factors Patient is a Judaism. Patient goes to [facility] [place] . Living Will: Never completed Health Care Surrogate: Never completed Durable Power of Manager Sharepoint: Never completed Health Care Surrogate(s): Patient is . She has 3 adult children who will serve as her health care Proxys: Daughter -Jess Bias, Son-Alexey Bias, Daughter-Praveen Ernandez [phone] . Family/friends goals: Family would like patient to be a DNR and would like patient to receive treatment at this time while they further discuss as family what would be best for their mother regarding pursuing aggressive treatment or comfort care. . Ethical and Legal Issues None identified at this time . Physical Exam Vital Signs Date Time Temp Pulse Resp B/P (MAP) Pulse Ox O2 Delivery O2 Flow Rate FiO2 02/06/18 12:00 98.7 60 18 103/57 (72) 95 02/06/18 07:49 98.6 70 18 132/58 (82) 99 02/06/18 07:18 64 02/06/18 06:00 97.6 66 18 98/56 (70) 02/06/18 03:59 98.2 68 16 97/51 (66) 97 02/06/18 00:25 98.4 68 16 110/58 (75) 97 02/06/18 00:20 02/05/18 23:11 67 18 131/66 (87) 100 Room Air 02/05/18 21:01 70 18 119/57 (77) 98 Room Air 02/05/18 20:01 85 18 98 Room Air 02/05/18 19:50 98.4 73 18 114/55 (74) 98 02/05/18 19:50 98 Room Air 02/06/18 02/07/18 19:00 07:00 Intake Total 100 ml Balance 100 ml IV Total 100 ml Exam CONSTITUTIONAL/GENERAL: This is an adequately nourished patient, in no apparent distress. TUBES/LINES/DRAINS: PIV SKIN: No jaundice, rashes, or lesions. Skin discoloration to bilateral lower extremities. Wounds seen anteriorly. Normothermic HEAD: Atraumatic. Normocephalic. EYES: Pupils equal and round and reactive. Extraocular motions intact. No scleral icterus. No injection or drainage. Fundi not examined. ENT: Hearing grossly normal. Nose without bleeding or purulent drainage. Moist oral mucosa NECK: Trachea midline. Supple, nontender. CARDIOVASCULAR: Regular rate and rhythm without murmurs, gallops, or rubs. No JVD. Peripheral pulses symmetric. RESPIRATORY/CHEST: Symmetric, unlabored respirations. Clear to auscultation. Diminished in the bases. No wheezes, no rhonchi GASTROINTESTINAL: Abdomen soft, non-tender, nondistended. No guarding. Positive bowel GENITOURINARY: Without palpable bladder distension. MUSCULOSKELETAL: Right upper extremity weaker than left upper extremity. Right lower extremity weak. NEUROLOGICAL: Awake and alert, oriented to self only and confused. Speech clear but he has expressive aphasia. Occasionally follows command with bilateral upper extremities PSYCHIATRIC: No obvious anxiety/depression. no apparent hallucinations or other psychotic thought process. Diagnostic Tests Laboratory Laboratory Tests Test 02/05/18 20:16 02/06/18 03:37 02/06/18 04:37 02/06/18 06:20 White Blood Count 9.2 TH/MM3 (4.0-11.0) Red Blood Count 3.44 MIL/MM3 (4.00-5.30) Hemoglobin 9.5 GM/DL (11.6-15.3) Hematocrit 29.1 % (35.0-46.0) Mean Corpuscular Volume 84.8 FL (80.0-100.0) Mean Corpuscular Hemoglobin 27.6 PG (27.0-34.0) Mean Corpuscular Hemoglobin Concent 32.6 % (32.0-36.0) Red Cell Distribution Width 19.8 % (11.6-17.2) Platelet Count 387 TH/MM3 (150-450) Mean Platelet Volume 8.6 FL (7.0-11.0) Neutrophils (%) (Auto) 68.5 % (16.0-70.0) Lymphocytes (%) (Auto) 22.2 % (9.0-44.0) Monocytes (%) (Auto) 6.6 % (0.0-8.0) Eosinophils (%) (Auto) 2.3 % (0.0-4.0) Basophils (%) (Auto) 0.4 % (0.0-2.0) Neutrophils # (Auto) 6.3 TH/MM3 (1.8-7.7) Lymphocytes # (Auto) 2.0 TH/MM3 (1.0-4.8) Monocytes # (Auto) 0.6 TH/MM3 (0-0.9) Eosinophils # (Auto) 0.2 TH/MM3 (0-0.4) Basophils # (Auto) 0.0 TH/MM3 (0-0.2) CBC Comment DIFF FINAL Differential Comment Urine Color YELLOW (YELLW/STRAW) Urine Turbidity HAZY (CLEAR) Urine pH 6.0 (5.0-8.5) Urine Specific [place] 1.013 (1.002-1.035) Urine Protein 100 mg/dL (NEG-TRACE) Urine Glucose (UA) NEG mg/dL (NEG) Urine Ketones NEG mg/dL (NEG) Urine Occult Blood NEG (NEG) Urine Nitrite NEG (NEG) Urine Bilirubin NEG (NEG) Urine Urobilinogen LESS THAN 2 mg/dL (LESS Urine Leukocyte Esterase SMALL (NEG) Urine RBC 2 /hpf (0-3) Urine WBC 18 /hpf (0-5) Urine Squamous Epithelial Cells 1 /hpf (0-5) Urine Bacteria OCC /hpf (NONE) Urine Hyaline Casts 4 /lpf (RARE) Urine Mucus FEW /lpf (OCC) Microscopic Urinalysis Comment CATH-CULTURE IND Blood Urea Nitrogen 9 MG/DL (7-18) Creatinine 0.72 MG/DL (0.50-1.00) Random Glucose 134 MG/DL (74-106) Total Protein 6.8 GM/DL (6.4-8.2) Albumin 2.3 GM/DL (3.4-5.0) Calcium Level 7.7 MG/DL (8.5-10.1) Alkaline Phosphatase 77 U/L (45-117) Aspartate Amino Transf (AST/SGOT) 23 U/L (15-37) Alanine Aminotransferase (ALT/SGPT) 16 U/L (10-53) Total Bilirubin 0.3 MG/DL (0.2-1.0) Sodium Level 141 MEQ/L (136-145) Potassium Level 2.2 MEQ/L (3.5-5.1) 2.9 MEQ/L (3.5-5.1) Chloride Level 99 MEQ/L (98-107) Carbon Dioxide Level 30.0 MEQ/L (21.0-32.0) Anion Gap 12 MEQ/L (5-15) Estimat Glomerular Filtration Rate 94 ML/MIN (>89) Magnesium Level 1.9 MG/DL (1.5-2.5) Troponin I 0.12 NG/ML (0.02-0.05) 2.02 NG/ML (0.02-0.05) Urine Opiates Screen NEG (NEG) Urine Barbiturates Screen NEG (NEG) Urine Amphetamines Screen NEG (NEG) Urine Benzodiazepines Screen NEG (NEG) Urine Cocaine Screen NEG (NEG) Urine Cannabinoids Screen NEG (NEG) Triglycerides Level 92 MG/DL (42-150) Cholesterol Level 106 MG/DL (120-200) LDL Cholesterol 34 MG/DL (0-99) HDL Cholesterol 54.0 MG/DL (40.0-60.0) Cholesterol/HDL Ratio 1.96 RATIO Prothrombin Time 12.0 SEC (9.8-11.6) Prothromb Time International Ratio 1.2 RATIO Activated Partial Thromboplast Time 28.6 SEC (24.3-30.1) Test 02/06/18 09:22 02/06/18 12:18 Troponin I 1.10 NG/ML (0.02-0.05) Activated Partial Thromboplast Time 63.9 SEC (24.3-30.1) Potassium Level 3.1 MEQ/L (3.5-5.1) Result Diagram: 02/05/18201502/06/18 1218 Microbiology Microbiology Date/Time Source Procedure Growth Status 02/05/18 20:16 Urine Catheterized Urine Urine Culture - Preliminary RESULTS PENDING Resulted Imaging Last Impressions Carotid Artery Ultrasound 02/06/18 0000 Signed Impressions: CONCLUSION: Minimal plaque without hemodynamic be significant stenosis. Head CT 02/05/182002 Signed Impressions: CONCLUSION: 1. Encephalomalacia within the left parietal lobe relating to a prior area of hemorrhage. 2. No acute intracranial abnormality. 3. Paranasal sinus disease. Patient/Family Conference Family Conference Location: Bedside, Telephone Issues Discussed: * Palliative care role, purpose, approach * Additional medical, psychosocial, and spiritual history * Patients general health, functional status, and cognitive changes in the months leading up to the current hospitalization * Patient/family understanding of the current medical problems * Patient/family understanding of prognosis * Patients goals of care as best understood from advance directives and/or conversations and/or values * Current medical treatment options and benefits/burdens of those options * Likely scenarios comparing ongoing aggressive care with a transition to comfort measures only * Questions answered to the best of my ability * Introduced hospice philosophy and benefits * Palliative care contact information provided . Assessment and Plan Disease Oriented Problem List: (1) Cardiac arrhythmia (2) Depression (3) Arthritis (4) History of hemorrhagic cerebrovascular accident (CVA) without residual deficits (5) History of asthma (6) Anemia Symptom Scale: (1) Altered mental status 0-10 Scale: Unable to quantify Comment: History of hemorrhagic CVA. Patient came in with lethargy and altered mental status. . (2) Debility 0-10 Scale: Unable to quantify Comment: Progressive . Pertinent Non-Medical Issues Psychosocial: Spiritual:Patient is a Judaism- goes to [facility] [place] Legal: Patient never completed advanced directives Ethical issues impacting care: None identified at this time . Important Contacts Daughter -Jess Marquita, Son-Alexey Marquita, Daughter-Praveen Ernandez [phone] [facility] son- Sekou Hernández [phone] . Prognosis Ms. 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 Patient was brought to the emergency department from a residential facility on 02/05/18 for further evaluation of lethargy, confusion and unresponsiveness that lasted approximately 20-30 minutes. Clinical course complicated with NSTEMI, and confusion. Patient has not fully recovered from hemorrhagic CVA, she has right sided weakness and expressive aphasia with confusion. Patient has not ambulated since October post CVA. Given ongoing multiple comorbidities, patient remains at risk for further complications, deterioration and decline. . Code Status: No Code Plan PLAN: Legal decision maker:Patient is confused, appears not able to weigh benefits and burdens of treatment. At this time she is not able to participate in medical decision making and it is not known if she will be able to regain capacity. Patient is , never completed advance. According to [place] Statute her 3 adult children,Praveen Ernandez; Jess Posada and Marquita Blackburn will serve as her health care proxys. Goals: Aggressive short of no code. CODE STATUS: No Code, DNR/DNI Patient God son Edgar Sapp who is very involved in patient`s care currently in room and is able to provide most of patient`s psychosocial and medical history. He also was present at the assisted when patient was lethargic and unresponsive prior to presenting to the ER. Sekou provided patient`s children contact information. Patient is . She has 3 living adult children, 2 daughters Praveen Ernandez and Jess Posada and 1 son Marquita Blackburn. Telephone call to patient's son Marquita Blackburn ([phone]), no response- left a voice message with palliative care contact information. Telephone conversation with patient`s daughter Praveen Ernandez ([phone]), introduced palliative care and its role during patient's hospitalization. Updated her on patient's current medical status. Confirmed past medical and psychosocial history. According to patient's daughter patient never completed advanced directives. Addressed code status, discussed CPR limitations and complications. Patient's daughter Praveen Ernandez elected do not resuscitate, do not intubate. Another telephone conversation with patient's daughter Jses Posada, updated her on patient`s current medical status. Addressed code status and she also elected do not resuscitate and do not intubate. Patient `s daughter mentioned that patient has not been back to her baseline ever since she had a stroke and resuscitating will most be likely to patient`s best interest. Broached hospice with patient`s daughter Jess and she would like to discuss further with other family members since she feels this may be the best option for patient. No call back received from Alexey, encouraged patient` s daughter to update him on patient`s current medical status. Since majority of 2 out of 3 adult children elected DNR, code status will be entered as DNR. SYMPTOMS: * Altered mental status: Patient has history of hemorrhagic CVA. She presented to the ER with altered mentation and possible TIA. Patient remains confused, oriented only to person and confused to place and situation. Continue neuro checks. * Debility: Prior to hemorrhagic CVA in October, patient was able to ambulate with a rolling walker. Since then she has not been able to ambulate due to right-sided deficit. Patient currently resides in a residential facility. Physical therapy, occupational therapy and speech therapy of been consulted and all recommend rehab. Patient will most likely not able to participate due to right-sided weakness. Continue PT, OT and ST while hospitalized. Palliative care will continue to follow the patient during hospital course as condition evolves, to assist patient/decision-maker with understanding of their medical conditions, weighing benefits/burdens of treatment options, for clarification of goals of treatment. Additionally will assist with any symptoms of palliative concern Thank you for the opportunity to participate in the care of Ms. Posada. Melissa Sunshine Feb 06, 2018 16:30
--- NOTE | 2018-02-06 17:35 | MB ---
cc: Christian Montgomery MD, PhD DATE: 02/06/2018 REASON FOR CONSULTATION: Confusion, mental status change. HISTORY OF PRESENT ILLNESS: Ms. Posada is an 82-year-old female with recent hemorrhagic left hemisphere stroke who is a intermediate patient, suddenly became nonresponsive according to her family, was very confused, disoriented. PAST MEDICAL HISTORY: She has a history of left hemisphere hemorrhagic stroke 11/03/2017, history of cardiac arrhythmia, hypertension, seizure disorder, depression, and GERD. CURRENT MEDICATIONS: 1. Lipitor. 2. Ceftriaxone. 3. Cordarone. 4. Iron sulfate. 5. Reglan. 6. Lopressor. 7. Deltasone. 8. Zoloft. 9. Protonix. PHYSICAL EXAMINATION: VITAL SIGNS: Blood pressure 103/57, pulse is 60, respiratory rate is 18, temperature is 98 degrees. HIGHER CORTICAL FUNCTION: She is alert, disoriented to date and place. She has what appears to be a Wernicke's type aphasia. She makes paraphasic errors, has trouble naming, trouble following simple commands. CRANIAL NERVES: She has had a right facial droop. MOTOR EXAM: She is weak in the right arm and right leg, rated at 4-/5. Normal strength on the left. IMAGING STUDIES: CT of the head shows encephalomalacia in the left parietal area consistent with previous stroke. Carotid ultrasound negative for any significant stenosis. LABORATORY DATA: White count 9200; hemoglobin 9.5; hematocrit 29%; platelet count 387,000. PT 12, INR 1.3, PTT 28.6. The sodium is 141, potassium 3.1, BUN is 9. Tox screen is negative. Urinalysis: pH is 6, specific gravity 1.013. There are 18 WBCs present. IMPRESSION: Mental status change in the face of a recent hemorrhagic stroke. Rule out recurrent stroke, rule out focal seizure, rule out metabolic encephalopathy. RECOMMENDATION: MRI brain to assess for additional strokes. I would like to get an EEG as well to rule out focal seizure. Christian Montgomery MD, PhD AMINAH/ANGELY , 04:55 PM , 05:34 PM
[2018-02-06] MEDS: cefTRIAXone INJ 1,000 MG in SODIUM CHLORIDE 0.9% INJ 100 ML IV SCH (20:56)
[2018-02-06] MEDS ORDERED: AMIODARONE INJ 450 MG in D5W (EXCEL BAG) INJ 241 ML IV PRN (21:30)
[2018-02-06] MEDS: MAGNESIUM SULFATE 1 GM PREMIX 100 ML IV SCH ×2 (21:43→23:23)
[2018-02-06] MEDS ORDERED: LORazepam 2 MG/ML VIAL IV PRN (21:45)
[2018-02-06 22:29] LABS: HEMOGLOBIN A1C 4.2 % (4.3-6.0)
[2018-02-07] VITALS (26 sets, daily range): BP systolic 97–123; BP diastolic 55–71; PULSE 0–84; RESP 18; TEMP 98.1–98.6; O2SAT 91–97
[2018-02-07] MEDS: NS + KCL 20 MEQ INJ 1,000 ML IV SCH (04:21)
[2018-02-07 06:01] LABS: BICARBONATE 28.9 MEQ/L (21.0-32.0); CALCIUM 7.6 MG/DL (8.5-10.1); CREATININE 0.63 MG/DL (0.50-1.00)
[2018-02-07] MEDS: predniSONE 5 MG TAB PO SCH (08:39)
[2018-02-07] MEDS: POTASSIUM CHLOR 20 MEQ PREMIX 100 ML IV SCH ×2 (08:39→08:45)
[2018-02-07] MEDS: FERROUS SULFATE 325 MG (65 MG ELEMENTAL IRON) TAB PO SCH (08:39)
[2018-02-07] MEDS: METOPROLOL TARTRATE 25 MG TAB PO SCH ×2 (08:39→20:56)
[2018-02-07] MEDS: ASPIRIN 81 MG CHEW TAB PO SCH (08:40)
[2018-02-07] MEDS: ATORVASTATIN 40 MG TAB PO SCH (08:40)
[2018-02-07] MEDS: SODIUM CHLORIDE 0.9% FLUSH 10 ML FLUSH IV FLUSH SCH ×2 (08:40→20:57)
[2018-02-07] MEDS: AMIODARONE 200 MG TAB PO SCH (08:40)
[2018-02-07] MEDS: SERTRALINE HCL 50 MG TAB PO SCH (08:40)
[2018-02-07] MEDS: METOCLOPRAMIDE HCL 10 MG TAB PO SCH ×2 (08:40→20:57)
[2018-02-07] MEDS: PANTOPRAZOLE SOD 20 MG DELAYED RELEASE TAB PO SCH (08:42)
[2018-02-07] MEDS: D5-1/2 NS + KCL 40 MEQ INJ 1,000 ML IV SCH ×2 (10:00→21:01)
--- NOTE | 2018-02-07 11:29 | HHI.PR ---
Subjective Remarks The patient was having an EEG done. She was awake and mumbling words every once in a while. Discussed with nursing who stated that the patient had a minute run of V. fib that resulted in a change in mental status. Discussed with the patient's daughter who was interested in comfort measures and agreeable to pursuing a hospice consult. Objective Vitals Vital Signs Date Time Temp Pulse Resp B/P (MAP) Pulse Ox O2 Delivery O2 Flow Rate FiO2 02/07/18 08:45 98.6 65 18 117/68 (84) 91 02/07/18 08:45 91 Room Air 02/07/18 07:01 75 02/07/18 06:00 80 02/07/18 05:00 84 02/07/18 04:00 68 02/07/18 04:00 98.1 71 18 123/71 (88) 96 02/07/18 03:00 76 02/07/18 02:00 76 02/07/18 01:00 74 02/07/18 01:00 Room Air 02/07/18 00:00 98.4 68 18 120/68 (85) 96 02/07/18 00:00 68 02/06/18 23:00 70 02/06/18 22:00 77 02/06/18 21:00 80 02/06/18 20:00 Room Air 02/06/18 20:00 74 02/06/18 20:00 98.2 71 20 138/84 (102) 97 02/06/18 16:00 98.6 66 18 111/56 (74) 95 02/06/18 16:00 66 02/06/18 12:00 98.7 60 18 103/57 (72) 95 02/06/18 12:00 61 I/O 02/06/18 02/06/18 02/06/18 02/07/18 02/07/18 02/07/18 07:00 15:00 23:00 07:00 15:00 23:00 Intake Total 950 ml 100 ml 1900 ml 1060 ml 98 ml Balance 950 ml 100 ml 1900 ml 1060 ml 98 ml Intake Oral 50 ml IV Total 900 ml 100 ml 1900 ml 1060 ml 98 ml # Voids 3 1 # Bowel Movements 1 Result Diagram: 02/05/18201502/07/18 0510 Imaging Last Impressions Carotid Artery Ultrasound 02/06/18 0000 Signed Impressions: CONCLUSION: Minimal plaque without hemodynamic be significant stenosis. Head CT 02/05/182002 Signed Impressions: CONCLUSION: 1. Encephalomalacia within the left parietal lobe relating to a prior area of hemorrhage. 2. No acute intracranial abnormality. 3. Paranasal sinus disease. Objective Remarks GENERAL: Awake, minimally verbal. SKIN: Stage III sacral decubitus ulcer. No generalized rash. HEAD: Atraumatic. Normocephalic. No facial asymmetry appreciated. EYES: Pupils equal round and reactive. Extraocular motions intact. No scleral icterus. No injection or drainage. ENT: Nose without bleeding or purulent drainage. Airway patent. MMM. NECK: Trachea midline. Supple, nontender, no meningeal signs. CARDIOVASCULAR: Regular rate and rhythm without murmurs, gallops, or rubs. RESPIRATORY: Clear to auscultation. Breath sounds equal bilaterally. No wheezes , rales, or rhonchi. GASTROINTESTINAL: Abdomen soft, non-tender, nondistended. No hepato-splenomegaly , or palpable masses. No guarding. MUSCULOSKELETAL: Extremities without clubbing, cyanosis, or edema. No calf tenderness. NEUROLOGICAL: Awake, mumbling intermittently. 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 Patient's troponin was elevated and EKG showing new T-wave inversions V3 to V6 concerning for ischemia. NSTEMI Troponins 0.12, 2.02, 1.10. EKG shows new T wave inversions in V3-V6, concerning for ischemia. Patient started on heparin drip. Patient had no complaints of chest pain. - Cardiology consulted, appreciate assistance. - Continue to monitor on cardiac telemetry. - Has been having runs of V fib. The pt is DNR. Acute encephalopathy, possible TIA Head CT with no acute intracranial abnormality Carotid ultrasound shows minimal plaque without hemodynamically significant stenosis Hx of ICH 10/2017 She passed bedside swallow evaluation - Neurology consulted, appreciate recommendations - Consulted stroke navigator - Continue neurochecks - PT/OT/ST eval/tx - Discussed with daughter. She would like to pursue comfort measures. Will place a hospice consult. Continue supportive care. Pt is DNR. Hypokalemia K 2.2 Mag level 1.9 - D5 with KCl. UA consistent with UTI - Patient started on ceftriaxone, continue - Follow-up on urine culture results Cardiac arrhythmia Had V fib per nursing as above. - Continue home amiodarone, metoprolol. - hospice consult. Anemia, chronic Hemoglobin appears stable - Continue patient on oral ferrous sulfate - Monitor for any evidence of active bleeding. DVT prophylaxis -Patient on a heparin drip Discharge Planning Await hospice consult Alexey Alamo DO Feb 07, 2018 11:29
--- NOTE | 2018-02-07 12:59 | PD.CARD.PN ---
Subjective Subjective Remarks appears more lucid, in nad, daughter at bedside Objective Medications Current Medications Medications (Trade) Dose Ordered Sig/Roxanna Route Start Time Stop Time Status Last Admin (NS Flush) 2 ml BID IV FLUSH 02/06/18 09:00 02/07/18 08:40 (NS Flush) 2 ml UNSCH PRN IV FLUSH 02/05/18 23:15 Ceftriaxone Sodium 1000 mg/ Sodium Chloride 100 ml @ 200 mls/hr Q24H IV 02/06/18 21:00 02/06/18 20:56 (Cordarone) 200 mg DAILY PO 02/06/18 09:00 02/07/18 08:40 (Ferrous Sulfate) 325 mg DAILY PO 02/06/18 09:00 02/07/18 08:39 (Reglan) 5 mg BID PO 02/06/18 09:00 02/07/18 08:40 (Lopressor) 12.5 mg BID PO 02/06/18 09:00 02/07/18 08:39 (Deltasone) 5 mg DAILY PO 02/06/18 09:00 02/07/18 08:39 (Zoloft) 50 mg DAILY PO 02/06/18 09:00 02/07/18 08:40 (Protonix) 20 mg DAILY PO 02/06/18 09:00 02/07/18 08:42 Heparin Sodium/ Dextrose 250 ml @ 10 mls/hr TITRATE PRN IV 02/06/18 06:00 02/06/18 06:31 (Lipitor) 40 mg DAILY PO 02/07/18 09:00 02/07/18 08:40 (Aspirin Chew) 81 mg DAILY PO 02/07/18 09:00 02/07/18 08:40 Amiodarone HCl 450 mg/Dextrose 250 ml @ 33.33 mls/ hr TITRATE PRN IV 02/06/18 21:30 (Ativan Inj) 1 mg [employer] PRN IV 02/06/18 21:45 02/07/18 21:44 Potassium Chloride/Dextrose/ Sod Cl 1,000 ml @ 125 mls/hr Q8H IV 02/07/18 10:00 Vital Signs / I&O Vital Signs Date Time Temp Pulse Resp B/P (MAP) Pulse Ox O2 Delivery O2 Flow Rate FiO2 02/07/18 08:45 98.6 65 18 117/68 (84) 91 02/07/18 08:45 91 Room Air 02/07/18 07:01 75 02/07/18 06:00 80 02/07/18 05:00 84 02/07/18 04:00 68 02/07/18 04:00 98.1 71 18 123/71 (88) 96 02/07/18 03:00 76 02/07/18 02:00 76 02/07/18 01:00 74 02/07/18 01:00 Room Air 02/07/18 00:00 98.4 68 18 120/68 (85) 96 02/07/18 00:00 68 02/06/18 23:00 70 02/06/18 22:00 77 02/06/18 21:00 80 02/06/18 20:00 Room Air 02/06/18 20:00 74 02/06/18 20:00 98.2 71 20 138/84 (102) 97 02/06/18 16:00 98.6 66 18 111/56 (74) 95 02/06/18 16:00 66 I/O 02/06/18 02/06/18 02/06/18 02/07/18 02/07/18 02/07/18 07:00 15:00 23:00 07:00 15:00 23:00 Intake Total 950 ml 100 ml 1900 ml 1060 ml 98 ml Balance 950 ml 100 ml 1900 ml 1060 ml 98 ml Intake Oral 50 ml IV Total 900 ml 100 ml 1900 ml 1060 ml 98 ml # Voids 3 1 # Bowel Movements 1 Laboratory GENERAL: SKIN: Warm and dry. HEAD: Normocephalic. EYES: No scleral icterus. No injection or drainage. NECK: Supple, trachea midline. No JVD or lymphadenopathy. CARDIOVASCULAR: Regular rate and rhythm without murmurs, gallops, or rubs. RESPIRATORY: Breath sounds equal bilaterally. No accessory muscle use. GASTROINTESTINAL: Abdomen soft, non-tender, nondistended. MUSCULOSKELETAL: No cyanosis, or edema. BACK: Nontender without obvious deformity. No CVA tenderness. Laboratory Tests Test 02/06/18 21:07 02/06/18 23:15 02/07/18 05:10 Activated Partial Thromboplast Time 131.2 SEC 69.6 SEC 47.5 SEC Blood Urea Nitrogen 7 MG/DL Creatinine 0.63 MG/DL Random Glucose 70 MG/DL Calcium Level 7.6 MG/DL Magnesium Level 2.0 MG/DL Sodium Level 144 MEQ/L Potassium Level 2.8 MEQ/L Chloride Level 105 MEQ/L Carbon Dioxide Level 28.9 MEQ/L Anion Gap 10 MEQ/L Estimat Glomerular Filtration Rate 110 ML/MIN Thyroid Stimulating Hormone 3rd Gen 1.540 uIU/ML Assessment and Plan Problem List: (1) NSTEMI (non-ST elevated myocardial infarction) ICD Codes: I21.4 - Non-ST elevation (NSTEMI) myocardial infarction (2) Ventricular tachycardia ICD Codes: I47.2 - Ventricular tachycardia (3) Altered mental status ICD Codes: R41.82 - Altered mental status, unspecified Status: Acute (4) Cardiac arrhythmia ICD Codes: I49.9 - Cardiac arrhythmia, unspecified (5) History of hemorrhagic cerebrovascular accident (CVA) without residual deficits ICD Codes: Z86.73 - Personal history of transient ischemic attack (TIA), and cerebral infarction without residual deficits Assessment and Plan 1.) NSTEMI - assymptomatic, trop trending down, placed on heparin by Dr Canela and aspirin; i d/w daughter @ cath/pci and explained would be high risk due to recent ich but i can not rule out a life threatening ischemic etiology, would also need clearance from neurology for aspirin, hep, 2b3a inhibitor, plavix; daughter undecided and wishes to d/w family; subsequently since my vist, per Dr Alamo' note, family has requested hospice 2.) VT - no recurrence after electrolyte repletion, iv and po amio and lopressor Problem Qualifiers (1) Altered mental status: Qualified Codes: R41.82 - Altered mental status, unspecified Dharmesh Guzman MD Feb 07, 2018 12:59
--- NOTE | 2018-02-07 16:06 | ECHRPT ---
Indication: CONCLUSIONS The left ventricular systolic function is moderately reduced with an estimated ejection fraction in the range of 40-45%. Normal left ventricular size. Wall thickness is normal. There is diffuse global hypokinesis with distinct regional wall motion abnormalities. Akinetic (entire) apex Mild thickening of the mitral valve leaflets. Moderate mitral valve regurgitation. Aortic valve sclerosis is present. There is moderate to severe tricuspid valve regurgitation. The estimated pulmonary arterial pressure is 49.7 mmHg. Trivial pulmonary valve regurgitation. BP: / HR: Rhythm: Sinus MEASUREMENTS (Male / Female) Normal Values Technical Quality:Good 2D ECHO LV Diastolic Diameter PLAX 4.6 cm 4.2 - 5.9 / 3.9 - 5.3 cm LV Systolic Diameter PLAX 3.2 cm IVS Diastolic Thickness 1.0 cm 0.6 - 1.0 / 0.6 - 0.9 cm LVPW Diastolic Thickness 1.0 cm 0.6 - 1.0 / 0.6 - 0.9 cm LV Relative Wall Thickness 0.4 RV Internal Dim ED PLAX 2.2 cm LVOT Diameter 1.7 cm LA Systolic Diameter LX 4.0 cm 3.0 - 4.0 / 2.7 - 3.8 cm LV Ejection Fraction MOD 4C 42.1 % LV Ejection Fraction 4C AL 41.5 % M-MODE Aortic Root Diameter MM 2.7 cm LA Systolic Diameter MM 4.0 cm LA Ao Ratio MM 1.5 AV Cusp Separation MM 1.7 cm DOPPLER AV Peak Velocity 130.0 cm/s AV Peak Gradient 6.8 mmHg AI Peak Velocity 167.5 cm/s AI Peak Gradient 11.2 mmHg AI Pressure Half Time 859.0 ms LVOT Peak Velocity 87.4 cm/s LVOT Peak Gradient 3.1 mmHg AV Area Cont Eq pk 1.5 cm MV Area PHT 3.6 cm Mitral E Point Velocity 92.8 cm/s Mitral A Point Velocity 45.4 cm/s Mitral E to A Ratio 2.0 LV E' Lateral Velocity 5.7 cm/s Mitral E to LV E' Lateral Ratio 16.4 LV E' Septal Velocity 4.9 cm/s Mitral E to LV E' Septal Ratio 19.1 TR Peak Velocity 315.0 cm/s TR Peak Gradient 39.7 mmHg Right Atrial Pressure 10.0 mmHg Pulmonary Artery Systolic Pressu 49.7 mmHg Right Ventricular Systolic Press 49.7 mmHg PV Peak Velocity 85.5 cm/s PV Peak Gradient 2.9 mmHg FINDINGS LEFT VENTRICLE The left ventricular systolic function is moderately reduced with an estimated ejection fraction in the range of 40-45%. Normal left ventricular size. Wall thickness is normal. There is diffuse global hypokinesis with distinct regional wall motion abnormalities. Akinetic apical cap wall motion. Akinetic apical anterior wall. Akinetic apical-inferior wall motion. Akinetic apical-lateral wall motion. RIGHT VENTRICLE Normal right ventricular size and systolic function. LEFT ATRIUM The left atrial size is normal. RIGHT ATRIUM The right atrial size is normal. ATRIAL SEPTUM Normal atrial septal thickness without atrial level shunting by limited color doppler interrogation. AORTA The aortic root and proximal ascending aorta are normal in size on limited imaging. MITRAL VALVE Mild thickening of the mitral valve leaflets. Moderate mitral valve regurgitation. AORTIC VALVE Trileaflet aortic valve. Aortic valve sclerosis is present. TRICUSPID VALVE Structurally normal tricuspid valve. There is moderate to severe tricuspid valve regurgitation. The estimated pulmonary arterial pressure is 49.7 mmHg. PULMONARY VALVE Trivial pulmonary valve regurgitation. VESSELS The inferior vena cava is normal in size. PERICARDIUM No pericardial effusion. Colton Silva MD (Electronically Signed) Final Date:07 February 2018 16:05
[2018-02-07] MEDS: cefTRIAXone INJ 1,000 MG in SODIUM CHLORIDE 0.9% INJ 100 ML IV SCH (21:01)
[2018-02-07] MEDS: HEPARIN-D5W 25,000 U/250 ML 250 ML IV PRN (21:06)
[2018-02-07 23:35] LABS: MAGNESIUM 1.9 MG/DL (1.5-2.5)
[2018-02-08] VITALS (26 sets, daily range): BP systolic 89–112; BP diastolic 45–70; PULSE 58–72; RESP 18; TEMP 98–98.5; O2SAT 94–97
[2018-02-08] MEDS: D5-1/2 NS + KCL 40 MEQ INJ 1,000 ML IV SCH ×4 (02:00→20:58)
--- NOTE | 2018-02-08 07:53 | MG ---
cc: Christian Montgomery MD, PhD DATE OF STUDY: 02/07/2018 TEST NUMBER: [id number] TECHNIQUE: This is a 17-channel EEG. DESCRIPTION: Background reveals theta activity of about 6 Hz and there is normal alpha rhythm. No lateralizing features identified. There are no epileptiform features identified. Photic results in a modest driving response. INTERPRETATION: Mildly abnormal study, consistent with a mild encephalopathy. Christian Montgomery MD, PhD AMINAH/KD , 09:09 PM , 07:50 AM
[2018-02-08] MEDS: METOPROLOL TARTRATE 25 MG TAB PO SCH ×2 (09:00→20:57)
[2018-02-08] MEDS: SODIUM CHLORIDE 0.9% FLUSH 10 ML FLUSH IV FLUSH SCH ×2 (09:00→20:58)
[2018-02-08] MEDS: METOCLOPRAMIDE HCL 10 MG TAB PO SCH ×2 (09:01→20:57)
[2018-02-08] MEDS: ASPIRIN 81 MG CHEW TAB PO SCH (09:01)
[2018-02-08] MEDS: SERTRALINE HCL 50 MG TAB PO SCH (09:01)
[2018-02-08] MEDS: predniSONE 5 MG TAB PO SCH (09:01)
[2018-02-08] MEDS: ATORVASTATIN 40 MG TAB PO SCH (09:02)
[2018-02-08] MEDS: FERROUS SULFATE 325 MG (65 MG ELEMENTAL IRON) TAB PO SCH (09:02)
[2018-02-08] MEDS: AMIODARONE 200 MG TAB PO SCH (09:02)
[2018-02-08] MEDS: PANTOPRAZOLE SOD 20 MG DELAYED RELEASE TAB PO SCH (09:02)
--- NOTE | 2018-02-08 11:15 | PD.CARD.PN ---
Subjective Subjective Remarks asleep in nad Objective Medications Current Medications Medications (Trade) Dose Ordered Sig/Roxanna Route Start Time Stop Time Status Last Admin (NS Flush) 2 ml BID IV FLUSH 02/06/18 09:00 02/08/18 09:00 (NS Flush) 2 ml UNSCH PRN IV FLUSH 02/05/18 23:15 Ceftriaxone Sodium 1000 mg/ Sodium Chloride 100 ml @ 200 mls/hr Q24H IV 02/06/18 21:00 02/07/18 21:01 (Cordarone) 200 mg DAILY PO 02/06/18 09:00 02/08/18 09:02 (Ferrous Sulfate) 325 mg DAILY PO 02/06/18 09:00 02/08/18 09:02 (Reglan) 5 mg BID PO 02/06/18 09:00 02/08/18 09:01 (Lopressor) 12.5 mg BID PO 02/06/18 09:00 02/07/18 20:56 (Deltasone) 5 mg DAILY PO 02/06/18 09:00 02/08/18 09:01 (Zoloft) 50 mg DAILY PO 02/06/18 09:00 02/08/18 09:01 (Protonix) 20 mg DAILY PO 02/06/18 09:00 02/08/18 09:02 Heparin Sodium/ Dextrose 250 ml @ 10 mls/hr TITRATE PRN IV 02/06/18 06:00 02/07/18 21:06 (Lipitor) 40 mg DAILY PO 02/07/18 09:00 02/08/18 09:02 (Aspirin Chew) 81 mg DAILY PO 02/07/18 09:00 02/08/18 09:01 Amiodarone HCl 450 mg/Dextrose 250 ml @ 33.33 mls/ hr TITRATE PRN IV 02/06/18 21:30 Potassium Chloride/Dextrose/ Sod Cl 1,000 ml @ 125 mls/hr Q8H IV 02/07/18 10:00 02/08/18 07:35 Vital Signs / I&O Vital Signs Date Time Temp Pulse Resp B/P (MAP) Pulse Ox O2 Delivery O2 Flow Rate FiO2 02/08/18 09:01 96 Room Air 02/08/18 09:01 98.5 60 18 95/55 (68) 96 02/08/18 07:01 62 02/08/18 06:00 72 02/08/18 05:00 66 02/08/18 04:00 98.3 62 18 92/53 (66) 95 02/08/18 04:00 Room Air 02/08/18 04:00 62 02/08/18 03:00 63 02/08/18 02:00 64 02/08/18 01:00 63 02/08/18 00:00 Room Air 02/08/18 00:00 60 02/08/18 00:00 98.0 60 18 96/57 (70) 95 02/07/18 23:00 63 02/07/18 22:00 64 02/07/18 21:00 62 02/07/18 20:00 61 02/07/18 20:00 Room Air 02/07/18 20:00 98.1 61 18 97/55 (69) 97 02/07/18 18:01 62 02/07/18 17:00 64 02/07/18 16:01 66 02/07/18 15:01 98.4 66 18 104/63 (77) 96 02/07/18 15:00 65 02/07/18 14:01 66 02/07/18 13:01 62 02/07/18 12:01 98.6 65 18 103/56 (72) 97 02/07/18 12:00 64 I/O 02/07/18 02/07/18 02/07/18 02/08/18 02/08/18 02/08/18 07:00 15:00 23:00 07:00 15:00 23:00 Intake Total 1060 ml 98 ml 480 ml 50 ml Output Total 225 ml 400 ml Balance 1060 ml 98 ml 255 ml -350 ml Intake Oral 480 ml 50 ml IV Total 1060 ml 98 ml Output Urine Total 225 ml 400 ml # Voids 1 2 # Bowel Movements 1 2 0 Physical Exam GENERAL: SKIN: Warm and dry. HEAD: Normocephalic. EYES: No scleral icterus. No injection or drainage. NECK: Supple, trachea midline. No JVD or lymphadenopathy. CARDIOVASCULAR: Regular rate and rhythm without murmurs, gallops, or rubs. RESPIRATORY: Breath sounds equal bilaterally. No accessory muscle use. GASTROINTESTINAL: Abdomen soft, non-tender, nondistended. MUSCULOSKELETAL: No cyanosis, or edema. BACK: Nontender without obvious deformity. No CVA tenderness. Laboratory Laboratory Tests Test 02/07/18 22:18 02/08/18 05:53 Potassium Level 3.6 MEQ/L Magnesium Level 1.9 MG/DL Activated Partial Thromboplast Time 24.7 SEC Assessment and Plan Problem List: (1) NSTEMI (non-ST elevated myocardial infarction) ICD Codes: I21.4 - Non-ST elevation (NSTEMI) myocardial infarction (2) Ventricular tachycardia ICD Codes: I47.2 - Ventricular tachycardia (3) Altered mental status ICD Codes: R41.82 - Altered mental status, unspecified Status: Acute (4) Cardiac arrhythmia ICD Codes: I49.9 - Cardiac arrhythmia, unspecified (5) History of hemorrhagic cerebrovascular accident (CVA) without residual deficits ICD Codes: Z86.73 - Personal history of transient ischemic attack (TIA), and cerebral infarction without residual deficits Assessment and Plan 1.) NSTEMI - assymptomatic, trop trending down, placed on heparin by Dr Canela and aspirin; i d/w daughter @ cath/pci and explained would be high risk due to recent ich but i can not rule out a life threatening ischemic etiology, would also need clearance from neurology for aspirin, hep, 2b3a inhibitor, plavix; daughter undecided and wishes to d/w family; subsequently since my vist, per Dr Alamo' note, family has requested hospice 2.) VT - no recurrence after electrolyte repletion, iv and po amio and lopressor Problem Qualifiers (1) Altered mental status: Qualified Codes: R41.82 - Altered mental status, unspecified Dharmesh Guzman MD Feb 08, 2018 11:15
--- NOTE | 2018-02-08 16:28 | HHI.PR ---
Subjective Remarks The patient was awake and alert. She denied any acute symptoms. She was able to hold a regular conversation. She denied any chest pain or shortness of breath. Discussed with nursing. Objective Vitals Vital Signs Date Time Temp Pulse Resp B/P (MAP) Pulse Ox O2 Delivery O2 Flow Rate FiO2 02/08/18 15:30 98.4 64 18 96/45 (62) 97 02/08/18 14:01 64 02/08/18 13:01 64 02/08/18 12:00 60 02/08/18 11:01 98.3 63 18 89/48 (62) 94 02/08/18 11:00 60 02/08/18 10:00 62 02/08/18 09:01 96 Room Air 02/08/18 09:01 98.5 60 18 95/55 (68) 96 02/08/18 09:00 64 02/08/18 08:00 66 02/08/18 07:01 62 02/08/18 06:00 72 02/08/18 05:00 66 02/08/18 04:00 98.3 62 18 92/53 (66) 95 02/08/18 04:00 Room Air 02/08/18 04:00 62 02/08/18 03:00 63 02/08/18 02:00 64 02/08/18 01:00 63 02/08/18 00:00 Room Air 02/08/18 00:00 60 02/08/18 00:00 98.0 60 18 96/57 (70) 95 02/07/18 23:00 63 02/07/18 22:00 64 02/07/18 21:00 62 02/07/18 20:00 61 02/07/18 20:00 Room Air 02/07/18 20:00 98.1 61 18 97/55 (69) 97 02/07/18 18:01 62 02/07/18 17:00 64 I/O 02/07/18 02/07/18 02/07/18 02/08/18 02/08/18 02/08/18 07:00 15:00 23:00 07:00 15:00 23:00 Intake Total 1060 ml 98 ml 480 ml 50 ml Output Total 225 ml 400 ml Balance 1060 ml 98 ml 255 ml -350 ml Intake Oral 480 ml 50 ml IV Total 1060 ml 98 ml Output Urine Total 225 ml 400 ml # Voids 1 2 # Bowel Movements 1 2 0 Result Diagram: 02/05/18201502/07/18 2218 Imaging Last Impressions Carotid Artery Ultrasound 02/06/18 0000 Signed Impressions: CONCLUSION: Minimal plaque without hemodynamic be significant stenosis. Head CT 02/05/182002 Signed Impressions: CONCLUSION: 1. Encephalomalacia within the left parietal lobe relating to a prior area of hemorrhage. 2. No acute intracranial abnormality. 3. Paranasal sinus disease. Objective Remarks GENERAL: No distress. SKIN: Stage III sacral decubitus ulcer. No generalized rash. HEAD: Atraumatic. Normocephalic. No facial asymmetry appreciated. EYES: Pupils equal round and reactive. Extraocular motions intact. No scleral icterus. No injection or drainage. ENT: Nose without bleeding or purulent drainage. Airway patent. MMM. NECK: Trachea midline. Supple, nontender, no meningeal signs. CARDIOVASCULAR: Regular rate and rhythm without murmurs, gallops, or rubs. RESPIRATORY: Clear to auscultation. Breath sounds equal bilaterally. No wheezes , rales, or rhonchi. GASTROINTESTINAL: Abdomen soft, non-tender, nondistended. No hepato-splenomegaly , or palpable masses. No guarding. MUSCULOSKELETAL: Extremities without clubbing, cyanosis, or edema. NEUROLOGICAL: Awake and alert. Weak on the right side. 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 Patient's troponin was elevated and EKG showing new T-wave inversions V3 to V6 concerning for ischemia. NSTEMI Troponins 0.12, 2.02, 1.10. EKG shows new T wave inversions in V3-V6, concerning for ischemia. Patient started on heparin drip. Patient had no complaints of chest pain. - Cardiology consulted, appreciate assistance. - Continue to monitor on cardiac telemetry. - Had runs of V fib and asystole 02/07. The pt is DNR. - discussed with family, who are interested in discussing the possibility of hospice. Acute encephalopathy, possible TIA Head CT with no acute intracranial abnormality Carotid ultrasound shows minimal plaque without hemodynamically significant stenosis Hx of ICH 10/2017 She passed bedside swallow evaluation EEG with mild encephalopathy - Neurology consulted, appreciate recommendations - Consulted stroke navigator - Continue neurochecks - PT/OT/ST eval/tx - Discussed with daughter, who is interested in comfort measures. Will place a hospice consult. Continue supportive care. Pt is DNR. Hypokalemia K 2.2 Mag level 1.9 - D5 with KCl. Improved. - follow electrolytes closely. Cardiac arrhythmia Had V fib/ asystole. - Continue amiodarone, metoprolol and follow up with cardiology. - telemetry. - hospice consult. Anemia, chronic Hemoglobin appears stable - Continue patient on oral ferrous sulfate - Monitor for any evidence of active bleeding. DVT prophylaxis -Patient on a heparin drip Discharge Planning Await hospice consult Alexey Alamo DO Feb 08, 2018 16:28
[2018-02-08 17:19] LABS: BICARBONATE 27.1 MEQ/L (21.0-32.0); CALCIUM 7.8 MG/DL (8.5-10.1); CREATININE 0.73 MG/DL (0.50-1.00); MAGNESIUM 1.8 MG/DL (1.5-2.5); PHOSPHORUS 2.1 MG/DL (2.5-4.9)
[2018-02-08] MEDS: HEPARIN-D5W 25,000 U/250 ML 250 ML IV PRN (18:08)
[2018-02-09] VITALS (27 sets, daily range): BP systolic 111–140; BP diastolic 66–85; PULSE 52–74; RESP 16–18; TEMP 98.1–98.8; O2SAT 93–98
[2018-02-09] MEDS: SODIUM CHLORIDE 0.9% FLUSH 10 ML FLUSH IV FLUSH SCH ×2 (09:00→20:31)
[2018-02-09] MEDS: ATORVASTATIN 40 MG TAB PO SCH (09:11)
[2018-02-09] MEDS: SERTRALINE HCL 50 MG TAB PO SCH (09:11)
[2018-02-09] MEDS: METOCLOPRAMIDE HCL 10 MG TAB PO SCH ×2 (09:11→20:31)
[2018-02-09] MEDS: METOPROLOL TARTRATE 25 MG TAB PO SCH ×2 (09:11→20:31)
[2018-02-09] MEDS: predniSONE 5 MG TAB PO SCH (09:12)
[2018-02-09] MEDS: PANTOPRAZOLE SOD 20 MG DELAYED RELEASE TAB PO SCH (09:12)
[2018-02-09] MEDS: AMIODARONE 200 MG TAB PO SCH (09:12)
[2018-02-09] MEDS: FERROUS SULFATE 325 MG (65 MG ELEMENTAL IRON) TAB PO SCH (09:12)
[2018-02-09] MEDS: ASPIRIN 81 MG CHEW TAB PO SCH (09:12)
[2018-02-09] MEDS: MAGNESIUM SULFATE 1 GM PREMIX 100 ML IV SCH ×2 (09:12→10:58)
[2018-02-09 09:53] LABS: HEMATOCRIT 28.8 % (35.0-46.0); HEMOGLOBIN 9.3 GM/DL (11.6-15.3); MEAN CELL VOLUME 86.4 FL (80.0-100.0); MEAN CORPUSCULAR HEMOGLOBIN 27.8 PG (27.0-34.0); MEAN CORPUSCULAR HGB CONC 32.2 % (32.0-36.0); MEAN PLATELET VOLUME 8.6 FL (7.0-11.0); PLATELET COUNT 334 TH/MM3 (150-450); RED BLOOD COUNT 3.33 MIL/MM3 (4.00-5.30); RED CELL DISTRIBUTION WIDTH 21.1 % (11.6-17.2); WHITE BLOOD COUNT 9.4 TH/MM3 (4.0-11.0)
[2018-02-09 10:52] LABS: BICARBONATE 22.1 MEQ/L (21.0-32.0); CREATININE 0.76 MG/DL (0.50-1.00); MAGNESIUM 1.8 MG/DL (1.5-2.5)
[2018-02-09] MEDS: D5-1/2 NS + KCL 40 MEQ INJ 1,000 ML IV SCH (12:00)
[2018-02-09] MEDS ORDERED: ACETAMINOPHEN 325 MG TAB PO PRN (12:45)
[2018-02-09] MEDS: MORPHINE SULFATE ORAL SOLN 10 MG/0.5 ML SYRINGE SL PRN ×3 (13:18→14:47)
--- NOTE | 2018-02-09 16:06 | HHI.PR ---
Subjective Remarks The patient was upset that the temperature in her room was so hot. Otherwise she had no acute complaints. Her godson was at the bedside and his questions were answered. Discussed with nursing. Objective Vitals Vital Signs Date Time Temp Pulse Resp B/P (MAP) Pulse Ox O2 Delivery O2 Flow Rate FiO2 02/09/18 15:40 98.6 59 18 140/83 (102) 98 02/09/18 11:15 98.6 62 16 129/80 (96) 96 02/09/18 07:41 98.8 68 18 120/85 (97) 96 02/09/18 07:16 Room Air 02/09/18 07:16 70 02/09/18 06:00 74 02/09/18 05:00 72 02/09/18 04:00 98.1 68 18 132/72 (92) 97 02/09/18 04:00 68 02/09/18 03:00 67 02/09/18 02:00 66 02/09/18 01:00 67 02/09/18 00:00 98.4 65 18 123/74 (90) 97 02/09/18 00:00 65 02/09/18 00:00 Room Air 02/08/18 23:00 67 02/08/18 22:00 66 02/08/18 21:00 64 02/08/18 20:00 98.2 63 18 112/70 (84) 96 02/08/18 20:00 63 02/08/18 18:01 64 02/08/18 17:00 58 I/O 02/08/18 02/08/18 02/08/18 02/09/18 02/09/18 02/09/18 07:00 15:00 23:00 07:00 15:00 23:00 Intake Total 50 ml 1728 ml 1400 ml 700 ml Output Total 400 ml 400 ml 550 ml Balance -350 ml 1328 ml 850 ml 700 ml Intake Oral 50 ml 480 ml 50 ml IV Total 1248 ml 1350 ml 700 ml Output Urine Total 400 ml 400 ml 550 ml # Bowel Movements 0 0 0 Result Diagram: 02/09/18 0943 02/09/18 0943 Imaging Last Impressions Carotid Artery Ultrasound 02/06/18 0000 Signed Impressions: CONCLUSION: Minimal plaque without hemodynamic be significant stenosis. Head CT 02/05/182002 Signed Impressions: CONCLUSION: 1. Encephalomalacia within the left parietal lobe relating to a prior area of hemorrhage. 2. No acute intracranial abnormality. 3. Paranasal sinus disease. Objective Remarks GENERAL: No distress. SKIN: Stage III sacral decubitus ulcer. No generalized rash. HEAD: Atraumatic. Normocephalic. No facial asymmetry appreciated. EYES: Pupils equal round and reactive. Extraocular motions intact. No scleral icterus. No injection or drainage. ENT: Nose without bleeding or purulent drainage. Airway patent. MMM. NECK: Trachea midline. Supple, nontender, no meningeal signs. CARDIOVASCULAR: Regular rate and rhythm without murmurs, gallops, or rubs. RESPIRATORY: Clear to auscultation. Breath sounds equal bilaterally. No wheezes , rales, or rhonchi. GASTROINTESTINAL: Abdomen soft, non-tender, nondistended. No hepato-splenomegaly , or palpable masses. No guarding. MUSCULOSKELETAL: Extremities without clubbing, cyanosis, or edema. NEUROLOGICAL: Awake and alert. Weak on the right side. 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 Patient's troponin was elevated and EKG showing new T-wave inversions V3 to V6 concerning for ischemia. NSTEMI Troponins 0.12, 2.02, 1.10. EKG shows new T wave inversions in V3-V6, concerning for ischemia. Patient started on heparin drip. Patient had no complaints of chest pain. - Cardiology consulted, appreciate assistance. - Continue to monitor on cardiac telemetry. - Had runs of V fib and asystole 02/07. The pt is DNR. - discussed with family, who are interested in discussing the possibility of hospice. Acute encephalopathy, possible TIA Head CT with no acute intracranial abnormality. Carotid ultrasound shows minimal plaque without hemodynamically significant stenosis. Hx of ICH 10/2017. She passed bedside swallow evaluation. EEG with mild encephalopathy. - Neurology consulted, appreciate recommendations. - Consulted stroke navigator. - Continue neurochecks. - PT/OT/ST eval/tx. - Discussed with family, who is interested in discharge to SNF with hospice following. Hypokalemia K 2.2. - D5 with KCl. Improved. - follow electrolytes closely. Cardiac arrhythmia Had V fib/ asystole. Likely s/t hypokalemia. - Continue amiodarone, metoprolol and follow up with cardiology. - telemetry. - hospice consult. - monitor electrolytes and replete as needed. Anemia, chronic Hemoglobin appears stable. - Continue patient on oral ferrous sulfate. - Monitor for any evidence of active bleeding. DVT prophylaxis: Heparin Discharge Planning Anticipate d/c to SNF with hospice in Alexey Fisher DO Feb 09, 2018 16:06
--- NOTE | 2018-02-09 17:03 | PD.CARD.PN ---
Subjective Subjective Remarks asleep in nad Objective Medications Current Medications Medications (Trade) Dose Ordered Sig/Roxanna Route Start Time Stop Time Status Last Admin (NS Flush) 2 ml BID IV FLUSH 02/06/18 09:00 02/09/18 09:00 (NS Flush) 2 ml UNSCH PRN IV FLUSH 02/05/18 23:15 (Cordarone) 200 mg DAILY PO 02/06/18 09:00 02/09/18 09:12 (Ferrous Sulfate) 325 mg DAILY PO 02/06/18 09:00 02/09/18 09:12 (Reglan) 5 mg BID PO 02/06/18 09:00 02/09/18 09:11 (Lopressor) 12.5 mg BID PO 02/06/18 09:00 02/09/18 09:11 (Deltasone) 5 mg DAILY PO 02/06/18 09:00 02/09/18 09:12 (Zoloft) 50 mg DAILY PO 02/06/18 09:00 02/09/18 09:11 (Protonix) 20 mg DAILY PO 02/06/18 09:00 02/09/18 09:12 (Lipitor) 40 mg DAILY PO 02/07/18 09:00 02/09/18 09:11 (Aspirin Chew) 81 mg DAILY PO 02/07/18 09:00 02/09/18 09:12 Potassium Chloride/Dextrose/ Sod Cl 1,000 ml @ 125 mls/hr Q8H IV 02/07/18 10:00 02/08/18 20:58 (Tylenol) 650 mg Q4H PRN PO 02/09/18 12:45 (Roxanol Liq) 5 mg Q4H PRN SL 02/09/18 12:45 02/09/18 14:47 Vital Signs / I&O Vital Signs Date Time Temp Pulse Resp B/P (MAP) Pulse Ox O2 Delivery O2 Flow Rate FiO2 02/09/18 16:00 70 02/09/18 15:40 98.6 59 18 140/83 (102) 98 02/09/18 15:00 59 02/09/18 14:00 62 02/09/18 13:00 62 02/09/18 12:00 62 02/09/18 11:15 98.6 62 16 129/80 (96) 96 02/09/18 11:00 64 02/09/18 10:00 66 02/09/18 09:00 68 02/09/18 08:00 70 02/09/18 07:41 98.8 68 18 120/85 (97) 96 02/09/18 07:16 Room Air 02/09/18 07:16 70 02/09/18 06:00 74 02/09/18 05:00 72 02/09/18 04:00 98.1 68 18 132/72 (92) 97 02/09/18 04:00 68 02/09/18 03:00 67 02/09/18 02:00 66 02/09/18 01:00 67 02/09/18 00:00 98.4 65 18 123/74 (90) 97 02/09/18 00:00 65 02/09/18 00:00 Room Air 02/08/18 23:00 67 02/08/18 22:00 66 02/08/18 21:00 64 02/08/18 20:00 98.2 63 18 112/70 (84) 96 02/08/18 20:00 63 02/08/18 18:01 64 I/O 02/08/18 02/08/18 02/08/18 02/09/18 02/09/18 02/09/18 07:00 15:00 23:00 07:00 15:00 23:00 Intake Total 50 ml 1728 ml 1400 ml 700 ml Output Total 400 ml 400 ml 550 ml Balance -350 ml 1328 ml 850 ml 700 ml Intake Oral 50 ml 480 ml 50 ml IV Total 1248 ml 1350 ml 700 ml Output Urine Total 400 ml 400 ml 550 ml # Bowel Movements 0 0 0 Physical Exam GENERAL: SKIN: Warm and dry. HEAD: Normocephalic. EYES: No scleral icterus. No injection or drainage. NECK: Supple, trachea midline. No JVD or lymphadenopathy. CARDIOVASCULAR: Regular rate and rhythm without murmurs, gallops, or rubs. RESPIRATORY: Breath sounds equal bilaterally. No accessory muscle use. GASTROINTESTINAL: Abdomen soft, non-tender, nondistended. MUSCULOSKELETAL: No cyanosis, or edema. BACK: Nontender without obvious deformity. No CVA tenderness. Laboratory Laboratory Tests Test 02/08/18 21:20 02/09/18 09:43 Activated Partial Thromboplast Time 67.2 SEC 53.9 SEC White Blood Count 9.4 TH/MM3 Red Blood Count 3.33 MIL/MM3 Hemoglobin 9.3 GM/DL Hematocrit 28.8 % Mean Corpuscular Volume 86.4 FL Mean Corpuscular Hemoglobin 27.8 PG Mean Corpuscular Hemoglobin Concent 32.2 % Red Cell Distribution Width 21.1 % Platelet Count 334 TH/MM3 Mean Platelet Volume 8.6 FL Blood Urea Nitrogen 5 MG/DL Creatinine 0.76 MG/DL Random Glucose 86 MG/DL Calcium Level 8.0 MG/DL Magnesium Level 1.8 MG/DL Sodium Level 138 MEQ/L Potassium Level 4.3 MEQ/L Chloride Level 106 MEQ/L Carbon Dioxide Level 22.1 MEQ/L Anion Gap 10 MEQ/L Estimat Glomerular Filtration Rate 88 ML/MIN Assessment and Plan Problem List: (1) NSTEMI (non-ST elevated myocardial infarction) ICD Codes: I21.4 - Non-ST elevation (NSTEMI) myocardial infarction (2) Ventricular tachycardia ICD Codes: I47.2 - Ventricular tachycardia (3) Altered mental status ICD Codes: R41.82 - Altered mental status, unspecified Status: Acute (4) Cardiac arrhythmia ICD Codes: I49.9 - Cardiac arrhythmia, unspecified (5) History of hemorrhagic cerebrovascular accident (CVA) without residual deficits ICD Codes: Z86.73 - Personal history of transient ischemic attack (TIA), and cerebral infarction without residual deficits Assessment and Plan 1.) NSTEMI - assymptomatic, trop trending down, placed on heparin by Dr Canela and aspirin; i d/w daughter @ cath/pci and explained would be high risk due to recent ich but i can not rule out a life threatening ischemic etiology, would also need clearance from neurology for aspirin, hep, 2b3a inhibitor, plavix; daughter undecided and wishes to d/w family; subsequently since my vist, per Dr Alamo' note, family has requested hospice 2.) VT - no recurrence after electrolyte repletion, iv and po amio and lopressor Problem Qualifiers (1) Altered mental status: Qualified Codes: R41.82 - Altered mental status, unspecified Dharmesh Guzman MD Feb 09, 2018 17:03
[2018-02-10] VITALS (21 sets, daily range): BP systolic 103–127; BP diastolic 55–64; PULSE 54–64; RESP 16–18; TEMP 97.8–98.6; O2SAT 95–98
[2018-02-10] MEDS: D5-1/2 NS + KCL 40 MEQ INJ 1,000 ML IV SCH ×3 (01:02→18:00)
[2018-02-10] MEDS: SODIUM CHLORIDE 0.9% FLUSH 10 ML FLUSH IV FLUSH SCH (09:00)
[2018-02-10] MEDS: FERROUS SULFATE 325 MG (65 MG ELEMENTAL IRON) TAB PO SCH (10:10)
[2018-02-10] MEDS: AMIODARONE 200 MG TAB PO SCH (10:10)
[2018-02-10] MEDS: METOPROLOL TARTRATE 25 MG TAB PO SCH (10:10)
[2018-02-10] MEDS: ATORVASTATIN 40 MG TAB PO SCH (10:10)
[2018-02-10] MEDS: PANTOPRAZOLE SOD 20 MG DELAYED RELEASE TAB PO SCH (10:10)
[2018-02-10] MEDS: ASPIRIN 81 MG CHEW TAB PO SCH (10:10)
[2018-02-10] MEDS: SERTRALINE HCL 50 MG TAB PO SCH (10:10)
[2018-02-10] MEDS: METOCLOPRAMIDE HCL 10 MG TAB PO SCH (10:11)
[2018-02-10] MEDS: predniSONE 5 MG TAB PO SCH (10:11)
--- NOTE | 2018-02-10 13:53 | PD.CARD.PN ---
Subjective Subjective Remarks alert in nad Objective Medications Current Medications Medications (Trade) Dose Ordered Sig/Roxanna Route Start Time Stop Time Status Last Admin (NS Flush) 2 ml BID IV FLUSH 02/06/18 09:00 02/09/18 09:00 (NS Flush) 2 ml UNSCH PRN IV FLUSH 02/05/18 23:15 (Cordarone) 200 mg DAILY PO 02/06/18 09:00 02/10/18 10:10 (Ferrous Sulfate) 325 mg DAILY PO 02/06/18 09:00 02/10/18 10:10 (Reglan) 5 mg BID PO 02/06/18 09:00 02/10/18 10:11 (Lopressor) 12.5 mg BID PO 02/06/18 09:00 02/10/18 10:10 (Deltasone) 5 mg DAILY PO 02/06/18 09:00 02/10/18 10:11 (Zoloft) 50 mg DAILY PO 02/06/18 09:00 02/10/18 10:10 (Protonix) 20 mg DAILY PO 02/06/18 09:00 02/10/18 10:10 (Lipitor) 40 mg DAILY PO 02/07/18 09:00 02/10/18 10:10 (Aspirin Chew) 81 mg DAILY PO 02/07/18 09:00 02/10/18 10:10 Potassium Chloride/Dextrose/ Sod Cl 1,000 ml @ 125 mls/hr Q8H IV 02/07/18 10:00 02/10/18 10:00 (Tylenol) 650 mg Q4H PRN PO 02/09/18 12:45 (Roxanol Liq) 5 mg Q4H PRN SL 02/09/18 12:45 02/09/18 14:47 Vital Signs / I&O Vital Signs Date Time Temp Pulse Resp B/P (MAP) Pulse Ox O2 Delivery O2 Flow Rate FiO2 02/10/18 11:15 98.0 58 16 112/55 (74) 98 02/10/18 07:46 Room Air 02/10/18 07:46 98.2 61 16 112/57 (75) 96 02/10/18 07:00 59 02/10/18 05:00 59 02/10/18 04:00 58 02/10/18 03:30 97.8 60 18 103/60 (74) 97 02/10/18 03:00 56 02/10/18 02:00 60 02/10/18 01:00 56 02/10/18 00:00 60 02/10/18 00:00 98.1 60 18 127/64 (85) 95 02/09/18 23:00 54 02/09/18 22:00 52 02/09/18 21:00 60 02/09/18 20:00 93 Room Air 02/09/18 20:00 66 02/09/18 20:00 98.8 68 18 111/66 (81) 93 02/09/18 19:00 68 02/09/18 18:00 60 02/09/18 17:00 60 02/09/18 16:00 70 02/09/18 16:00 58 02/09/18 15:45 18 02/09/18 15:40 98.6 59 18 140/83 (102) 98 02/09/18 15:00 59 02/09/18 14:00 62 I/O 02/09/18 02/09/18 02/09/18 02/10/18 02/10/18 02/10/18 07:00 15:00 23:00 07:00 15:00 23:00 Intake Total 1400 ml 700 ml 480 ml 120 ml Output Total 550 ml 200 ml Balance 850 ml 700 ml 480 ml -80 ml Intake Oral 50 ml 480 ml 120 ml IV Total 1350 ml 700 ml Output Urine Total 550 ml 200 ml # Voids 3 2 # Bowel Movements 0 1 1 Physical Exam GENERAL: SKIN: Warm and dry. HEAD: Normocephalic. EYES: No scleral icterus. No injection or drainage. NECK: Supple, trachea midline. No JVD or lymphadenopathy. CARDIOVASCULAR: Regular rate and rhythm without murmurs, gallops, or rubs. RESPIRATORY: Breath sounds equal bilaterally. No accessory muscle use. GASTROINTESTINAL: Abdomen soft, non-tender, nondistended. MUSCULOSKELETAL: No cyanosis, or edema. BACK: Nontender without obvious deformity. No CVA tenderness. Laboratory Laboratory Tests Test 02/10/18 02:44 02/10/18 09:13 Activated Partial Thromboplast Time 27.1 SEC Total Creatine Kinase 24 U/L 23 U/L Assessment and Plan Problem List: (1) NSTEMI (non-ST elevated myocardial infarction) ICD Codes: I21.4 - Non-ST elevation (NSTEMI) myocardial infarction (2) Ventricular tachycardia ICD Codes: I47.2 - Ventricular tachycardia (3) Altered mental status ICD Codes: R41.82 - Altered mental status, unspecified Status: Acute (4) Cardiac arrhythmia ICD Codes: I49.9 - Cardiac arrhythmia, unspecified (5) History of hemorrhagic cerebrovascular accident (CVA) without residual deficits ICD Codes: Z86.73 - Personal history of transient ischemic attack (TIA), and cerebral infarction without residual deficits Assessment and Plan 1.) NSTEMI - assymptomatic, trop trending down, placed on heparin by Dr Canela and aspirin; i d/w daughter @ cath/pci and explained would be high risk due to recent ich but i can not rule out a life threatening ischemic etiology, would also need clearance from neurology for aspirin, hep, 2b3a inhibitor, plavix; daughter undecided and wishes to d/w family; subsequently since my vist, per Dr Alamo' note, family has requested hospice, awaiting bed in [facility], d/w daughter at bedside 2.) VT - no recurrence after electrolyte repletion, iv and po amio and lopressor Problem Qualifiers (1) Altered mental status: Qualified Codes: R41.82 - Altered mental status, unspecified Dharmesh Guzman MD Feb 10, 2018 13:53
[2018-02-10] MEDS ORDERED: MORP20SO2 SL (15:55)
[2018-02-10] MEDS ORDERED: ASPI81 PO (15:55)
[2018-02-10] MEDS ORDERED: ATOR40TA16 PO (15:55)
[2018-02-10] MEDS ORDERED: LORA1TAB12 PO (15:55)
--- NOTE | 2018-02-10 16:06 | HHI.DCPOC ---
Discharge Care Plan Diagnosis: (1) NSTEMI (non-ST elevated myocardial infarction) (2) Ventricular tachycardia (3) Debility (4) Anemia (5) Altered mental status (6) Cardiac arrhythmia Goals to Promote Your Health * To prevent worsening of your condition and complications * To maintain your health at the optimal level Directions to Meet Your Goals Take your medications as prescribed Follow your dietary instruction Follow activity as directed Keep your appointments as scheduled Take your immunizations and boosters as scheduled If your symptoms worsen call your PCP, if no PCP go to Urgent Care Center or Emergency Room Smoking is Dangerous to Your Health. Avoid second hand smoke Call the 24-hour hour crisis hotline for domestic abuse at Alexey Alamo DO Feb 10, 2018 16:05
--- NOTE | 2018-02-10 16:17 | HHI.DS ---
Discharge Summary Admission Date Feb 06, 2018 at 06:10 Discharge Date: Feb 10, 2018 Admitting Diagnosis hypokalemia 2.2 uti AMS (1) NSTEMI (non-ST elevated myocardial infarction) ICD Code: I21.4 - Non-ST elevation (NSTEMI) myocardial infarction Diagnosis: Principal (2) Ventricular tachycardia ICD Code: I47.2 - Ventricular tachycardia Diagnosis: Principal (3) Debility ICD Code: R53.81 - Other malaise (4) Anemia ICD Code: D64.9 - Anemia, unspecified Status: Chronic (5) Altered mental status ICD Code: R41.82 - Altered mental status, unspecified Diagnosis: Principal (6) Cardiac arrhythmia ICD Code: I49.9 - Cardiac arrhythmia, unspecified Diagnosis: Principal Procedures None Brief History - From Admission 82-year-old female with history of recent hemorrhagic stroke on 11/03/17 and a past medical history significant for unspecified cardiac arrhythmia, hypertension, depression, iron deficiency anemia, GERD and seizure disorder resents to the emergency department for evaluation of altered mental status. The patient is alert and oriented only to self. She is able to answer questions however believes it is 1936 and that we are in [place]. She follows commands and is pleasant. Her son accompanies her to the emergency department and states that the patient was in her [facility] facility earlier today when she became lethargic, nonverbal and was diaphoretic. He states the episode lasted for about 15-30 minutes. He reports that she is now back to baseline. The patient denies any pain. CBC/BMP: 02/09/18 0943 02/09/18 0943 Significant Findings Laboratory Tests Test 02/07/18 22:18 02/08/18 05:53 02/08/18 16:14 02/08/18 16:44 Activated Partial Thromboplast Time 44.8 SEC (24.3-30.1) Blood Urea Nitrogen 5 MG/DL (7-18) Calcium Level 7.8 MG/DL (8.5-10.1) Phosphorus Level 2.1 MG/DL (2.5-4.9) Test 02/08/18 21:20 02/09/18 09:43 02/10/18 02:44 02/10/18 09:13 Activated Partial Thromboplast Time 67.2 SEC (24.3-30.1) 53.9 SEC (24.3-30.1) Red Blood Count 3.33 MIL/MM3 (4.00-5.30) Hemoglobin 9.3 GM/DL (11.6-15.3) Hematocrit 28.8 % (35.0-46.0) Red Cell Distribution Width 21.1 % (11.6-17.2) Blood Urea Nitrogen 5 MG/DL (7-18) Calcium Level 8.0 MG/DL (8.5-10.1) Estimat Glomerular Filtration Rate 88 ML/MIN (>89) Total Creatine Kinase 24 U/L (26-192) 23 U/L (26-192) Imaging Last Impressions Carotid Artery Ultrasound 02/06/18 0000 Signed Impressions: CONCLUSION: Minimal plaque without hemodynamic be significant stenosis. Head CT 02/05/182002 Signed Impressions: CONCLUSION: 1. Encephalomalacia within the left parietal lobe relating to a prior area of hemorrhage. 2. No acute intracranial abnormality. 3. Paranasal sinus disease. PE at Discharge GENERAL: No distress. SKIN: Stage III sacral decubitus ulcer. No generalized rash. HEAD: Atraumatic. Normocephalic. No facial asymmetry appreciated. EYES: Pupils equal round and reactive. Extraocular motions intact. No scleral icterus. No injection or drainage. ENT: Nose without bleeding or purulent drainage. Airway patent. MMM. NECK: Trachea midline. Supple, nontender, no meningeal signs. CARDIOVASCULAR: Regular rate and rhythm without murmurs, gallops, or rubs. RESPIRATORY: Clear to auscultation. Breath sounds equal bilaterally. No wheezes , rales, or rhonchi. GASTROINTESTINAL: Abdomen soft, non-tender, nondistended. No hepato-splenomegaly , or palpable masses. No guarding. MUSCULOSKELETAL: Extremities without clubbing, cyanosis, or edema. NEUROLOGICAL: Awake and alert. Weak on the right side. Pt update on day of discharge The patient was resting comfortably in bed. She denied any acute complaints. She said that she appreciated the care she was receiving. Her family was at the bedside and their questions were answered. Discussed with nursing and case management. Hospital Course 82-year-old female with history of recent hemorrhagic stroke on 11/03/17 and a past medical history significant for unspecified cardiac arrhythmia, hypertension, depression, iron deficiency anemia, GERD and seizure disorder presents to the emergency department for evaluation of altered mental status. Patient's troponin was elevated and EKG showing new T-wave inversions in V3 to V6 concerning for ischemia. NSTEMI Troponins 0.12, 2.02, 1.10. EKG showed new T wave inversions in V3-V6, concerning for ischemia. Patient was started on a heparin drip. Patient had no complaints of chest pain. Cardiology was consulted. She was monitored on cardiac telemetry. She was noted to have runs of asystole and V tach. The pt is DNR. The pt's hypokalemia was corrected and her arrhythmia resolved. The pt was continued on her cardiac regimen including amiodarone. Palliative care and hospice were consulted. Acute metabolic encephalopathy Head CT with no acute intracranial abnormality. Carotid ultrasound showed minimal plaque without hemodynamically significant stenosis. Hx of ICH 10/2017. She passed bedside swallow evaluation. EEG with mild encephalopathy. Neurology was consulted. We consulted the stroke navigator. We continued neurochecks. She worked with PT/OT/ST. Her mental status deteriorated following her episode of v tach/ asystole but slowly improved once stabilized. Discussed with family, who is interested in discharge to SNF with hospice following. Hypokalemia K 2.2. Above arrhythmias noted. She was started on D5 with KCl. Her diet was advanced. Pt Condition on Discharge: Guarded Discharge Disposition: Discharge to SNF Discharge Time: > 30 minutes Discharge Instructions DIET: Follow Instructions for: Heart Healthy Diet Activities you can perform: Weight Bearing as Franko Follow up Referrals: Cardiology - 2 Weeks with Dharmesh Guzman MD Neurology - 1 Week with Christian Montgomery MD PhD PCP Follow-up - 1 Week New Medications: Aspirin (Tgt Aspirin) 81 Mg Chw 81 MG PO DAILY for Heart, #30 EA Atorvastatin (Atorvastatin) 40 Mg Tab 40 MG PO DAILY for Cholesterol Management, #30 TAB Morphine Liq (Morphine Liq) 20 Mg/Ml Liq 5 MG SL Q4H PRN for pain 6-10, #20 ML Continued Medications: Acetaminophen (Tylenol) 325 Mg Tab 650 MG PO ONCE, #1 TAB 0 Refills Amiodarone (Amiodarone) 200 Mg Tab 200 MG PO DAILY, #30 TAB Start taking this dose of 200 milligrams daily on 06/20/2017. Until then take the 400 milligram dose once daily. Bisacodyl Supp (Dulcolax Supp) 10 Mg Supp 10 MG RECTAL DAILY PRN for CONSTIPATION, #12 SUPP 0 Refills Ferrous Sulfate (Ferrous Sulfate) 325 Mg (65 Mg Iron) Tablet 325 MG PO DAILY for Nutritional Supplement, #30 TAB 0 Refills Ipratropium-Albuterol Neb (Duoneb) 0.5-2.5 Mg/3 Ml Neb 1 NEBULE INH DAILY for Breathing Treatment, #30 NEBULE 0 Refills Lactobacillus Rhamnosus (GG) (Culturelle) 10 Billion Cell Cap 1 CAP PO BID for Nutritional Supplement, CAP 0 Refills Lorazepam (Lorazepam) 1 Mg Tab 1 MG PO DAILY PRN for ANXIETY, #12 TAB 0 Refills (This prescription has been renewed) Magnesium Hydroxide Liq (Milk of Magnesia Liq) 400 Mg/5 Ml Susp 30 ML PO DAILY PRN for INDIGESTION OR UPSET STOMACH, #1 BOTTLE 0 Refills Metoclopramide (Metoclopramide) 5 Mg Tab 5 MG PO BID, TAB 0 Refills Metoprolol Tartrate (Metoprolol Tartrate) 25 Mg Tab 12.5 MG PO BID for heart, #60 TAB 0 Refills Hold if heart rate < 75 or systolic BP < 110 Omeprazole (Omeprazole) 20 Mg Tab 20 MG PO DAILY, #30 TAB 0 Refills Prednisone (Prednisone) 5 Mg Tab 5 MG PO DAILY, TAB 0 Refills Sertraline (Sertraline) 50 Mg Tab 50 MG PO DAILY, #30 TAB 0 Refills Silver Sulfadiazine Topical (Silvadene Topical) 1 % Cream 1 APPLIC TOPICAL DAILY for Wound Management, #400 GM 0 Refills Zinc Oxide (Topical) (Zinc Oxide) 40 % Oin Discontinued Medications: Benzonatate (Benzonatate) 100 Mg Cap 100 MG PO BID PRN for COUGH, CAP 0 Refills Dextromethorphan (Robafen Cough) 15 Mg Cap 30 MG PO Q6H PRN for COUGH, CAP 0 Refills Diclofenac Sodium (Voltaren) 1 % Gel..gram. Oxycodone-Acetaminophen (Oxycodone-Acetaminophen) 5-325 mg Tab 1 TAB PO BID PRN for PAIN, #10 TAB 0 Refills Sod Phos,M-B/Na Phos,Di-Ba (Fleet Enema Extra) 19 Gram-7 Gram/197 Ml Enema Tetracycline (Tetracycline) 250 Mg Cap 500 MG PO BID, #120 CAP 0 Refills [prealbumin] () Alexey Alamo DO Feb 10, 2018 16:17
== END 2018-02-10 19:50 | DRG 280 ==
LOC: NEPE 19:44 → NEDA 22:06 → INTOOBSV 22:06 → NEPHCDU 02-06 00:07 → OBSVTOIN 02-06 06:10 → HCIS 02-06 09:54
PROVIDERS: ADMIT Hospitalist; ATTEND Hospitalist
DX: I21.4 Non-ST elevation (NSTEMI) myocardial infarction (principal); I46.9 Cardiac arrest, cause unspecified; G93.41 Metabolic encephalopathy; L89.153 Pressure ulcer of sacral region, stage 3; I47.2 Ventricular tachycardia; I69.351 Hemiplegia and hemiparesis following cerebral infarction affecting right dominant side; N39.0 Urinary tract infection, site not specified; D64.9 Anemia, unspecified; R53.81 Other malaise; I10 Essential (primary) hypertension; D50.9 Iron deficiency anemia, unspecified; Z66 Do not resuscitate; E87.6 Hypokalemia; F32.9 Major depressive disorder, single episode, unspecified; Z95.5 Presence of coronary angioplasty implant and graft; J45.909 Unspecified asthma, uncomplicated; I48.91 Unspecified atrial fibrillation; M17.0 Bilateral primary osteoarthritis of knee; M19.042 Primary osteoarthritis, left hand; M19.041 Primary osteoarthritis, right hand; F80.2 Mixed receptive-expressive language disorder
CPT/HCPCS: 70450; 80048; 80053; 80061; 80307; 81001; 82550; 82948; 83036; 83735; 84100; 84132; 84443; 84484; 85025; 85027; 85610; 85730; 87086; 93005; 93306; 93880; 95819; 96365; 96375; G8987-GO; G8987-GP; G8988-GO; G8988-GP; J0696; J1644; J3475; J3480; J7512

== ENCOUNTER 2018-03-04 09:07 | Observation (INO) ==
[2018-03-04 09:52] LABS: Baso # (Auto) 0.1 th/mm3 (0.0-0.2); Baso % (Auto) 0.9 % (0.0-2.0); Eos # (Auto) 0.3 th/mm3 (0.0-0.4); Eos % (Auto) 3.6 % (0.0-4.0); Hematocrit 29.6 % (35.0-46.0); Hemoglobin 9.8 gm/dL (11.6-15.3); Lymph # (Auto) 2.6 th/mm3 (1.0-4.8); Mean Corpuscular Hemoglobin 28.5 pg (27.0-34.0); Mean Corpuscular Volume 86.5 fL (80.0-100.0); Mean Platelet Volume 8.1 fL (7.0-11.0); Mono # (Auto) 0.7 th/mm3 (0.0-0.9); Mono % (Auto) 6.9 % (0.0-8.0); Neut # (Auto) 5.7 th/mm3 (1.8-7.7); Neut % (Auto) 60.6 % (16.0-70.0); Platelet Count 398 th/mm3 (150-450); Red Blood Count 3.42 mil/mm3 (4.00-5.30); Red Cell Distribution Width 20.1 % (11.6-17.2); White Blood Count 9.4 th/mm3 (4.0-11.0)
[2018-03-04 10:03] LABS: Activated Partial Thrombo Time 23.9 sec (24.3-30.1); INR 1.1 Ratio; Prothrombin Time 11.3 sec (9.8-11.6)
[2018-03-04 10:09] LABS: Alanine Aminotransferase 59 U/L (10-53)
[2018-03-04 10:11] LABS: Bacteria,Urine Moderate /hpf; Bilirubin,Urine Negative (Negative); Clarity,Urine Cloudy (Clear); Color,Urine Amber (Yellw/Straw); Glucose,Urine (UA) Negative (Negative); Hyaline Casts,Urine 15 /lpf (0-3); Leukocyte Esterase,Urine Large (Negative); Mucus,Urine Few /lpf (Occasional); Nitrite,Urine Negative (Negative); Specific Gravity,Urine 1.016 (1.002-1.035); Squamous Epithelial Cell,Urine <1 /hpf (0-5)
[2018-03-04 10:20] LABS: Albumin 2.3 g/dL (3.4-5.0); Alkaline Phosphatase 102 U/L (45-117); Anion Gap 10 meq/L (5-15); Aspartate Aminotransferase 75 U/L (15-37); Blood Urea Nitrogen 17 mg/dL (7-18); Calcium 8.9 mg/dL (8.5-10.1); Carbon Dioxide 29.1 meq/L (21.0-32.0); Chloride 101 meq/L (98-107); Glomerular Filtration Rate 87 mL/min (>89); Glucose,Random 105 mg/dL (74-106); Lipase 78 U/L (73-393); Sodium 140 meq/L (136-145); Total Protein 7.2 g/dL (6.4-8.2)
--- NOTE | 2018-03-04 10:20 | XR ---
EXAM DATE: 03/04/2018 10:16 AM EDT AGE/SEX: 82 years / Female INDICATIONS: . Shortness of breath. CLINICAL DATA: This is the patient's initial encounter. Patient reports that signs and symptoms have been present for 1 day and indicates a pain score of 0/10. MEDICAL/SURGICAL HISTORY: Hypertension. Cardiovascular disease. None. COMPARISON: [facility] – [place], CHEST SINGLE AP, 11/03/2017. . FINDINGS: A single AP view of the chest demonstrates the lungs to be symmetrically aerated without evidence of mass, infiltrate or effusion. The cardiomediastinal contours are unremarkable. Osseous structures a re intact. CONCLUSION: No acute intrathoracic disease. No significant changes. Electronically signed by: Cholo Camarillo MD 03/04/2018 10:19 AM EDT
--- NOTE | 2018-03-04 10:21 | ED ---
HPI General Chief Complaint: Syncope Stated Complaint: Medical Time Seen by Provider: 03/04/18 09:21 Source: patient and family Mode of arrival: EMS Limitations: no limitations History of Present Illness complaint: collapsed Duration of episode: 10 -: minutes(s) Prodromal symptoms: other (Patient felt hot all over just prior to passing out) Witnessed: yes - by other (Daughter) Context: at rest (Patient was physically sitting in the car on her way to a dental appointment, when she had a blank stare episode that lasted 10 minutes) Injuries sustained associated with event: none Current symptoms: none Related Data Allergies Allergy/AdvReac Type Severity Reaction Status Date / Time No Known Allergies Allergy Uncoded 06/09/17 13:39 Review of Systems Except as stated in HPI: all other systems reviewed are negative [facility] Medical History Medical History CVA (cerebral vascular accident) (Acute) Femoral artery stenosis, left (Acute) HTN (hypertension) (Acute) High cholesterol (Acute) Social History Social History Substance History: No History of Abuse Smoking Status: Never smoker How Often Do You Have a Drink Containing Alcohol: Never Recent Travel in [facility] within the Last 8 Weeks: No Recent Out of Country Travel within the Last 8 Weeks: No Immunization History Tetanus Immunization: Unsure Hx Influenza Vaccine This Season: No Exam Narrative Exam Narrative: GENERAL: -[place] female in no acute distress SKIN: Warm and dry. HEAD: Atraumatic. Normocephalic. EYES: Pupils equal and round. No scleral icterus. No injection or drainage. ENT: No nasal bleeding or discharge. Mucous membranes pink and moist. NECK: Trachea midline. No JVD. CARDIOVASCULAR: Regular rate and rhythm. no rubs or gallops RESPIRATORY: No accessory muscle use. Clear to auscultation. Breath sounds equal bilaterally. GASTROINTESTINAL: Obese abdomen soft, non-tender, nondistended. No rebound or guarding MUSCULOSKELETAL: Extremities without clubbing, cyanosis, or edema. No obvious deformities. NEUROLOGICAL: Awake and alert. No obvious cranial nerve deficits. Motor grossly within normal limits. Five out of 5 muscle strength in the arms and legs. Normal speech. PSYCHIATRIC: Appropriate mood and affect; insight and judgment normal. Course Initial Documented Vital Signs Temperature 98.5 F 03/04/18 09:19 Pulse Rate 64 03/04/18 09:19 Respiratory Rate 19 03/04/18 09:19 Blood Pressure 122/56 L 03/04/18 09:19 Pulse Oximetry 96 03/04/18 09:19 Last Documented Vital Signs Temperature 98.5 F 03/04/18 09:19 Pulse Rate 65 03/04/18 12:38 Respiratory Rate 18 03/04/18 12:38 Blood Pressure 146/68 H 03/04/18 12:38 Pulse Oximetry 98 03/04/18 12:38 Medical Decision Making Differential Diagnosis Differential Diagnosis: TIA versus ICH versus syncope versus electrolyte abnormalities versus atypical cardiac incident Medical Records Medical records reviewed: Yes I reviewed the patient's medical records. Lab Data Result diagrams: 03/04/18 09:27 03/04/18 09:27 Lab Results 03/04/18 03/04/18 03/04/18 Range/Units 09:27 09:27 09:27 WBC 9.4 (4.0-11.0) th/mm3 RBC 3.42 L (4.00-5.30) mil/mm3 Hgb 9.8 L (11.6-15.3) gm/dL Hct 29.6 L (35.0-46.0) % MCV 86.5 (80.0-100.0) fL MCH 28.5 (27.0-34.0) pg MCHC 33.0 (32.0-36.0) % RDW 20.1 H (11.6-17.2) % Plt Count 398 (150-450) th/mm3 MPV 8.1 (7.0-11.0) fL Neut % (Auto) 60.6 (16.0-70.0) % Lymph % (Auto) 28.0 (9.0-44.0) % [place] % (Auto) 6.9 (0.0-8.0) % Eos % (Auto) 3.6 (0.0-4.0) % Baso % (Auto) 0.9 (0.0-2.0) % Neut # (Auto) 5.7 (1.8-7.7) th/mm3 Lymph # (Auto) 2.6 (1.0-4.8) th/mm3 [place] # (Auto) 0.7 (0.0-0.9) th/mm3 Eos # (Auto) 0.3 (0.0-0.4) th/mm3 Baso # (Auto) 0.1 (0.0-0.2) th/mm3 WBC Differential . Differential Comment Auto diff final PT (9.8-11.6) sec INR Ratio APTT (24.3-30.1) sec Sodium (136-145) meq/L Potassium (3.5-5.1) meq/L Chloride (98-107) meq/L Carbon Dioxide (21.0-32.0) meq/L Anion Gap (5-15) meq/L BUN (7-18) mg/dL Creatinine (0.50-1.00) mg/dL Estimated GFR (>89) mL/min Random Glucose (74-106) mg/dL Calcium (8.5-10.1) mg/dL Total Bilirubin (0.2-1.0) mg/dL AST (15-37) U/L ALT (10-53) U/L Alkaline Phosphatase (45-117) U/L Total Creatine Kinase (26-192) U/L Troponin I B-Natriuretic Peptide 37 (0-100) pg/mL Total Protein (6.4-8.2) g/dL Albumin (3.4-5.0) g/dL Lipase Cancelled Urine Color (Yellw/Straw) Urine Clarity (Clear) Urine pH (5.0-8.5) Ur Specific [place] (1.002-1.035) Urine Protein (Neg-Trace) mg/dL Urine Glucose (UA) (Negative) mg/dL Urine Ketones (Negative) mg/dL Urine Occult Blood (Negative) Urine Nitrate (Negative) Urine Bilirubin (Negative) Urine Urobilinogen (Less than 2) mg/dL Ur Leukocyte Esterase (Negative) Urine RBC (0-3) /hpf Urine WBC (0-5) /hpf Urine WBC Clumps (None) Ur Squamous Epith Cells (0-5) /hpf Urine Bacteria (None) /hpf Hyaline Casts (0-3) /lpf Urine Mucus (Occasional) /lpf Micro UA Comment Urine Culture Comments Serum Alcohol Cancelled 03/04/18 03/04/18 03/04/18 Range/Units 09:27 09:27 09:27 WBC (4.0-11.0) th/mm3 RBC (4.00-5.30) mil/mm3 Hgb (11.6-15.3) gm/dL Hct (35.0-46.0) % MCV (80.0-100.0) fL MCH (27.0-34.0) pg MCHC (32.0-36.0) % RDW (11.6-17.2) % Plt Count (150-450) th/mm3 MPV (7.0-11.0) fL Neut % (Auto) (16.0-70.0) % Lymph % (Auto) (9.0-44.0) % [place] % (Auto) (0.0-8.0) % Eos % (Auto) (0.0-4.0) % Baso % (Auto) (0.0-2.0) % Neut # (Auto) (1.8-7.7) th/mm3 Lymph # (Auto) (1.0-4.8) th/mm3 [place] # (Auto) (0.0-0.9) th/mm3 Eos # (Auto) (0.0-0.4) th/mm3 Baso # (Auto) (0.0-0.2) th/mm3 WBC Differential Differential Comment PT 11.3 (9.8-11.6) sec INR 1.1 Ratio APTT 23.9 L (24.3-30.1) sec Sodium 140 (136-145) meq/L Potassium 3.5 (3.5-5.1) meq/L Chloride 101 (98-107) meq/L Carbon Dioxide 29.1 (21.0-32.0) meq/L Anion Gap 10 (5-15) meq/L BUN 17 (7-18) mg/dL Creatinine 0.77 (0.50-1.00) mg/dL Estimated GFR 87 L (>89) mL/min Random Glucose 105 (74-106) mg/dL Calcium 8.9 (8.5-10.1) mg/dL Total Bilirubin 0.3 (0.2-1.0) mg/dL AST 75 H (15-37) U/L ALT 59 H (10-53) U/L Alkaline Phosphatase 102 (45-117) U/L Total Creatine Kinase 75 (26-192) U/L Troponin I Cancelled Less than 0.02 L B-Natriuretic Peptide (0-100) pg/mL Total Protein 7.2 (6.4-8.2) g/dL Albumin 2.3 L (3.4-5.0) g/dL Lipase 78 Urine Color (Yellw/Straw) Urine Clarity (Clear) Urine pH (5.0-8.5) Ur Specific [place] (1.002-1.035) Urine Protein (Neg-Trace) mg/dL Urine Glucose (UA) (Negative) mg/dL Urine Ketones (Negative) mg/dL Urine Occult Blood (Negative) Urine Nitrate (Negative) Urine Bilirubin (Negative) Urine Urobilinogen (Less than 2) mg/dL Ur Leukocyte Esterase (Negative) Urine RBC (0-3) /hpf Urine WBC (0-5) /hpf Urine WBC Clumps (None) Ur Squamous Epith Cells (0-5) /hpf Urine Bacteria (None) /hpf Hyaline Casts (0-3) /lpf Urine Mucus (Occasional) /lpf Micro UA Comment Urine Culture Comments Serum Alcohol Less than 3 03/04/18 Range/Units 09:44 WBC (4.0-11.0) th/mm3 RBC (4.00-5.30) mil/mm3 Hgb (11.6-15.3) gm/dL Hct (35.0-46.0) % MCV (80.0-100.0) fL MCH (27.0-34.0) pg MCHC (32.0-36.0) % RDW (11.6-17.2) % Plt Count (150-450) th/mm3 MPV (7.0-11.0) fL Neut % (Auto) (16.0-70.0) % Lymph % (Auto) (9.0-44.0) % [place] % (Auto) (0.0-8.0) % Eos % (Auto) (0.0-4.0) % Baso % (Auto) (0.0-2.0) % Neut # (Auto) (1.8-7.7) th/mm3 Lymph # (Auto) (1.0-4.8) th/mm3 [place] # (Auto) (0.0-0.9) th/mm3 Eos # (Auto) (0.0-0.4) th/mm3 Baso # (Auto) (0.0-0.2) th/mm3 WBC Differential Differential Comment PT (9.8-11.6) sec INR Ratio APTT (24.3-30.1) sec Sodium (136-145) meq/L Potassium (3.5-5.1) meq/L Chloride (98-107) meq/L Carbon Dioxide (21.0-32.0) meq/L Anion Gap (5-15) meq/L BUN (7-18) mg/dL Creatinine (0.50-1.00) mg/dL Estimated GFR (>89) mL/min Random Glucose (74-106) mg/dL Calcium (8.5-10.1) mg/dL Total Bilirubin (0.2-1.0) mg/dL AST (15-37) U/L ALT (10-53) U/L Alkaline Phosphatase (45-117) U/L Total Creatine Kinase (26-192) U/L Troponin I B-Natriuretic Peptide (0-100) pg/mL Total Protein (6.4-8.2) g/dL Albumin (3.4-5.0) g/dL Lipase Urine Color Sherine (Yellw/Straw) Urine Clarity Cloudy H (Clear) Urine pH 5.0 (5.0-8.5) Ur Specific [place] 1.016 (1.002-1.035) Urine Protein Negative (Neg-Trace) mg/dL Urine Glucose (UA) Negative (Negative) mg/dL Urine Ketones Negative (Negative) mg/dL Urine Occult Blood Negative (Negative) Urine Nitrate Negative (Negative) Urine Bilirubin Negative (Negative) Urine Urobilinogen 2.0 H (Less than 2) mg/dL Ur Leukocyte Esterase Large H (Negative) Urine RBC 1 (0-3) /hpf Urine WBC 38 H (0-5) /hpf Urine WBC Clumps Few H (None) Ur Squamous Epith Cells <1 (0-5) /hpf Urine Bacteria Moderate H (None) /hpf Hyaline Casts 15 (0-3) /lpf Urine Mucus Few H (Occasional) /lpf Micro UA Comment Cath-culture ind Urine Culture Comments Cath-cult indicated Serum Alcohol Imaging Data Radiologist's impression: Head CT 03/04/18 09:21 CONCLUSION: 1. No focal or acute intracranial hemorrhage. 2. Stable examination compared to the prior study with an area of encephalomalacia in the left posterior parietal lobe consistent with an old area of infarction. Chest X-Ray 03/04/18 09:22 CONCLUSION: No acute intrathoracic disease. No significant changes. ECG Data EKG Prior to Arrival: No Attestation: I personally reviewed and interpreted this ECG as follows: Prior ECG tracings: not available for review Interpretation: Normal sinus rhythm at 70 bpm, ST depressions on V1 through V6 with inverted T waves, no concomitant ST elevation pattern, PACs noted Discharge Plan Discharge Disposition Patient Disposition: 30 Still Patient Discharge Condition Condition: Stable Discharge Details Diagnosis: Syncope, Anemia, Acute UTI Physicians Team ED Provider: Lupillo Godinez Primary Care Provider: Anton Child Interventions Interventions: Vital Signs Last Done: 03/04/18 12:38 Status ED Status: With Doctor
[2018-03-04 10:23] LABS: Creatine Kinase 75 U/L (26-192); Potassium 3.5 meq/L (3.5-5.1)
--- NOTE | 2018-03-04 10:54 | CT ---
EXAM DATE: 03/04/2018 10:40 AM EDT AGE/SEX: 82 years / Female INDICATIONS: Syncopal episode. CLINICAL DATA: This is the patient's initial encounter. Patient reports that signs and symptoms have been present for 1 day and indicates a pain score of 0/10. MEDICAL/SURGICAL HISTORY: Stroke. Hypertension. None. RADIATION DOSE: 56.35 CTDI (mGy) COMPARISON: [facility] [place], CT BRAIN W/O CONTRAST, 11/04/2017. [facility] [place], CT BRAIN W/O CONTRAST, 02/05/2018. . TECHNIQUE: CT of the head without contrast. Using automated exposure control and adjustment of the mA and/or kV according to patient size, radiation dose was kept as low as reasonably achievable to ob tain optimal diagnostic quality images. DICOM format image data is available electronically for revi ew and comparison. FINDINGS: Cerebrum: The ventricles are normal for age. There is bilateral cortical atrophy. No evidence of mid line shift, mass lesion, hemorrhage or acute infarction. No extraaxial fluid collections are seen. T here is evidence of stable encephalomalacia involving the posterior left parietal lobe characteristic of an old area of infarction. This is unchanged compared to the prior examination. Posterior Fossa: The cerebellum and brainstem are intact. The 4th ventricle is midline. The cerebe llopontine angle is unremarkable. Extracranial: The visualized portion of the orbits is intact. Skull: The calvaria is intact. No evidence of skull fracture. CONCLUSION: 1. No focal or acute intracranial hemorrhage. 2. Stable examination compared to the prior study with an area of encephalomalacia in the left poste rior parietal lobe consistent with an old area of infarction. Electronically signed by: Cholo Camarillo MD 03/04/2018 10:52 AM EDT
--- NOTE | 2018-03-04 12:09 | ECG ---
Date Performed: 03/04/2018 Time Performed: 09:20:24 PTAGE: 82 years EKG: Sinus rhythm WITH FREQUENT SUPRAVENTRICULAR PREMATURE COMPLEXES ST DEVIATION AND MARKED T-WAVE ABNORMALITY, CONSI TEO ANTEROLATERAL ISCHEMIA ST DEVIATION AND MODERATE T-WAVE ABNORMALITY, CONSIDER INFERIOR ISCHEMIA A BNORMAL ECG PREVIOUS TRACING : 02/06/2018 07.54 DOCTOR: Mario Fowler Interpretating Date/Time 03/04/2018 12:08:14
--- NOTE | 2018-03-04 13:43 | P.HPIM ---
History of Present Illness Primary Care Physician: Anton Child MD Chief Complaint: altered mental status. History of Present Illness: patient is a 82 y/o female with history of intracranial hemorrhage a few months ago,with right-sided weakness, CAD,VT, currently under hospice service, was brought to ER with altered mental status. information was obtained from the daughter at the bedside. she says that while she was taking her mother to the doctor's office this morning, she suddenly became unresponsive. she didn't report any chest pain, sob, dizziness. she says she noticed that her mother was drooling at the time and wasn't able to respond. it took about twenty minutes before she went back to her baseline. there was no report of seizure-type activity or urinary incontinence. - Diagnosis (1) Unresponsive episode (2) CAD (coronary artery disease) (3) Acute UTI (4) Anemia (5) LFT elevation Review of Systems All other systems reviewed negative except as stated in HPI PMFSH - History History Provided By: Family Member - Medical History Medical History: Medical History (Last Reviewed 03/04/18 @ 10:18 by Lupillo Godinez) CVA (cerebral vascular accident) Femoral artery stenosis, left HTN (hypertension) High cholesterol - Tobacco History Smoking Status: Never smoker - Alcohol History How Often Do You Have a Drink Containing Alcohol: Never - Substance Use History Substance History: No History of Abuse - Travel History Recent Travel in the [place] Within the Last 8 Weeks: No Recent Travel Out of the Country Within the Last 8 Weeks: No - Immunization History Tetanus Immunization: Unsure Hx Influenza Vaccine This Season: No Medications and Allergies Active Medications: Active Medications Ceftriaxone Sodium 1,000 mg/ (Sodium Chloride) 100 mls @ 200 mls/hr IV.SIG ONCE ONE Stop: 03/04/18 13:28 Sodium Chloride (Ns Inj) 1,000 mls @ 84 mls/hr IV.CONT .[id number] ROSEANNE Sodium Chloride (Ns Flush) 2 ml IV.FLUSH UNSCH PRN PRN Reason: FLUSH AFTER USING IV ACCESS Allergies Allergy/AdvReac Type Severity Reaction Status Date / Time No Known Allergies Allergy Unverified 03/04/18 14:22 Home Medications Medication Instructions Recorded Confirmed Type Lactobacillus rhamnosus GG 1 cap PO BID 03/04/18 03/04/18 History [Culturelle] acetaminophen 650 mg PO Q6HR 03/04/18 03/04/18 History amiodarone 200 mg PO DAILY 03/04/18 03/04/18 History aspirin 81 mg PO DAILY 03/04/18 03/04/18 History atorvastatin 40 mg PO DAILY 03/04/18 03/04/18 History bisacodyl 10 mg ME DAILY PRN 03/04/18 03/04/18 History ferrous sulfate [iron] 325 mg PO DAILY 03/04/18 03/04/18 History ipratropium-albuterol 3 ml INHALATION DAILY 03/04/18 03/04/18 History lorazepam 1 mg PO PRN 03/04/18 03/04/18 History magnesium hydroxide [Milk of 5 ml PO DAILY PRN 03/04/18 03/04/18 History Magnesia] metoprolol tartrate 12.5 mg PO BID 03/04/18 03/04/18 History omeprazole 20 mg PO DAILY 03/04/18 03/04/18 History prednisone 5 mg PO DAILY 03/04/18 03/04/18 History sertraline 50 mg PO DAILY 03/04/18 03/04/18 History sodium phosphates [Fleet Enema] 59 ml ME DAILY 03/04/18 03/04/18 History zinc oxide 1 applic TOPICAL TID 03/04/18 03/04/18 History Exam Vital signs: Vital Signs 03/04/18 09:19 03/04/18 09:26 03/04/18 12:38 Temperature 98.5 F Pulse Rate 64 69 65 Respiratory Rate 19 18 Blood Pressure 122/56 L 146/68 H Pulse Oximetry 96 100 98 Intake & Output 03/03/18 03/04/18 03/04/18 18:59 06:59 18:59 Output Total 400 / 400 Balance -400 / -400 Output: Urine Amount (Catheter) 400 / 400 Straight 400 / 400 - Constitutional no acute distress - Routine HEENT Exam Head: Present: normocephalic - Routine Neck Exam Present: supple - Routine Respiratory Exam Present: CTA bilaterally - Routine Cardiovascular Exam Present: RRR - Routine Abdominal Exam Present: soft - Routine Extremities Exam Comments: no pedal edema. - Routine Neurological Exam Present: alert (right-sided weakness.) Results - Labs CBC & Chem 7: 03/04/18 09:27 03/04/18 09:27 Labs: Short CBC 03/04/18 Range/Units 09:27 WBC 9.4 (4.0-11.0) th/mm3 Hgb 9.8 L (11.6-15.3) gm/dL Hct 29.6 L (35.0-46.0) % Plt Count 398 (150-450) th/mm3 BMP 03/04/18 09:27 Sodium 140 Potassium 3.5 Chloride 101 Carbon Dioxide 29.1 BUN 17 Creatinine 0.77 Calcium 8.9 Cardiac Enzymes 03/04/18 03/04/18 Range/Units 09:27 09:27 Total Creatine Kinase 75 (26-192) U/L Troponin I Cancelled Less than 0.02 L Liver Function 03/04/18 Range/Units 09:27 Total Bilirubin 0.3 (0.2-1.0) mg/dL AST 75 H (15-37) U/L ALT 59 H (10-53) U/L Alkaline Phosphatase 102 (45-117) U/L Albumin 2.3 L (3.4-5.0) g/dL Urine 03/04/18 Range/Units 09:44 Urine Color Sherine (Yellw/Straw) Urine Clarity Cloudy H (Clear) Urine pH 5.0 (5.0-8.5) Ur Specific [place] 1.016 (1.002-1.035) Urine Protein Negative (Neg-Trace) mg/dL Urine Glucose (UA) Negative (Negative) mg/dL - Imaging Impressions Head CT 03/04/18 09:21 CONCLUSION: 1. No focal or acute intracranial hemorrhage. 2. Stable examination compared to the prior study with an area of encephalomalacia in the left posterior parietal lobe consistent with an old area of infarction. Chest X-Ray 03/04/18 09:22 CONCLUSION: No acute intrathoracic disease. No significant changes. Caprini VTE Risk Assessment Caprini VTE Risk Assessment: Moderate/High Risk (score >= 2) Caprini Risk Assessment Model: Point Value = 1 Point Value = 2 Point Value = 3 Point Value = 5 Age 41-60 Minor surgery BMI > 25 kg/m2 Swollen legs Varicose veins or History of unexplained or recurrent spontaneous Oral contraceptives or hormone replacement Sepsis (< 1 month) Serious lung disease, including pneumonia (< 1 month) Abnormal pulmonary function Acute myocardial infarction Congestive heart failure (< 1 month) History of inflammatory bowel disease Medical patient at bed rest Age 61-74 Arthroscopic surgery Major open surgery (> 45 min) Laparoscopic surgery (> 45 min) Malignancy Confined to bed (> 72 hours) Immobilizing plaster cast Central venous access Age >= 75 History of VTE Family history of VTE Factor V Leiden Prothrombin [id number] Lupus anticoagulant Anticardiolipin antibodies Elevated serum homocysteine Heparin-induced thrombocytopenia Other congenital or acquired thrombophilia Stroke (< 1 month) Elective arthroplasty Hip, pelvis, or leg fracture Acute spinal cord injury (< 1 month) Prophylaxis Regimen: Total Risk Factor Score Risk Level Prophylaxis Regimen 0-1 Low Early ambulation 2 Moderate Order ONE of the following: *Sequential Compression Device (SCD) *Heparin 5000 units SQ BID 3-4 Higher Order ONE of the following medications: *Heparin 5000 units SQ TID *Enoxaparin/Lovenox 40 mg SQ daily (WT < 150 kg, CrCl > 30 mL/min) *Enoxaparin/Lovenox 30 mg SQ daily (WT < 150 kg, CrCl > 10-29 mL/min) *Enoxaparin/Lovenox 30 mg SQ BID (WT < 150 kg, CrCl > 30 mL/min) AND/OR *Sequential Compression Device (SCD) 5 or more Highest Order ONE of the following medications: *Heparin 5000 units SQ TID (Preferred with Epidurals) *Enoxaparin/Lovenox 40 mg SQ daily (WT < 150 kg, CrCl > 30 mL/min) *Enoxaparin/Lovenox 30 mg SQ daily (WT < 150 kg, CrCl > 10-29 mL/min) *Enoxaparin/Lovenox 30 mg SQ BID (WT < 150 kg, CrCl > 30 mL/min) AND *Sequential Compression Device (SCD) Assessment and Plan - Assessment (1) Unresponsive episode Code(s): R41.89 - Other symptoms and signs involving cognitive functions and awareness Status: Acute Plan: with history of intracranial hemorrhage few months ago- seizure vs TIA- observe on telemetry- continue with neuro-checks- will consult neurology and ST. of note had EEG last month with encephalopathy and also had carotid doppler with no significant stenosis. 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 echo last month with EF 45%, aortic sclerosis and moderate tricuspid and mitral regurgitation. (3) Acute UTI Code(s): N39.0 - Urinary tract infection, site not specified Status: Acute Plan: continue IV Rocephin- will follow the UC and adjust the antibiotic regimen accordingly. (4) Anemia Code(s): D64.9 - Anemia, unspecified Status: Acute Plan: of chronic disease- stable- continue iron supplement. (5) LFT elevation Code(s): R94.5 - Abnormal results of liver function studies Status: Acute Plan: hold statin for now- will monitor. - Plan Code Status: DNR per my d/w the daughter. Discussed Condition With: ER physician and the patient/ her family. Discharge Planning: patient is currently under hospice service- will consult Hospice for f/u.
[2018-03-04] MEDS: Sod Chloride 0.9% Inj 1,000 ML IV.CONT SCH (14:10)
--- NOTE | 2018-03-04 16:43 | MB ---
cc: Anton Hermosillo MD DATE: 03/04/2018 HISTORY OF PRESENT ILLNESS: An 82-year-old right-handed woman. She saw Dr. Montgomery on 02/06/2018. Recent hemorrhagic left hemisphere stroke. She is in a long-term, became unresponsive, was confused and disoriented. She had the stroke in 10/2017. History of cardiac arrhythmia, hypertension, seizures, depression, GERD. She was not on a seizure medication at that time. She was on Zoloft. CT showed left parietal encephalomalacia. Carotid ultrasound was negative. He recommended an MRI. An EEG was performed and was negative. She was subsequently discharged in short order. Troponin was elevated to as high as 2. T-wave inversions. The patient was started on heparin. Cardiology was consulted. She had runs of ventricular fibrillation. She was a DNR. They thought about hospice. Apparently, she was discharged to hospice. MRI of the brain was never performed. I reviewed the CT from that time. Unfortunately, those films will not download. I did get to look at the CT from October. It looked like it could have been a primary hemorrhage, not necessarily a hemorrhagic infarct. She never did have an MRI of the brain done in the past. She evidently had an episode of syncope. The patient felt hot all over before passing out, had a blank stare that lasted 10 minutes sitting in the car on the way to a dental appointment. REVIEW OF SYSTEMS: Really unable to get. She is not aphasic, but there appears to be possibly some dementia. MEDICATIONS AT HOME: She is on atorvastatin, 82 of aspirin, prednisone 5 mg a day, acetaminophen, Ativan 1 mg p.r.n., Zoloft 50 a day, amiodarone, metoprolol, omeprazole. PHYSICAL EXAMINATION: VITAL SIGNS: Heart rate 65, respirations 18, blood pressure 146/68-157/100. NECK: There were no carotid bruits. HEART: Regular rate and rhythm. I do not detect a murmur. NEUROLOGIC: Visual lamb appear a little bit restricted over to the right. Her face is symmetric. Tongue was midline. She moves the left upper extremity better than the right. She seems to have some discomfort in the right upper extremity. She just wiggle her feet for me. She would not really follow any commands. The toes are equivocal bilaterally. She is awake and alert. She could name my glasses, but had some trouble with repetition. She did not know the month or the year. Has some expressive aphasia. LABORATORY DATA: CBC shows a hematocrit of 29, otherwise normal. Alcohol level was negative. UA: Large amount of leukocyte esterase, 38, white cells. Basic metabolic profile essentially normal. LFTs are mildly elevated. Troponins negative. Coags normal. CT of the brain shows old areas where the hemorrhage was. EKG shows sinus rhythm, but some T-wave inversions which are large. IMPRESSION AND RECOMMENDATIONS: Old left parietal hemorrhage. Possibly she has been having seizures and we are going to put her on Keppra. We could check an MRI of the brain. I am not sure what her hospice status is or not. It looks like she had a recent myocardial infarction. She has had some ventricular fibrillation. Continue on her aspirin for now with the recent hemorrhage. Overall, I thought she looked probably similar to her baseline at this time. You should treat her urinary tract infection. For the syncopal episode, I recommend you could have cardiology see her ,maybe check some standing BP. Certainly with the ventricular tachycardia she has had in the past, that could have caused her to pass out if she has major cardiac arrhythmias that needs to be looked into. MD HEIDI Ruff/ANGELY , 04:13 PM , 04:42 PM
[2018-03-04] MEDS: levETIRAcetam 500 MG Tablet PO SCH ×2 (17:38→21:19)
[2018-03-04] MEDS ORDERED: Non-Formulary Drug (Lactobacillus Rhamnosus Gg [Culturelle] 1 CAP) PO SCH (21:00)
[2018-03-04] MEDS: Metoprolol Tartrate 25 MG Tablet PO SCH (21:19)
[2018-03-04] MEDS ORDERED: Gadobutrol PF 10 MMOL/10 ML Vial (for RAD) IV.SIG ONE (22:54)
--- NOTE | 2018-03-04 23:30 | MR ---
EXAM DATE: 03/04/2018 11:00 PM EDT AGE/SEX: 82 years / Female INDICATIONS: CVA. CLINICAL DATA: This is the patient's initial encounter. Patient reports that signs and symptoms have been present for 1 day and indicates a pain score of 0/10. MEDICAL/SURGICAL HISTORY: Stroke. HTN, Femoral Artery Stenosis . Stent COMPARISON: C, CT BRAIN W/O CONTRAST, 11/04/2017. C, CT BRAIN W/O CONTRAST, 02/05/2018. C, CT HEAD W/O CONTRAST, 03/04/2018. . TECHNIQUE: Multiplanar, multisequence examination of the brain was performed without and with 9 ml Ga davist (gadobutrol) contrast as a single exam dose. FINDINGS: Cerebrum: CT had demonstrated abnormality in the left posterior parietal region. MRI demonstrates si gnal abnormality in the left MCA [employer] watershed zone with serpiginous areas of absent signal on T2-roopa ghted scan and correlating areas of T1 prolongation. The appearance is consistent with chronic blood products including hemosiderin-laden macrophages. There is surrounding encephalomalacic area. The nicole earance is characteristic of chronic blood products. Prior CT in October 2017 had demonstrated a hemato ma in this area. White Matter: No significant signal abnormalities are seen in the white matter. Posterior Fossa: The cerebellum and brainstem are intact. The 4th ventricle is midline. The cerebel lopontine angle is unremarkable. The cerebellar tonsils are normal in position. Diffusion Imaging: No focal areas of restricted diffusion are seen. No evidence of acute infarction . Extracranial: The visualized portions of the orbits and paranasal sinuses are unremarkable. Post Contrast: No abnormal areas of parenchymal or dural enhancement. No evidence of blood-brain ba rrier breakdown. CONCLUSION: 1. No acute findings in the brain. 2. Chronic blood products at site of prior left parietal hematoma. Electronically signed by: Osmel Cantu MD 03/04/2018 11:29 PM EDT
[2018-03-05] MEDS: Sod Chloride 0.9% Inj 1,000 ML IV.CONT SCH ×2 (03:34→15:23)
[2018-03-05 06:33] LABS: Alanine Aminotransferase 45 U/L (10-53)
[2018-03-05 06:35] LABS: Alkaline Phosphatase 95 U/L (45-117); Total Protein 6.8 g/dL (6.4-8.2)
[2018-03-05 06:38] LABS: Albumin 2.3 g/dL (3.4-5.0); Anion Gap 7 meq/L (5-15); Aspartate Aminotransferase 41 U/L (15-37); Blood Urea Nitrogen 13 mg/dL (7-18); Calcium 8.5 mg/dL (8.5-10.1); Carbon Dioxide 33.3 meq/L (21.0-32.0); Chloride 103 meq/L (98-107); Glomerular Filtration Rate Greater Than 89 mL/min (>89); Glucose,Random 63 mg/dL (74-106); Sodium 143 meq/L (136-145)
[2018-03-05 06:39] LABS: Potassium 3.2 meq/L (3.5-5.1)
--- NOTE | 2018-03-05 08:07 | P.PNNEU ---
Subjective Subjective Comments: afib acc to nursing Active Medications: Active Medications Albuterol (Albuterol Neb (Prn)) 0.63 mg NEB Q6HR NEB PRN PRN Reason: sob Amiodarone HCl (Cordarone) 200 mg PO DAILY [facility] Aspirin (Aspirin Chew) 81 mg PO DAILY [facility] Ferrous Sulfate (Ferosul) 325 mg PO DAILY [facility] Sodium Chloride (Ns Inj) 1,000 mls @ 84 mls/hr IV.CONT .[id number] [facility] Last Admin: 03/05/18 03:34 Dose: 84 mls/hr Ceftriaxone Sodium 1,000 mg/ (Sodium Chloride) 100 mls @ 200 mls/hr IV.SIG Q24H [facility] Levetiracetam (Keppra) 500 mg PO BID [facility] Last Admin: 03/04/18 21:19 Dose: 500 mg Metoprolol Tartrate (Lopressor) 12.5 mg PO BID [facility] Last Admin: 03/04/18 21:19 Dose: 12.5 mg Pantoprazole Sodium (Protonix) 20 mg PO DAILY [facility] Prednisone (Deltasone) 5 mg PO DAILY [facility] Sertraline HCl (Zoloft) 50 mg PO DAILY [facility] Sodium Chloride (Ns Flush) 2 ml IV.FLUSH UNSCH PRN PRN Reason: FLUSH AFTER USING IV ACCESS Allergies/Adverse Reactions: Allergies Allergy/AdvReac Type Severity Reaction Status Date / Time No Known Allergies Allergy Unverified 03/04/18 14:22 Physical Exam Vital signs: Vital Signs 03/04/18 09:19 03/04/18 09:26 03/04/18 12:38 Temperature 98.5 F Pulse Rate 64 69 65 Respiratory Rate 19 18 Blood Pressure 122/56 L 146/68 H Pulse Oximetry 96 100 98 03/04/18 14:40 03/04/18 17:45 03/04/18 18:00 Temperature Pulse Rate 67 66 69 Respiratory Rate 19 18 Blood Pressure 157/100 H 128/64 Pulse Oximetry 98 99 03/04/18 18:15 03/04/18 19:00 03/04/18 20:00 Temperature 98.5 F Pulse Rate 72 68 66 Respiratory Rate 20 Blood Pressure 128/73 Pulse Oximetry 99 03/04/18 20:40 03/04/18 21:00 03/04/18 22:00 Temperature 99.1 F Pulse Rate 65 62 58 L Respiratory Rate 18 Blood Pressure 139/79 Pulse Oximetry 97 03/04/18 23:00 03/05/18 00:00 03/05/18 01:00 Temperature 98.4 F Pulse Rate 68 54 L 54 L Respiratory Rate 19 Blood Pressure 123/74 Pulse Oximetry 100 03/05/18 02:00 03/05/18 03:00 03/05/18 03:16 Temperature 98.4 F Pulse Rate 64 60 65 Respiratory Rate 18 Blood Pressure 107/54 L Pulse Oximetry 100 03/05/18 04:00 03/05/18 05:00 03/05/18 06:00 Temperature Pulse Rate 54 L 56 L 67 Respiratory Rate Blood Pressure Pulse Oximetry 03/05/18 07:00 Temperature Pulse Rate 61 Respiratory Rate Blood Pressure Pulse Oximetry Intake & Output 03/04/18 03/05/18 03/05/18 18:59 06:59 18:59 Intake Total 100 / 100 1020 / 1020 Output Total 740 / 740 100 / 100 Balance -640 / -640 920 / 920 Weight 89 kg Intake: IV 100 / 100 1000 / 1000 NS Inj 1,000 ML @ 84 mls/hr IV. 1000 / 1000 CONT .[id number] [facility] Rx#:[id number] Oral 20 / 20 Output: Urine 100 / 100 Urine Amount (Catheter) 740 / 740 Straight 740 / 740 Other: # Voids 1 Narrative: awake alert mild aphasia - Urinary Catheter Management Straight Cath placed during this visit: no Objective Laboratory Results - last 24 hr 03/04/18 03/04/18 03/04/18 09:27 09:27 09:27 WBC 9.4 RBC 3.42 L Hgb 9.8 L Hct 29.6 L MCV 86.5 MCH 28.5 MCHC 33.0 RDW 20.1 H Plt Count 398 MPV 8.1 Neut % (Auto) 60.6 Lymph % (Auto) 28.0 [place] % (Auto) 6.9 Eos % (Auto) 3.6 Baso % (Auto) 0.9 Neut # (Auto) 5.7 Lymph # (Auto) 2.6 [place] # (Auto) 0.7 Eos # (Auto) 0.3 Baso # (Auto) 0.1 WBC Differential . Differential Comment Auto diff final PT INR APTT Sodium Potassium Chloride Carbon Dioxide Anion Gap BUN Creatinine Estimated GFR Random Glucose Calcium Total Bilirubin AST ALT Alkaline Phosphatase Total Creatine Kinase Troponin I B-Natriuretic Peptide 37 Total Protein Albumin Lipase Cancelled Vitamin B12 TSH Urine Color Urine Clarity Urine pH Ur Specific [place] Urine Protein Urine Glucose (UA) Urine Ketones Urine Occult Blood Urine Nitrate Urine Bilirubin Urine Urobilinogen Ur Leukocyte Esterase Urine RBC Urine WBC Urine WBC Clumps Ur Squamous Epith Cells Urine Bacteria Hyaline Casts Urine Mucus Micro UA Comment Urine Culture Comments Serum Alcohol Cancelled 03/04/18 03/04/18 03/04/18 09:27 09:27 09:27 WBC RBC Hgb Hct MCV MCH MCHC RDW Plt Count MPV Neut % (Auto) Lymph % (Auto) [place] % (Auto) Eos % (Auto) Baso % (Auto) Neut # (Auto) Lymph # (Auto) [place] # (Auto) Eos # (Auto) Baso # (Auto) WBC Differential Differential Comment PT 11.3 INR 1.1 APTT 23.9 L Sodium 140 Potassium 3.5 Chloride 101 Carbon Dioxide 29.1 Anion Gap 10 BUN 17 Creatinine 0.77 Estimated GFR 87 L Random Glucose 105 Calcium 8.9 Total Bilirubin 0.3 AST 75 H ALT 59 H Alkaline Phosphatase 102 Total Creatine Kinase 75 Troponin I Cancelled Less than 0.02 L B-Natriuretic Peptide Total Protein 7.2 Albumin 2.3 L Lipase 78 Vitamin B12 TSH Urine Color Urine Clarity Urine pH Ur Specific [place] Urine Protein Urine Glucose (UA) Urine Ketones Urine Occult Blood Urine Nitrate Urine Bilirubin Urine Urobilinogen Ur Leukocyte Esterase Urine RBC Urine WBC Urine WBC Clumps Ur Squamous Epith Cells Urine Bacteria Hyaline Casts Urine Mucus Micro UA Comment Urine Culture Comments Serum Alcohol Less than 3 03/04/18 03/04/18 03/04/18 09:44 13:30 13:30 WBC RBC Hgb Hct MCV MCH MCHC RDW Plt Count MPV Neut % (Auto) Lymph % (Auto) [place] % (Auto) Eos % (Auto) Baso % (Auto) Neut # (Auto) Lymph # (Auto) [place] # (Auto) Eos # (Auto) Baso # (Auto) WBC Differential Differential Comment PT INR APTT Sodium Potassium Chloride Carbon Dioxide Anion Gap BUN Creatinine Estimated GFR Random Glucose Calcium Total Bilirubin AST ALT Alkaline Phosphatase Total Creatine Kinase Troponin I Less than 0.02 L B-Natriuretic Peptide Total Protein Albumin Lipase Vitamin B12 731 TSH Urine Color [place] Urine Clarity Cloudy H Urine pH 5.0 Ur Specific [place] 1.016 Urine Protein Negative Urine Glucose (UA) Negative Urine Ketones Negative Urine Occult Blood Negative Urine Nitrate Negative Urine Bilirubin Negative Urine Urobilinogen 2.0 H Ur Leukocyte Esterase Large H Urine RBC 1 Urine WBC 38 H Urine WBC Clumps Few H Ur Squamous Epith Cells <1 Urine Bacteria Moderate H Hyaline Casts 15 Urine Mucus Few H Micro UA Comment Cath-culture ind Urine Culture Comments Cath-cult indicated Serum Alcohol 03/04/18 03/04/18 03/05/18 13:30 17:00 05:21 WBC RBC Hgb Hct MCV MCH MCHC RDW Plt Count MPV Neut % (Auto) Lymph % (Auto) [place] % (Auto) Eos % (Auto) Baso % (Auto) Neut # (Auto) Lymph # (Auto) [place] # (Auto) Eos # (Auto) Baso # (Auto) WBC Differential Differential Comment PT INR APTT Sodium 143 Potassium 3.2 L Chloride 103 Carbon Dioxide 33.3 H Anion Gap 7 BUN 13 Creatinine 0.67 Estimated GFR Greater than 89 Random Glucose 63 L Calcium 8.5 Total Bilirubin 0.3 AST 41 H ALT 45 Alkaline Phosphatase 95 Total Creatine Kinase Troponin I Less than 0.02 L B-Natriuretic Peptide Total Protein 6.8 Albumin 2.3 L Lipase Vitamin B12 TSH 1.800 Urine Color Urine Clarity Urine pH Ur Specific [place] Urine Protein Urine Glucose (UA) Urine Ketones Urine Occult Blood Urine Nitrate Urine Bilirubin Urine Urobilinogen Ur Leukocyte Esterase Urine RBC Urine WBC Urine WBC Clumps Ur Squamous Epith Cells Urine Bacteria Hyaline Casts Urine Mucus Micro UA Comment Urine Culture Comments Serum Alcohol Review/Management - Review/Management Plan: imp mri neg new large left ich prior afib and some VT in past consider cards was hospice uti rx check standing bp possible sz fu eeg on keppra stable neuro and could dc neurowise if eeg ok and standing bp ok
[2018-03-05] MEDS: levETIRAcetam 500 MG Tablet PO SCH (08:54)
[2018-03-05] MEDS: Metoprolol Tartrate 25 MG Tablet PO SCH (08:57)
[2018-03-05] MEDS ORDERED: Amiodarone 200 MG Tablet PO SCH (09:00)
[2018-03-05] MEDS ORDERED: Sertraline 50 MG Tablet PO SCH (09:00)
[2018-03-05] MEDS ORDERED: Pantoprazole Sodium 20 MG DR Tablet PO SCH (09:00)
[2018-03-05] MEDS ORDERED: predniSONE 5 MG Tablet PO SCH (09:00)
[2018-03-05] MEDS ORDERED: Ferrous Sulfate 325 MG Tablet PO SCH (09:00)
--- NOTE | 2018-03-05 09:02 | P.PNIM ---
Subjective Interval history: in no acute distress. resting comfortably with no pain or dizziness. no acute issues over night. d/w the RN. Physical Exam Vital signs: Vital Signs 03/04/18 09:19 03/04/18 09:26 03/04/18 12:38 Temperature 98.5 F Pulse Rate 64 69 65 Respiratory Rate 19 18 Blood Pressure 122/56 L 146/68 H Pulse Oximetry 96 100 98 03/04/18 14:40 03/04/18 17:45 03/04/18 18:00 Temperature Pulse Rate 67 66 69 Respiratory Rate 19 18 Blood Pressure 157/100 H 128/64 Pulse Oximetry 98 99 03/04/18 18:15 03/04/18 19:00 03/04/18 20:00 Temperature 98.5 F Pulse Rate 72 68 66 Respiratory Rate 20 Blood Pressure 128/73 Pulse Oximetry 99 03/04/18 20:40 03/04/18 21:00 03/04/18 22:00 Temperature 99.1 F Pulse Rate 65 62 58 L Respiratory Rate 18 Blood Pressure 139/79 Pulse Oximetry 97 03/04/18 23:00 03/05/18 00:00 03/05/18 01:00 Temperature 98.4 F Pulse Rate 68 54 L 54 L Respiratory Rate 19 Blood Pressure 123/74 Pulse Oximetry 100 03/05/18 02:00 03/05/18 03:00 03/05/18 03:16 Temperature 98.4 F Pulse Rate 64 60 65 Respiratory Rate 18 Blood Pressure 107/54 L Pulse Oximetry 100 03/05/18 04:00 03/05/18 05:00 03/05/18 06:00 Temperature Pulse Rate 54 L 56 L 67 Respiratory Rate Blood Pressure Pulse Oximetry 03/05/18 07:00 03/05/18 08:00 Temperature 98.2 F Pulse Rate 59 L Respiratory Rate 17 Blood Pressure 126/65 Pulse Oximetry 98 99 Intake & Output 03/04/18 03/05/18 03/05/18 18:59 06:59 18:59 Intake Total 100 / 100 1020 / 1020 Output Total 740 / 740 100 / 100 Balance -640 / -640 920 / 920 Weight 89 kg Intake: IV 100 / 100 1000 / 1000 NS Inj 1,000 ML @ 84 mls/hr IV. 1000 / 1000 CONT .[id number] [facility] Rx#:[id number] Oral Output: Urine 100 / 100 Urine Amount (Catheter) 740 / 740 Straight 740 / 740 Other: # Voids 1 - Constitutional no acute distress - Routine Neck Exam Present: supple - Routine Respiratory Exam Present: CTA bilaterally - Routine Cardiovascular Exam Present: RRR - Routine Abdominal Exam Present: soft - Routine Extremities Exam Comments: no pedal edema. - Routine Neurological Exam Present: alert - Urinary Catheter Management Straight Cath placed during this visit: no Results - Labs CBC & Chem 7: 03/04/18 09:27 03/05/18 05:21 Laboratory Results - last 24 hr 03/04/18 03/04/18 03/04/18 09:27 09:27 09:27 WBC 9.4 RBC 3.42 L Hgb 9.8 L Hct 29.6 L MCV 86.5 MCH 28.5 MCHC 33.0 RDW 20.1 H Plt Count 398 MPV 8.1 Neut % (Auto) 60.6 Lymph % (Auto) 28.0 [place] % (Auto) 6.9 Eos % (Auto) 3.6 Baso % (Auto) 0.9 Neut # (Auto) 5.7 Lymph # (Auto) 2.6 [place] # (Auto) 0.7 Eos # (Auto) 0.3 Baso # (Auto) 0.1 WBC Differential . Differential Comment Auto diff final PT INR APTT Sodium Potassium Chloride Carbon Dioxide Anion Gap BUN Creatinine Estimated GFR Random Glucose Calcium Total Bilirubin AST ALT Alkaline Phosphatase Total Creatine Kinase Troponin I B-Natriuretic Peptide 37 Total Protein Albumin Lipase Cancelled Vitamin B12 TSH Urine Color Urine Clarity Urine pH Ur Specific [place] Urine Protein Urine Glucose (UA) Urine Ketones Urine Occult Blood Urine Nitrate Urine Bilirubin Urine Urobilinogen Ur Leukocyte Esterase Urine RBC Urine WBC Urine WBC Clumps Ur Squamous Epith Cells Urine Bacteria Hyaline Casts Urine Mucus Micro UA Comment Urine Culture Comments Serum Alcohol Cancelled 03/04/18 03/04/18 03/04/18 09:27 09:27 09:27 WBC RBC Hgb Hct MCV MCH MCHC RDW Plt Count MPV Neut % (Auto) Lymph % (Auto) [place] % (Auto) Eos % (Auto) Baso % (Auto) Neut # (Auto) Lymph # (Auto) [place] # (Auto) Eos # (Auto) Baso # (Auto) WBC Differential Differential Comment PT 11.3 INR 1.1 APTT 23.9 L Sodium 140 Potassium 3.5 Chloride 101 Carbon Dioxide 29.1 Anion Gap 10 BUN 17 Creatinine 0.77 Estimated GFR 87 L Random Glucose 105 Calcium 8.9 Total Bilirubin 0.3 AST 75 H ALT 59 H Alkaline Phosphatase 102 Total Creatine Kinase 75 Troponin I Cancelled Less than 0.02 L B-Natriuretic Peptide Total Protein 7.2 Albumin 2.3 L Lipase 78 Vitamin B12 TSH Urine Color Urine Clarity Urine pH Ur Specific [place] Urine Protein Urine Glucose (UA) Urine Ketones Urine Occult Blood Urine Nitrate Urine Bilirubin Urine Urobilinogen Ur Leukocyte Esterase Urine RBC Urine WBC Urine WBC Clumps Ur Squamous Epith Cells Urine Bacteria Hyaline Casts Urine Mucus Micro UA Comment Urine Culture Comments Serum Alcohol Less than 3 03/04/18 03/04/18 03/04/18 09:44 13:30 13:30 WBC RBC Hgb Hct MCV MCH MCHC RDW Plt Count MPV Neut % (Auto) Lymph % (Auto) [place] % (Auto) Eos % (Auto) Baso % (Auto) Neut # (Auto) Lymph # (Auto) [place] # (Auto) Eos # (Auto) Baso # (Auto) WBC Differential Differential Comment PT INR APTT Sodium Potassium Chloride Carbon Dioxide Anion Gap BUN Creatinine Estimated GFR Random Glucose Calcium Total Bilirubin AST ALT Alkaline Phosphatase Total Creatine Kinase Troponin I Less than 0.02 L B-Natriuretic Peptide Total Protein Albumin Lipase Vitamin B12 731 TSH Urine Color [place] Urine Clarity Cloudy H Urine pH 5.0 Ur Specific [place] 1.016 Urine Protein Negative Urine Glucose (UA) Negative Urine Ketones Negative Urine Occult Blood Negative Urine Nitrate Negative Urine Bilirubin Negative Urine Urobilinogen 2.0 H Ur Leukocyte Esterase Large H Urine RBC 1 Urine WBC 38 H Urine WBC Clumps Few H Ur Squamous Epith Cells <1 Urine Bacteria Moderate H Hyaline Casts 15 Urine Mucus Few H Micro UA Comment Cath-culture ind Urine Culture Comments Cath-cult indicated Serum Alcohol 03/04/18 03/04/18 03/05/18 13:30 17:00 05:21 WBC RBC Hgb Hct MCV MCH MCHC RDW Plt Count MPV Neut % (Auto) Lymph % (Auto) [place] % (Auto) Eos % (Auto) Baso % (Auto) Neut # (Auto) Lymph # (Auto) [place] # (Auto) Eos # (Auto) Baso # (Auto) WBC Differential Differential Comment PT INR APTT Sodium 143 Potassium 3.2 L Chloride 103 Carbon Dioxide 33.3 H Anion Gap 7 BUN 13 Creatinine 0.67 Estimated GFR Greater than 89 Random Glucose 63 L Calcium 8.5 Total Bilirubin 0.3 AST 41 H ALT 45 Alkaline Phosphatase 95 Total Creatine Kinase Troponin I Less than 0.02 L B-Natriuretic Peptide Total Protein 6.8 Albumin 2.3 L Lipase Vitamin B12 TSH 1.800 Urine Color Urine Clarity Urine pH Ur Specific [place] Urine Protein Urine Glucose (UA) Urine Ketones Urine Occult Blood Urine Nitrate Urine Bilirubin Urine Urobilinogen Ur Leukocyte Esterase Urine RBC Urine WBC Urine WBC Clumps Ur Squamous Epith Cells Urine Bacteria Hyaline Casts Urine Mucus Micro UA Comment Urine Culture Comments Serum Alcohol - Imaging Impressions Head MRI 03/04/18 00:00 CONCLUSION: 1. No acute findings in the brain. 2. Chronic blood products at site of prior left parietal hematoma. Head CT 03/04/18 09:21 CONCLUSION: 1. No focal or acute intracranial hemorrhage. 2. Stable examination compared to the prior study with an area of encephalomalacia in the left posterior parietal lobe consistent with an old area of infarction. Chest X-Ray 03/04/18 09:22 CONCLUSION: No acute intrathoracic disease. No significant changes. Assessment and Plan - Assessment (1) Unresponsive episode Code(s): R41.89 - Other symptoms and signs involving cognitive functions and awareness Status: Acute Plan: with history of intracranial hemorrhage few months ago- seizure vs TIA- neurology consult appreciated; started on Keppra- EEG pending. of note had EEG last month with encephalopathy and also had carotid doppler with no significant stenosis. 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 echo last month with EF 45%, aortic sclerosis and moderate tricuspid and mitral regurgitation. (3) Anemia Code(s): D64.9 - Anemia, unspecified Status: Acute Plan: of chronic disease- stable- continue iron supplement. (4) LFT elevation Code(s): R94.5 - Abnormal results of liver function studies Status: Acute Plan: hold statin for now- will monitor. (5) UTI (urinary tract infection) Code(s): N39.0 - Urinary tract infection, site not specified Status: Acute Plan: switch to po Cipro upon discharge- UC to be followed up. - Plan Discharge Planning: likely dc to SNF- with hospice- later today when EEG completed and resulted.
--- NOTE | 2018-03-05 19:29 | ECG ---
Date Performed: 03/04/2018 Time Performed: 13:44:30 PTAGE: 82 years EKG: Sinus rhythm WITH OCCASIONAL SUPRAVENTRICULAR PREMATURE COMPLEXES MARKED T-WAVE ABNORMALITY, CONSIDER ANTEROLATER AL ISCHEMIA ABNORMAL ECG PREVIOUS TRACING 03/04/2018 @ 09.20.24 Since the previous tracing, no significant change noted DOCTOR: Gray Saenz Interpretating Date/Time 03/05/2018 19:28:37
--- NOTE | 2018-03-05 19:42 | ECG ---
Date Performed: 03/04/2018 Time Performed: 17:09:26 PTAGE: 82 years EKG: ATRIAL FIBRILLATION WITH ABERRANT CONDUCTION OR VENTRICULAR PREMATURE COMPLEXES BORDERLINE LEFT AXIS DEVIATION ST DEVIATION AND MODERATE T-WAVE ABNORMALITY, CONSIDER ANTEROLATERAL ISCHEMIA ABN ORMAL ECG PREVIOUS TRACING : 03/04/2018 13.44 Atrial Fibrillation appears to be new from the prior raina hu DOCTOR: Gray Saenz Interpretating Date/Time 03/05/2018 19:41:47
--- NOTE | 2018-03-05 22:01 | MG ---
cc: Omar Palafox MD DATE OF STUDY: 03/05/2018. ELECTROENCEPHALOGRAM RECORD NUMBER: [id number]. DESCRIPTION: Asymmetric left posterior slowing, 2-4 Hz activity in the left posterior region, 5-7 Hz in the right side. Frontal myogenic artifact occurring off and on. Reduced driving with photic stimulation. Generalized slowing with transition into drowsy state, followed by stage I sleep and stage II sleep with progressive delta activity and occasional spindles. Good EEG reactivity and variability. Single-lead EKG showing sinus rhythm with premature contractions. INTERPRETATION: Asymmetric left hemispheric slowing with the absence of epileptic activity. Clinical correlation. MD MACARIO Tinoco/KYRA , 09:42 PM , 10:00 PM
== END 2018-03-05 18:51 ==
LOC: HCIS 09:07 → NEPE 09:07 → NEDA 13:10 → INTOOBSV 13:10 → HCIS 18:02
PROVIDERS: ADMIT Internal Medicine; ATTEND Internal Medicine